=== PATIENT | female | born 1990 | race Caucasian/White ===

== ENCOUNTER 2020-11-07 16:21 | Inpatient (IN) | payer MEDICAID ==
[2020-11-07] MEDS ORDERED: Sodium Chloride 0.9% 1,000 ML IV ONE (17:05)
[2020-11-07] MEDS ORDERED: Dexamethasone 10 MG/ML SDV IVPUSH ONE (17:05)
--- NOTE | 2020-11-07 17:05 | EDM.PDOC ---
<Noble Mayo - Last Filed: 11/07/20 17:29> ED HPI GENERAL MEDICAL PROBLEM - General Chief Complaint: Respiratory Problem Stated Complaint: DIFFICULTY BREATHING Time Seen by Provider: 11/07/20 17:01 Source of Information: Reports: Patient, Family History Limitations: Reports: No Limitations - History of Present Illness INITIAL COMMENTS - FREE TEXT/NARRATIVE: 30-year-old female no past medical history presents for shortness of breath in setting of likely Covid infection. Patient notes that she was exposed to family member with Covid last week. Starting roughly 5 days ago she began to experience cough, shortness of breath, chest tightness, sore throat, fevers. Shortness of breath has worsened prompting her to seek medical attention. 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 ED EXAM, GENERAL - Physical Exam Exam: See Below Exam Limited By: No Limitations General Appearance: Alert, WD/WN, Mild Distress Ears: Hearing Grossly Normal Throat/Mouth: Normal Voice, No Airway Compromise Head: Atraumatic, Normocephalic Neck: Normal Inspection Respiratory/Chest: Lungs Clear, Normal Breath Sounds, No Accessory Muscle Use, Respiratory Distress, Other (shallow respirations) Neurological: Alert Psychiatric: Normal Affect, Normal Mood Skin Exam: Warm, Dry, Intact, Normal Color Course - Re-Assessments/Exams Free Text/Narrative Re-Assessment/Exam: 11/07/20 17:04 With hypoxia in setting of likely Covid infection. Will get labs and imaging. Will give supplemental O2. 11/07/20 17:29 On 10 L oxygen patient's O2 sats only go up to high 80s. Will trial BiPAP. We do not have high flow nasal cannula available at this time. Departure - Departure Disposition: Admitted As Inpatient 66 Clinical Impression: COVID - Discharge Information Sepsis Event Note (ED) - Evaluation Sepsis Screening Result: Possible Sepsis Risk <Akil Fox - Last Filed: 11/08/20 20:17> Course - Vital Signs Last Recorded V/S: Last Vital Signs Temp 96.9 F 11/08/20 18:00 Pulse 83 11/08/20 18:56 Resp 32 H 11/08/20 18:56 BP 96/57 L 11/08/20 18:56 Pulse Ox 96 11/08/20 18:56 - Orders/Labs/Meds Orders: Active Orders 24 hr Category Date Time Status Patient Status [ADT] Routine ADT 11/07/20 23:12 Active Medication Orders Dexamethasone (Dexamethasone 4 Mg Tab) 6 mg PO Q24H [facility] Last Admin: 11/08/20 16:35 Dose: 6 mg Documented by: PRABHAKAR Enoxaparin Sodium (Enoxaparin 40 Mg/0.4 Ml Syringe) 40 mg SUBCUT Q24H [facility] Last Admin: 11/08/20 01:41 Dose: 40 mg Documented by: KATHRYN Remdesivir 100 mg/ Sodium (Chloride) 100 mls @ 100 mls/hr IV Q24H [facility] Stop: 11/11/20 21:59 Pantoprazole Sodium (Pantoprazole 40 Mg Tab.Cr) 40 mg PO BEDTIME [facility] Labs: Laboratory Tests 11/07/20 11/07/20 11/07/20 Range/Units 17:40 18:04 18:04 WBC 7.92 (4.0-11.0) K/uL RBC 4.59 (4.30-5.90) M/uL Hgb 13.2 (12.0-16.0) g/dL Hct 42.3 (36.0-46.0) % MCV 92.2 (80.0-98.0) fL MCH 28.8 (27.0-32.0) pg MCHC 31.2 (31.0-37.0) g/dL RDW Std Deviation 49.8 (28.0-62.0) fl RDW Coeff of Carson 15 (11.0-15.0) % Plt Count 270 (150-400) K/uL MPV 11.20 (7.40-12.00) fL Neut % (Auto) 80.4 H (48.0-80.0) % Lymph % (Auto) 10.1 L (16.0-40.0) % [place] % (Auto) 9.2 (0.0-15.0) % Eos % (Auto) 0.0 (0.0-7.0) % Baso % (Auto) 0.3 (0.0-1.5) % Neut # (Auto) 6.4 H (1.4-5.7) K/uL Lymph # (Auto) 0.8 (0.6-2.4) K/uL [place] # (Auto) 0.7 (0.0-0.8) K/uL Eos # (Auto) 0.0 (0.0-0.7) K/uL Baso # (Auto) 0.0 (0.0-0.1) K/uL Nucleated RBC % 0.0 /100WBC Nucleated RBCs # 0 K/uL ESR (0-19) mm/hr INR 1.16 APTT 26.9 (18.6-31.3) SEC D-Dimer, Quantitative 1.11 H (0.0-0.50) mg/L FEU ABG pH 7.40 (7.35-7.45) ABG pCO2 36 (35-45) mmHG ABG pO2 55 L (80-105) mmHG ABG HCO3 23 (22-26) mEq/L ABG Total CO2 20.3 L (23-27) mmol/L ABG Base Excess -1.7 (-2.0-3.0) Sodium (136-145) mmol/L Potassium (3.5-5.1) mmol/L Chloride (98-107) mmol/L Carbon Dioxide (21.0-32.0) mmol/L BUN (7.0-18.0) mg/dL Creatinine (0.6-1.0) mg/dL Est Cr Clr Drug Dosing Estimated GFR (MDRD) ml/min Glucose (74-106) mg/dL Lactic Acid (0.4-2.0) mmol/L Calcium (8.5-10.1) mg/dL Magnesium (1.8-2.4) mg/dL Total Bilirubin (0.2-1.0) mg/dL Direct Bilirubin (0.0-0.5) mg/dL AST (15-37) IU/L ALT (14-63) IU/L Alkaline Phosphatase (46-116) U/L Troponin I (0.000-0.056) ng/mL C-Reactive Protein (0.00-0.90) mg/dL Total Protein (6.4-8.2) g/dL Albumin (3.4-5.0) g/dL Globulin (2.6-4.0) g/dL Albumin/Globulin Ratio (0.9-1.6) SARS-CoV-2 RNA (ANTONI) (NEGATIVE) 11/07/20 11/07/20 11/07/20 Range/Units 18:04 18:04 18:04 WBC (4.0-11.0) K/uL RBC (4.30-5.90) M/uL Hgb (12.0-16.0) g/dL Hct (36.0-46.0) % MCV (80.0-98.0) fL MCH (27.0-32.0) pg MCHC (31.0-37.0) g/dL RDW Std Deviation (28.0-62.0) fl RDW Coeff of Carson (11.0-15.0) % Plt Count (150-400) K/uL MPV (7.40-12.00) fL Neut % (Auto) (48.0-80.0) % Lymph % (Auto) (16.0-40.0) % [place] % (Auto) (0.0-15.0) % Eos % (Auto) (0.0-7.0) % Baso % (Auto) (0.0-1.5) % Neut # (Auto) (1.4-5.7) K/uL Lymph # (Auto) (0.6-2.4) K/uL [place] # (Auto) (0.0-0.8) K/uL Eos # (Auto) (0.0-0.7) K/uL Baso # (Auto) (0.0-0.1) K/uL Nucleated RBC % /100WBC Nucleated RBCs # K/uL ESR 105 H (0-19) mm/hr INR APTT (18.6-31.3) SEC D-Dimer, Quantitative (0.0-0.50) mg/L FEU ABG pH (7.35-7.45) ABG pCO2 (35-45) mmHG ABG pO2 (80-105) mmHG ABG HCO3 (22-26) mEq/L ABG Total CO2 (23-27) mmol/L ABG Base Excess (-2.0-3.0) Sodium 143 (136-145) mmol/L Potassium 3.5 (3.5-5.1) mmol/L Chloride 104 (98-107) mmol/L Carbon Dioxide 25.2 (21.0-32.0) mmol/L BUN 13 (7.0-18.0) mg/dL Creatinine 0.8 (0.6-1.0) mg/dL Est Cr Clr Drug Dosing TNP Estimated GFR (MDRD) > 60.0 ml/min Glucose 88 (74-106) mg/dL Lactic Acid 1.3 (0.4-2.0) mmol/L Calcium 8.7 (8.5-10.1) mg/dL Magnesium 2.9 H (1.8-2.4) mg/dL Total Bilirubin 0.8 (0.2-1.0) mg/dL Direct Bilirubin (0.0-0.5) mg/dL AST 241 H (15-37) IU/L ALT 197 H (14-63) IU/L Alkaline Phosphatase 104 (46-116) U/L Troponin I < 0.050 (0.000-0.056) ng/mL C-Reactive Protein 16.60 H (0.00-0.90) mg/dL Total Protein 7.2 (6.4-8.2) g/dL Albumin 2.9 L (3.4-5.0) g/dL Globulin 4.3 H (2.6-4.0) g/dL Albumin/Globulin Ratio 0.7 L (0.9-1.6) SARS-CoV-2 RNA (ANTONI) (NEGATIVE) 11/07/20 11/07/20 Range/Units 19:10 21:48 WBC (4.0-11.0) K/uL RBC (4.30-5.90) M/uL Hgb (12.0-16.0) g/dL Hct (36.0-46.0) % MCV (80.0-98.0) fL MCH (27.0-32.0) pg MCHC (31.0-37.0) g/dL RDW Std Deviation (28.0-62.0) fl RDW Coeff of [place] (11.0-15.0) % Plt Count (150-400) K/uL MPV (7.40-12.00) fL Neut % (Auto) (48.0-80.0) % Lymph % (Auto) (16.0-40.0) % [place] % (Auto) (0.0-15.0) % Eos % (Auto) (0.0-7.0) % Baso % (Auto) (0.0-1.5) % Neut # (Auto) (1.4-5.7) K/uL Lymph # (Auto) (0.6-2.4) K/uL [place] # (Auto) (0.0-0.8) K/uL Eos # (Auto) (0.0-0.7) K/uL Baso # (Auto) (0.0-0.1) K/uL Nucleated RBC % /100WBC Nucleated RBCs # K/uL ESR (0-19) mm/hr INR APTT (18.6-31.3) SEC D-Dimer, Quantitative (0.0-0.50) mg/L FEU ABG pH (7.35-7.45) ABG pCO2 (35-45) mmHG ABG pO2 (80-105) mmHG ABG HCO3 (22-26) mEq/L ABG Total CO2 (23-27) mmol/L ABG Base Excess (-2.0-3.0) Sodium 143 (136-145) mmol/L Potassium 4.5 (3.5-5.1) mmol/L Chloride 107 (98-107) mmol/L Carbon Dioxide 27.2 (21.0-32.0) mmol/L BUN 11 (7.0-18.0) mg/dL Creatinine 0.7 (0.6-1.0) mg/dL Est Cr Clr Drug Dosing TNP Estimated GFR (MDRD) > 60.0 ml/min Glucose 90 (74-106) mg/dL Lactic Acid (0.4-2.0) mmol/L Calcium 7.9 L (8.5-10.1) mg/dL Magnesium (1.8-2.4) mg/dL Total Bilirubin 0.7 (0.2-1.0) mg/dL Direct Bilirubin 0.40 (0.0-0.5) mg/dL AST 202 H (15-37) IU/L ALT 166 H (14-63) IU/L Alkaline Phosphatase 94 (46-116) U/L Troponin I (0.000-0.056) ng/mL C-Reactive Protein (0.00-0.90) mg/dL Total Protein 6.6 (6.4-8.2) g/dL Albumin 2.6 L (3.4-5.0) g/dL Globulin 4.0 (2.6-4.0) g/dL Albumin/Globulin Ratio 0.7 L (0.9-1.6) SARS-CoV-2 RNA (ANTONI) POSITIVE H (NEGATIVE) Meds: Medications Generic Name Dose Route Start Last Admin Trade Name Freq PRN Reason Stop Dose Admin Dexamethasone 6 mg 11/08/20 17:00 11/08/20 16:35 Dexamethasone 4 Mg Tab PO 6 mg Q24H ANTOLIN Administration Enoxaparin Sodium 40 mg 11/08/20 01:15 11/08/20 01:41 Enoxaparin 40 Mg/0.4 Ml Syringe SUBCUT 40 mg Q24H ANTOLIN Administration Remdesivir 100 mg/ Sodium 100 mls @ 100 mls/hr 11/08/20 21:00 Chloride IV 11/11/20 21:59 Q24H ANTOLIN Pantoprazole Sodium 40 mg 11/08/20 21:00 Pantoprazole 40 Mg Tab.Cr PO BEDTIME ANTOLIN Discontinued Medications Generic Name Dose Route Start Last Admin Trade Name Freq PRN Reason Stop Dose Admin Acetaminophen 1,000 mg 11/07/20 17:05 11/07/20 19:03 Acetaminophen 500 Mg Tab PO 11/07/20 17:06 Not Given ONETIME ONE Dexamethasone 6 mg 11/07/20 17:05 11/07/20 17:35 Dexamethasone 10 Mg/Ml Sdv IVPUSH 11/07/20 17:06 6 mg ONETIME ONE Administration Haloperidol Lactate 2 mg 11/08/20 01:08 11/08/20 01:17 Haloperidol Lactate 5 Mg/Ml Sdv IM 11/08/20 01:09 2 mg ONETIME ONE Administration Sodium Chloride 1,000 mls @ 250 mls/hr 11/07/20 17:05 11/07/20 17:35 Normal Saline IV 11/07/20 21:04 250 mls/hr .Bolus ONE Administration Remdesivir 200 mg/ Sodium 250 mls @ 250 mls/hr 11/07/20 21:31 11/07/20 22:00 Chloride IV 11/07/20 21:32 250 mls/hr ONETIME ONE Administration Iopamidol 100 ml 11/07/20 19:28 11/07/20 20:34 Iopamidol 755 Mg/Ml 100 Ml Bottle IVPUSH 11/07/20 19:29 100 ml ONETIME ONE Administration Lorazepam 1 mg 11/08/20 00:16 11/08/20 00:33 Lorazepam 2 Mg/Ml Sdv IVPUSH 11/08/20 00:17 1 mg ONETIME ONE Administration Potassium Chloride 40 meq 11/08/20 19:39 Potassium Chloride 20 Meq Tab.Er PO 11/08/20 19:40 ONETIME ONE - Re-Assessments/Exams Free Text/Narrative Re-Assessment/Exam: 11/07/20 23:12 Patient was taken off BiPAP to go to CT scan was satting well on the nonrebreather however had to be placed back on BiPAP. Patient will be admitted to the ICU. Patient started on remdesivir. Departure - Departure Time of Disposition: 23:10 Critical Care Note - Critical Care Note Total Time (mins): 55 Comments: Critical Care Procedure Note Authorized and Performed by: Dr. Fox Total critical care time: Approximately Due to a high probability of clinically significant, life threatening deterioration, the patient required my highest level of preparedness to intervene emergently and I personally spent this critical care time directly and personally managing the patient. This critical care time included obtaining a history; examining the patient; pulse oximetry; ordering and review of studies; arranging urgent treatment with development of a management plan; evaluation of patient's response to treatment; frequent reassessment; and, discussions with other providers. This critical care time was performed to assess and manage the high probability of imminent, life-threatening deterioration that could result in multi-organ failure. It was exclusive of separately billable procedures and treating other patients and teaching time. - My Orders Last 24 Hours: My Active Orders 11/07/20 23:12 Patient Status [ADT] Routine - Assessment/Plan Last 24 Hours: My Active Orders 11/07/20 23:12 Patient Status [ADT] Routine
[2020-11-07] MEDS: Acetaminophen 500 MG Tab PO ONE ×2 (17:36→19:03)
[2020-11-07 18:49] LABS: BLOOD UREA NITROGEN,BUN 13 mg/dL (7.0-18.0); CARBON DIOXIDE,CO2 25.2 mmol/L (21.0-32.0); CHLORIDE,CL 104 mmol/L (98-107); GLUCOSE RANDOM 88 mg/dL (74-106); POTASSIUM,K 3.5 mmol/L (3.5-5.1); SODIUM,NA 143 mmol/L (136-145)
[2020-11-07] MEDS ORDERED: Iopamidol 755 Mg/ML 100 ML Bottle IVPUSH ONE (19:28)
--- NOTE | 2020-11-07 19:44 | CR ---
HISTORY: Hypoxia. Suspected COVID infection. TECHNIQUE: Portable frontal view the chest. COMPARISON: None. FINDINGS: Moderately extensive airspace consolidation in both lungs with interstitial thickening. No pleural effusion or pneumothorax. Cardiomediastinal silhouette is partially obscured but is unremarkable for technique. Silex right curvature of the thoracolumbar spine. IMPRESSION: Bilateral airspace disease likely from pneumonia, edema, or acute lung injury. Dictated by Carlo Mariano MD @ 11/07/2020 7:43:03 PM (Electronically Signed)
--- NOTE | 2020-11-07 21:18 | CT ---
INDICATION: Shortness of breath and hypoxia. Covid positive. Elevated D-dimer. CT CHEST WITH CONTRAST TECHNIQUE: Multidetector CT imaging was performed through the chest following intravenous contrast administration using 100 mL Isovue 370. Coronal and sagittal reconstructions were generated. COMPARISON: None. FINDINGS: Lungs and airways: Extensive areas of consolidation in both lungs involving all pulmonary lobes, generally worse in the left lung than the right. Air bronchograms are present. Central airways are patent. Pleura and pleural spaces: No pleural effusions or pneumothorax. Heart and mediastinum: Upper normal heart size. No significant pericardial effusion. No pathologically enlarged mediastinal lymph nodes. Vascular structures: No filling defects in the pulmonary arterial tree to suggest pulmonary emboli. Normal caliber thoracic aorta. Chest wall and axillae: No mass or axillary lymphadenopathy. Osseous structures: Normal for age. No acute fractures identified. Upper abdomen: Diffuse fatty infiltration of the liver. Cholelithiasis. IMPRESSION: 1. Nonspecific extensive bilateral lung consolidation, generally worse on the left than the right, most likely representing pneumonia. Severe COVID-19 pneumonia is a consideration. 2. No pulmonary emboli identified. 3. Cholelithiasis. 4. Fatty infiltration of the liver. SURY MURILLO MD [employer] Dictated by Chad Murillo MD @ 11/07/2020 9:12:59 PM Please note that all CT scans at this facility use dose modulation, iterative reconstruction, and/or weight-based dosing when appropriate to reduce radiation dose to as low as reasonably achievable. Dictated by: Chad Murillo MD @ 11/07/2020 21:15:56 (Electronically Signed)
[2020-11-07] MEDS ORDERED: REMDESIVIR 200 MG in Sodium Chloride 0.9% 250 ML IV ONE (21:31)
[2020-11-07 22:18] LABS: BLOOD UREA NITROGEN,BUN 11 mg/dL (7.0-18.0); CARBON DIOXIDE,CO2 27.2 mmol/L (21.0-32.0); CHLORIDE,CL 107 mmol/L (98-107); GLUCOSE RANDOM 90 mg/dL (74-106); POTASSIUM,K 4.5 mmol/L (3.5-5.1); SODIUM,NA 143 mmol/L (136-145)
[2020-11-08] MEDS ORDERED: LORazepam 2 MG/ML SDV IVPUSH ONE (00:16)
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
[2020-11-08] MEDS ORDERED: Haloperidol Lactate 5 MG/ML SDV IM ONE (01:08)
[2020-11-08] MEDS: Enoxaparin 40 MG/0.4 ML Syringe SUBCUT SCH (01:41)
[2020-11-08 07:32] LABS: BLOOD UREA NITROGEN,BUN 10 mg/dL (7.0-18.0); CARBON DIOXIDE,CO2 25.7 mmol/L (21.0-32.0); CHLORIDE,CL 108 mmol/L (98-107); GLUCOSE RANDOM 102 mg/dL (74-106); POTASSIUM,K 3.5 mmol/L (3.5-5.1); SODIUM,NA 145 mmol/L (136-145)
--- NOTE | 2020-11-08 07:37 | PN ---
THC Physician - Brief Progress ApprIIDNYNSYN82/08/2021 07:36[facility] Mouna walton, [place] - TRES (LYDIA) - BETI TUCKER, ALDOID+Date of Service 11/08/2020 07:36HPI/Ev ents of Note 30-year-old female admitted with novel coronavirus infection, acute hypoxic respiratory failure requiring noninvasive positive pressure ventilation.Past history of developmental delay.On ca sharron assessment patient awake seems restless on nonrebreather facemask 100%, SPO2 88% lab dataChest x -ray bilateral patchy alveolar (changes more prominent in the right middle and left lower lobe]CT pul monary angiogram did not reveal a pulmonary emboliABG 7.4 0/36/85AST/ALT 241/197 9 CRP 16.6Assessment and plan #1 acute hypoxic respiratory failure-related to viral pneumonitis most likely-initiated on remdesivir and dexamethasone, patient patient cooperated for BiPAP initiation with caregiver at [facility] de will allow for the same, haloperidol as needed for restlessness #2 elevated liver enzymes-?cause-u ltrasound liver if LFT increasingDVT prophylaxis subcutaneous enoxaparinInterventions Major-Respirato ry failure - evaluation and management
--- NOTE | 2020-11-08 13:37 | PCM.PN ---
- General Info Date of Service: 11/08/20 - Review of Systems Systems Review Comment:: nonverbal - Patient Data Vitals - Most Recent: Last Vital Signs Temp 36.6 C 11/08/20 13:00 Pulse 82 11/08/20 13:00 Resp 28 H 11/08/20 13:00 BP 112/86 11/08/20 13:00 Pulse Ox 94 L 11/08/20 07:38 Weight - Most Recent: 73.028 kg I&O - Last 24 Hours: Intake & Output 11/07/20 11/08/20 11/08/20 22:59 06:59 14:59 Intake Total 0 Output Total 0 Balance 0 Lab Results Last 24 Hours: Laboratory Results - last 24 hr 11/07/20 11/07/20 11/07/20 Range/Units 17:40 18:04 18:04 WBC 7.92 (4.0-11.0) K/uL RBC 4.59 (4.30-5.90) M/uL Hgb 13.2 (12.0-16.0) g/dL Hct 42.3 (36.0-46.0) % MCV 92.2 (80.0-98.0) fL MCH 28.8 (27.0-32.0) pg MCHC 31.2 (31.0-37.0) g/dL RDW Std Deviation 49.8 (28.0-62.0) fl RDW Coeff of Carson 15 (11.0-15.0) % Plt Count 270 (150-400) K/uL MPV 11.20 (7.40-12.00) fL Neut % (Auto) 80.4 H (48.0-80.0) % Lymph % (Auto) 10.1 L (16.0-40.0) % [place] % (Auto) 9.2 (0.0-15.0) % Eos % (Auto) 0.0 (0.0-7.0) % Baso % (Auto) 0.3 (0.0-1.5) % Neut # (Auto) 6.4 H (1.4-5.7) K/uL Lymph # (Auto) 0.8 (0.6-2.4) K/uL [place] # (Auto) 0.7 (0.0-0.8) K/uL Eos # (Auto) 0.0 (0.0-0.7) K/uL Baso # (Auto) 0.0 (0.0-0.1) K/uL Add Manual Diff Neutrophils % (Manual) (48.0-80.0) % Band Neutrophils % % Lymphocytes % (Manual) (16.0-40.0) % Monocytes % (Manual) (0.0-15.0) % Eosinophils % (Manual) (0.0-7.0) % Metamyelocytes % % Nucleated RBC % 0.0 /100WBC Absolute Seg Neuts (1.4-5.7) Band Neutrophils # Lymphocytes # (Manual) (0.6-2.4) Monocytes # (Manual) (0.0-0.8) Eosinophils # (Manual) (0.0-0.7) Absolute Metamyelocyte Nucleated RBCs # 0 K/uL ESR (0-19) mm/hr INR 1.16 APTT 26.9 (18.6-31.3) SEC D-Dimer, Quantitative 1.11 H (0.0-0.50) mg/L FEU ABG pH 7.40 (7.35-7.45) ABG pCO2 36 (35-45) mmHG ABG pO2 55 L (80-105) mmHG ABG HCO3 23 (22-26) mEq/L ABG Total CO2 20.3 L (23-27) mmol/L ABG Base Excess -1.7 (-2.0-3.0) Sodium (136-145) mmol/L Potassium (3.5-5.1) mmol/L Chloride (98-107) mmol/L Carbon Dioxide (21.0-32.0) mmol/L BUN (7.0-18.0) mg/dL Creatinine (0.6-1.0) mg/dL Est Cr Clr Drug Dosing Estimated GFR (MDRD) ml/min Glucose (74-106) mg/dL Lactic Acid (0.4-2.0) mmol/L Calcium (8.5-10.1) mg/dL Magnesium (1.8-2.4) mg/dL Total Bilirubin (0.2-1.0) mg/dL Direct Bilirubin (0.0-0.5) mg/dL AST (15-37) IU/L ALT (14-63) IU/L Alkaline Phosphatase (46-116) U/L Troponin I (0.000-0.056) ng/mL C-Reactive Protein (0.00-0.90) mg/dL Total Protein (6.4-8.2) g/dL Albumin (3.4-5.0) g/dL Globulin (2.6-4.0) g/dL Albumin/Globulin Ratio (0.9-1.6) SARS-CoV-2 RNA (ANTONI) (NEGATIVE) 11/07/20 11/07/20 11/07/20 Range/Units 18:04 18:04 18:04 WBC (4.0-11.0) K/uL RBC (4.30-5.90) M/uL Hgb (12.0-16.0) g/dL Hct (36.0-46.0) % MCV (80.0-98.0) fL MCH (27.0-32.0) pg MCHC (31.0-37.0) g/dL RDW Std Deviation (28.0-62.0) fl RDW Coeff of Carson (11.0-15.0) % Plt Count (150-400) K/uL MPV (7.40-12.00) fL Neut % (Auto) (48.0-80.0) % Lymph % (Auto) (16.0-40.0) % [place] % (Auto) (0.0-15.0) % Eos % (Auto) (0.0-7.0) % Baso % (Auto) (0.0-1.5) % Neut # (Auto) (1.4-5.7) K/uL Lymph # (Auto) (0.6-2.4) K/uL [place] # (Auto) (0.0-0.8) K/uL Eos # (Auto) (0.0-0.7) K/uL Baso # (Auto) (0.0-0.1) K/uL Add Manual Diff Neutrophils % (Manual) (48.0-80.0) % Band Neutrophils % % Lymphocytes % (Manual) (16.0-40.0) % Monocytes % (Manual) (0.0-15.0) % Eosinophils % (Manual) (0.0-7.0) % Metamyelocytes % % Nucleated RBC % /100WBC Absolute Seg Neuts (1.4-5.7) Band Neutrophils # Lymphocytes # (Manual) (0.6-2.4) Monocytes # (Manual) (0.0-0.8) Eosinophils # (Manual) (0.0-0.7) Absolute Metamyelocyte Nucleated RBCs # K/uL ESR 105 H (0-19) mm/hr INR APTT (18.6-31.3) SEC D-Dimer, Quantitative (0.0-0.50) mg/L FEU ABG pH (7.35-7.45) ABG pCO2 (35-45) mmHG ABG pO2 (80-105) mmHG ABG HCO3 (22-26) mEq/L ABG Total CO2 (23-27) mmol/L ABG Base Excess (-2.0-3.0) Sodium 143 (136-145) mmol/L Potassium 3.5 (3.5-5.1) mmol/L Chloride 104 (98-107) mmol/L Carbon Dioxide 25.2 (21.0-32.0) mmol/L BUN 13 (7.0-18.0) mg/dL Creatinine 0.8 (0.6-1.0) mg/dL Est Cr Clr Drug Dosing TNP Estimated GFR (MDRD) > 60.0 ml/min Glucose 88 (74-106) mg/dL Lactic Acid 1.3 (0.4-2.0) mmol/L Calcium 8.7 (8.5-10.1) mg/dL Magnesium 2.9 H (1.8-2.4) mg/dL Total Bilirubin 0.8 (0.2-1.0) mg/dL Direct Bilirubin (0.0-0.5) mg/dL AST 241 H (15-37) IU/L ALT 197 H (14-63) IU/L Alkaline Phosphatase 104 (46-116) U/L Troponin I < 0.050 (0.000-0.056) ng/mL C-Reactive Protein 16.60 H (0.00-0.90) mg/dL Total Protein 7.2 (6.4-8.2) g/dL Albumin 2.9 L (3.4-5.0) g/dL Globulin 4.3 H (2.6-4.0) g/dL Albumin/Globulin Ratio 0.7 L (0.9-1.6) SARS-CoV-2 RNA (ANTONI) (NEGATIVE) 11/07/20 11/07/20 11/08/20 Range/Units 19:10 21:48 05:23 WBC 6.53 (4.0-11.0) K/uL RBC 4.25 L (4.30-5.90) M/uL Hgb 12.3 (12.0-16.0) g/dL Hct 39.5 (36.0-46.0) % MCV 92.9 (80.0-98.0) fL MCH 28.9 (27.0-32.0) pg MCHC 31.1 (31.0-37.0) g/dL RDW Std Deviation 50.3 (28.0-62.0) fl RDW Coeff of Carson 15 (11.0-15.0) % Plt Count 298 (150-400) K/uL MPV 12.10 H (7.40-12.00) fL Neut % (Auto) (48.0-80.0) % Lymph % (Auto) (16.0-40.0) % [place] % (Auto) (0.0-15.0) % Eos % (Auto) (0.0-7.0) % Baso % (Auto) (0.0-1.5) % Neut # (Auto) (1.4-5.7) K/uL Lymph # (Auto) (0.6-2.4) K/uL [place] # (Auto) (0.0-0.8) K/uL Eos # (Auto) (0.0-0.7) K/uL Baso # (Auto) (0.0-0.1) K/uL Add Manual Diff YES Neutrophils % (Manual) 76 (48.0-80.0) % Band Neutrophils % 2 % Lymphocytes % (Manual) 16 (16.0-40.0) % Monocytes % (Manual) 4 (0.0-15.0) % Eosinophils % (Manual) 1 (0.0-7.0) % Metamyelocytes % 1 % Nucleated RBC % 0.6 /100WBC Absolute Seg Neuts 5.0 (1.4-5.7) Band Neutrophils # 0.1 Lymphocytes # (Manual) 1.0 (0.6-2.4) Monocytes # (Manual) 0.3 (0.0-0.8) Eosinophils # (Manual) 0.1 (0.0-0.7) Absolute Metamyelocyte 0.1 Nucleated RBCs # 0 K/uL ESR (0-19) mm/hr INR APTT (18.6-31.3) SEC D-Dimer, Quantitative (0.0-0.50) mg/L FEU ABG pH (7.35-7.45) ABG pCO2 (35-45) mmHG ABG pO2 (80-105) mmHG ABG HCO3 (22-26) mEq/L ABG Total CO2 (23-27) mmol/L ABG Base Excess (-2.0-3.0) Sodium 143 (136-145) mmol/L Potassium 4.5 (3.5-5.1) mmol/L Chloride 107 (98-107) mmol/L Carbon Dioxide 27.2 (21.0-32.0) mmol/L BUN 11 (7.0-18.0) mg/dL Creatinine 0.7 (0.6-1.0) mg/dL Est Cr Clr Drug Dosing TNP Estimated GFR (MDRD) > 60.0 ml/min Glucose 90 (74-106) mg/dL Lactic Acid (0.4-2.0) mmol/L Calcium 7.9 L (8.5-10.1) mg/dL Magnesium (1.8-2.4) mg/dL Total Bilirubin 0.7 (0.2-1.0) mg/dL Direct Bilirubin 0.40 (0.0-0.5) mg/dL AST 202 H (15-37) IU/L ALT 166 H (14-63) IU/L Alkaline Phosphatase 94 (46-116) U/L Troponin I (0.000-0.056) ng/mL C-Reactive Protein (0.00-0.90) mg/dL Total Protein 6.6 (6.4-8.2) g/dL Albumin 2.6 L (3.4-5.0) g/dL Globulin 4.0 (2.6-4.0) g/dL Albumin/Globulin Ratio 0.7 L (0.9-1.6) SARS-CoV-2 RNA (ANTONI) POSITIVE H (NEGATIVE) 11/08/20 Range/Units 05:23 WBC (4.0-11.0) K/uL RBC (4.30-5.90) M/uL Hgb (12.0-16.0) g/dL Hct (36.0-46.0) % MCV (80.0-98.0) fL MCH (27.0-32.0) pg MCHC (31.0-37.0) g/dL RDW Std Deviation (28.0-62.0) fl RDW Coeff of [place] (11.0-15.0) % Plt Count (150-400) K/uL MPV (7.40-12.00) fL Neut % (Auto) (48.0-80.0) % Lymph % (Auto) (16.0-40.0) % [place] % (Auto) (0.0-15.0) % Eos % (Auto) (0.0-7.0) % Baso % (Auto) (0.0-1.5) % Neut # (Auto) (1.4-5.7) K/uL Lymph # (Auto) (0.6-2.4) K/uL [place] # (Auto) (0.0-0.8) K/uL Eos # (Auto) (0.0-0.7) K/uL Baso # (Auto) (0.0-0.1) K/uL Add Manual Diff Neutrophils % (Manual) (48.0-80.0) % Band Neutrophils % % Lymphocytes % (Manual) (16.0-40.0) % Monocytes % (Manual) (0.0-15.0) % Eosinophils % (Manual) (0.0-7.0) % Metamyelocytes % % Nucleated RBC % /100WBC Absolute Seg Neuts (1.4-5.7) Band Neutrophils # Lymphocytes # (Manual) (0.6-2.4) Monocytes # (Manual) (0.0-0.8) Eosinophils # (Manual) (0.0-0.7) Absolute Metamyelocyte Nucleated RBCs # K/uL ESR (0-19) mm/hr INR APTT (18.6-31.3) SEC D-Dimer, Quantitative (0.0-0.50) mg/L FEU ABG pH (7.35-7.45) ABG pCO2 (35-45) mmHG ABG pO2 (80-105) mmHG ABG HCO3 (22-26) mEq/L ABG Total CO2 (23-27) mmol/L ABG Base Excess (-2.0-3.0) Sodium 145 (136-145) mmol/L Potassium 3.5 (3.5-5.1) mmol/L Chloride 108 H (98-107) mmol/L Carbon Dioxide 25.7 (21.0-32.0) mmol/L BUN 10 (7.0-18.0) mg/dL Creatinine 0.7 (0.6-1.0) mg/dL Est Cr Clr Drug Dosing 84.41 Estimated GFR (MDRD) > 60.0 ml/min Glucose 102 (74-106) mg/dL Lactic Acid (0.4-2.0) mmol/L Calcium 8.2 L (8.5-10.1) mg/dL Magnesium (1.8-2.4) mg/dL Total Bilirubin 0.6 (0.2-1.0) mg/dL Direct Bilirubin (0.0-0.5) mg/dL AST 152 H (15-37) IU/L ALT 153 H (14-63) IU/L Alkaline Phosphatase 90 (46-116) U/L Troponin I (0.000-0.056) ng/mL C-Reactive Protein (0.00-0.90) mg/dL Total Protein 6.5 (6.4-8.2) g/dL Albumin 2.6 L (3.4-5.0) g/dL Globulin 3.9 (2.6-4.0) g/dL Albumin/Globulin Ratio 0.7 L (0.9-1.6) SARS-CoV-2 RNA (ANTONI) (NEGATIVE) Med Orders - Current: Current Medications Dexamethasone (Dexamethasone 4 Mg Tab) 6 mg PO Q24H [facility] Enoxaparin Sodium (Enoxaparin 40 Mg/0.4 Ml Syringe) 40 mg SUBCUT Q24H [facility] Last Admin: 11/08/20 01:41 Dose: 40 mg Documented by: Remdesivir 100 mg/ Sodium (Chloride) 100 mls @ 100 mls/hr IV Q24H ANTOLIN Stop: 11/11/20 21:59 Discontinued Medications Acetaminophen (Acetaminophen 500 Mg Tab) 1,000 mg PO ONETIME ONE Stop: 11/07/20 17:06 Last Admin: 11/07/20 19:03 Dose: Not Given Documented by: Dexamethasone (Dexamethasone 10 Mg/Ml Sdv) 6 mg IVPUSH ONETIME ONE Stop: 11/07/20 17:06 Last Admin: 11/07/20 17:35 Dose: 6 mg Documented by: Haloperidol Lactate (Haloperidol Lactate 5 Mg/Ml Sdv) 2 mg IM ONETIME ONE Stop: 11/08/20 01:09 Last Admin: 11/08/20 01:17 Dose: 2 mg Documented by: Sodium Chloride (Normal Saline) 1,000 mls @ 250 mls/hr IV .Bolus ONE Stop: 11/07/20 21:04 Last Admin: 11/07/20 17:35 Dose: 250 mls/hr Documented by: Remdesivir 200 mg/ Sodium (Chloride) 250 mls @ 250 mls/hr IV ONETIME ONE Stop: 11/07/20 21:32 Last Admin: 11/07/20 22:00 Dose: 250 mls/hr Documented by: Iopamidol (Iopamidol 755 Mg/Ml 100 Ml Bottle) 100 ml IVPUSH ONETIME ONE Stop: 11/07/20 19:29 Last Admin: 11/07/20 20:34 Dose: 100 ml Documented by: Lorazepam (Lorazepam 2 Mg/Ml Sdv) 1 mg IVPUSH ONETIME ONE Stop: 11/08/20 00:17 Last Admin: 11/08/20 00:33 Dose: 1 mg Documented by: - Exam General: Lethargic Lungs: Normal Respiratory Effort, Rhonchi Cardiovascular: Regular Rate, Regular Rhythm GI/Abdominal Exam: Soft, Non-Tender Extremities: No Pedal Edema Skin: Warm, Dry, Intact - Patient Data Lab Results Last 24 hrs: Laboratory Results - last 24 hr 11/07/20 11/07/20 11/07/20 Range/Units 17:40 18:04 18:04 WBC 7.92 (4.0-11.0) K/uL RBC 4.59 (4.30-5.90) M/uL Hgb 13.2 (12.0-16.0) g/dL Hct 42.3 (36.0-46.0) % MCV 92.2 (80.0-98.0) fL MCH 28.8 (27.0-32.0) pg MCHC 31.2 (31.0-37.0) g/dL RDW Std Deviation 49.8 (28.0-62.0) fl RDW Coeff of [place] 15 (11.0-15.0) % Plt Count 270 (150-400) K/uL MPV 11.20 (7.40-12.00) fL Neut % (Auto) 80.4 H (48.0-80.0) % Lymph % (Auto) 10.1 L (16.0-40.0) % [place] % (Auto) 9.2 (0.0-15.0) % Eos % (Auto) 0.0 (0.0-7.0) % Baso % (Auto) 0.3 (0.0-1.5) % Neut # (Auto) 6.4 H (1.4-5.7) K/uL Lymph # (Auto) 0.8 (0.6-2.4) K/uL [place] # (Auto) 0.7 (0.0-0.8) K/uL Eos # (Auto) 0.0 (0.0-0.7) K/uL Baso # (Auto) 0.0 (0.0-0.1) K/uL Add Manual Diff Neutrophils % (Manual) (48.0-80.0) % Band Neutrophils % % Lymphocytes % (Manual) (16.0-40.0) % Monocytes % (Manual) (0.0-15.0) % Eosinophils % (Manual) (0.0-7.0) % Metamyelocytes % % Nucleated RBC % 0.0 /100WBC Absolute Seg Neuts (1.4-5.7) Band Neutrophils # Lymphocytes # (Manual) (0.6-2.4) Monocytes # (Manual) (0.0-0.8) Eosinophils # (Manual) (0.0-0.7) Absolute Metamyelocyte Nucleated RBCs # 0 K/uL ESR (0-19) mm/hr INR 1.16 APTT 26.9 (18.6-31.3) SEC D-Dimer, Quantitative 1.11 H (0.0-0.50) mg/L FEU ABG pH 7.40 (7.35-7.45) ABG pCO2 36 (35-45) mmHG ABG pO2 55 L (80-105) mmHG ABG HCO3 23 (22-26) mEq/L ABG Total CO2 20.3 L (23-27) mmol/L ABG Base Excess -1.7 (-2.0-3.0) Sodium (136-145) mmol/L Potassium (3.5-5.1) mmol/L Chloride (98-107) mmol/L Carbon Dioxide (21.0-32.0) mmol/L BUN (7.0-18.0) mg/dL Creatinine (0.6-1.0) mg/dL Est Cr Clr Drug Dosing Estimated GFR (MDRD) ml/min Glucose (74-106) mg/dL Lactic Acid (0.4-2.0) mmol/L Calcium (8.5-10.1) mg/dL Magnesium (1.8-2.4) mg/dL Total Bilirubin (0.2-1.0) mg/dL Direct Bilirubin (0.0-0.5) mg/dL AST (15-37) IU/L ALT (14-63) IU/L Alkaline Phosphatase (46-116) U/L Troponin I (0.000-0.056) ng/mL C-Reactive Protein (0.00-0.90) mg/dL Total Protein (6.4-8.2) g/dL Albumin (3.4-5.0) g/dL Globulin (2.6-4.0) g/dL Albumin/Globulin Ratio (0.9-1.6) SARS-CoV-2 RNA (ANTONI) (NEGATIVE) 11/07/20 11/07/20 11/07/20 Range/Units 18:04 18:04 18:04 WBC (4.0-11.0) K/uL RBC (4.30-5.90) M/uL Hgb (12.0-16.0) g/dL Hct (36.0-46.0) % MCV (80.0-98.0) fL MCH (27.0-32.0) pg MCHC (31.0-37.0) g/dL RDW Std Deviation (28.0-62.0) fl RDW Coeff of [place] (11.0-15.0) % Plt Count (150-400) K/uL MPV (7.40-12.00) fL Neut % (Auto) (48.0-80.0) % Lymph % (Auto) (16.0-40.0) % [place] % (Auto) (0.0-15.0) % Eos % (Auto) (0.0-7.0) % Baso % (Auto) (0.0-1.5) % Neut # (Auto) (1.4-5.7) K/uL Lymph # (Auto) (0.6-2.4) K/uL [place] # (Auto) (0.0-0.8) K/uL Eos # (Auto) (0.0-0.7) K/uL Baso # (Auto) (0.0-0.1) K/uL Add Manual Diff Neutrophils % (Manual) (48.0-80.0) % Band Neutrophils % % Lymphocytes % (Manual) (16.0-40.0) % Monocytes % (Manual) (0.0-15.0) % Eosinophils % (Manual) (0.0-7.0) % Metamyelocytes % % Nucleated RBC % /100WBC Absolute Seg Neuts (1.4-5.7) Band Neutrophils # Lymphocytes # (Manual) (0.6-2.4) Monocytes # (Manual) (0.0-0.8) Eosinophils # (Manual) (0.0-0.7) Absolute Metamyelocyte Nucleated RBCs # K/uL ESR 105 H (0-19) mm/hr INR APTT (18.6-31.3) SEC D-Dimer, Quantitative (0.0-0.50) mg/L FEU ABG pH (7.35-7.45) ABG pCO2 (35-45) mmHG ABG pO2 (80-105) mmHG ABG HCO3 (22-26) mEq/L ABG Total CO2 (23-27) mmol/L ABG Base Excess (-2.0-3.0) Sodium 143 (136-145) mmol/L Potassium 3.5 (3.5-5.1) mmol/L Chloride 104 (98-107) mmol/L Carbon Dioxide 25.2 (21.0-32.0) mmol/L BUN 13 (7.0-18.0) mg/dL Creatinine 0.8 (0.6-1.0) mg/dL Est Cr Clr Drug Dosing TNP Estimated GFR (MDRD) > 60.0 ml/min Glucose 88 (74-106) mg/dL Lactic Acid 1.3 (0.4-2.0) mmol/L Calcium 8.7 (8.5-10.1) mg/dL Magnesium 2.9 H (1.8-2.4) mg/dL Total Bilirubin 0.8 (0.2-1.0) mg/dL Direct Bilirubin (0.0-0.5) mg/dL AST 241 H (15-37) IU/L ALT 197 H (14-63) IU/L Alkaline Phosphatase 104 (46-116) U/L Troponin I < 0.050 (0.000-0.056) ng/mL C-Reactive Protein 16.60 H (0.00-0.90) mg/dL Total Protein 7.2 (6.4-8.2) g/dL Albumin 2.9 L (3.4-5.0) g/dL Globulin 4.3 H (2.6-4.0) g/dL Albumin/Globulin Ratio 0.7 L (0.9-1.6) SARS-CoV-2 RNA (ANTONI) (NEGATIVE) 11/07/20 11/07/20 11/08/20 Range/Units 19:10 21:48 05:23 WBC 6.53 (4.0-11.0) K/uL RBC 4.25 L (4.30-5.90) M/uL Hgb 12.3 (12.0-16.0) g/dL Hct 39.5 (36.0-46.0) % MCV 92.9 (80.0-98.0) fL MCH 28.9 (27.0-32.0) pg MCHC 31.1 (31.0-37.0) g/dL RDW Std Deviation 50.3 (28.0-62.0) fl RDW Coeff of [place] 15 (11.0-15.0) % Plt Count 298 (150-400) K/uL MPV 12.10 H (7.40-12.00) fL Neut % (Auto) (48.0-80.0) % Lymph % (Auto) (16.0-40.0) % [place] % (Auto) (0.0-15.0) % Eos % (Auto) (0.0-7.0) % Baso % (Auto) (0.0-1.5) % Neut # (Auto) (1.4-5.7) K/uL Lymph # (Auto) (0.6-2.4) K/uL [place] # (Auto) (0.0-0.8) K/uL Eos # (Auto) (0.0-0.7) K/uL Baso # (Auto) (0.0-0.1) K/uL Add Manual Diff YES Neutrophils % (Manual) 76 (48.0-80.0) % Band Neutrophils % 2 % Lymphocytes % (Manual) 16 (16.0-40.0) % Monocytes % (Manual) 4 (0.0-15.0) % Eosinophils % (Manual) 1 (0.0-7.0) % Metamyelocytes % 1 % Nucleated RBC % 0.6 /100WBC Absolute Seg Neuts 5.0 (1.4-5.7) Band Neutrophils # 0.1 Lymphocytes # (Manual) 1.0 (0.6-2.4) Monocytes # (Manual) 0.3 (0.0-0.8) Eosinophils # (Manual) 0.1 (0.0-0.7) Absolute Metamyelocyte 0.1 Nucleated RBCs # 0 K/uL ESR (0-19) mm/hr INR APTT (18.6-31.3) SEC D-Dimer, Quantitative (0.0-0.50) mg/L FEU ABG pH (7.35-7.45) ABG pCO2 (35-45) mmHG ABG pO2 (80-105) mmHG ABG HCO3 (22-26) mEq/L ABG Total CO2 (23-27) mmol/L ABG Base Excess (-2.0-3.0) Sodium 143 (136-145) mmol/L Potassium 4.5 (3.5-5.1) mmol/L Chloride 107 (98-107) mmol/L Carbon Dioxide 27.2 (21.0-32.0) mmol/L BUN 11 (7.0-18.0) mg/dL Creatinine 0.7 (0.6-1.0) mg/dL Est Cr Clr Drug Dosing TNP Estimated GFR (MDRD) > 60.0 ml/min Glucose 90 (74-106) mg/dL Lactic Acid (0.4-2.0) mmol/L Calcium 7.9 L (8.5-10.1) mg/dL Magnesium (1.8-2.4) mg/dL Total Bilirubin 0.7 (0.2-1.0) mg/dL Direct Bilirubin 0.40 (0.0-0.5) mg/dL AST 202 H (15-37) IU/L ALT 166 H (14-63) IU/L Alkaline Phosphatase 94 (46-116) U/L Troponin I (0.000-0.056) ng/mL C-Reactive Protein (0.00-0.90) mg/dL Total Protein 6.6 (6.4-8.2) g/dL Albumin 2.6 L (3.4-5.0) g/dL Globulin 4.0 (2.6-4.0) g/dL Albumin/Globulin Ratio 0.7 L (0.9-1.6) SARS-CoV-2 RNA (ANTONI) POSITIVE H (NEGATIVE) 11/08/20 Range/Units 05:23 WBC (4.0-11.0) K/uL RBC (4.30-5.90) M/uL Hgb (12.0-16.0) g/dL Hct (36.0-46.0) % MCV (80.0-98.0) fL MCH (27.0-32.0) pg MCHC (31.0-37.0) g/dL RDW Std Deviation (28.0-62.0) fl RDW Coeff of [place] (11.0-15.0) % Plt Count (150-400) K/uL MPV (7.40-12.00) fL Neut % (Auto) (48.0-80.0) % Lymph % (Auto) (16.0-40.0) % [place] % (Auto) (0.0-15.0) % Eos % (Auto) (0.0-7.0) % Baso % (Auto) (0.0-1.5) % Neut # (Auto) (1.4-5.7) K/uL Lymph # (Auto) (0.6-2.4) K/uL [place] # (Auto) (0.0-0.8) K/uL Eos # (Auto) (0.0-0.7) K/uL Baso # (Auto) (0.0-0.1) K/uL Add Manual Diff Neutrophils % (Manual) (48.0-80.0) % Band Neutrophils % % Lymphocytes % (Manual) (16.0-40.0) % Monocytes % (Manual) (0.0-15.0) % Eosinophils % (Manual) (0.0-7.0) % Metamyelocytes % % Nucleated RBC % /100WBC Absolute Seg Neuts (1.4-5.7) Band Neutrophils # Lymphocytes # (Manual) (0.6-2.4) Monocytes # (Manual) (0.0-0.8) Eosinophils # (Manual) (0.0-0.7) Absolute Metamyelocyte Nucleated RBCs # K/uL ESR (0-19) mm/hr INR APTT (18.6-31.3) SEC D-Dimer, Quantitative (0.0-0.50) mg/L FEU ABG pH (7.35-7.45) ABG pCO2 (35-45) mmHG ABG pO2 (80-105) mmHG ABG HCO3 (22-26) mEq/L ABG Total CO2 (23-27) mmol/L ABG Base Excess (-2.0-3.0) Sodium 145 (136-145) mmol/L Potassium 3.5 (3.5-5.1) mmol/L Chloride 108 H (98-107) mmol/L Carbon Dioxide 25.7 (21.0-32.0) mmol/L BUN 10 (7.0-18.0) mg/dL Creatinine 0.7 (0.6-1.0) mg/dL Est Cr Clr Drug Dosing 84.41 Estimated GFR (MDRD) > 60.0 ml/min Glucose 102 (74-106) mg/dL Lactic Acid (0.4-2.0) mmol/L Calcium 8.2 L (8.5-10.1) mg/dL Magnesium (1.8-2.4) mg/dL Total Bilirubin 0.6 (0.2-1.0) mg/dL Direct Bilirubin (0.0-0.5) mg/dL AST 152 H (15-37) IU/L ALT 153 H (14-63) IU/L Alkaline Phosphatase 90 (46-116) U/L Troponin I (0.000-0.056) ng/mL C-Reactive Protein (0.00-0.90) mg/dL Total Protein 6.5 (6.4-8.2) g/dL Albumin 2.6 L (3.4-5.0) g/dL Globulin 3.9 (2.6-4.0) g/dL Albumin/Globulin Ratio 0.7 L (0.9-1.6) SARS-CoV-2 RNA (ANTONI) (NEGATIVE) Result Diagrams: 11/08/20 05:23 11/08/20 05:23 Sepsis Event Note - Evaluation Sepsis Screening Result: Possible Sepsis Risk - Focused Exam Vital Signs: Vital Signs Temp Pulse Resp BP Pulse Ox Pulse Ox 11/08/20 13:00 36.6 C 82 28 H 112/86 11/08/20 12:00 36.6 C 82 28 H 110/66 11/08/20 11:00 36.1 C 78 30 H 111/67 11/08/20 10:00 36.1 C 90 28 H 98/59 L 11/08/20 08:54 36.1 C 88 24 H 108/68 11/08/20 07:38 35.8 C L 94 30 H 121/68 94 L 11/08/20 07:00 32 H 95/55 L 94 L 11/08/20 06:00 32 H 98/59 L 94 L 11/08/20 05:00 31 H 91/54 L 93 L 11/08/20 04:00 32 H 90/52 L 93 L 11/08/20 03:00 36 H 109/71 95 11/08/20 02:00 27 H 111/60 90 L 90 L - Problem List Review Problem List Initiated/Reviewed/Updated: Yes - My Orders Last 24 Hours: My Active Orders 11/08/20 01:00 Vital Signs [RC] Q1HR 11/08/20 01:15 Enoxaparin [Lovenox] 40 mg SUBCUT Q24H 11/08/20 01:17 Oxygen Therapy [RC] PRN Up ad [place] [RC] ASDIRECTED VTE/DVT Education [RC] PER UNIT ROUTINE Resuscitation Status Routine 11/08/20 Breakfast Regular Diet [DIET] 11/08/20 13:45 Baricitinib [Olumiant] 4 mg PO DAILY 11/08/20 17:00 dexAMETHasone 6 mg PO Q24H 11/08/20 21:00 Remdesivir 100 mg Sodium Chloride 0.9% [Normal Saline] 100 ml IV Q24H 11/09/20 05:11 CBC WITH AUTO DIFF [HEME] AM COMPREHENSIVE METABOLIC PN,CMP [CHEM] AM 11/10/20 05:11 CBC WITH AUTO DIFF [HEME] AM COMPREHENSIVE METABOLIC PN,CMP [CHEM] AM 11/11/20 05:11 CBC WITH AUTO DIFF [HEME] AM COMPREHENSIVE METABOLIC PN,CMP [CHEM] AM 11/12/20 05:11 CBC WITH AUTO DIFF [HEME] AM COMPREHENSIVE METABOLIC PN,CMP [CHEM] AM - Plan Plan:: 30 yo female admitted for acute hypoxic respiratory failure due to COVID pneumonia Acute hypoxic respiratory failure: on BIPAP will try to transition to HHFNC when available. COVID: treating with remdesivir, and dexamethasone, will start baricitinib. Patient's mother was explained EUA on drug and its risks. she signed consent for its use. lovenox for DVT prophylaxis Spoke and updated mother regarding patients status
[2020-11-08] MEDS: Dexamethasone 4 MG Tab PO SCH (16:35)
[2020-11-08] MEDS ORDERED: Potassium Chloride 20 MEQ Tab.ER PO ONE (19:39)
--- NOTE | 2020-11-08 19:42 | PN ---
TRISTAN Physician - Brief Progress [id number]/08/2021 14:51[facility] anton Moun[place], [place] - [facility]ES (LYDIA) - BETI TUCKER, HOLLY+Date of Service 11/08/2020 14:51HPI/Ev ents of Note Pt's K is 3.5, will give 40 meq x 1 now and continue to monitor. Replacement was discuss ed with her covering nurse Kym.Interventions Intermediate-Communication with other healthcare provi ders and/or family, Electrolyte abnormality - evaluation and management, Medication change / dose adj ustment
[2020-11-08] MEDS: Pantoprazole 40 MG Tab.CR PO SCH (20:18)
[2020-11-08] MEDS: REMDESIVIR 100 MG in Sodium Chloride 0.9% 100 ML IV SCH (20:19)
[2020-11-09] MEDS: Enoxaparin 40 MG/0.4 ML Syringe SUBCUT SCH (01:07)
[2020-11-09 07:04] LABS: BLOOD UREA NITROGEN,BUN 18 mg/dL (7.0-18.0); CARBON DIOXIDE,CO2 28.1 mmol/L (21.0-32.0); CHLORIDE,CL 113 mmol/L (98-107); GLUCOSE RANDOM 104 mg/dL (74-106); SODIUM,NA 149 mmol/L (136-145)
--- NOTE | 2020-11-09 10:58 | PN ---
TRISTAN Physician - Brief Progress [id number]/09/2021 10:47 Mouna [place], [place] - [facility] ([facility]) - [facility] ICUBETI FRANZ, COVID+Date of Service 11/09/2020 10:47HPI/Ev ents of Note SOAP note30 yo F admitted for COVID19 pneumonia. She is currently on BiPAP with IPAP 14 and EPAP 12 and 80% FiO2. Because of the narrow pressure gradient, her tidal volumes are only mid-200 s. VS: 36.3C, 93% (80% BiPAP), 94/54, 80, 20Gen: Asleep, obese, NADHeart: NSR with normal HR on telem etry monitorLungs: Breathing comfortably on NIPPV with spo2 92% on fio2 80%Neuro: Asleep, NADASSESSME NT:Acute hypoxic respiratory failureMultifocal community acquired pneumonia d/t [id number] ia, hyperchloremiaTransaminase elevationHypotension - acute vs chronic?PLAN:O2 via NIPPV, wean as aide eratedMaintain spo2 >90% and PO2 >60 mmHgDroplet and contact isolation per facility protocolBaricitin ibRemdesivirDexamethasoneRecommend increasing free water consumption as toleratedTransaminases trendi ng down consistentlyMonitor BP closely, keep MAP >65 mmHgInterventions Major-Hypoxemia - evaluation a nd management, Respiratory failure - evaluation and management, Other: COVID19 pneumoniaIntermediate- Hypotension - evaluation and managementElectronically Signed by: Eric Leblanc) on 2020 10:58
--- NOTE | 2020-11-09 13:32 | PCM.PN ---
- General Info Date of Service: 11/09/20 - Review of Systems Systems Review Comment:: appears comfortable, nonverbal, nods head to questions - Patient Data Vitals - Most Recent: Last Vital Signs Temp 36.8 C 11/09/20 13:00 Pulse 92 11/09/20 13:00 Resp 22 H 11/09/20 13:00 BP 96/54 L 11/09/20 13:00 Pulse Ox 94 L 11/09/20 13:00 Weight - Most Recent: 72.665 kg I&O - Last 24 Hours: Intake & Output 11/08/20 11/09/20 11/09/20 22:59 06:59 14:59 Intake Total 25 450 Output Total 600 Balance 25 -150 Lab Results Last 24 Hours: Laboratory Results - last 24 hr 11/09/20 11/09/20 Range/Units 05:39 05:39 WBC 6.91 (4.0-11.0) K/uL RBC 4.37 (4.30-5.90) M/uL Hgb 12.4 (12.0-16.0) g/dL Hct 41.0 (36.0-46.0) % MCV 93.8 (80.0-98.0) fL MCH 28.4 (27.0-32.0) pg MCHC 30.2 L (31.0-37.0) g/dL RDW Std Deviation 50.5 (28.0-62.0) fl RDW Coeff of [place] 15 (11.0-15.0) % Plt Count 395 (150-400) K/uL MPV 11.50 (7.40-12.00) fL Neut % (Auto) 71.4 (48.0-80.0) % Lymph % (Auto) 20.8 (16.0-40.0) % [place] % (Auto) 7.2 (0.0-15.0) % Eos % (Auto) 0.0 (0.0-7.0) % Baso % (Auto) 0.6 (0.0-1.5) % Neut # (Auto) 4.9 (1.4-5.7) K/uL Lymph # (Auto) 1.4 (0.6-2.4) K/uL [place] # (Auto) 0.5 (0.0-0.8) K/uL Eos # (Auto) 0.0 (0.0-0.7) K/uL Baso # (Auto) 0.0 (0.0-0.1) K/uL Nucleated RBC % 0.0 /100WBC Nucleated RBCs # 0 K/uL Sodium 149 H (136-145) mmol/L Potassium 5.0 (3.5-5.1) mmol/L Chloride 113 H (98-107) mmol/L Carbon Dioxide 28.1 (21.0-32.0) mmol/L BUN 18 (7.0-18.0) mg/dL Creatinine 0.7 (0.6-1.0) mg/dL Est Cr Clr Drug Dosing 84.41 mL/min Estimated GFR (MDRD) > 60.0 ml/min Glucose 104 (74-106) mg/dL Calcium 8.3 L (8.5-10.1) mg/dL Total Bilirubin 0.6 (0.2-1.0) mg/dL AST 84 H (15-37) IU/L ALT 129 H (14-63) IU/L Alkaline Phosphatase 89 (46-116) U/L Total Protein 6.2 L (6.4-8.2) g/dL Albumin 2.8 L (3.4-5.0) g/dL Globulin 3.4 (2.6-4.0) g/dL Albumin/Globulin Ratio 0.8 L (0.9-1.6) Med Orders - Current: Current Medications Dexamethasone (Dexamethasone 4 Mg Tab) 6 mg PO Q24H [facility] Last Admin: 11/08/20 16:35 Dose: 6 mg Documented by: Enoxaparin Sodium (Enoxaparin 40 Mg/0.4 Ml Syringe) 40 mg SUBCUT Q24H [facility] Last Admin: 11/09/20 01:07 Dose: 40 mg Documented by: Remdesivir 100 mg/ Sodium (Chloride) 100 mls @ 100 mls/hr IV Q24H [facility] Stop: 11/11/20 21:59 Last Admin: 11/08/20 20:19 Dose: 100 mls/hr Documented by: Pantoprazole Sodium (Pantoprazole 40 Mg Tab.Cr) 40 mg PO BEDTIME [facility] Last Admin: 11/08/20 20:18 Dose: 40 mg Documented by: Discontinued Medications Acetaminophen (Acetaminophen 500 Mg Tab) 1,000 mg PO ONETIME ONE Stop: 11/07/20 17:06 Last Admin: 11/07/20 19:03 Dose: Not Given Documented by: Dexamethasone (Dexamethasone 10 Mg/Ml Sdv) 6 mg IVPUSH ONETIME ONE Stop: 11/07/20 17:06 Last Admin: 11/07/20 17:35 Dose: 6 mg Documented by: Haloperidol Lactate (Haloperidol Lactate 5 Mg/Ml Sdv) 2 mg IM ONETIME ONE Stop: 11/08/20 01:09 Last Admin: 11/08/20 01:17 Dose: 2 mg Documented by: Sodium Chloride (Normal Saline) 1,000 mls @ 250 mls/hr IV .Bolus ONE Stop: 11/07/20 21:04 Last Admin: 11/07/20 17:35 Dose: 250 mls/hr Documented by: Remdesivir 200 mg/ Sodium (Chloride) 250 mls @ 250 mls/hr IV ONETIME ONE Stop: 11/07/20 21:32 Last Admin: 11/07/20 22:00 Dose: 250 mls/hr Documented by: Iopamidol (Iopamidol 755 Mg/Ml 100 Ml Bottle) 100 ml IVPUSH ONETIME ONE Stop: 11/07/20 19:29 Last Admin: 11/07/20 20:34 Dose: 100 ml Documented by: Lorazepam (Lorazepam 2 Mg/Ml Sdv) 1 mg IVPUSH ONETIME ONE Stop: 11/08/20 00:17 Last Admin: 11/08/20 00:33 Dose: 1 mg Documented by: Potassium Chloride (Potassium Chloride 20 Meq Tab.Er) 40 meq PO ONETIME ONE Stop: 11/08/20 19:40 Last Admin: 11/08/20 20:18 Dose: 40 meq Documented by: - Exam General: No Acute Distress Lungs: Normal Respiratory Effort, Rhonchi Cardiovascular: Regular Rate, Regular Rhythm GI/Abdominal Exam: Soft, Non-Tender Extremities: Non-Tender, No Pedal Edema Skin: Warm, Dry, Intact Neurological: No New Focal Deficit - Patient Data Lab Results Last 24 hrs: Laboratory Results - last 24 hr 11/09/20 11/09/20 Range/Units 05:39 05:39 WBC 6.91 (4.0-11.0) K/uL RBC 4.37 (4.30-5.90) M/uL Hgb 12.4 (12.0-16.0) g/dL Hct 41.0 (36.0-46.0) % MCV 93.8 (80.0-98.0) fL MCH 28.4 (27.0-32.0) pg MCHC 30.2 L (31.0-37.0) g/dL RDW Std Deviation 50.5 (28.0-62.0) fl RDW Coeff of [place] 15 (11.0-15.0) % Plt Count 395 (150-400) K/uL MPV 11.50 (7.40-12.00) fL Neut % (Auto) 71.4 (48.0-80.0) % Lymph % (Auto) 20.8 (16.0-40.0) % [place] % (Auto) 7.2 (0.0-15.0) % Eos % (Auto) 0.0 (0.0-7.0) % Baso % (Auto) 0.6 (0.0-1.5) % Neut # (Auto) 4.9 (1.4-5.7) K/uL Lymph # (Auto) 1.4 (0.6-2.4) K/uL [place] # (Auto) 0.5 (0.0-0.8) K/uL Eos # (Auto) 0.0 (0.0-0.7) K/uL Baso # (Auto) 0.0 (0.0-0.1) K/uL Nucleated RBC % 0.0 /100WBC Nucleated RBCs # 0 K/uL Sodium 149 H (136-145) mmol/L Potassium 5.0 (3.5-5.1) mmol/L Chloride 113 H (98-107) mmol/L Carbon Dioxide 28.1 (21.0-32.0) mmol/L BUN 18 (7.0-18.0) mg/dL Creatinine 0.7 (0.6-1.0) mg/dL Est Cr Clr Drug Dosing 84.41 mL/min Estimated GFR (MDRD) > 60.0 ml/min Glucose 104 (74-106) mg/dL Calcium 8.3 L (8.5-10.1) mg/dL Total Bilirubin 0.6 (0.2-1.0) mg/dL AST 84 H (15-37) IU/L ALT 129 H (14-63) IU/L Alkaline Phosphatase 89 (46-116) U/L Total Protein 6.2 L (6.4-8.2) g/dL Albumin 2.8 L (3.4-5.0) g/dL Globulin 3.4 (2.6-4.0) g/dL Albumin/Globulin Ratio 0.8 L (0.9-1.6) Result Diagrams: 11/09/20 05:39 11/09/20 05:39 Sepsis Event Note - Evaluation Sepsis Screening Result: Possible Sepsis Risk - Focused Exam Vital Signs: Vital Signs Temp Pulse Resp BP Pulse Ox Pulse Ox 11/09/20 13:00 36.8 C 92 22 H 96/54 L 94 L 11/09/20 12:00 36.6 C 104 H 26 H 111/62 91 L 11/09/20 11:00 36.4 C 101 H 22 H 109/65 90 L 11/09/20 10:00 36.3 C 80 20 94/54 L 93 L 11/09/20 08:57 36.6 C 78 22 H 92/61 98 11/09/20 07:58 36.2 C 90 24 H 94/48 L 97 11/09/20 07:31 98 11/09/20 07:00 27 H 88/47 L 98 11/09/20 06:00 36.0 C L 27 H 109/46 L 99 11/09/20 05:00 25 H 90/55 L 93 L 11/09/20 04:00 26 H 95/52 L 94 L 11/09/20 03:00 26 H 97/58 L 92 L 11/09/20 02:00 28 H 88/51 L 91 L - Problem List Review Problem List Initiated/Reviewed/Updated: Yes - My Orders Last 24 Hours: My Active Orders 11/08/20 13:45 Baricitinib [Olumiant] 4 mg PO Q24H 11/08/20 17:00 dexAMETHasone 6 mg PO Q24H 11/08/20 21:00 Pantoprazole [ProTONIX] 40 mg PO BEDTIME Remdesivir 100 mg Sodium Chloride 0.9% [Normal Saline] 100 ml IV Q24H 11/10/20 05:11 CBC WITH AUTO DIFF [HEME] AM COMPREHENSIVE METABOLIC PN,CMP [CHEM] AM 11/11/20 05:11 CBC WITH AUTO DIFF [HEME] AM COMPREHENSIVE METABOLIC PN,CMP [CHEM] AM 11/12/20 05:11 CBC WITH AUTO DIFF [HEME] AM COMPREHENSIVE METABOLIC PN,CMP [CHEM] AM - Plan Plan:: 30 yo female admitted for acute hypoxic respiratory failure due to COVID pneumonia Acute hypoxic respiratory failure: using BIPAP 13/02 80% FIo2, was on HHFNC for two hours to eat. COVID: treating with remdesivir, baricitinib, and dexamethason Hypernatremia: encourage free water consumption. lovenox for DVT prophylaxis Spoke and updated mother regarding patients status
[2020-11-09] MEDS: Dexamethasone 4 MG Tab PO SCH (16:03)
[2020-11-09] MEDS: Pantoprazole 40 MG Tab.CR PO SCH (21:18)
[2020-11-09] MEDS: REMDESIVIR 100 MG in Sodium Chloride 0.9% 100 ML IV SCH (21:19)
[2020-11-10] MEDS: Enoxaparin 40 MG/0.4 ML Syringe SUBCUT SCH (01:54)
[2020-11-10 07:10] LABS: BLOOD UREA NITROGEN,BUN 15 mg/dL (7.0-18.0); CARBON DIOXIDE,CO2 29.9 mmol/L (21.0-32.0); CHLORIDE,CL 113 mmol/L (98-107); GLUCOSE RANDOM 111 mg/dL (74-106); SODIUM,NA 148 mmol/L (136-145)
--- NOTE | 2020-11-10 10:11 | PN ---
THC Physician - Brief Progress [id number]/10/2021 10:10[facility] [place] [place] [facility] - [facility] ICUBETI FRANZ, COVID+Date of Service 11/10/2020 10:10HPI/Ev ents of Note eICU Progress [id number] admitted for respiratory failure attributed to COVID. History obta ined from review of EMR.Camera exam: Laying in bed. Vitals monitor reviewed. eICU Recommendations:Con tinue dexamethasone, remdesivir, baricitinibFree water supplementation for hypernatremiaIsolation pre cautions per local policyAwake proning as toleratedSuggest targeting a neutral to negative net fluid balance as tolerated hemodynamicallyeICU will continue to follow and assist as desired.DVT and GI pro phylaxis as appropriate.Thank you for allowing us to participate in the care of this patient.The abov e note transcribed with the assistance of dictation software. Please excuse any errors.Interventions Major-Respiratory failure - evaluation and managementElectronically Signed by: VITALIY JOHNSON) sarah montoya 11/10/2020 10:10
--- NOTE | 2020-11-10 11:48 | PCM.PN ---
- General Info Date of Service: 11/10/20 Admission Dx/Problem (Free Text): Admission Diagnosis/Problem Admission Diagnosis/Problem Hypoxia Subjective Update: Patient seen at bedside, patient's mother at bedside as well resting comfortably, tolerating BiPAP well, reportedly has been having more oral intake since yesterday, patient does have episodes of urinary retention because she does not want to get out of bed to be, patient has been encouraged to urinate on time and not hold back. Per patient's mother she does this habitually at home as well. Functional Status: Reports: Pain Controlled, Tolerating Diet, Urinating - Review of Systems General: Reports: Weakness, Fatigue, Malaise. Denies: Fever Pulmonary: Reports: Shortness of Breath. Denies: Pleuritic Chest Pain Cardiovascular: Denies: Chest Pain, Palpitations, Dyspnea on Exertion Gastrointestinal: Denies: Abdominal Pain, Constipation, Decreased Appetite Genitourinary: Denies: Dysuria, Burning, Urgency, Incontinence, Hematuria Musculoskeletal: Denies: Neck Pain, Back Pain, Leg Pain, Foot Pain Skin: Denies: Cyanosis, Jaundice, Mottled Neurological: Denies: Confusion, Dizziness, Headache - Patient Data Vitals - Most Recent: Last Vital Signs Temp 36.9 C 11/10/20 11:00 Pulse 90 11/10/20 11:00 Resp 22 H 11/10/20 11:00 BP 99/59 L 11/10/20 11:00 Pulse Ox 90 L 11/10/20 11:00 Weight - Most Recent: 72.665 kg I&O - Last 24 Hours: Intake & Output 11/09/20 11/10/20 11/10/20 22:59 06:59 14:59 Intake Total 300 400 Output Total 800 0 Balance -500 400 Lab Results Last 24 Hours: Laboratory Results - last 24 hr 11/09/20 11/10/20 11/10/20 Range/Units 16:30 05:53 05:53 WBC 9.68 (4.0-11.0) K/uL RBC 4.21 L (4.30-5.90) M/uL Hgb 12.1 (12.0-16.0) g/dL Hct 40.1 (36.0-46.0) % MCV 95.2 (80.0-98.0) fL MCH 28.7 (27.0-32.0) pg MCHC 30.2 L (31.0-37.0) g/dL RDW Std Deviation 52.4 (28.0-62.0) fl RDW Coeff of [place] 15 (11.0-15.0) % Plt Count 426 H (150-400) K/uL MPV 11.30 (7.40-12.00) fL Add Manual Diff YES Neutrophils % (Manual) 77 (48.0-80.0) % Band Neutrophils % 2 % Lymphocytes % (Manual) 17 (16.0-40.0) % Monocytes % (Manual) 4 (0.0-15.0) % Nucleated RBC % 0.2 /100WBC Absolute Seg Neuts 7.5 H (1.4-5.7) Band Neutrophils # 0.2 Lymphocytes # (Manual) 1.6 (0.6-2.4) Monocytes # (Manual) 0.4 (0.0-0.8) Nucleated RBCs # 0 K/uL Sodium 148 H (136-145) mmol/L Potassium 4.0 (3.5-5.1) mmol/L Chloride 113 H (98-107) mmol/L Carbon Dioxide 29.9 (21.0-32.0) mmol/L BUN 15 (7.0-18.0) mg/dL Creatinine 0.6 (0.6-1.0) mg/dL Est Cr Clr Drug Dosing 98.48 mL/min Estimated GFR (MDRD) > 60.0 ml/min Glucose 111 H (74-106) mg/dL Calcium 8.5 (8.5-10.1) mg/dL Total Bilirubin 0.6 (0.2-1.0) mg/dL AST 60 H (15-37) IU/L ALT 98 H (14-63) IU/L Alkaline Phosphatase 79 (46-116) U/L Total Protein 6.2 L (6.4-8.2) g/dL Albumin 2.6 L (3.4-5.0) g/dL Globulin 3.6 (2.6-4.0) g/dL Albumin/Globulin Ratio 0.7 L (0.9-1.6) Urine Color DARK YELLOW Urine Appearance CLEAR Urine pH 6.0 (5.0-8.0) Ur Specific [place] 1.025 (1.001-1.035) Urine Protein TRACE H (NEGATIVE) mg/dL Urine Glucose (UA) NEGATIVE (NEGATIVE) mg/dL Urine Ketones TRACE H (NEGATIVE) mg/dL Urine Occult Blood NEGATIVE (NEGATIVE) Urine Nitrite NEGATIVE (NEGATIVE) Urine Bilirubin SMALL H (NEGATIVE) Urine Ictotest NEGATIVE Urine Urobilinogen 2.0 H (<2.0) EU/dL Ur Leukocyte Esterase NEGATIVE (NEGATIVE) Urine RBC NONE SEEN (0-2/HPF) Urine WBC 0-1 (0-5/HPF) Ur Epithelial Cells OCCASIONAL (NONE-FEW) Urine Bacteria 2+ H (NEGATIVE) Urine Mucus LIGHT (NONE-MOD) Med Orders - Current: Current Medications Dexamethasone (Dexamethasone 4 Mg Tab) 6 mg PO Q24H [facility] Last Admin: 11/09/20 16:03 Dose: 6 mg Documented by: Enoxaparin Sodium (Enoxaparin 40 Mg/0.4 Ml Syringe) 40 mg SUBCUT Q24H [facility] Last Admin: 11/10/20 01:54 Dose: 40 mg Documented by: Remdesivir 100 mg/ Sodium (Chloride) 100 mls @ 100 mls/hr IV Q24H [facility] Stop: 11/11/20 21:59 Last Admin: 11/09/20 21:19 Dose: 100 mls/hr Documented by: Pantoprazole Sodium (Pantoprazole 40 Mg Tab.Cr) 40 mg PO BEDTIME [facility] Last Admin: 11/09/20 21:18 Dose: 40 mg Documented by: Discontinued Medications Acetaminophen (Acetaminophen 500 Mg Tab) 1,000 mg PO ONETIME ONE Stop: 11/07/20 17:06 Last Admin: 11/07/20 19:03 Dose: Not Given Documented by: Dexamethasone (Dexamethasone 10 Mg/Ml Sdv) 6 mg IVPUSH ONETIME ONE Stop: 11/07/20 17:06 Last Admin: 11/07/20 17:35 Dose: 6 mg Documented by: Haloperidol Lactate (Haloperidol Lactate 5 Mg/Ml Sdv) 2 mg IM ONETIME ONE Stop: 11/08/20 01:09 Last Admin: 11/08/20 01:17 Dose: 2 mg Documented by: Sodium Chloride (Normal Saline) 1,000 mls @ 250 mls/hr IV .Bolus ONE Stop: 11/07/20 21:04 Last Admin: 11/07/20 17:35 Dose: 250 mls/hr Documented by: Remdesivir 200 mg/ Sodium (Chloride) 250 mls @ 250 mls/hr IV ONETIME ONE Stop: 11/07/20 21:32 Last Admin: 11/07/20 22:00 Dose: 250 mls/hr Documented by: Iopamidol (Iopamidol 755 Mg/Ml 100 Ml Bottle) 100 ml IVPUSH ONETIME ONE Stop: 11/07/20 19:29 Last Admin: 11/07/20 20:34 Dose: 100 ml Documented by: Lorazepam (Lorazepam 2 Mg/Ml Sdv) 1 mg IVPUSH ONETIME ONE Stop: 11/08/20 00:17 Last Admin: 11/08/20 00:33 Dose: 1 mg Documented by: Potassium Chloride (Potassium Chloride 20 Meq Tab.Er) 40 meq PO ONETIME ONE Stop: 11/08/20 19:40 Last Admin: 11/08/20 20:18 Dose: 40 meq Documented by: - Exam Quality Assessment: Supplemental Oxygen General: Alert, Oriented, No Acute Distress Neck: Supple Lungs: Decreased Breath Sounds, Rales Cardiovascular: Regular Rate, Regular Rhythm GI/Abdominal Exam: Normal Bowel Sounds, Soft, Non-Tender - Patient Data Lab Results Last 24 hrs: Laboratory Results - last 24 hr 11/09/20 11/10/20 11/10/20 Range/Units 16:30 05:53 05:53 WBC 9.68 (4.0-11.0) K/uL RBC 4.21 L (4.30-5.90) M/uL Hgb 12.1 (12.0-16.0) g/dL Hct 40.1 (36.0-46.0) % MCV 95.2 (80.0-98.0) fL MCH 28.7 (27.0-32.0) pg MCHC 30.2 L (31.0-37.0) g/dL RDW Std Deviation 52.4 (28.0-62.0) fl RDW Coeff of [place] 15 (11.0-15.0) % Plt Count 426 H (150-400) K/uL MPV 11.30 (7.40-12.00) fL Add Manual Diff YES Neutrophils % (Manual) 77 (48.0-80.0) % Band Neutrophils % 2 % Lymphocytes % (Manual) 17 (16.0-40.0) % Monocytes % (Manual) 4 (0.0-15.0) % Nucleated RBC % 0.2 /100WBC Absolute Seg Neuts 7.5 H (1.4-5.7) Band Neutrophils # 0.2 Lymphocytes # (Manual) 1.6 (0.6-2.4) Monocytes # (Manual) 0.4 (0.0-0.8) Nucleated RBCs # 0 K/uL Sodium 148 H (136-145) mmol/L Potassium 4.0 (3.5-5.1) mmol/L Chloride 113 H (98-107) mmol/L Carbon Dioxide 29.9 (21.0-32.0) mmol/L BUN 15 (7.0-18.0) mg/dL Creatinine 0.6 (0.6-1.0) mg/dL Est Cr Clr Drug Dosing 98.48 mL/min Estimated GFR (MDRD) > 60.0 ml/min Glucose 111 H (74-106) mg/dL Calcium 8.5 (8.5-10.1) mg/dL Total Bilirubin 0.6 (0.2-1.0) mg/dL AST 60 H (15-37) IU/L ALT 98 H (14-63) IU/L Alkaline Phosphatase 79 (46-116) U/L Total Protein 6.2 L (6.4-8.2) g/dL Albumin 2.6 L (3.4-5.0) g/dL Globulin 3.6 (2.6-4.0) g/dL Albumin/Globulin Ratio 0.7 L (0.9-1.6) Urine Color DARK YELLOW Urine Appearance CLEAR Urine pH 6.0 (5.0-8.0) Ur Specific [place] 1.025 (1.001-1.035) Urine Protein TRACE H (NEGATIVE) mg/dL Urine Glucose (UA) NEGATIVE (NEGATIVE) mg/dL Urine Ketones TRACE H (NEGATIVE) mg/dL Urine Occult Blood NEGATIVE (NEGATIVE) Urine Nitrite NEGATIVE (NEGATIVE) Urine Bilirubin SMALL H (NEGATIVE) Urine Ictotest NEGATIVE Urine Urobilinogen 2.0 H (<2.0) EU/dL Ur Leukocyte Esterase NEGATIVE (NEGATIVE) Urine RBC NONE SEEN (0-2/HPF) Urine WBC 0-1 (0-5/HPF) Ur Epithelial Cells OCCASIONAL (NONE-FEW) Urine Bacteria 2+ H (NEGATIVE) Urine Mucus LIGHT (NONE-MOD) Result Diagrams: 11/10/20 05:53 11/10/20 05:53 Sepsis Event Note - Evaluation Sepsis Screening Result: Possible Sepsis Risk - Focused Exam Vital Signs: Vital Signs Temp Pulse Resp BP Pulse Ox Pulse Ox Pulse Ox 11/10/20 11:00 36.9 C 90 22 H 99/59 L 90 L 11/10/20 10:57 86 L 88 L 11/10/20 10:00 36.9 C 89 20 101/61 91 L 11/10/20 09:00 36.8 C 78 18 85/51 L 93 L 11/10/20 07:58 37.0 C 70 16 87/57 L 96 11/10/20 07:00 25 H 93/51 L 94 L 94 L 11/10/20 06:00 22 H 100/61 94 L 11/10/20 05:00 23 H 93/59 L 89 L 11/10/20 04:00 35.9 C L 17 102/65 93 L 11/10/20 03:00 30 H 94/60 95 11/10/20 02:00 26 H 99/61 91 L 11/10/20 01:00 25 H 81/44 L 93 L 11/10/20 00:00 32 H 97/44 L 96 - Problem List & Annotations (1) Acute respiratory failure with hypoxia SNOMED Code(s): 22013389, 427381410 Code(s): J96.01 - ACUTE RESPIRATORY FAILURE WITH HYPOXIA Status: Acute Current Visit: Yes (2) COVID SNOMED Code(s): 562904959 Code(s): U07.1 - COVID-19 Status: Acute Current Visit: Yes (3) Developmental disability Status: Acute Current Visit: Yes - Problem List Review Problem List Initiated/Reviewed/Updated: Yes - Plan Plan:: 30 yo female admitted for acute hypoxic respiratory failure due to COVID pneumonia Acute hypoxic respiratory failure: using BIPAP 14/12 65% FIo2, was on HHFNC intermittently to eat. COVID: treating with remdesivir, baricitinib, and dexamethason Hypernatremia: encourage free water consumption. lovenox for DVT prophylaxis Spoke and updated mother regarding patients status
[2020-11-10] MEDS ORDERED: Albuterol/Ipratropium 4 GM Inhalation Spray INH PRN (12:00)
[2020-11-10] MEDS: Albuterol/Ipratropium 3.0-0.5 MG/3 ML Neb Soln NEB SCH ×3 (13:32→22:08)
[2020-11-10] MEDS: Dexamethasone 4 MG Tab PO SCH (17:28)
[2020-11-10] MEDS: REMDESIVIR 100 MG in Sodium Chloride 0.9% 100 ML IV SCH (20:00)
[2020-11-10] MEDS: Pantoprazole 40 MG Tab.CR PO SCH (20:00)
[2020-11-11] MEDS: Albuterol/Ipratropium 3.0-0.5 MG/3 ML Neb Soln NEB SCH ×6 (01:42→22:20)
[2020-11-11] MEDS: Enoxaparin 40 MG/0.4 ML Syringe SUBCUT SCH (01:43)
[2020-11-11 06:54] LABS: BLOOD UREA NITROGEN,BUN 14 mg/dL (7.0-18.0); CARBON DIOXIDE,CO2 31.2 mmol/L (21.0-32.0); CHLORIDE,CL 112 mmol/L (98-107); GLUCOSE RANDOM 121 mg/dL (74-106); SODIUM,NA 150 mmol/L (136-145)
[2020-11-11] MEDS ORDERED: Dextrose 5% in Water 500 ML IV SCH ×2 (09:00→09:39)
--- NOTE | 2020-11-11 13:34 | PCM.PN ---
- General Info Date of Service: 11/11/20 Admission Dx/Problem (Free Text): Admission Diagnosis/Problem Admission Diagnosis/Problem Hypoxia Subjective Update: Patient seen at bedside, patient's mother at bedside,resting comfortably, tolerating BiPAP well, has been intermittent daily switched to Vapotherm for oral intake, tolerating well Functional Status: Reports: Tolerating Diet, Urinating. Denies: Ambulating - Review of Systems General: Reports: Weakness, Fatigue. Denies: Fever Pulmonary: Reports: Shortness of Breath. Denies: Pleuritic Chest Pain, Cough Cardiovascular: Reports: Dyspnea on Exertion. Denies: Chest Pain, Palpitations Gastrointestinal: Denies: Abdominal Pain, Constipation, Decreased Appetite Genitourinary: Denies: Dysuria, Frequency, Burning Musculoskeletal: Denies: Neck Pain, Shoulder Pain, Arm Pain, Hand Pain - Patient Data Vitals - Most Recent: Last Vital Signs Temp 36.0 C L 11/11/20 08:00 Pulse 73 11/11/20 07:00 Resp 30 H 11/11/20 13:00 BP 113/62 11/11/20 13:00 Pulse Ox 89 L 11/11/20 13:00 Weight - Most Recent: 73.21 kg I&O - Last 24 Hours: Intake & Output 11/10/20 11/11/20 11/11/20 22:59 06:59 14:59 Intake Total 200 420 Output Total 1100 400 Balance -900 20 Lab Results Last 24 Hours: Laboratory Results - last 24 hr 11/11/20 11/11/20 Range/Units 05:10 05:10 WBC 9.37 (4.0-11.0) K/uL RBC 4.15 L (4.30-5.90) M/uL Hgb 11.8 L (12.0-16.0) g/dL Hct 39.6 (36.0-46.0) % MCV 95.4 (80.0-98.0) fL MCH 28.4 (27.0-32.0) pg MCHC 29.8 L (31.0-37.0) g/dL RDW Std Deviation 52.7 (28.0-62.0) fl RDW Coeff of [place] 15 (11.0-15.0) % Plt Count 418 H (150-400) K/uL MPV 11.20 (7.40-12.00) fL Add Manual Diff YES Neutrophils % (Manual) 81 H (48.0-80.0) % Band Neutrophils % 2 % Lymphocytes % (Manual) 10 L (16.0-40.0) % Monocytes % (Manual) 5 (0.0-15.0) % Metamyelocytes % 2 % Nucleated RBC % 0.0 /100WBC Absolute Seg Neuts 7.6 H (1.4-5.7) Band Neutrophils # 0.2 Lymphocytes # (Manual) 0.9 (0.6-2.4) Monocytes # (Manual) 0.5 (0.0-0.8) Absolute Metamyelocyte 0.2 Nucleated RBCs # 0 K/uL Sodium 150 H (136-145) mmol/L Potassium 4.0 (3.5-5.1) mmol/L Chloride 112 H (98-107) mmol/L Carbon Dioxide 31.2 (21.0-32.0) mmol/L BUN 14 (7.0-18.0) mg/dL Creatinine 0.6 (0.6-1.0) mg/dL Est Cr Clr Drug Dosing 98.48 mL/min Estimated GFR (MDRD) > 60.0 ml/min Glucose 121 H (74-106) mg/dL Calcium 8.2 L (8.5-10.1) mg/dL Phosphorus 2.6 (2.6-4.7) mg/dL Magnesium 2.5 H (1.8-2.4) mg/dL Total Bilirubin 0.6 (0.2-1.0) mg/dL AST 41 H (15-37) IU/L ALT 78 H (14-63) IU/L Alkaline Phosphatase 71 (46-116) U/L Total Protein 6.0 L (6.4-8.2) g/dL Albumin 2.5 L (3.4-5.0) g/dL Globulin 3.5 (2.6-4.0) g/dL Albumin/Globulin Ratio 0.7 L (0.9-1.6) Med Orders - Current: Current Medications Albuterol/Ipratropium (Albuterol/Ipratropium 3.0-0.5 Mg/3 Ml Neb Soln) 3 ml NEB Q4HRRT [facility] Last Admin: 11/11/20 09:37 Dose: 3 ml Documented by: Dexamethasone (Dexamethasone 4 Mg Tab) 6 mg PO Q24H [facility] Last Admin: 11/10/20 17:28 Dose: 6 mg Documented by: Enoxaparin Sodium (Enoxaparin 40 Mg/0.4 Ml Syringe) 40 mg SUBCUT Q24H [facility] Last Admin: 11/11/20 01:43 Dose: 40 mg Documented by: Remdesivir 100 mg/ Sodium (Chloride) 100 mls @ 100 mls/hr IV Q24H [facility] Stop: 11/11/20 21:59 Last Admin: 11/10/20 20:00 Dose: 100 mls/hr Documented by: Dextrose/Water (Dextrose 5% In Water) 500 mls @ 250 mls/hr IV ASDIRECTED [facility] Last Admin: 11/11/20 09:43 Dose: 250 mls/hr Documented by: Pantoprazole Sodium (Pantoprazole 40 Mg Tab.Cr) 40 mg PO BEDTIME [facility] Last Admin: 11/10/20 20:00 Dose: 40 mg Documented by: Discontinued Medications Acetaminophen (Acetaminophen 500 Mg Tab) 1,000 mg PO ONETIME ONE Stop: 11/07/20 17:06 Last Admin: 11/07/20 19:03 Dose: Not Given Documented by: Albuterol/Ipratropium (Albuterol/Ipratropium 4 Gm Inhalation [place]) 0 gm INH QID PRN PRN Reason: Shortness of Breath Dexamethasone (Dexamethasone 10 Mg/Ml Sdv) 6 mg IVPUSH ONETIME ONE Stop: 11/07/20 17:06 Last Admin: 11/07/20 17:35 Dose: 6 mg Documented by: Haloperidol Lactate (Haloperidol Lactate 5 Mg/Ml Sdv) 2 mg IM ONETIME ONE Stop: 11/08/20 01:09 Last Admin: 11/08/20 01:17 Dose: 2 mg Documented by: Sodium Chloride (Normal Saline) 1,000 mls @ 250 mls/hr IV .Bolus ONE Stop: 11/07/20 21:04 Last Admin: 11/07/20 17:35 Dose: 250 mls/hr Documented by: Remdesivir 200 mg/ Sodium (Chloride) 250 mls @ 250 mls/hr IV ONETIME ONE Stop: 11/07/20 21:32 Last Admin: 11/07/20 22:00 Dose: 250 mls/hr Documented by: Dextrose/Water (Dextrose 5% In Water) 500 mls @ 250 mls/hr IV ASDIRECTED [facility] Iopamidol (Iopamidol 755 Mg/Ml 100 Ml Bottle) 100 ml IVPUSH ONETIME ONE Stop: 11/07/20 19:29 Last Admin: 11/07/20 20:34 Dose: 100 ml Documented by: Lorazepam (Lorazepam 2 Mg/Ml Sdv) 1 mg IVPUSH ONETIME ONE Stop: 11/08/20 00:17 Last Admin: 11/08/20 00:33 Dose: 1 mg Documented by: Potassium Chloride (Potassium Chloride 20 Meq Tab.Er) 40 meq PO ONETIME ONE Stop: 11/08/20 19:40 Last Admin: 11/08/20 20:18 Dose: 40 meq Documented by: - Exam Quality Assessment: Supplemental Oxygen General: Alert, Oriented, Cooperative Lungs: Normal Respiratory Effort, Decreased Breath Sounds, Rales Cardiovascular: Regular Rate, Regular Rhythm GI/Abdominal Exam: Normal Bowel Sounds, Soft, Non-Tender - Patient Data Lab Results Last 24 hrs: Laboratory Results - last 24 hr 11/11/20 11/11/20 Range/Units 05:10 05:10 WBC 9.37 (4.0-11.0) K/uL RBC 4.15 L (4.30-5.90) M/uL Hgb 11.8 L (12.0-16.0) g/dL Hct 39.6 (36.0-46.0) % MCV 95.4 (80.0-98.0) fL MCH 28.4 (27.0-32.0) pg MCHC 29.8 L (31.0-37.0) g/dL RDW Std Deviation 52.7 (28.0-62.0) fl RDW Coeff of [place] 15 (11.0-15.0) % Plt Count 418 H (150-400) K/uL MPV 11.20 (7.40-12.00) fL Add Manual Diff YES Neutrophils % (Manual) 81 H (48.0-80.0) % Band Neutrophils % 2 % Lymphocytes % (Manual) 10 L (16.0-40.0) % Monocytes % (Manual) 5 (0.0-15.0) % Metamyelocytes % 2 % Nucleated RBC % 0.0 /100WBC Absolute Seg Neuts 7.6 H (1.4-5.7) Band Neutrophils # 0.2 Lymphocytes # (Manual) 0.9 (0.6-2.4) Monocytes # (Manual) 0.5 (0.0-0.8) Absolute Metamyelocyte 0.2 Nucleated RBCs # 0 K/uL Sodium 150 H (136-145) mmol/L Potassium 4.0 (3.5-5.1) mmol/L Chloride 112 H (98-107) mmol/L Carbon Dioxide 31.2 (21.0-32.0) mmol/L BUN 14 (7.0-18.0) mg/dL Creatinine 0.6 (0.6-1.0) mg/dL Est Cr Clr Drug Dosing 98.48 mL/min Estimated GFR (MDRD) > 60.0 ml/min Glucose 121 H (74-106) mg/dL Calcium 8.2 L (8.5-10.1) mg/dL Phosphorus 2.6 (2.6-4.7) mg/dL Magnesium 2.5 H (1.8-2.4) mg/dL Total Bilirubin 0.6 (0.2-1.0) mg/dL AST 41 H (15-37) IU/L ALT 78 H (14-63) IU/L Alkaline Phosphatase 71 (46-116) U/L Total Protein 6.0 L (6.4-8.2) g/dL Albumin 2.5 L (3.4-5.0) g/dL Globulin 3.5 (2.6-4.0) g/dL Albumin/Globulin Ratio 0.7 L (0.9-1.6) Result Diagrams: 11/11/20 05:10 11/11/20 05:10 Sepsis Event Note - Evaluation Sepsis Screening Result: Possible Sepsis Risk - Focused Exam Vital Signs: Vital Signs Temp Pulse Resp BP Pulse Ox Pulse Ox 11/11/20 13:00 30 H 113/62 89 L 11/11/20 12:00 29 H 105/57 L 93 L 11/11/20 11:00 33 H 109/65 90 L 11/11/20 10:00 26 H 99/57 L 91 L 91 L 11/11/20 09:00 25 H 105/59 L 92 L 11/11/20 08:00 36.0 C L 25 H 103/61 94 L 11/11/20 07:00 73 25 H 93/51 L 92 L 11/11/20 06:00 86 29 H 93/41 L 91 L 11/11/20 05:00 36.4 C 61 23 H 90/54 L 92 L 11/11/20 04:00 73 28 H 97/61 93 L 11/11/20 03:00 69 26 H 96/55 L 93 L 11/11/20 02:00 36.4 C 72 31 H 99/50 L 92 L - Problem List & Annotations (1) Acute respiratory failure with hypoxia SNOMED Code(s): 82336355, 344732397 Code(s): J96.01 - ACUTE RESPIRATORY FAILURE WITH HYPOXIA Status: Acute Current Visit: Yes (2) COVID SNOMED Code(s): 164938837 Code(s): U07.1 - COVID-19 Status: Acute Current Visit: Yes (3) Developmental disability Status: Acute Current Visit: Yes (4) Hypernatremia SNOMED Code(s): 176089938 Code(s): E87.0 - HYPEROSMOLALITY AND HYPERNATREMIA Status: Acute Current Visit: Yes - Problem List Review Problem List Initiated/Reviewed/Updated: Yes - My Orders Last 24 Hours: My Active Orders 11/10/20 12:46 RT Aerosol Therapy [RC] ASDIRECTED 11/10/20 14:00 Albuterol/Ipratropium [DuoNeb 3.0-0.5 MG/3 ML] 3 ml NEB Q4HRRT 11/11/20 09:39 Dextrose 5% in Water 500 ml IV ASDIRECTED 11/11/20 14:00 BASIC METABOLIC PANEL,BMP [CHEM] Routine - Plan Plan:: 30 yo female admitted for acute hypoxic respiratory failure due to COVID pneumonia Acute hypoxic respiratory failure: using BIPAP 13/02 65% FIo2, was on HHFNC intermittently to eat. COVID: treating with remdesivir, baricitinib, and dexamethasone Hypernatremia: encourage free water consumption. We will administer D5 water 500 mL and recheck sodium this afternoon, lovenox for DVT prophylaxis Spoke and updated mother regarding patients status
[2020-11-11 15:02] LABS: BLOOD UREA NITROGEN,BUN 11 mg/dL (7.0-18.0); CARBON DIOXIDE,CO2 32.3 mmol/L (21.0-32.0); CHLORIDE,CL 108 mmol/L (98-107); GLUCOSE RANDOM 97 mg/dL (74-106); POTASSIUM,K 3.3 mmol/L (3.5-5.1); SODIUM,NA 147 mmol/L (136-145)
[2020-11-11] MEDS: Dexamethasone 4 MG Tab PO SCH (17:59)
[2020-11-11] MEDS: REMDESIVIR 100 MG in Sodium Chloride 0.9% 100 ML IV SCH (20:09)
[2020-11-11] MEDS: Pantoprazole 40 MG Tab.CR PO SCH (20:24)
[2020-11-12] MEDS: Albuterol/Ipratropium 3.0-0.5 MG/3 ML Neb Soln NEB SCH ×6 (01:08→21:31)
[2020-11-12] MEDS: Enoxaparin 40 MG/0.4 ML Syringe SUBCUT SCH (01:08)
[2020-11-12 06:58] LABS: BLOOD UREA NITROGEN,BUN 10 mg/dL (7.0-18.0); CARBON DIOXIDE,CO2 32.6 mmol/L (21.0-32.0); CHLORIDE,CL 108 mmol/L (98-107); GLUCOSE RANDOM 129 mg/dL (74-106); POTASSIUM,K 4.8 mmol/L (3.5-5.1); SODIUM,NA 147 mmol/L (136-145)
--- NOTE | 2020-11-12 14:11 | PCM.PN ---
- General Info Date of Service: 11/12/20 Admission Dx/Problem (Free Text): Admission Diagnosis/Problem Admission Diagnosis/Problem Hypoxia Subjective Update: Patient seen at bedside, patient's mother at bedside,resting comfortably, tolerating BiPAP well, per mom patient has not been really eating as much but has encouraged her to drink more water, sodium has improved Functional Status: Reports: Urinating. Denies: Tolerating Diet, Ambulating - Review of Systems General: Reports: Weakness, Fatigue, Malaise Pulmonary: Reports: Shortness of Breath, Cough Cardiovascular: Reports: Dyspnea on Exertion. Denies: Chest Pain, Palpitations Gastrointestinal: Denies: Abdominal Pain, Constipation, Decreased Appetite Genitourinary: Denies: Dysuria, Frequency, Burning Musculoskeletal: Denies: Neck Pain, Shoulder Pain, Arm Pain Skin: Denies: Cyanosis, Jaundice, Mottled - Patient Data Vitals - Most Recent: Last Vital Signs Temp 36.1 C 11/12/20 08:00 Pulse 73 11/11/20 07:00 Resp 26 H 11/12/20 10:00 BP 94/62 11/12/20 10:00 Pulse Ox 91 L 11/12/20 10:00 Weight - Most Recent: 73.119 kg I&O - Last 24 Hours: Intake & Output 11/11/20 11/12/20 11/12/20 22:59 06:59 14:59 Intake Total 410 400 Output Total 400 350 Balance 10 50 Lab Results Last 24 Hours: Laboratory Results - last 24 hr 11/11/20 11/12/20 11/12/20 Range/Units 14:23 05:45 05:45 WBC 10.09 (4.0-11.0) K/uL RBC 4.40 (4.30-5.90) M/uL Hgb 12.9 (12.0-16.0) g/dL Hct 41.9 (36.0-46.0) % MCV 95.2 (80.0-98.0) fL MCH 29.3 (27.0-32.0) pg MCHC 30.8 L (31.0-37.0) g/dL RDW Std Deviation 51.5 (28.0-62.0) fl RDW Coeff of [place] 15 (11.0-15.0) % Plt Count 370 (150-400) K/uL MPV 11.60 (7.40-12.00) fL Add Manual Diff YES Neutrophils % (Manual) 87 H (48.0-80.0) % Lymphocytes % (Manual) 10 L (16.0-40.0) % Monocytes % (Manual) 1 (0.0-15.0) % Metamyelocytes % 1 % Myelocytes % 1 % Nucleated RBC % 0.0 /100WBC Absolute Seg Neuts 8.8 H (1.4-5.7) Lymphocytes # (Manual) 1.0 (0.6-2.4) Monocytes # (Manual) 0.1 (0.0-0.8) Absolute Metamyelocyte 0.1 Absolute Myelocytes 0.1 Nucleated RBCs # 0 K/uL Sodium 147 H 147 H (136-145) mmol/L Potassium 3.3 L 4.8 (3.5-5.1) mmol/L Chloride 108 H 108 H (98-107) mmol/L Carbon Dioxide 32.3 H 32.6 H (21.0-32.0) mmol/L BUN 11 10 (7.0-18.0) mg/dL Creatinine 0.7 0.6 (0.6-1.0) mg/dL Est Cr Clr Drug Dosing 84.41 98.48 mL/min Estimated GFR (MDRD) > 60.0 > 60.0 ml/min Glucose 97 129 H (74-106) mg/dL Calcium 8.5 8.2 L (8.5-10.1) mg/dL Phosphorus 3.1 (2.6-4.7) mg/dL Magnesium 2.3 (1.8-2.4) mg/dL Total Bilirubin 0.6 (0.2-1.0) mg/dL AST 39 H (15-37) IU/L ALT 72 H (14-63) IU/L Alkaline Phosphatase 74 (46-116) U/L Total Protein 6.1 L (6.4-8.2) g/dL Albumin 2.8 L (3.4-5.0) g/dL Globulin 3.3 (2.6-4.0) g/dL Albumin/Globulin Ratio 0.9 (0.9-1.6) Med Orders - Current: Current Medications Albuterol/Ipratropium (Albuterol/Ipratropium 3.0-0.5 Mg/3 Ml Neb Soln) 3 ml NEB Q4HRRT [facility] Last Admin: 11/12/20 13:31 Dose: 3 ml Documented by: Dexamethasone (Dexamethasone 4 Mg Tab) 6 mg PO Q24H [facility] Last Admin: 11/11/20 17:59 Dose: 6 mg Documented by: Enoxaparin Sodium (Enoxaparin 40 Mg/0.4 Ml Syringe) 40 mg SUBCUT Q24H [facility] Last Admin: 11/12/20 01:08 Dose: 40 mg Documented by: Dextrose/Water (Dextrose 5% In Water) 500 mls @ 250 mls/hr IV ASDIRECTED [facility] Last Admin: 11/11/20 09:43 Dose: 250 mls/hr Documented by: Pantoprazole Sodium (Pantoprazole 40 Mg Tab.Cr) 40 mg PO BEDTIME [facility] Last Admin: 11/11/20 20:24 Dose: 40 mg Documented by: Discontinued Medications Acetaminophen (Acetaminophen 500 Mg Tab) 1,000 mg PO ONETIME ONE Stop: 11/07/20 17:06 Last Admin: 11/07/20 19:03 Dose: Not Given Documented by: Albuterol/Ipratropium (Albuterol/Ipratropium 4 Gm Inhalation [place]) 0 gm INH QID PRN PRN Reason: Shortness of Breath Dexamethasone (Dexamethasone 10 Mg/Ml Sdv) 6 mg IVPUSH ONETIME ONE Stop: 11/07/20 17:06 Last Admin: 11/07/20 17:35 Dose: 6 mg Documented by: Haloperidol Lactate (Haloperidol Lactate 5 Mg/Ml Sdv) 2 mg IM ONETIME ONE Stop: 11/08/20 01:09 Last Admin: 11/08/20 01:17 Dose: 2 mg Documented by: Sodium Chloride (Normal Saline) 1,000 mls @ 250 mls/hr IV .Bolus ONE Stop: 11/07/20 21:04 Last Admin: 11/07/20 17:35 Dose: 250 mls/hr Documented by: Remdesivir 200 mg/ Sodium (Chloride) 250 mls @ 250 mls/hr IV ONETIME ONE Stop: 11/07/20 21:32 Last Admin: 11/07/20 22:00 Dose: 250 mls/hr Documented by: Remdesivir 100 mg/ Sodium (Chloride) 100 mls @ 100 mls/hr IV Q24H [facility] Stop: 11/11/20 21:59 Last Admin: 11/11/20 20:09 Dose: 100 mls/hr Documented by: Dextrose/Water (Dextrose 5% In Water) 500 mls @ 250 mls/hr IV ASDIRECTED [facility] Iopamidol (Iopamidol 755 Mg/Ml 100 Ml Bottle) 100 ml IVPUSH ONETIME ONE Stop: 11/07/20 19:29 Last Admin: 11/07/20 20:34 Dose: 100 ml Documented by: Lorazepam (Lorazepam 2 Mg/Ml Sdv) 1 mg IVPUSH ONETIME ONE Stop: 11/08/20 00:17 Last Admin: 11/08/20 00:33 Dose: 1 mg Documented by: Potassium Chloride (Potassium Chloride 20 Meq Tab.Er) 40 meq PO ONETIME ONE Stop: 11/08/20 19:40 Last Admin: 11/08/20 20:18 Dose: 40 meq Documented by: - Exam Quality Assessment: Supplemental Oxygen General: Alert, Cooperative, No Acute Distress. No: Oriented Neck: Supple, Trachea Midline Lungs: Decreased Breath Sounds, Rales Cardiovascular: Regular Rate, Regular Rhythm GI/Abdominal Exam: Normal Bowel Sounds, Soft, Non-Tender - Patient Data Lab Results Last 24 hrs: Laboratory Results - last 24 hr 11/11/20 11/12/20 11/12/20 Range/Units 14:23 05:45 05:45 WBC 10.09 (4.0-11.0) K/uL RBC 4.40 (4.30-5.90) M/uL Hgb 12.9 (12.0-16.0) g/dL Hct 41.9 (36.0-46.0) % MCV 95.2 (80.0-98.0) fL MCH 29.3 (27.0-32.0) pg MCHC 30.8 L (31.0-37.0) g/dL RDW Std Deviation 51.5 (28.0-62.0) fl RDW Coeff of [place] 15 (11.0-15.0) % Plt Count 370 (150-400) K/uL MPV 11.60 (7.40-12.00) fL Add Manual Diff YES Neutrophils % (Manual) 87 H (48.0-80.0) % Lymphocytes % (Manual) 10 L (16.0-40.0) % Monocytes % (Manual) 1 (0.0-15.0) % Metamyelocytes % 1 % Myelocytes % 1 % Nucleated RBC % 0.0 /100WBC Absolute Seg Neuts 8.8 H (1.4-5.7) Lymphocytes # (Manual) 1.0 (0.6-2.4) Monocytes # (Manual) 0.1 (0.0-0.8) Absolute Metamyelocyte 0.1 Absolute Myelocytes 0.1 Nucleated RBCs # 0 K/uL Sodium 147 H 147 H (136-145) mmol/L Potassium 3.3 L 4.8 (3.5-5.1) mmol/L Chloride 108 H 108 H (98-107) mmol/L Carbon Dioxide 32.3 H 32.6 H (21.0-32.0) mmol/L BUN 11 10 (7.0-18.0) mg/dL Creatinine 0.7 0.6 (0.6-1.0) mg/dL Est Cr Clr Drug Dosing 84.41 98.48 mL/min Estimated GFR (MDRD) > 60.0 > 60.0 ml/min Glucose 97 129 H (74-106) mg/dL Calcium 8.5 8.2 L (8.5-10.1) mg/dL Phosphorus 3.1 (2.6-4.7) mg/dL Magnesium 2.3 (1.8-2.4) mg/dL Total Bilirubin 0.6 (0.2-1.0) mg/dL AST 39 H (15-37) IU/L ALT 72 H (14-63) IU/L Alkaline Phosphatase 74 (46-116) U/L Total Protein 6.1 L (6.4-8.2) g/dL Albumin 2.8 L (3.4-5.0) g/dL Globulin 3.3 (2.6-4.0) g/dL Albumin/Globulin Ratio 0.9 (0.9-1.6) Result Diagrams: 11/12/20 05:45 11/12/20 05:45 Sepsis Event Note - Evaluation Sepsis Screening Result: Possible Sepsis Risk - Focused Exam Vital Signs: Vital Signs Temp Resp BP Pulse Ox Pulse Ox 11/12/20 10:00 26 H 94/62 91 L 91 L 11/12/20 09:00 26 H 89/54 L 90 L 11/12/20 08:00 36.1 C 34 H 91/64 91 L 11/12/20 07:00 36 H 92/58 L 91 L 11/12/20 06:00 30 H 113/61 90 L 11/12/20 05:00 36.1 C 26 H 96/56 L 92 L 11/12/20 04:00 26 H 93/55 L 92 L 11/12/20 03:00 26 H 92/45 L 92 L - Problem List & Annotations (1) Acute respiratory failure with hypoxia SNOMED Code(s): 56447803, 700250638 Code(s): J96.01 - ACUTE RESPIRATORY FAILURE WITH HYPOXIA Status: Acute Current Visit: Yes (2) COVID SNOMED Code(s): 330577663 Code(s): U07.1 - COVID-19 Status: Acute Current Visit: Yes (3) Developmental disability Status: Acute Current Visit: Yes (4) Hypernatremia SNOMED Code(s): 037314140 Code(s): E87.0 - HYPEROSMOLALITY AND HYPERNATREMIA Status: Acute Current Visit: Yes - Problem List Review Problem List Initiated/Reviewed/Updated: Yes - Plan Plan:: 30 yo female admitted for acute hypoxic respiratory failure due to COVID pneumonia Acute hypoxic respiratory failure: using BIPAP 14/12 50% FIo2, was on HHFNC intermittently to eat. COVID: cont baricitinib, and dexamethasone, finished course of remdesivir Hypernatremia: encourage free water consumption. Sodium is better today lovenox for DVT prophylaxis Encourage oral intake of food but if patient is unable to we will start patient on protein supplements such as Ensure Spoke and updated mother regarding patients status
[2020-11-12] MEDS: Dexamethasone 4 MG Tab PO SCH (17:32)
[2020-11-12] MEDS ORDERED: Hydrocolloid Dressing 4x4 Bandage ONE (19:25)
--- NOTE | 2020-11-12 21:08 | PN ---
TH[facility] Physician - Brief Progress [id number]/12/2021 14:11[facility] Mouna [place], [place] - [place] [facility] - [place] ICUBETI FRANZ, COVID+Date of Service 11/12/2020 14:11HPI/Ev ents of Note eICU Progress NotePt is a 30 yo F originally admitted on 11/07 for COVID pneumonia. She ma s required BIPAP since admission, with successful wean to HF NC today. Na is improved from 150 to 147 with D5W, she will continue to drink water with repeat lytes in the am. She is currently resting com fortably in NAD with stable VS. She does appear to have some skin break down on the nasal bridge with a bandage in place. Case was discussed with her nurse Daja. eICU Recommendations:1) Wean HF NC to m aintain SpO2 of 88-92%2) May need BIPAP for support still at HS3) Encourage po intake as tolerated fo r continued nutritional support4) Complete COVID appropriate therapies5) Monitor Na with increased or al free water intake6) Follow up re: cholelithiasis noted on CT of abdomen as an out pt7) Continue to trend transaminases8) Wound/Skin care to nasal bridgeThank you for allowing us to participate in the care of your patient.Interventions Major-Hypoxemia - evaluation and management, Infection - evaluati on and fetoipgyhdQivsnocsthgj-Hfsr-[id number] therapies (e.g. VTE, beta mrelin, etc.), Communication w ith other healthcare providers and/or family, Electrolyte abnormality - evaluation and managementElec tronically Signed by: VEDA GALEANA) on 11/12/2020 21:08
[2020-11-12] MEDS: Pantoprazole 40 MG Tab.CR PO SCH (21:34)
[2020-11-13] MEDS: Enoxaparin 40 MG/0.4 ML Syringe SUBCUT SCH (00:38)
[2020-11-13] MEDS: Albuterol/Ipratropium 3.0-0.5 MG/3 ML Neb Soln NEB SCH ×6 (01:29→21:15)
[2020-11-13] MEDS: Acetaminophen 325 MG Tab PO PRN ×3 (03:43→16:35)
[2020-11-13 06:58] LABS: BLOOD UREA NITROGEN,BUN 10 mg/dL (7.0-18.0); CARBON DIOXIDE,CO2 30.4 mmol/L (21.0-32.0); CHLORIDE,CL 107 mmol/L (98-107); GLUCOSE RANDOM 149 mg/dL (74-106); POTASSIUM,K 4.1 mmol/L (3.5-5.1); SODIUM,NA 142 mmol/L (136-145)
--- NOTE | 2020-11-13 15:12 | PCM.PN ---
- General Info Date of Service: 11/13/20 Admission Dx/Problem (Free Text): Admission Diagnosis/Problem Admission Diagnosis/Problem Hypoxia Subjective Update: Patient seen at bedside, patient's mother at bedside,resting comfortably, tolerating BiPAP well, reiterated importance of ruling to patient's mom at bedside. Functional Status: Reports: Tolerating Diet, Ambulating - Review of Systems General: Reports: Weakness, Fatigue, Malaise. Denies: Fever Pulmonary: Reports: Shortness of Breath, Cough, Sputum. Denies: Pleuritic Chest Pain Cardiovascular: Reports: Dyspnea on Exertion. Denies: Chest Pain, Palpitations Gastrointestinal: Denies: Abdominal Pain, Constipation, Decreased Appetite Genitourinary: Denies: Dysuria, Frequency, Burning Musculoskeletal: Denies: Neck Pain, Shoulder Pain, Arm Pain Skin: Denies: Cyanosis, Jaundice, Mottled - Patient Data Vitals - Most Recent: Last Vital Signs Temp 36.5 C 11/13/20 13:00 Pulse 73 11/11/20 07:00 Resp 45 H 11/13/20 14:00 BP 111/65 11/13/20 14:00 Pulse Ox 90 L 11/13/20 14:00 Weight - Most Recent: 72.529 kg I&O - Last 24 Hours: Intake & Output 11/13/20 11/13/20 11/13/20 06:59 14:59 22:59 Intake Total 420 Output Total 500 Balance -80 Lab Results Last 24 Hours: Laboratory Results - last 24 hr 11/13/20 11/13/20 Range/Units 06:06 06:06 WBC 10.19 (4.0-11.0) K/uL RBC 4.11 L (4.30-5.90) M/uL Hgb 11.7 L (12.0-16.0) g/dL Hct 38.2 (36.0-46.0) % MCV 92.9 (80.0-98.0) fL MCH 28.5 (27.0-32.0) pg MCHC 30.6 L (31.0-37.0) g/dL RDW Std Deviation 48.4 (28.0-62.0) fl RDW Coeff of [place] 14 (11.0-15.0) % Plt Count 321 (150-400) K/uL MPV 11.10 (7.40-12.00) fL Add Manual Diff YES Neutrophils % (Manual) 85 H (48.0-80.0) % Band Neutrophils % 1 % Lymphocytes % (Manual) 8 L (16.0-40.0) % Monocytes % (Manual) 3 (0.0-15.0) % Metamyelocytes % 3 % Nucleated RBC % 0.0 /100WBC Absolute Seg Neuts 8.7 H (1.4-5.7) Band Neutrophils # 0.1 Lymphocytes # (Manual) 0.8 (0.6-2.4) Monocytes # (Manual) 0.3 (0.0-0.8) Absolute Metamyelocyte 0.3 Nucleated RBCs # 0 K/uL Sodium 142 (136-145) mmol/L Potassium 4.1 (3.5-5.1) mmol/L Chloride 107 (98-107) mmol/L Carbon Dioxide 30.4 (21.0-32.0) mmol/L BUN 10 (7.0-18.0) mg/dL Creatinine 0.6 (0.6-1.0) mg/dL Est Cr Clr Drug Dosing 98.48 mL/min Estimated GFR (MDRD) > 60.0 ml/min Glucose 149 H (74-106) mg/dL Calcium 9.1 (8.5-10.1) mg/dL Phosphorus 2.5 L (2.6-4.7) mg/dL Magnesium 2.1 (1.8-2.4) mg/dL Total Bilirubin 0.7 (0.2-1.0) mg/dL AST 30 (15-37) IU/L ALT 54 (14-63) IU/L Alkaline Phosphatase 62 (46-116) U/L Total Protein 6.0 L (6.4-8.2) g/dL Albumin 2.5 L (3.4-5.0) g/dL Globulin 3.5 (2.6-4.0) g/dL Albumin/Globulin Ratio 0.7 L (0.9-1.6) Med Orders - Current: Current Medications Acetaminophen (Acetaminophen 325 Mg Tab) 650 mg PO Q4H PRN PRN Reason: Pain Last Admin: 11/13/20 10:11 Dose: 650 mg Documented by: Albuterol/Ipratropium (Albuterol/Ipratropium 3.0-0.5 Mg/3 Ml Neb Soln) 3 ml NEB Q4HRRT [facility] Last Admin: 11/13/20 13:38 Dose: 3 ml Documented by: Dexamethasone (Dexamethasone 4 Mg Tab) 6 mg PO Q24H [facility] Last Admin: 11/12/20 17:32 Dose: 6 mg Documented by: Enoxaparin Sodium (Enoxaparin 40 Mg/0.4 Ml Syringe) 40 mg SUBCUT Q24H [facility] Last Admin: 11/13/20 00:38 Dose: 40 mg Documented by: Pantoprazole Sodium (Pantoprazole 40 Mg Tab.Cr) 40 mg PO BEDTIME [facility] Last Admin: 11/12/20 21:34 Dose: 40 mg Documented by: Discontinued Medications Acetaminophen (Acetaminophen 500 Mg Tab) 1,000 mg PO ONETIME ONE Stop: 11/07/20 17:06 Last Admin: 11/07/20 19:03 Dose: Not Given Documented by: Albuterol/Ipratropium (Albuterol/Ipratropium 4 Gm Inhalation [place]) 0 gm INH QID PRN PRN Reason: Shortness of Breath Dexamethasone (Dexamethasone 10 Mg/Ml Sdv) 6 mg IVPUSH ONETIME ONE Stop: 11/07/20 17:06 Last Admin: 11/07/20 17:35 Dose: 6 mg Documented by: Haloperidol Lactate (Haloperidol Lactate 5 Mg/Ml Sdv) 2 mg IM ONETIME ONE Stop: 11/08/20 01:09 Last Admin: 11/08/20 01:17 Dose: 2 mg Documented by: Sodium Chloride (Normal Saline) 1,000 mls @ 250 mls/hr IV .Bolus ONE Stop: 11/07/20 21:04 Last Admin: 11/07/20 17:35 Dose: 250 mls/hr Documented by: Remdesivir 200 mg/ Sodium (Chloride) 250 mls @ 250 mls/hr IV ONETIME ONE Stop: 11/07/20 21:32 Last Admin: 11/07/20 22:00 Dose: 250 mls/hr Documented by: Remdesivir 100 mg/ Sodium (Chloride) 100 mls @ 100 mls/hr IV Q24H [facility] Stop: 11/11/20 21:59 Last Admin: 11/11/20 20:09 Dose: 100 mls/hr Documented by: Dextrose/Water (Dextrose 5% In Water) 500 mls @ 250 mls/hr IV ASDIRECTED ANTOLIN Dextrose/Water (Dextrose 5% In Water) 500 mls @ 250 mls/hr IV ASDIRECTED ANTOLIN Last Admin: 11/11/20 09:43 Dose: 250 mls/hr Documented by: Iopamidol (Iopamidol 755 Mg/Ml 100 Ml Bottle) 100 ml IVPUSH ONETIME ONE Stop: 11/07/20 19:29 Last Admin: 11/07/20 20:34 Dose: 100 ml Documented by: Lorazepam (Lorazepam 2 Mg/Ml Sdv) 1 mg IVPUSH ONETIME ONE Stop: 11/08/20 00:17 Last Admin: 11/08/20 00:33 Dose: 1 mg Documented by: Potassium Chloride (Potassium Chloride 20 Meq Tab.Er) 40 meq PO ONETIME ONE Stop: 11/08/20 19:40 Last Admin: 11/08/20 20:18 Dose: 40 meq Documented by: Wound Care/Dressing Products (Hydrocolloid Dressing 4x4 Bandage) Confirm Administered Dose 1 each .ROUTE .STK-MED ONE Stop: 11/12/20 19:26 Last Admin: 11/12/20 21:31 Dose: 1 each Documented by: - Exam Quality Assessment: Supplemental Oxygen General: Alert, Oriented, Cooperative, No Acute Distress Lungs: Decreased Breath Sounds, Rales Cardiovascular: Regular Rate, Regular Rhythm GI/Abdominal Exam: Normal Bowel Sounds, Soft, Non-Tender - Patient Data Lab Results Last 24 hrs: Laboratory Results - last 24 hr 11/13/20 11/13/20 Range/Units 06:06 06:06 WBC 10.19 (4.0-11.0) K/uL RBC 4.11 L (4.30-5.90) M/uL Hgb 11.7 L (12.0-16.0) g/dL Hct 38.2 (36.0-46.0) % MCV 92.9 (80.0-98.0) fL MCH 28.5 (27.0-32.0) pg MCHC 30.6 L (31.0-37.0) g/dL RDW Std Deviation 48.4 (28.0-62.0) fl RDW Coeff of [place] 14 (11.0-15.0) % Plt Count 321 (150-400) K/uL MPV 11.10 (7.40-12.00) fL Add Manual Diff YES Neutrophils % (Manual) 85 H (48.0-80.0) % Band Neutrophils % 1 % Lymphocytes % (Manual) 8 L (16.0-40.0) % Monocytes % (Manual) 3 (0.0-15.0) % Metamyelocytes % 3 % Nucleated RBC % 0.0 /100WBC Absolute Seg Neuts 8.7 H (1.4-5.7) Band Neutrophils # 0.1 Lymphocytes # (Manual) 0.8 (0.6-2.4) Monocytes # (Manual) 0.3 (0.0-0.8) Absolute Metamyelocyte 0.3 Nucleated RBCs # 0 K/uL Sodium 142 (136-145) mmol/L Potassium 4.1 (3.5-5.1) mmol/L Chloride 107 (98-107) mmol/L Carbon Dioxide 30.4 (21.0-32.0) mmol/L BUN 10 (7.0-18.0) mg/dL Creatinine 0.6 (0.6-1.0) mg/dL Est Cr Clr Drug Dosing 98.48 mL/min Estimated GFR (MDRD) > 60.0 ml/min Glucose 149 H (74-106) mg/dL Calcium 9.1 (8.5-10.1) mg/dL Phosphorus 2.5 L (2.6-4.7) mg/dL Magnesium 2.1 (1.8-2.4) mg/dL Total Bilirubin 0.7 (0.2-1.0) mg/dL AST 30 (15-37) IU/L ALT 54 (14-63) IU/L Alkaline Phosphatase 62 (46-116) U/L Total Protein 6.0 L (6.4-8.2) g/dL Albumin 2.5 L (3.4-5.0) g/dL Globulin 3.5 (2.6-4.0) g/dL Albumin/Globulin Ratio 0.7 L (0.9-1.6) Result Diagrams: 11/13/20 06:06 11/13/20 06:06 Sepsis Event Note - Evaluation Sepsis Screening Result: Possible Sepsis Risk - Focused Exam Vital Signs: Vital Signs Temp Resp BP Pulse Ox 11/13/20 14:00 45 H 111/65 90 L 11/13/20 13:00 36.5 C 27 H 105/68 90 L 11/13/20 12:00 17 92/57 L 90 L 11/13/20 11:00 29 H 100/65 92 L 11/13/20 10:00 30 H 104/62 92 L 11/13/20 09:30 20 95 11/13/20 09:00 30 H 91/52 L 91 L 11/13/20 08:00 36.6 C 24 H 92/46 L 92 L 11/13/20 07:00 22 H 83/45 L 93 L 11/13/20 06:00 24 H 90/55 L 92 L 11/13/20 05:00 23 H 93/55 L 92 L 11/13/20 04:00 36.4 C 17 100/61 95 - Problem List & Annotations (1) Acute respiratory failure with hypoxia SNOMED Code(s): 76604203, 482703704 Code(s): J96.01 - ACUTE RESPIRATORY FAILURE WITH HYPOXIA Status: Acute Current Visit: Yes (2) COVID SNOMED Code(s): 761959442 Code(s): U07.1 - COVID-19 Status: Acute Current Visit: Yes (3) Developmental disability Status: Acute Current Visit: Yes (4) Hypernatremia SNOMED Code(s): 047181755 Code(s): E87.0 - HYPEROSMOLALITY AND HYPERNATREMIA Status: Acute Current Visit: Yes - Problem List Review Problem List Initiated/Reviewed/Updated: Yes - Plan Plan:: 30 yo female admitted for acute hypoxic respiratory failure due to COVID pneumonia Acute hypoxic respiratory failure: using Vapotherm, 50 L 75% FiO2 COVID: cont baricitinib, and dexamethasone, finished course of remdesivir Hypernatremia: encourage free water consumption. Sodium is better lovenox for DVT prophylaxis Encourage oral intake of food but if patient is unable to we will start patient on protein supplements such as Ensure Spoke and updated mother regarding patients status
[2020-11-13] MEDS ORDERED: Phosphorus #1 250 MG Tab PO ONE (15:40)
[2020-11-13] MEDS: Dexamethasone 4 MG Tab PO SCH (16:12)
--- NOTE | 2020-11-13 16:33 | CR ---
INDICATION: Hypoxia. COMPARISON: CT and plain film 07 November 2020. FINDINGS: Some increased hazy airspace opacity at the right base. Persistent moderately dense airspace opacity throughout the left lung with relative sparing at the upper lobe. Rightward scoliosis centered at thoracolumbar junction. Dictated by Lamont Cheng MD @ 11/13/2020 4:32:05 PM (Electronically Signed)
[2020-11-13] MEDS: Pantoprazole 40 MG Tab.CR PO SCH (20:18)
[2020-11-14] MEDS: Albuterol/Ipratropium 3.0-0.5 MG/3 ML Neb Soln NEB SCH ×6 (01:10→21:37)
[2020-11-14] MEDS: Enoxaparin 40 MG/0.4 ML Syringe SUBCUT SCH (01:10)
[2020-11-14] MEDS: Acetaminophen 325 MG Tab PO PRN ×3 (06:33→14:50)
[2020-11-14 07:36] LABS: BLOOD UREA NITROGEN,BUN 9 mg/dL (7.0-18.0); CARBON DIOXIDE,CO2 30.1 mmol/L (21.0-32.0); CHLORIDE,CL 105 mmol/L (98-107); GLUCOSE RANDOM 127 mg/dL (74-106); POTASSIUM,K 4.2 mmol/L (3.5-5.1); SODIUM,NA 141 mmol/L (136-145)
--- NOTE | 2020-11-14 15:22 | PCM.PN ---
- General Info Date of Service: 11/14/20 Admission Dx/Problem (Free Text): Admission Diagnosis/Problem Admission Diagnosis/Problem Hypoxia Subjective Update: Patient seen at bedside, patient's mother at bedside,resting comfortably, tolerating BiPAP well, Functional Status: Reports: Tolerating Diet, Urinating. Denies: Ambulating - Review of Systems General: Reports: Weakness, Fatigue. Denies: Fever Pulmonary: Reports: Shortness of Breath, Cough, Sputum. Denies: Pleuritic Chest Pain Cardiovascular: Denies: Chest Pain, Palpitations Gastrointestinal: Reports: Decreased Appetite. Denies: Abdominal Pain, Constipation, Nausea, Vomiting Genitourinary: Denies: Dysuria, Frequency, Burning Musculoskeletal: Denies: Neck Pain, Shoulder Pain, Arm Pain Skin: Denies: Cyanosis, Jaundice, Mottled - Patient Data Vitals - Most Recent: Last Vital Signs Temp 36.7 C 11/14/20 12:00 Pulse 73 11/11/20 07:00 Resp 24 H 11/14/20 13:00 BP 108/69 11/14/20 13:00 Pulse Ox 93 L 11/14/20 13:00 Weight - Most Recent: 69.763 kg I&O - Last 24 Hours: Intake & Output 11/14/20 11/14/20 11/14/20 06:59 14:59 22:59 Intake Total 240 Output Total 0 Balance 240 Lab Results Last 24 Hours: Laboratory Results - last 24 hr 11/14/20 11/14/20 Range/Units 05:31 05:31 WBC 16.53 H (4.0-11.0) K/uL RBC 4.42 (4.30-5.90) M/uL Hgb 12.7 (12.0-16.0) g/dL Hct 40.6 (36.0-46.0) % MCV 91.9 (80.0-98.0) fL MCH 28.7 (27.0-32.0) pg MCHC 31.3 (31.0-37.0) g/dL RDW Std Deviation 48.1 (28.0-62.0) fl RDW Coeff of [place] 14 (11.0-15.0) % Plt Count 330 (150-400) K/uL MPV 12.30 H (7.40-12.00) fL Add Manual Diff YES Neutrophils % (Manual) 86 H (48.0-80.0) % Band Neutrophils % 7 % Lymphocytes % (Manual) 4 L (16.0-40.0) % Monocytes % (Manual) 3 (0.0-15.0) % Nucleated RBC % 0.0 /100WBC Absolute Seg Neuts 14.2 H (1.4-5.7) Band Neutrophils # 1.2 Lymphocytes # (Manual) 0.7 (0.6-2.4) Monocytes # (Manual) 0.5 (0.0-0.8) Nucleated RBCs # 0 K/uL Sodium 141 (136-145) mmol/L Potassium 4.2 (3.5-5.1) mmol/L Chloride 105 (98-107) mmol/L Carbon Dioxide 30.1 (21.0-32.0) mmol/L BUN 9 (7.0-18.0) mg/dL Creatinine 0.5 L (0.6-1.0) mg/dL Est Cr Clr Drug Dosing 118.17 mL/min Estimated GFR (MDRD) > 60.0 ml/min Glucose 127 H (74-106) mg/dL Calcium 9.3 (8.5-10.1) mg/dL Phosphorus 2.6 (2.6-4.7) mg/dL Magnesium 2.0 (1.8-2.4) mg/dL Total Bilirubin 0.7 (0.2-1.0) mg/dL AST 24 (15-37) IU/L ALT 48 (14-63) IU/L Alkaline Phosphatase 64 (46-116) U/L Total Protein 5.9 L (6.4-8.2) g/dL Albumin 2.8 L (3.4-5.0) g/dL Globulin 3.1 (2.6-4.0) g/dL Albumin/Globulin Ratio 0.9 (0.9-1.6) Med Orders - Current: Current Medications Acetaminophen (Acetaminophen 325 Mg Tab) 650 mg PO Q4H PRN PRN Reason: Pain Last Admin: 11/14/20 14:50 Dose: 650 mg Documented by: Albuterol/Ipratropium (Albuterol/Ipratropium 3.0-0.5 Mg/3 Ml Neb Soln) 3 ml NEB Q4HRRT ANTOLIN Last Admin: 11/14/20 13:53 Dose: 3 ml Documented by: Dexamethasone (Dexamethasone 4 Mg Tab) 6 mg PO Q24H [facility] Last Admin: 11/13/20 16:12 Dose: 6 mg Documented by: Enoxaparin Sodium (Enoxaparin 40 Mg/0.4 Ml Syringe) 40 mg SUBCUT Q24H [facility] Last Admin: 11/14/20 01:10 Dose: 40 mg Documented by: Guaifenesin/Dextromethorphan (Guaifenesin/Dextromethorphan 100-10 Mg/5 Ml Soln 10 Ml Cup) 10 ml PO Q4H PRN PRN Reason: Cough Pantoprazole Sodium (Pantoprazole 40 Mg Tab.Cr) 40 mg PO BEDTIME [facility] Last Admin: 11/13/20 20:18 Dose: 40 mg Documented by: Discontinued Medications Acetaminophen (Acetaminophen 500 Mg Tab) 1,000 mg PO ONETIME ONE Stop: 11/07/20 17:06 Last Admin: 11/07/20 19:03 Dose: Not Given Documented by: Albuterol/Ipratropium (Albuterol/Ipratropium 4 Gm Inhalation [place]) 0 gm INH QID PRN PRN Reason: Shortness of Breath Dexamethasone (Dexamethasone 10 Mg/Ml Sdv) 6 mg IVPUSH ONETIME ONE Stop: 11/07/20 17:06 Last Admin: 11/07/20 17:35 Dose: 6 mg Documented by: Haloperidol Lactate (Haloperidol Lactate 5 Mg/Ml Sdv) 2 mg IM ONETIME ONE Stop: 11/08/20 01:09 Last Admin: 11/08/20 01:17 Dose: 2 mg Documented by: Sodium Chloride (Normal Saline) 1,000 mls @ 250 mls/hr IV .Bolus ONE Stop: 11/07/20 21:04 Last Admin: 11/07/20 17:35 Dose: 250 mls/hr Documented by: Remdesivir 200 mg/ Sodium (Chloride) 250 mls @ 250 mls/hr IV ONETIME ONE Stop: 11/07/20 21:32 Last Admin: 11/07/20 22:00 Dose: 250 mls/hr Documented by: Remdesivir 100 mg/ Sodium (Chloride) 100 mls @ 100 mls/hr IV Q24H ANTOLIN Stop: 11/11/20 21:59 Last Admin: 11/11/20 20:09 Dose: 100 mls/hr Documented by: Dextrose/Water (Dextrose 5% In Water) 500 mls @ 250 mls/hr IV ASDIRECTED ANTOLIN Dextrose/Water (Dextrose 5% In Water) 500 mls @ 250 mls/hr IV ASDIRECTED ANTOLIN Last Admin: 11/11/20 09:43 Dose: 250 mls/hr Documented by: Iopamidol (Iopamidol 755 Mg/Ml 100 Ml Bottle) 100 ml IVPUSH ONETIME ONE Stop: 11/07/20 19:29 Last Admin: 11/07/20 20:34 Dose: 100 ml Documented by: Lorazepam (Lorazepam 2 Mg/Ml Sdv) 1 mg IVPUSH ONETIME ONE Stop: 11/08/20 00:17 Last Admin: 11/08/20 00:33 Dose: 1 mg Documented by: Potassium Chloride (Potassium Chloride 20 Meq Tab.Er) 40 meq PO ONETIME ONE Stop: 11/08/20 19:40 Last Admin: 11/08/20 20:18 Dose: 40 meq Documented by: Sodium Phosphate (Phosphorus #1 250 Mg Tab) 250 mg PO ONETIME ONE Stop: 11/13/20 15:41 Last Admin: 11/13/20 16:12 Dose: 250 mg Documented by: Wound Care/Dressing Products (Hydrocolloid Dressing 4x4 Bandage) Confirm Ad ministered Dose 1 each .ROUTE .STK-MED ONE Stop: 11/12/20 19:26 Last Admin: 11/12/20 21:31 Dose: 1 each Documented by: - Exam Quality Assessment: Supplemental Oxygen General: Alert, Oriented, Cooperative Lungs: Decreased Breath Sounds, Crackles, Rales Cardiovascular: Regular Rate, Regular Rhythm GI/Abdominal Exam: Normal Bowel Sounds, Soft - Patient Data Lab Results Last 24 hrs: Laboratory Results - last 24 hr 11/14/20 11/14/20 Range/Units 05:31 05:31 WBC 16.53 H (4.0-11.0) K/uL RBC 4.42 (4.30-5.90) M/uL Hgb 12.7 (12.0-16.0) g/dL Hct 40.6 (36.0-46.0) % MCV 91.9 (80.0-98.0) fL MCH 28.7 (27.0-32.0) pg MCHC 31.3 (31.0-37.0) g/dL RDW Std Deviation 48.1 (28.0-62.0) fl RDW Coeff of [place] 14 (11.0-15.0) % Plt Count 330 (150-400) K/uL MPV 12.30 H (7.40-12.00) fL Add Manual Diff YES Neutrophils % (Manual) 86 H (48.0-80.0) % Band Neutrophils % 7 % Lymphocytes % (Manual) 4 L (16.0-40.0) % Monocytes % (Manual) 3 (0.0-15.0) % Nucleated RBC % 0.0 /100WBC Absolute Seg Neuts 14.2 H (1.4-5.7) Band Neutrophils # 1.2 Lymphocytes # (Manual) 0.7 (0.6-2.4) Monocytes # (Manual) 0.5 (0.0-0.8) Nucleated RBCs # 0 K/uL Sodium 141 (136-145) mmol/L Potassium 4.2 (3.5-5.1) mmol/L Chloride 105 (98-107) mmol/L Carbon Dioxide 30.1 (21.0-32.0) mmol/L BUN 9 (7.0-18.0) mg/dL Creatinine 0.5 L (0.6-1.0) mg/dL Est Cr Clr Drug Dosing 118.17 mL/min Estimated GFR (MDRD) > 60.0 ml/min Glucose 127 H (74-106) mg/dL Calcium 9.3 (8.5-10.1) mg/dL Phosphorus 2.6 (2.6-4.7) mg/dL Magnesium 2.0 (1.8-2.4) mg/dL Total Bilirubin 0.7 (0.2-1.0) mg/dL AST 24 (15-37) IU/L ALT 48 (14-63) IU/L Alkaline Phosphatase 64 (46-116) U/L Total Protein 5.9 L (6.4-8.2) g/dL Albumin 2.8 L (3.4-5.0) g/dL Globulin 3.1 (2.6-4.0) g/dL Albumin/Globulin Ratio 0.9 (0.9-1.6) Result Diagrams: 11/14/20 05:31 11/14/20 05:31 Sepsis Event Note - Evaluation Sepsis Screening Result: Sepsis Risk - Focused Exam Vital Signs: Vital Signs Temp Resp BP Pulse Ox Pulse Ox 11/14/20 13:00 24 H 108/69 93 L 11/14/20 12:00 36.7 C 27 H 98/60 93 L 11/14/20 11:00 21 H 89/51 L 90 L 11/14/20 10:00 24 H 101/70 88 L 11/14/20 09:00 26 H 104/68 89 L 11/14/20 08:00 36.9 C 23 H 91/59 L 90 L 91 L 11/14/20 07:00 26 H 89/51 L 91 L 11/14/20 06:00 36.6 C 29 H 110/68 90 L 11/14/20 05:00 24 H 98/66 90 L 11/14/20 04:00 24 H 114/63 91 L - Problem List & Annotations (1) Acute respiratory failure with hypoxia SNOMED Code(s): 08044733, 083385190 Code(s): J96.01 - ACUTE RESPIRATORY FAILURE WITH HYPOXIA Status: Acute Current Visit: Yes (2) COVID SNOMED Code(s): 363080873 Code(s): U07.1 - COVID-19 Status: Acute Current Visit: Yes (3) Developmental disability Status: Acute Current Visit: Yes (4) Hypernatremia SNOMED Code(s): 231180793 Code(s): E87.0 - HYPEROSMOLALITY AND HYPERNATREMIA Status: Acute Current Visit: Yes - Problem List Review Problem List Initiated/Reviewed/Updated: Yes - My Orders Last 24 Hours: My Active Orders 11/14/20 05:31 PROCALCITONIN [REF] Routine 11/14/20 11:30 Dextromethorphan/guaiFENesin [Robitussin DM] 10 ml PO Q4H PRN - Plan Plan:: 30 yo female admitted for acute hypoxic respiratory failure due to COVID pneumonia Acute hypoxic respiratory failure: using Vapotherm, 50 L between 72 75% FiO2, intermittent BiPAP COVID: cont baricitinib, and dexamethasone, finished course of remdesivir Hypernatremia: encourage free water consumption. Sodium is better lovenox for DVT prophylaxis Encourage oral intake of food, started patient on protein supplements Spoke and updated mother regarding patients status chest x-ray noted, procalcitonin sent, follow-up results, if comes back high will consider stopping baricitinib and starting IV antibiotics
[2020-11-14] MEDS: Dexamethasone 4 MG Tab PO SCH (17:32)
[2020-11-14] MEDS ORDERED: Morphine 2 MG/ML SYRINGE IVPUSH ONE (18:08)
--- NOTE | 2020-11-14 19:27 | CR ---
HISTORY: Left-sided jaw swelling. Prior right-sided surgery. TECHNIQUE: Three views of the left mandible. COMPARISON: No prior. FINDINGS: No acute fracture. No bony destructive change involving the mandible. There are right sided surgical clips present. Dental fillings. IMPRESSION: 1. No fracture or bony destructive change involving the mandible. 2. On the right, there are surgical clips. Dictated by Alexis Crowell MD @ 11/14/2020 7:26:55 PM (Electronically Signed)
[2020-11-14] MEDS: Pantoprazole 40 MG Tab.CR PO SCH (20:37)
[2020-11-14] MEDS ORDERED: Iopamidol 755 Mg/ML 100 ML Bottle IVPUSH ONE (21:16)
--- NOTE | 2020-11-14 22:06 | CT ---
INDICATION: Left mandibular swelling TECHNIQUE: CT soft tissue of the neck was acquired with 100 cc Isovue 370 intravenous contrast. COMPARISON: None FINDINGS: There is thickening of the left platysma with prominent adjacent fat stranding both deep and superficial. This extends along the angle of the mandible to the level of the left parotid gland. The left parotid gland appears inhomogeneous and mildly expanded. No definite ductal dilatation or parotid duct stone. Status post right parotid resection. Cystic lesion noted within the left cerebrum measuring 9.3 x 5.9 centimeters with some left right midline shift, partial effacement of the left lateral ventricle and mild dilatation of the right lateral ventricle. This process also appears to extend into the ch[place] of [place]. Orbits unremarkable. Subcentimeter left jugular lymph nodes. Submandibular glands unremarkable. Thyroid gland unremarkable. IMPRESSION: 1. Thickening of the left platysma with adjacent fat stranding extending to the level left parotid gland with some expansion and inhomogeneity. Appearance is consistent with left facial cellulitis and sialoadenitis. No definite drainable abscess. 2. Cystic left cerebral lesion suggestive of an arachnoid cyst as described above. Please note that all CT scans at this facility use dose modulation, iterative reconstruction, and/or weight-based dosing when appropriate to reduce radiation dose to as low as reasonably achievable. Dictated by Gasper Muñoz MD @ 11/14/2020 10:04:48 PM (Electronically Signed)
[2020-11-15] MEDS: Albuterol/Ipratropium 3.0-0.5 MG/3 ML Neb Soln NEB SCH ×6 (01:08→21:54)
[2020-11-15] MEDS: Enoxaparin 40 MG/0.4 ML Syringe SUBCUT SCH (01:08)
--- NOTE | 2020-11-15 04:26 | PN ---
THC Physician - Brief Progress [id number]/15/2021 04:22[facility] anton Mouna, MARYA - TRES (LYDIA) - BETI TUCKER COVID+Date of Service 11/15/2020 04:22HPI/Ev ents of Note eICU on-callRequested to review regarding left facial pain/jaw painPatient had swelling of the left side of the face and jaw-CT scan soft tissue neck was performed on 11/14 and showed findin gs consistent with the left facial cellulitis and sialoadenitis. In addition CT redemonstrated previ ously known left-sided cerebral cystic lesion for which she had MRI in 2019 and picture consistent wi th arachnoid cyst.WBC 16.5 from 10Plan:-Blood culture, lactate, CRP, [id number]-Iqhpj-sziflmoa ant ibiotics vancomycin and Zosyn-ENT consultation-Oxycodone and Tylenol as needed for pain control pain controlICU nursing staff updated.Interventions Major-Infection - evaluation and managementElectronica lly Signed by: Dallin Miller) on 11/15/2020 04:25
[2020-11-15] MEDS: oxyCODONE 5 MG Tab PO PRN ×2 (04:32→10:25)
[2020-11-15] MEDS: Piperacillin/Tazobactam 4.5 GM in Sodium Chloride 0.9% 100 ML IV SCH ×4 (04:34→21:53)
[2020-11-15] MEDS ORDERED: Vancomycin 2 GM in Sodium Chloride 0.9% 500 ML IV ONE (04:45)
[2020-11-15] MEDS ORDERED: VANCOmycin 2 GM/400 ML 400 ML IV ONE (05:13)
[2020-11-15 05:44] LABS: BLOOD UREA NITROGEN,BUN 8 mg/dL (7.0-18.0); CARBON DIOXIDE,CO2 28.4 mmol/L (21.0-32.0); CHLORIDE,CL 102 mmol/L (98-107); GLUCOSE RANDOM 125 mg/dL (74-106); SODIUM,NA 141 mmol/L (136-145)
[2020-11-15] MEDS: Acetaminophen 325 MG Tab PO PRN ×2 (10:25→20:14)
[2020-11-15] MEDS: Morphine 2 MG/ML SYRINGE IVPUSH PRN ×2 (11:47→16:50)
--- NOTE | 2020-11-15 14:38 | PCM.PN ---
- General Info Date of Service: 11/15/20 - Review of Systems Systems Review Comment:: has pain in the left jaw - Patient Data Vitals - Most Recent: Last Vital Signs Temp 36.3 C 11/15/20 14:00 Pulse 81 11/15/20 14:00 Resp 24 H 11/15/20 14:00 BP 117/74 11/15/20 14:00 Pulse Ox 92 L 11/15/20 14:00 Weight - Most Recent: 70.307 kg I&O - Last 24 Hours: Intake & Output 11/14/20 11/15/20 11/15/20 22:59 06:59 14:59 Intake Total 350 200 250 Output Total 620 350 650 Balance -270 -150 -400 Lab Results Last 24 Hours: Laboratory Results - last 24 hr 11/14/20 11/15/20 11/15/20 Range/Units 05:31 05:00 05:00 WBC (4.0-11.0) K/uL RBC (4.30-5.90) M/uL Hgb (12.0-16.0) g/dL Hct (36.0-46.0) % MCV (80.0-98.0) fL MCH (27.0-32.0) pg MCHC (31.0-37.0) g/dL RDW Std Deviation (28.0-62.0) fl RDW Coeff of [place] (11.0-15.0) % Plt Count (150-400) K/uL MPV (7.40-12.00) fL Neut % (Auto) (48.0-80.0) % Lymph % (Auto) (16.0-40.0) % [place] % (Auto) (0.0-15.0) % Eos % (Auto) (0.0-7.0) % Baso % (Auto) (0.0-1.5) % Neut # (Auto) (1.4-5.7) K/uL Lymph # (Auto) (0.6-2.4) K/uL [place] # (Auto) (0.0-0.8) K/uL Eos # (Auto) (0.0-0.7) K/uL Baso # (Auto) (0.0-0.1) K/uL Nucleated RBC % /100WBC Nucleated RBCs # K/uL Sodium 141 (136-145) mmol/L Potassium 4.0 (3.5-5.1) mmol/L Chloride 102 (98-107) mmol/L Carbon Dioxide 28.4 (21.0-32.0) mmol/L BUN 8 (7.0-18.0) mg/dL Creatinine 0.6 (0.6-1.0) mg/dL Est Cr Clr Drug Dosing 98.48 mL/min Estimated GFR (MDRD) > 60.0 ml/min Glucose 125 H (74-106) mg/dL Lactic Acid (0.4-2.0) mmol/L Calcium 9.5 (8.5-10.1) mg/dL Phosphorus 2.9 (2.6-4.7) mg/dL Magnesium 1.9 (1.8-2.4) mg/dL Total Bilirubin 0.6 (0.2-1.0) mg/dL AST 19 (15-37) IU/L ALT 24 (14-63) IU/L Alkaline Phosphatase 72 (46-116) U/L C-Reactive Protein 3.10 H (0.00-0.90) mg/dL Total Protein 6.8 (6.4-8.2) g/dL Albumin 2.9 L (3.4-5.0) g/dL Globulin 3.9 (2.6-4.0) g/dL Albumin/Globulin Ratio 0.7 L (0.9-1.6) Procalcitonin 0.06 ng/mL 11/15/20 11/15/20 Range/Units 06:15 06:15 WBC 22.19 H (4.0-11.0) K/uL RBC 4.58 (4.30-5.90) M/uL Hgb 13.2 (12.0-16.0) g/dL Hct 42.0 (36.0-46.0) % MCV 91.7 (80.0-98.0) fL MCH 28.8 (27.0-32.0) pg MCHC 31.4 (31.0-37.0) g/dL RDW Std Deviation 47.2 (28.0-62.0) fl RDW Coeff of [place] 14 (11.0-15.0) % Plt Count 272 (150-400) K/uL MPV 12.60 H (7.40-12.00) fL Neut % (Auto) 92.8 H (48.0-80.0) % Lymph % (Auto) 2.4 L (16.0-40.0) % [place] % (Auto) 4.8 (0.0-15.0) % Eos % (Auto) 0.0 (0.0-7.0) % Baso % (Auto) 0.0 (0.0-1.5) % Neut # (Auto) 20.6 H (1.4-5.7) K/uL Lymph # (Auto) 0.5 L (0.6-2.4) K/uL [place] # (Auto) 1.1 H (0.0-0.8) K/uL Eos # (Auto) 0.0 (0.0-0.7) K/uL Baso # (Auto) 0.0 (0.0-0.1) K/uL Nucleated RBC % 0.0 /100WBC Nucleated RBCs # 0 K/uL Sodium (136-145) mmol/L Potassium (3.5-5.1) mmol/L Chloride (98-107) mmol/L Carbon Dioxide (21.0-32.0) mmol/L BUN (7.0-18.0) mg/dL Creatinine (0.6-1.0) mg/dL Est Cr Clr Drug Dosing mL/min Estimated GFR (MDRD) ml/min Glucose (74-106) mg/dL Lactic Acid 1.2 (0.4-2.0) mmol/L Calcium (8.5-10.1) mg/dL Phosphorus (2.6-4.7) mg/dL Magnesium (1.8-2.4) mg/dL Total Bilirubin (0.2-1.0) mg/dL AST (15-37) IU/L ALT (14-63) IU/L Alkaline Phosphatase (46-116) U/L C-Reactive Protein (0.00-0.90) mg/dL Total Protein (6.4-8.2) g/dL Albumin (3.4-5.0) g/dL Globulin (2.6-4.0) g/dL Albumin/Globulin Ratio (0.9-1.6) Procalcitonin ng/mL Med Orders - Current: Current Medications Acetaminophen (Acetaminophen 325 Mg Tab) 650 mg PO Q4H PRN PRN Reason: Pain Last Admin: 11/15/20 10:25 Dose: 650 mg Documented by: Albuterol/Ipratropium (Albuterol/Ipratropium 3.0-0.5 Mg/3 Ml Neb Soln) 3 ml NEB Q4HRRT [facility] Last Admin: 11/15/20 13:31 Dose: 3 ml Documented by: Dexamethasone (Dexamethasone 4 Mg Tab) 6 mg PO Q24H [facility] Last Admin: 11/14/20 17:32 Dose: 6 mg Documented by: Enoxaparin Sodium (Enoxaparin 40 Mg/0.4 Ml Syringe) 40 mg SUBCUT Q24H [facility] Last Admin: 11/15/20 01:08 Dose: 40 mg Documented by: Guaifenesin/Dextromethorphan (Guaifenesin/Dextromethorphan 100-10 Mg/5 Ml Soln 10 Ml Cup) 10 ml PO Q4H PRN PRN Reason: Cough Piperacillin Sod/Tazobactam (Sod 4.5 gm/ Sodium Chloride) 100 mls @ 100 mls/hr IV Q6H [facility] Last Admin: 11/15/20 09:14 Dose: 100 mls/hr Documented by: Vancomycin HCl 1 gm/ Sodium (Chloride) 250 mls @ 166 mls/hr IV Q8H [facility] Last Admin: 11/15/20 13:35 Dose: 166 mls/hr Documented by: Morphine Sulfate (Morphine 2 Mg/Ml Syringe) 2 mg IVPUSH Q3H PRN PRN Reason: Pain Last Admin: 11/15/20 11:47 Dose: 2 mg Documented by: Oxycodone HCl (Oxycodone 5 Mg Tab) 5 mg PO Q6H PRN PRN Reason: Other Last Admin: 11/15/20 10:25 Dose: 5 mg Documented by: Pantoprazole Sodium (Pantoprazole 40 Mg Tab.Cr) 40 mg PO BEDTIME [facility] Last Admin: 11/14/20 20:37 Dose: 40 mg Documented by: Vancomycin HCl (Pharmacy To Dose - Vancomycin) 1 dose .XX ASDIRECTED [facility] Discontinued Medications Acetaminophen (Acetaminophen 500 Mg Tab) 1,000 mg PO ONETIME ONE Stop: 11/07/20 17:06 Last Admin: 11/07/20 19:03 Dose: Not Given Documented by: Albuterol/Ipratropium (Albuterol/Ipratropium 4 Gm Inhalation [place]) 0 gm INH QID PRN PRN Reason: Shortness of Breath Dexamethasone (Dexamethasone 10 Mg/Ml Sdv) 6 mg IVPUSH ONETIME ONE Stop: 11/07/20 17:06 Last Admin: 11/07/20 17:35 Dose: 6 mg Documented by: Haloperidol Lactate (Haloperidol Lactate 5 Mg/Ml Sdv) 2 mg IM ONETIME ONE Stop: 11/08/20 01:09 Last Admin: 11/08/20 01:17 Dose: 2 mg Documented by: Sodium Chloride (Normal Saline) 1,000 mls @ 250 mls/hr IV .Bolus ONE Stop: 11/07/20 21:04 Last Admin: 11/07/20 17:35 Dose: 250 mls/hr Documented by: Remdesivir 200 mg/ Sodium (Chloride) 250 mls @ 250 mls/hr IV ONETIME ONE Stop: 11/07/20 21:32 Last Admin: 11/07/20 22:00 Dose: 250 mls/hr Documented by: Remdesivir 100 mg/ Sodium (Chloride) 100 mls @ 100 mls/hr IV Q24H [facility] Stop: 11/11/20 21:59 Last Admin: 11/11/20 20:09 Dose: 100 mls/hr Documented by: Dextrose/Water (Dextrose 5% In Water) 500 mls @ 250 mls/hr IV ASDIRECTED [facility] Dextrose/Water (Dextrose 5% In Water) 500 mls @ 250 mls/hr IV ASDIRECTED [facility] Last Admin: 11/11/20 09:43 Dose: 250 mls/hr Documented by: Vancomycin HCl 2 gm/ Sodium (Chloride) 500 mls @ 333.333 mls/hr IV ONETIME ONE Stop: 11/15/20 06:14 Last Admin: 11/15/20 05:53 Dose: Not Given Documented by: Vancomycin HCl (Vancomycin 2 Gm/400 Ml) 400 mls @ 266.667 mls/hr IV ONETIME ONE Stop: 11/15/20 06:14 Last Admin: 11/15/20 06:15 Dose: 266.667 mls/hr Documented by: Iopamidol (Iopamidol 755 Mg/Ml 100 Ml Bottle) 100 ml IVPUSH ONETIME ONE Stop: 11/07/20 19:29 Last Admin: 11/07/20 20:34 Dose: 100 ml Documented by: Iopamidol (Iopamidol 755 Mg/Ml 100 Ml Bottle) 100 ml IVPUSH ONETIME ONE Stop: 11/14/20 21:17 Last Admin: 11/14/20 21:16 Dose: 100 ml Documented by: Lorazepam (Lorazepam 2 Mg/Ml Sdv) 1 mg IVPUSH ONETIME ONE Stop: 11/08/20 00:17 Last Admin: 11/08/20 00:33 Dose: 1 mg Documented by: Morphine Sulfate (Morphine 2 Mg/Ml Syringe) 1 mg IVPUSH ONETIME ONE Stop: 11/14/20 18:09 Last Admin: 11/14/20 18:17 Dose: 1 mg Documented by: Potassium Chloride (Potassium Chloride 20 Meq Tab.Er) 40 meq PO ONETIME ONE Stop: 11/08/20 19:40 Last Admin: 11/08/20 20:18 Dose: 40 meq Documented by: Sodium Phosphate (Phosphorus #1 250 Mg Tab) 250 mg PO ONETIME ONE Stop: 11/13/20 15:41 Last Admin: 11/13/20 16:12 Dose: 250 mg Documented by: Wound Care/Dressing Products (Hydrocolloid Dressing 4x4 Bandage) Confirm Administered Dose 1 each .ROUTE .STK-MED ONE Stop: 11/12/20 19:26 Last Admin: 11/12/20 21:31 Dose: 1 each Documented by: - Exam General: Alert, Oriented HEENT: Other (sweeling and erythema preauricular, no fluctuance) Lungs: Normal Respiratory Effort, Rhonchi Cardiovascular: Regular Rate, Regular Rhythm GI/Abdominal Exam: Soft, Non-Tender Extremities: Non-Tender, No Pedal Edema Skin: Warm, Dry, Intact Neurological: No New Focal Deficit - Patient Data Lab Results Last 24 hrs: Laboratory Results - last 24 hr 11/14/20 11/15/20 11/15/20 Range/Units 05:31 05:00 05:00 WBC (4.0-11.0) K/uL RBC (4.30-5.90) M/uL Hgb (12.0-16.0) g/dL Hct (36.0-46.0) % MCV (80.0-98.0) fL MCH (27.0-32.0) pg MCHC (31.0-37.0) g/dL RDW Std Deviation (28.0-62.0) fl RDW Coeff of [place] (11.0-15.0) % Plt Count (150-400) K/uL MPV (7.40-12.00) fL Neut % (Auto) (48.0-80.0) % Lymph % (Auto) (16.0-40.0) % [place] % (Auto) (0.0-15.0) % Eos % (Auto) (0.0-7.0) % Baso % (Auto) (0.0-1.5) % Neut # (Auto) (1.4-5.7) K/uL Lymph # (Auto) (0.6-2.4) K/uL [place] # (Auto) (0.0-0.8) K/uL Eos # (Auto) (0.0-0.7) K/uL Baso # (Auto) (0.0-0.1) K/uL Nucleated RBC % /100WBC Nucleated RBCs # K/uL Sodium 141 (136-145) mmol/L Potassium 4.0 (3.5-5.1) mmol/L Chloride 102 (98-107) mmol/L Carbon Dioxide 28.4 (21.0-32.0) mmol/L BUN 8 (7.0-18.0) mg/dL Creatinine 0.6 (0.6-1.0) mg/dL Est Cr Clr Drug Dosing 98.48 mL/min Estimated GFR (MDRD) > 60.0 ml/min Glucose 125 H (74-106) mg/dL Lactic Acid (0.4-2.0) mmol/L Calcium 9.5 (8.5-10.1) mg/dL Phosphorus 2.9 (2.6-4.7) mg/dL Magnesium 1.9 (1.8-2.4) mg/dL Total Bilirubin 0.6 (0.2-1.0) mg/dL AST 19 (15-37) IU/L ALT 24 (14-63) IU/L Alkaline Phosphatase 72 (46-116) U/L C-Reactive Protein 3.10 H (0.00-0.90) mg/dL Total Protein 6.8 (6.4-8.2) g/dL Albumin 2.9 L (3.4-5.0) g/dL Globulin 3.9 (2.6-4.0) g/dL Albumin/Globulin Ratio 0.7 L (0.9-1.6) Procalcitonin 0.06 ng/mL 11/15/20 11/15/20 Range/Units 06:15 06:15 WBC 22.19 H (4.0-11.0) K/uL RBC 4.58 (4.30-5.90) M/uL Hgb 13.2 (12.0-16.0) g/dL Hct 42.0 (36.0-46.0) % MCV 91.7 (80.0-98.0) fL MCH 28.8 (27.0-32.0) pg MCHC 31.4 (31.0-37.0) g/dL RDW Std Deviation 47.2 (28.0-62.0) fl RDW Coeff of [place] 14 (11.0-15.0) % Plt Count 272 (150-400) K/uL MPV 12.60 H (7.40-12.00) fL Neut % (Auto) 92.8 H (48.0-80.0) % Lymph % (Auto) 2.4 L (16.0-40.0) % [place] % (Auto) 4.8 (0.0-15.0) % Eos % (Auto) 0.0 (0.0-7.0) % Baso % (Auto) 0.0 (0.0-1.5) % Neut # (Auto) 20.6 H (1.4-5.7) K/uL Lymph # (Auto) 0.5 L (0.6-2.4) K/uL [place] # (Auto) 1.1 H (0.0-0.8) K/uL Eos # (Auto) 0.0 (0.0-0.7) K/uL Baso # (Auto) 0.0 (0.0-0.1) K/uL Nucleated RBC % 0.0 /100WBC Nucleated RBCs # 0 K/uL Sodium (136-145) mmol/L Potassium (3.5-5.1) mmol/L Chloride (98-107) mmol/L Carbon Dioxide (21.0-32.0) mmol/L BUN (7.0-18.0) mg/dL Creatinine (0.6-1.0) mg/dL Est Cr Clr Drug Dosing mL/min Estimated GFR (MDRD) ml/min Glucose (74-106) mg/dL Lactic Acid 1.2 (0.4-2.0) mmol/L Calcium (8.5-10.1) mg/dL Phosphorus (2.6-4.7) mg/dL Magnesium (1.8-2.4) mg/dL Total Bilirubin (0.2-1.0) mg/dL AST (15-37) IU/L ALT (14-63) IU/L Alkaline Phosphatase (46-116) U/L C-Reactive Protein (0.00-0.90) mg/dL Total Protein (6.4-8.2) g/dL Albumin (3.4-5.0) g/dL Globulin (2.6-4.0) g/dL Albumin/Globulin Ratio (0.9-1.6) Procalcitonin ng/mL Result Diagrams: 11/15/20 06:15 11/15/20 05:00 Sepsis Event Note - Evaluation Sepsis Screening Result: Sepsis Risk - Focused Exam Vital Signs: Vital Signs Temp Pulse Resp BP Pulse Ox Pulse Ox 11/15/20 14:00 36.3 C 81 24 H 117/74 92 L 11/15/20 13:00 36.7 C 99 26 H 98/57 L 93 L 11/15/20 12:00 36.1 C 88 22 H 93/63 94 L 11/15/20 11:00 36.3 C 94 24 H 105/70 92 L 90 L 11/15/20 10:00 36.6 C 101 H 31 H 112/73 91 L 11/15/20 09:00 36.4 C 97 29 H 127/27 L 90 L 11/15/20 08:00 36.7 C 88 26 H 97/64 90 L 90 L 11/15/20 07:00 22 H 114/71 90 L 11/15/20 06:00 24 H 119/72 92 L 11/15/20 05:00 36.1 C 31 H 112/76 90 L 09/15/21 04:00 38 H 107/69 92 L 11/15/20 03:00 23 H 106/74 89 L - Problem List Review Problem List Initiated/Reviewed/Updated: Yes - My Orders Last 24 Hours: My Active Orders 11/15/20 11:30 Morphine 2 mg IVPUSH Q3H PRN 11/16/20 05:11 CBC WITH AUTO DIFF [HEME] AM COMPREHENSIVE METABOLIC PN,CMP [CHEM] AM - Plan Plan:: 30 yo female admitted for acute hypoxic respiratory failure due to COVID pneumonia Acute hypoxic respiratory failure: using Vapotherm, 30 L between 50% FiO2, intermittent BiPAP COVID:, dexamethason, finished course of remdesivir, stop baricitinib due to cellulitis Cellulitis/parotiditis: started vancomycin and zosyn, blood cultures pending lovenox for DVT prophylaxis Encourage oral intake of food, started patient on protein supplements Spoke and updated mother regarding patients status
[2020-11-15] MEDS: Dexamethasone 4 MG Tab PO SCH (16:33)
[2020-11-15] MEDS: Pantoprazole 40 MG Tab.CR PO SCH (20:15)
[2020-11-16] MEDS: Enoxaparin 40 MG/0.4 ML Syringe SUBCUT SCH (00:16)
[2020-11-16] MEDS: Albuterol/Ipratropium 3.0-0.5 MG/3 ML Neb Soln NEB SCH ×6 (01:09→21:51)
[2020-11-16] MEDS: oxyCODONE 5 MG Tab PO PRN (03:43)
[2020-11-16] MEDS: guaiFENesin/Dextromethorphan 100-10 MG/5 ML Soln 10 ML Cup PO PRN ×4 (04:50→23:24)
[2020-11-16 06:46] LABS: BLOOD UREA NITROGEN,BUN 8 mg/dL (7.0-18.0); CARBON DIOXIDE,CO2 29.7 mmol/L (21.0-32.0); CHLORIDE,CL 107 mmol/L (98-107); GLUCOSE RANDOM 145 mg/dL (74-106); POTASSIUM,K 3.4 mmol/L (3.5-5.1); SODIUM,NA 144 mmol/L (136-145)
[2020-11-16] MEDS: Piperacillin/Tazobactam 4.5 GM in Sodium Chloride 0.9% 100 ML IV SCH ×3 (10:09→21:50)
--- NOTE | 2020-11-16 10:26 | PCM.PN ---
- General Info Date of Service: 11/16/20 - Review of Systems Systems Review Comment:: feeling better, much more alert this morning, Mother very pleased with progress this morning. - Patient Data Vitals - Most Recent: Last Vital Signs Temp 36.6 C 11/16/20 08:00 Pulse 108 H 11/16/20 07:00 Resp 21 H 11/16/20 08:00 BP 99/58 L 11/16/20 08:00 Pulse Ox 90 L 11/16/20 08:00 Weight - Most Recent: 70.31 kg I&O - Last 24 Hours: Intake & Output 11/15/20 11/16/20 11/16/20 22:59 06:59 14:59 Intake Total 240 Output Total 1000 Balance -760 Lab Results Last 24 Hours: Laboratory Results - last 24 hr 11/15/20 11/16/20 11/16/20 Range/Units 17:45 05:58 05:58 WBC 22.71 H (4.0-11.0) K/uL RBC 4.07 L (4.30-5.90) M/uL Hgb 11.5 L (12.0-16.0) g/dL Hct 37.6 (36.0-46.0) % MCV 92.4 (80.0-98.0) fL MCH 28.3 (27.0-32.0) pg MCHC 30.6 L (31.0-37.0) g/dL RDW Std Deviation 48.8 (28.0-62.0) fl RDW Coeff of [place] 14 (11.0-15.0) % Plt Count 241 (150-400) K/uL MPV 12.60 H (7.40-12.00) fL Neut % (Auto) 94.5 H (48.0-80.0) % Lymph % (Auto) 2.2 L (16.0-40.0) % [place] % (Auto) 3.2 (0.0-15.0) % Eos % (Auto) 0.0 (0.0-7.0) % Baso % (Auto) 0.1 (0.0-1.5) % Neut # (Auto) 21.5 H (1.4-5.7) K/uL Lymph # (Auto) 0.5 L (0.6-2.4) K/uL [place] # (Auto) 0.7 (0.0-0.8) K/uL Eos # (Auto) 0.0 (0.0-0.7) K/uL Baso # (Auto) 0.0 (0.0-0.1) K/uL Nucleated RBC % 0.0 /100WBC Nucleated RBCs # 0 K/uL Sodium 144 (136-145) mmol/L Potassium 3.4 L (3.5-5.1) mmol/L Chloride 107 (98-107) mmol/L Carbon Dioxide 29.7 (21.0-32.0) mmol/L BUN 8 (7.0-18.0) mg/dL Creatinine 0.7 (0.6-1.0) mg/dL Est Cr Clr Drug Dosing 84.41 mL/min Estimated GFR (MDRD) > 60.0 ml/min Glucose 145 H (74-106) mg/dL Lactic Acid 1.2 (0.4-2.0) mmol/L Calcium 8.0 L (8.5-10.1) mg/dL Total Bilirubin 0.7 (0.2-1.0) mg/dL AST 24 (15-37) IU/L ALT 31 (14-63) IU/L Alkaline Phosphatase 70 (46-116) U/L Total Protein 6.1 L (6.4-8.2) g/dL Albumin 2.1 L (3.4-5.0) g/dL Globulin 4.0 (2.6-4.0) g/dL Albumin/Globulin Ratio 0.5 L (0.9-1.6) Will Results Last 24 Hours: Microbiology 11/15/20 05:10 Aerobic Blood Culture - Preliminary Blood - Venous - Lab Draw NO GROWTH AFTER 1 DAY Anaerobic Blood Culture - Preliminary NO GROWTH AFTER 1 DAY 11/15/20 05:00 Aerobic Blood Culture - Preliminary Blood - Venous NO GROWTH AFTER 1 DAY Anaerobic Blood Culture - Preliminary NO GROWTH AFTER 1 DAY Med Orders - Current: Current Medications Acetaminophen (Acetaminophen 325 Mg Tab) 650 mg PO Q4H PRN PRN Reason: Pain Last Admin: 11/15/20 20:14 Dose: 650 mg Documented by: Albuterol/Ipratropium (Albuterol/Ipratropium 3.0-0.5 Mg/3 Ml Neb Soln) 3 ml NEB Q4HRRT [facility] Last Admin: 11/16/20 10:05 Dose: 3 ml Documented by: Dexamethasone (Dexamethasone 4 Mg Tab) 6 mg PO Q24H [facility] Last Admin: 11/15/20 16:33 Dose: 6 mg Documented by: Enoxaparin Sodium (Enoxaparin 40 Mg/0.4 Ml Syringe) 40 mg SUBCUT Q24H [facility] Last Admin: 11/16/20 00:16 Dose: 40 mg Documented by: Guaifenesin/Dextromethorphan (Guaifenesin/Dextromethorphan 100-10 Mg/5 Ml Soln 10 Ml Cup) 10 ml PO Q4H PRN PRN Reason: Cough Last Admin: 11/16/20 04:50 Dose: 10 ml Documented by: Piperacillin Sod/Tazobactam (Sod 4.5 gm/ Sodium Chloride) 100 mls @ 100 mls/hr IV Q6H [facility] Last Admin: 11/16/20 10:09 Dose: 100 mls/hr Documented by: Vancomycin HCl 1 gm/ Sodium (Chloride) 250 mls @ 166 mls/hr IV Q8H [facility] Last Admin: 11/16/20 04:15 Dose: 166 mls/hr Documented by: Morphine Sulfate (Morphine 2 Mg/Ml Syringe) 2 mg IVPUSH Q3H PRN PRN Reason: Pain Last Admin: 11/15/20 16:50 Dose: 2 mg Documented by: Oxycodone HCl (Oxycodone 5 Mg Tab) 5 mg PO Q6H PRN PRN Reason: Other Last Admin: 11/16/20 03:43 Dose: 5 mg Documented by: Pantoprazole Sodium (Pantoprazole 40 Mg Tab.Cr) 40 mg PO BEDTIME [facility] Last Admin: 11/15/20 20:15 Dose: 40 mg Documented by: Vancomycin HCl (Pharmacy To Dose - Vancomycin) 1 dose .XX ASDIRECTED [facility] Discontinued Medications Acetaminophen (Acetaminophen 500 Mg Tab) 1,000 mg PO ONETIME ONE Stop: 11/07/20 17:06 Last Admin: 11/07/20 19:03 Dose: Not Given Documented by: Albuterol/Ipratropium (Albuterol/Ipratropium 4 Gm Inhalation [place]) 0 gm INH QID PRN PRN Reason: Shortness of Breath Dexamethasone (Dexamethasone 10 Mg/Ml Sdv) 6 mg IVPUSH ONETIME ONE Stop: 11/07/20 17:06 Last Admin: 11/07/20 17:35 Dose: 6 mg Documented by: Haloperidol Lactate (Haloperidol Lactate 5 Mg/Ml Sdv) 2 mg IM ONETIME ONE Stop: 11/08/20 01:09 Last Admin: 11/08/20 01:17 Dose: 2 mg Documented by: Sodium Chloride (Normal Saline) 1,000 mls @ 250 mls/hr IV .Bolus ONE Stop: 11/07/20 21:04 Last Admin: 11/07/20 17:35 Dose: 250 mls/hr Documented by: Remdesivir 200 mg/ Sodium (Chloride) 250 mls @ 250 mls/hr IV ONETIME ONE Stop: 11/07/20 21:32 Last Admin: 11/07/20 22:00 Dose: 250 mls/hr Documented by: Remdesivir 100 mg/ Sodium (Chloride) 100 mls @ 100 mls/hr IV Q24H [facility] Stop: 11/11/20 21:59 Last Admin: 11/11/20 20:09 Dose: 100 mls/hr Documented by: Dextrose/Water (Dextrose 5% In Water) 500 mls @ 250 mls/hr IV ASDIRECTED [facility] Dextrose/Water (Dextrose 5% In Water) 500 mls @ 250 mls/hr IV ASDIRECTED [facility] Last Admin: 11/11/20 09:43 Dose: 250 mls/hr Documented by: Vancomycin HCl 2 gm/ Sodium (Chloride) 500 mls @ 333.333 mls/hr IV ONETIME ONE Stop: 11/15/20 06:14 Last Admin: 11/15/20 05:53 Dose: Not Given Documented by: Vancomycin HCl (Vancomycin 2 Gm/400 Ml) 400 mls @ 266.667 mls/hr IV ONETIME ONE Stop: 11/15/20 06:14 Last Admin: 11/15/20 06:15 Dose: 266.667 mls/hr Documented by: Iopamidol (Iopamidol 755 Mg/Ml 100 Ml Bottle) 100 ml IVPUSH ONETIME ONE Stop: 11/07/20 19:29 Last Admin: 11/07/20 20:34 Dose: 100 ml Documented by: Iopamidol (Iopamidol 755 Mg/Ml 100 Ml Bottle) 100 ml IVPUSH ONETIME ONE Stop: 11/14/20 21:17 Last Admin: 11/14/20 21:16 Dose: 100 ml Documented by: Lorazepam (Lorazepam 2 Mg/Ml Sdv) 1 mg IVPUSH ONETIME ONE Stop: 11/08/20 00:17 Last Admin: 11/08/20 00:33 Dose: 1 mg Documented by: Morphine Sulfate (Morphine 2 Mg/Ml Syringe) 1 mg IVPUSH ONETIME ONE Stop: 11/14/20 18:09 Last Admin: 11/14/20 18:17 Dose: 1 mg Documented by: Potassium Chloride (Potassium Chloride 20 Meq Tab.Er) 40 meq PO ONETIME ONE Stop: 11/08/20 19:40 Last Admin: 11/08/20 20:18 Dose: 40 meq Documented by: Sodium Phosphate (Phosphorus #1 250 Mg Tab) 250 mg PO ONETIME ONE Stop: 11/13/20 15:41 Last Admin: 11/13/20 16:12 Dose: 250 mg Documented by: Wound Care/Dressing Products (Hydrocolloid Dressing 4x4 Bandage) Confirm Administered Dose 1 each .ROUTE .STK-MED ONE Stop: 11/12/20 19:26 Last Admin: 11/12/20 21:31 Dose: 1 each Documented by: - Exam General: Alert Lungs: Normal Respiratory Effort, Rhonchi GI/Abdominal Exam: Normal Bowel Sounds, Soft, Non-Tender Extremities: Non-Tender, No Pedal Edema Skin: Warm, Dry, Intact Neurological: No New Focal Deficit - Patient Data Lab Results Last 24 hrs: Laboratory Results - last 24 hr 11/15/20 11/16/20 11/16/20 Range/Units 17:45 05:58 05:58 WBC 22.71 H (4.0-11.0) K/uL RBC 4.07 L (4.30-5.90) M/uL Hgb 11.5 L (12.0-16.0) g/dL Hct 37.6 (36.0-46.0) % MCV 92.4 (80.0-98.0) fL MCH 28.3 (27.0-32.0) pg MCHC 30.6 L (31.0-37.0) g/dL RDW Std Deviation 48.8 (28.0-62.0) fl RDW Coeff of [place] 14 (11.0-15.0) % Plt Count 241 (150-400) K/uL MPV 12.60 H (7.40-12.00) fL Neut % (Auto) 94.5 H (48.0-80.0) % Lymph % (Auto) 2.2 L (16.0-40.0) % Hunt % (Auto) 3.2 (0.0-15.0) % Eos % (Auto) 0.0 (0.0-7.0) % Baso % (Auto) 0.1 (0.0-1.5) % Neut # (Auto) 21.5 H (1.4-5.7) K/uL Lymph # (Auto) 0.5 L (0.6-2.4) K/uL Hunt # (Auto) 0.7 (0.0-0.8) K/uL Eos # (Auto) 0.0 (0.0-0.7) K/uL Baso # (Auto) 0.0 (0.0-0.1) K/uL Nucleated RBC % 0.0 /100WBC Nucleated RBCs # 0 K/uL Sodium 144 (136-145) mmol/L Potassium 3.4 L (3.5-5.1) mmol/L Chloride 107 (98-107) mmol/L Carbon Dioxide 29.7 (21.0-32.0) mmol/L BUN 8 (7.0-18.0) mg/dL Creatinine 0.7 (0.6-1.0) mg/dL Est Cr Clr Drug Dosing 84.41 mL/min Estimated GFR (MDRD) > 60.0 ml/min Glucose 145 H (74-106) mg/dL Lactic Acid 1.2 (0.4-2.0) mmol/L Calcium 8.0 L (8.5-10.1) mg/dL Total Bilirubin 0.7 (0.2-1.0) mg/dL AST 24 (15-37) IU/L ALT 31 (14-63) IU/L Alkaline Phosphatase 70 (46-116) U/L Total Protein 6.1 L (6.4-8.2) g/dL Albumin 2.1 L (3.4-5.0) g/dL Globulin 4.0 (2.6-4.0) g/dL Albumin/Globulin Ratio 0.5 L (0.9-1.6) Result Diagrams: 11/16/20 05:58 11/16/20 05:58 Will Results Last 24 hrs: Microbiology 11/15/20 05:10 Aerobic Blood Culture - Preliminary Blood - Venous - Lab Draw NO GROWTH AFTER 1 DAY Anaerobic Blood Culture - Preliminary NO GROWTH AFTER 1 DAY 11/15/20 05:00 Aerobic Blood Culture - Preliminary Blood - Venous NO GROWTH AFTER 1 DAY Anaerobic Blood Culture - Preliminary NO GROWTH AFTER 1 DAY Sepsis Event Note - Evaluation Sepsis Screening Result: Sepsis Risk - Focused Exam Vital Signs: Vital Signs Temp Pulse Resp BP Pulse Ox 11/16/20 08:00 36.6 C 21 H 99/58 L 90 L 11/16/20 07:00 108 H 27 H 112/59 L 92 L 11/16/20 06:00 108 H 25 H 108/59 L 91 L 11/16/20 05:00 88 17 105/57 L 93 L 11/16/20 04:00 35.7 C L 112 H 25 H 90/50 L 86 L 11/16/20 03:00 105 H 28 H 97/61 92 L 11/16/20 02:00 98 24 H 97/56 L 90 L 11/16/20 01:00 104 H 24 H 89/57 L 89 L 11/16/20 00:00 36.5 C 103 H 16 87/47 L 91 L 11/15/20 23:00 111 H 17 78/47 L 90 L - Problem List Review Problem List Initiated/Reviewed/Updated: Yes - My Orders Last 24 Hours: My Active Orders 11/15/20 11:30 Morphine 2 mg IVPUSH Q3H PRN - Plan Plan:: 30 yo female admitted for acute hypoxic respiratory failure due to COVID pneumonia Acute hypoxic respiratory failure: using Vapotherm, 40 L, 50% FiO2, intermittent BiPAP COVID:, dexamethason, finished course of remdesivir, stop baricitinib due to cellulitis Cellulitis/parotiditis: continue vancomycin and zosyn, blood cultures pending lovenox for DVT prophylaxis Encourage oral intake of food, started patient on protein supplements
[2020-11-16] MEDS: Dexamethasone 4 MG Tab PO SCH (16:26)
[2020-11-16] MEDS: Pantoprazole 40 MG Tab.CR PO SCH (20:06)
[2020-11-17] MEDS: Enoxaparin 40 MG/0.4 ML Syringe SUBCUT SCH (01:49)
[2020-11-17] MEDS: Albuterol/Ipratropium 3.0-0.5 MG/3 ML Neb Soln NEB SCH ×6 (01:49→22:05)
[2020-11-17] MEDS: Piperacillin/Tazobactam 4.5 GM in Sodium Chloride 0.9% 100 ML IV SCH ×4 (03:14→22:06)
[2020-11-17] MEDS: guaiFENesin/Dextromethorphan 100-10 MG/5 ML Soln 10 ML Cup PO PRN ×2 (05:50→16:59)
[2020-11-17 07:10] LABS: BLOOD UREA NITROGEN,BUN 6 mg/dL (7.0-18.0); CARBON DIOXIDE,CO2 30.2 mmol/L (21.0-32.0); CHLORIDE,CL 110 mmol/L (98-107); GLUCOSE RANDOM 128 mg/dL (74-106); POTASSIUM,K 3.4 mmol/L (3.5-5.1); SODIUM,NA 147 mmol/L (136-145)
--- NOTE | 2020-11-17 09:38 | PCM.PN ---
- General Info Date of Service: 11/17/20 - Review of Systems Systems Review Comment:: feeling better, jaw pain improving - Patient Data Vitals - Most Recent: Last Vital Signs Temp 36.2 C 11/17/20 08:00 Pulse 108 H 11/16/20 07:00 Resp 31 H 11/17/20 09:00 BP 103/66 11/17/20 09:00 Pulse Ox 89 L 11/17/20 09:00 Weight - Most Recent: 71.713 kg I&O - Last 24 Hours: Intake & Output 11/16/20 11/17/20 11/17/20 22:59 06:59 14:59 Intake Total 580 1100 100 Output Total 600 800 Balance -20 300 100 Lab Results Last 24 Hours: Laboratory Results - last 24 hr 11/16/20 11/17/20 11/17/20 Range/Units 12:47 06:38 06:38 WBC 20.31 H (4.0-11.0) K/uL RBC 4.02 L (4.30-5.90) M/uL Hgb 11.6 L (12.0-16.0) g/dL Hct 37.5 (36.0-46.0) % MCV 93.3 (80.0-98.0) fL MCH 28.9 (27.0-32.0) pg MCHC 30.9 L (31.0-37.0) g/dL RDW Std Deviation 49.4 (28.0-62.0) fl RDW Coeff of [place] 15 (11.0-15.0) % Plt Count 257 (150-400) K/uL MPV 13.00 H (7.40-12.00) fL Neut % (Auto) 94.3 H (48.0-80.0) % Lymph % (Auto) 2.8 L (16.0-40.0) % [place] % (Auto) 2.8 (0.0-15.0) % Eos % (Auto) 0.0 (0.0-7.0) % Baso % (Auto) 0.1 (0.0-1.5) % Neut # (Auto) 19.2 H (1.4-5.7) K/uL Lymph # (Auto) 0.6 (0.6-2.4) K/uL [place] # (Auto) 0.6 (0.0-0.8) K/uL Eos # (Auto) 0.0 (0.0-0.7) K/uL Baso # (Auto) 0.0 (0.0-0.1) K/uL Nucleated RBC % 0.0 /100WBC Nucleated RBCs # 0 K/uL Sodium 147 H (136-145) mmol/L Potassium 3.4 L (3.5-5.1) mmol/L Chloride 110 H (98-107) mmol/L Carbon Dioxide 30.2 (21.0-32.0) mmol/L BUN 6 L (7.0-18.0) mg/dL Creatinine 0.6 (0.6-1.0) mg/dL Est Cr Clr Drug Dosing 98.48 mL/min Estimated GFR (MDRD) > 60.0 ml/min Glucose 128 H (74-106) mg/dL Calcium 9.2 (8.5-10.1) mg/dL Total Bilirubin 0.6 (0.2-1.0) mg/dL AST 20 (15-37) IU/L ALT 30 (14-63) IU/L Alkaline Phosphatase 73 (46-116) U/L Total Protein 6.3 L (6.4-8.2) g/dL Albumin 2.1 L (3.4-5.0) g/dL Globulin 4.2 H (2.6-4.0) g/dL Albumin/Globulin Ratio 0.5 L (0.9-1.6) Vancomycin Trough 17.4 H (5.0-10.0) ug/mL Will Results Last 24 Hours: Microbiology 11/15/20 05:10 Aerobic Blood Culture - Preliminary Blood - Venous - Lab Draw NO GROWTH AFTER 2 DAYS Anaerobic Blood Culture - Preliminary NO GROWTH AFTER 2 DAYS 11/15/20 05:00 Aerobic Blood Culture - Preliminary Blood - Venous NO GROWTH AFTER 2 DAYS Anaerobic Blood Culture - Preliminary NO GROWTH AFTER 2 DAYS Med Orders - Current: Current Medications Acetaminophen (Acetaminophen 325 Mg Tab) 650 mg PO Q4H PRN PRN Reason: Pain Last Admin: 11/15/20 20:14 Dose: 650 mg Documented by: Albuterol/Ipratropium (Albuterol/Ipratropium 3.0-0.5 Mg/3 Ml Neb Soln) 3 ml NEB Q4HRRT [facility] Last Admin: 11/17/20 09:30 Dose: 3 ml Documented by: Dexamethasone (Dexamethasone 4 Mg Tab) 6 mg PO Q24H [facility] Last Admin: 11/16/20 16:26 Dose: 6 mg Documented by: Enoxaparin Sodium (Enoxaparin 40 Mg/0.4 Ml Syringe) 40 mg SUBCUT Q24H [facility] Last Admin: 11/17/20 01:49 Dose: 40 mg Documented by: Guaifenesin/Dextromethorphan (Guaifenesin/Dextromethorphan 100-10 Mg/5 Ml Soln 10 Ml Cup) 10 ml PO Q4H PRN PRN Reason: Cough Last Admin: 11/17/20 05:50 Dose: 10 ml Documented by: Vancomycin HCl 1 gm/ Sodium (Chloride) 250 mls @ 166 mls/hr IV Q8H [facility] Last Admin: 11/17/20 04:06 Dose: 166 mls/hr Documented by: Piperacillin Sod/Tazobactam (Sod 4.5 gm/ Sodium Chloride) 100 mls @ 100 mls/hr IV Q6H [facility] Last Admin: 11/17/20 09:30 Dose: 100 mls/hr Documented by: Morphine Sulfate (Morphine 2 Mg/Ml Syringe) 2 mg IVPUSH Q3H PRN PRN Reason: Pain Last Admin: 11/15/20 16:50 Dose: 2 mg Documented by: Oxycodone HCl (Oxycodone 5 Mg Tab) 5 mg PO Q6H PRN PRN Reason: Other Last Admin: 11/16/20 03:43 Dose: 5 mg Documented by: Pantoprazole Sodium (Pantoprazole 40 Mg Tab.Cr) 40 mg PO BEDTIME [facility] Last Admin: 11/16/20 20:06 Dose: 40 mg Documented by: Vancomycin HCl (Pharmacy To Dose - Vancomycin) 1 dose .XX ASDIRECTED [facility] Discontinued Medications Acetaminophen (Acetaminophen 500 Mg Tab) 1,000 mg PO ONETIME ONE Stop: 11/07/20 17:06 Last Admin: 11/07/20 19:03 Dose: Not Given Documented by: Albuterol/Ipratropium (Albuterol/Ipratropium 4 Gm Inhalation [place]) 0 gm INH QID PRN PRN Reason: Shortness of Breath Dexamethasone (Dexamethasone 10 Mg/Ml Sdv) 6 mg IVPUSH ONETIME ONE Stop: 11/07/20 17:06 Last Admin: 11/07/20 17:35 Dose: 6 mg Documented by: Haloperidol Lactate (Haloperidol Lactate 5 Mg/Ml Sdv) 2 mg IM ONETIME ONE Stop: 11/08/20 01:09 Last Admin: 11/08/20 01:17 Dose: 2 mg Documented by: Sodium Chloride (Normal Saline) 1,000 mls @ 250 mls/hr IV .Bolus ONE Stop: 11/07/20 21:04 Last Admin: 11/07/20 17:35 Dose: 250 mls/hr Documented by: Remdesivir 200 mg/ Sodium (Chloride) 250 mls @ 250 mls/hr IV ONETIME ONE Stop: 11/07/20 21:32 Last Admin: 11/07/20 22:00 Dose: 250 mls/hr Documented by: Remdesivir 100 mg/ Sodium (Chloride) 100 mls @ 100 mls/hr IV Q24H [facility] Stop: 11/11/20 21:59 Last Admin: 11/11/20 20:09 Dose: 100 mls/hr Documented by: Dextrose/Water (Dextrose 5% In Water) 500 mls @ 250 mls/hr IV ASDIRECTED [facility] Dextrose/Water (Dextrose 5% In Water) 500 mls @ 250 mls/hr IV ASDIRECTED [facility] Last Admin: 11/11/20 09:43 Dose: 250 mls/hr Documented by: Piperacillin Sod/Tazobactam (Sod 4.5 gm/ Sodium Chloride) 100 mls @ 100 mls/hr IV Q6H [facility] Stop: 11/16/20 11:40 Last Admin: 11/16/20 10:09 Dose: 100 mls/hr Documented by: Vancomycin HCl 2 gm/ Sodium (Chloride) 500 mls @ 333.333 mls/hr IV ONETIME ONE Stop: 11/15/20 06:14 Last Admin: 11/15/20 05:53 Dose: Not Given Documented by: Vancomycin HCl (Vancomycin 2 Gm/400 Ml) 400 mls @ 266.667 mls/hr IV ONETIME ONE Stop: 11/15/20 06:14 Last Admin: 11/15/20 06:15 Dose: 266.667 mls/hr Documented by: Iopamidol (Iopamidol 755 Mg/Ml 100 Ml Bottle) 100 ml IVPUSH ONETIME ONE Stop: 11/07/20 19:29 Last Admin: 11/07/20 20:34 Dose: 100 ml Documented by: Iopamidol (Iopamidol 755 Mg/Ml 100 Ml Bottle) 100 ml IVPUSH ONETIME ONE Stop: 11/14/20 21:17 Last Admin: 11/14/20 21:16 Dose: 100 ml Documented by: Lorazepam (Lorazepam 2 Mg/Ml Sdv) 1 mg IVPUSH ONETIME ONE Stop: 11/08/20 00:17 Last Admin: 11/08/20 00:33 Dose: 1 mg Documented by: Morphine Sulfate (Morphine 2 Mg/Ml Syringe) 1 mg IVPUSH ONETIME ONE Stop: 11/14/20 18:09 Last Admin: 11/14/20 18:17 Dose: 1 mg Documented by: Potassium Chloride (Potassium Chloride 20 Meq Tab.Er) 40 meq PO ONETIME ONE Stop: 11/08/20 19:40 Last Admin: 11/08/20 20:18 Dose: 40 meq Documented by: Sodium Phosphate (Phosphorus #1 250 Mg Tab) 250 mg PO ONETIME ONE Stop: 11/13/20 15:41 Last Admin: 11/13/20 16:12 Dose: 250 mg Documented by: Wound Care/Dressing Products (Hydrocolloid Dressing 4x4 Bandage) Confirm Administered Dose 1 each .ROUTE .STK-MED ONE Stop: 11/12/20 19:26 Last Admin: 11/12/20 21:31 Dose: 1 each Documented by: - Exam General: Alert, Oriented HEENT: Other (preauricular edema and erythema improving since yesterday) Lungs: Clear to Auscultation, Normal Respiratory Effort Cardiovascular: Regular Rate, Regular Rhythm GI/Abdominal Exam: Normal Bowel Sounds, Soft, Non-Tender Extremities: Non-Tender, No Pedal Edema - Patient Data Lab Results Last 24 hrs: Laboratory Results - last 24 hr 11/16/20 11/17/20 11/17/20 Range/Units 12:47 06:38 06:38 WBC 20.31 H (4.0-11.0) K/uL RBC 4.02 L (4.30-5.90) M/uL Hgb 11.6 L (12.0-16.0) g/dL Hct 37.5 (36.0-46.0) % MCV 93.3 (80.0-98.0) fL MCH 28.9 (27.0-32.0) pg MCHC 30.9 L (31.0-37.0) g/dL RDW Std Deviation 49.4 (28.0-62.0) fl RDW Coeff of [place] 15 (11.0-15.0) % Plt Count 257 (150-400) K/uL MPV 13.00 H (7.40-12.00) fL Neut % (Auto) 94.3 H (48.0-80.0) % Lymph % (Auto) 2.8 L (16.0-40.0) % [place] % (Auto) 2.8 (0.0-15.0) % Eos % (Auto) 0.0 (0.0-7.0) % Baso % (Auto) 0.1 (0.0-1.5) % Neut # (Auto) 19.2 H (1.4-5.7) K/uL Lymph # (Auto) 0.6 (0.6-2.4) K/uL [place] # (Auto) 0.6 (0.0-0.8) K/uL Eos # (Auto) 0.0 (0.0-0.7) K/uL Baso # (Auto) 0.0 (0.0-0.1) K/uL Nucleated RBC % 0.0 /100WBC Nucleated RBCs # 0 K/uL Sodium 147 H (136-145) mmol/L Potassium 3.4 L (3.5-5.1) mmol/L Chloride 110 H (98-107) mmol/L Carbon Dioxide 30.2 (21.0-32.0) mmol/L BUN 6 L (7.0-18.0) mg/dL Creatinine 0.6 (0.6-1.0) mg/dL Est Cr Clr Drug Dosing 98.48 mL/min Estimated GFR (MDRD) > 60.0 ml/min Glucose 128 H (74-106) mg/dL Calcium 9.2 (8.5-10.1) mg/dL Total Bilirubin 0.6 (0.2-1.0) mg/dL AST 20 (15-37) IU/L ALT 30 (14-63) IU/L Alkaline Phosphatase 73 (46-116) U/L Total Protein 6.3 L (6.4-8.2) g/dL Albumin 2.1 L (3.4-5.0) g/dL Globulin 4.2 H (2.6-4.0) g/dL Albumin/Globulin Ratio 0.5 L (0.9-1.6) Vancomycin Trough 17.4 H (5.0-10.0) ug/mL Result Diagrams: 11/17/20 06:38 11/17/20 06:38 Will Results Last 24 hrs: Microbiology 11/15/20 05:10 Aerobic Blood Culture - Preliminary Blood - Venous - Lab Draw NO GROWTH AFTER 2 DAYS Anaerobic Blood Culture - Preliminary NO GROWTH AFTER 2 DAYS 11/15/20 05:00 Aerobic Blood Culture - Preliminary Blood - Venous NO GROWTH AFTER 2 DAYS Anaerobic Blood Culture - Preliminary NO GROWTH AFTER 2 DAYS Sepsis Event Note - Evaluation Sepsis Screening Result: Sepsis Risk - Focused Exam Vital Signs: Vital Signs Temp Resp BP Pulse Ox 11/17/20 09:00 31 H 103/66 89 L 11/17/20 08:00 36.2 C 24 H 114/81 90 L 11/17/20 07:00 24 H 97/62 91 L 11/17/20 06:00 28 H 105/66 90 L 11/17/20 05:00 26 H 96/59 L 88 L 11/17/20 04:00 19 99/57 L 90 L 11/17/20 03:00 36.1 C 18 100/61 92 L 11/17/20 02:00 25 H 112/61 91 L 11/17/20 01:00 17 113/69 92 L 11/17/20 00:00 36.1 C 18 102/61 89 L 11/16/20 23:00 30 H 100/53 L 90 L 11/16/20 22:00 37 H 105/57 L 89 L - Problem List Review Problem List Initiated/Reviewed/Updated: Yes - Plan Plan:: 30 yo female admitted for acute hypoxic respiratory failure due to COVID pneumonia Acute hypoxic respiratory failure: weaned to simple NC COVID:, dexamethason, finished course of remdesivir, stop baricitinib due to cellulitis Cellulitis/parotiditis: still has leukocytosis but appears to be improving based on exam and patient' symptoms, will continue vancomycin and zosyn, blood cultures pending yolax for DVT prophylaxis Encourage oral intake of food, started patient on protein supplements
[2020-11-17] MEDS: Dexamethasone 4 MG Tab PO SCH (16:59)
[2020-11-17] MEDS: Pantoprazole 40 MG Tab.CR PO SCH (20:24)
[2020-11-18] MEDS: Enoxaparin 40 MG/0.4 ML Syringe SUBCUT SCH (01:23)
[2020-11-18] MEDS: Albuterol/Ipratropium 3.0-0.5 MG/3 ML Neb Soln NEB SCH ×6 (01:23→21:24)
[2020-11-18] MEDS: Piperacillin/Tazobactam 4.5 GM in Sodium Chloride 0.9% 100 ML IV SCH ×4 (03:14→21:24)
[2020-11-18 07:10] LABS: BLOOD UREA NITROGEN,BUN 7 mg/dL (7.0-18.0); CARBON DIOXIDE,CO2 31.4 mmol/L (21.0-32.0); CHLORIDE,CL 114 mmol/L (98-107); GLUCOSE RANDOM 113 mg/dL (74-106); POTASSIUM,K 3.5 mmol/L (3.5-5.1); SODIUM,NA 154 mmol/L (136-145)
[2020-11-18] MEDS: guaiFENesin/Dextromethorphan 100-10 MG/5 ML Soln 10 ML Cup PO PRN ×2 (10:46→17:43)
--- NOTE | 2020-11-18 13:20 | PCM.PN ---
- General Info Date of Service: 11/18/20 - Review of Systems Systems Review Comment:: feeling better, jaw pain improving - Patient Data Vitals - Most Recent: Last Vital Signs Temp 36.2 C 11/18/20 12:00 Pulse 108 H 11/16/20 07:00 Resp 23 H 11/18/20 13:00 BP 99/57 L 11/18/20 13:00 Pulse Ox 88 L 11/18/20 13:00 Weight - Most Recent: 71.75 kg I&O - Last 24 Hours: Intake & Output 11/17/20 11/18/20 11/18/20 22:59 06:59 14:59 Intake Total 730 1020 Output Total 650 1200 Balance 80 -180 Lab Results Last 24 Hours: Laboratory Results - last 24 hr 11/18/20 11/18/20 Range/Units 05:53 05:53 WBC 12.98 H (4.0-11.0) K/uL RBC 4.05 L (4.30-5.90) M/uL Hgb 11.7 L (12.0-16.0) g/dL Hct 38.2 (36.0-46.0) % MCV 94.3 (80.0-98.0) fL MCH 28.9 (27.0-32.0) pg MCHC 30.6 L (31.0-37.0) g/dL RDW Std Deviation 50.8 (28.0-62.0) fl RDW Coeff of [place] 15 (11.0-15.0) % Plt Count 235 (150-400) K/uL MPV 13.20 H (7.40-12.00) fL Neut % (Auto) 88.2 H (48.0-80.0) % Lymph % (Auto) 5.7 L (16.0-40.0) % [place] % (Auto) 6.0 (0.0-15.0) % Eos % (Auto) 0.0 (0.0-7.0) % Baso % (Auto) 0.1 (0.0-1.5) % Neut # (Auto) 11.5 H (1.4-5.7) K/uL Lymph # (Auto) 0.7 (0.6-2.4) K/uL [place] # (Auto) 0.8 (0.0-0.8) K/uL Eos # (Auto) 0.0 (0.0-0.7) K/uL Baso # (Auto) 0.0 (0.0-0.1) K/uL Nucleated RBC % 0.0 /100WBC Nucleated RBCs # 0 K/uL Sodium 154 H (136-145) mmol/L Potassium 3.5 (3.5-5.1) mmol/L Chloride 114 H (98-107) mmol/L Carbon Dioxide 31.4 (21.0-32.0) mmol/L BUN 7 (7.0-18.0) mg/dL Creatinine 0.7 (0.6-1.0) mg/dL Est Cr Clr Drug Dosing 84.41 mL/min Estimated GFR (MDRD) > 60.0 ml/min Glucose 113 H (74-106) mg/dL Calcium 8.9 (8.5-10.1) mg/dL Total Bilirubin 0.5 (0.2-1.0) mg/dL AST 28 (15-37) IU/L ALT 34 (14-63) IU/L Alkaline Phosphatase 69 (46-116) U/L Total Protein 5.5 L (6.4-8.2) g/dL Albumin 2.2 L (3.4-5.0) g/dL Globulin 3.3 (2.6-4.0) g/dL Albumin/Globulin Ratio 0.7 L (0.9-1.6) Will Results Last 24 Hours: Microbiology 11/15/20 05:10 Aerobic Blood Culture - Preliminary Blood - Venous - Lab Draw NO GROWTH AFTER 3 DAYS Anaerobic Blood Culture - Preliminary NO GROWTH AFTER 3 DAYS 11/15/20 05:00 Aerobic Blood Culture - Preliminary Blood - Venous NO GROWTH AFTER 3 DAYS Anaerobic Blood Culture - Preliminary NO GROWTH AFTER 3 DAYS Med Orders - Current: Current Medications Acetaminophen (Acetaminophen 325 Mg Tab) 650 mg PO Q4H PRN PRN Reason: Pain Last Admin: 11/15/20 20:14 Dose: 650 mg Documented by: Albuterol/Ipratropium (Albuterol/Ipratropium 3.0-0.5 Mg/3 Ml Neb Soln) 3 ml NEB Q4HRRT [facility] Last Admin: 11/18/20 13:06 Dose: 3 ml Documented by: Enoxaparin Sodium (Enoxaparin 40 Mg/0.4 Ml Syringe) 40 mg SUBCUT Q24H [facility] Last Admin: 11/18/20 01:23 Dose: 40 mg Documented by: Guaifenesin/Dextromethorphan (Guaifenesin/Dextromethorphan 100-10 Mg/5 Ml Soln 10 Ml Cup) 10 ml PO Q4H PRN PRN Reason: Cough Last Admin: 11/18/20 10:46 Dose: 10 ml Documented by: Vancomycin HCl 1 gm/ Sodium (Chloride) 250 mls @ 166 mls/hr IV Q8H [facility] Last Admin: 11/18/20 04:24 Dose: 166 mls/hr Documented by: Piperacillin Sod/Tazobactam (Sod 4.5 gm/ Sodium Chloride) 100 mls @ 100 mls/hr IV Q6H [facility] Last Admin: 11/18/20 10:22 Dose: 100 mls/hr Documented by: Morphine Sulfate (Morphine 2 Mg/Ml Syringe) 2 mg IVPUSH Q3H PRN PRN Reason: Pain Last Admin: 11/15/20 16:50 Dose: 2 mg Documented by: Oxycodone HCl (Oxycodone 5 Mg Tab) 5 mg PO Q6H PRN PRN Reason: Other Last Admin: 11/16/20 03:43 Dose: 5 mg Documented by: Pantoprazole Sodium (Pantoprazole 40 Mg Tab.Cr) 40 mg PO BEDTIME [facility] Last Admin: 11/17/20 20:24 Dose: 40 mg Documented by: Vancomycin HCl (Pharmacy To Dose - Vancomycin) 1 dose .XX ASDIRECTED [facility] Discontinued Medications Acetaminophen (Acetaminophen 500 Mg Tab) 1,000 mg PO ONETIME ONE Stop: 11/07/20 17:06 Last Admin: 11/07/20 19:03 Dose: Not Given Documented by: Albuterol/Ipratropium (Albuterol/Ipratropium 4 Gm Inhalation [place]) 0 gm INH QID PRN PRN Reason: Shortness of Breath Dexamethasone (Dexamethasone 10 Mg/Ml Sdv) 6 mg IVPUSH ONETIME ONE Stop: 11/07/20 17:06 Last Admin: 11/07/20 17:35 Dose: 6 mg Documented by: Dexamethasone (Dexamethasone 4 Mg Tab) 6 mg PO Q24H [facility] Last Admin: 11/17/20 16:59 Dose: 6 mg Documented by: Haloperidol Lactate (Haloperidol Lactate 5 Mg/Ml Sdv) 2 mg IM ONETIME ONE Stop: 11/08/20 01:09 Last Admin: 11/08/20 01:17 Dose: 2 mg Documented by: Sodium Chloride (Normal Saline) 1,000 mls @ 250 mls/hr IV .Bolus ONE Stop: 11/07/20 21:04 Last Admin: 11/07/20 17:35 Dose: 250 mls/hr Documented by: Remdesivir 200 mg/ Sodium (Chloride) 250 mls @ 250 mls/hr IV ONETIME ONE Stop: 11/07/20 21:32 Last Admin: 11/07/20 22:00 Dose: 250 mls/hr Documented by: Remdesivir 100 mg/ Sodium (Chloride) 100 mls @ 100 mls/hr IV Q24H [facility] Stop: 11/11/20 21:59 Last Admin: 11/11/20 20:09 Dose: 100 mls/hr Documented by: Dextrose/Water (Dextrose 5% In Water) 500 mls @ 250 mls/hr IV ASDIRECTED [facility] Dextrose/Water (Dextrose 5% In Water) 500 mls @ 250 mls/hr IV ASDIRECTED [facility] Last Admin: 11/11/20 09:43 Dose: 250 mls/hr Documented by: Piperacillin Sod/Tazobactam (Sod 4.5 gm/ Sodium Chloride) 100 mls @ 100 mls/hr IV Q6H [facility] Stop: 11/16/20 11:40 Last Admin: 11/16/20 10:09 Dose: 100 mls/hr Documented by: Vancomycin HCl 2 gm/ Sodium (Chloride) 500 mls @ 333.333 mls/hr IV ONETIME ONE Stop: 11/15/20 06:14 Last Admin: 11/15/20 05:53 Dose: Not Given Documented by: Vancomycin HCl (Vancomycin 2 Gm/400 Ml) 400 mls @ 266.667 mls/hr IV ONETIME ONE Stop: 11/15/20 06:14 Last Admin: 11/15/20 06:15 Dose: 266.667 mls/hr Documented by: Iopamidol (Iopamidol 755 Mg/Ml 100 Ml Bottle) 100 ml IVPUSH ONETIME ONE Stop: 11/07/20 19:29 Last Admin: 11/07/20 20:34 Dose: 100 ml Documented by: Iopamidol (Iopamidol 755 Mg/Ml 100 Ml Bottle) 100 ml IVPUSH ONETIME ONE Stop: 11/14/20 21:17 Last Admin: 11/14/20 21:16 Dose: 100 ml Documented by: Lorazepam (Lorazepam 2 Mg/Ml Sdv) 1 mg IVPUSH ONETIME ONE Stop: 11/08/20 00:17 Last Admin: 11/08/20 00:33 Dose: 1 mg Documented by: Morphine Sulfate (Morphine 2 Mg/Ml Syringe) 1 mg IVPUSH ONETIME ONE Stop: 11/14/20 18:09 Last Admin: 11/14/20 18:17 Dose: 1 mg Documented by: Potassium Chloride (Potassium Chloride 20 Meq Tab.Er) 40 meq PO ONETIME ONE Stop: 11/08/20 19:40 Last Admin: 11/08/20 20:18 Dose: 40 meq Documented by: Sodium Phosphate (Phosphorus #1 250 Mg Tab) 250 mg PO ONETIME ONE Stop: 11/13/20 15:41 Last Admin: 11/13/20 16:12 Dose: 250 mg Documented by: Wound Care/Dressing Products (Hydrocolloid Dressing 4x4 Bandage) Confirm Administered Dose 1 each .ROUTE .STK-MED ONE Stop: 11/12/20 19:26 Last Admin: 11/12/20 21:31 Dose: 1 each Documented by: - Exam General: Alert, Cooperative HEENT: Other ([place] preauricular erythema and edema improving) Lungs: Clear to Auscultation, Normal Respiratory Effort Cardiovascular: Regular Rate, Regular Rhythm GI/Abdominal Exam: Soft, Non-Tender, No Distention Extremities: Non-Tender, No Pedal Edema Skin: Warm, Dry, Intact Neurological: No New Focal Deficit - Patient Data Lab Results Last 24 hrs: Laboratory Results - last 24 hr 11/18/20 11/18/20 Range/Units 05:53 05:53 WBC 12.98 H (4.0-11.0) K/uL RBC 4.05 L (4.30-5.90) M/uL Hgb 11.7 L (12.0-16.0) g/dL Hct 38.2 (36.0-46.0) % MCV 94.3 (80.0-98.0) fL MCH 28.9 (27.0-32.0) pg MCHC 30.6 L (31.0-37.0) g/dL RDW Std Deviation 50.8 (28.0-62.0) fl RDW Coeff of [place] 15 (11.0-15.0) % Plt Count 235 (150-400) K/uL MPV 13.20 H (7.40-12.00) fL Neut % (Auto) 88.2 H (48.0-80.0) % Lymph % (Auto) 5.7 L (16.0-40.0) % [place] % (Auto) 6.0 (0.0-15.0) % Eos % (Auto) 0.0 (0.0-7.0) % Baso % (Auto) 0.1 (0.0-1.5) % Neut # (Auto) 11.5 H (1.4-5.7) K/uL Lymph # (Auto) 0.7 (0.6-2.4) K/uL [place] # (Auto) 0.8 (0.0-0.8) K/uL Eos # (Auto) 0.0 (0.0-0.7) K/uL Baso # (Auto) 0.0 (0.0-0.1) K/uL Nucleated RBC % 0.0 /100WBC Nucleated RBCs # 0 K/uL Sodium 154 H (136-145) mmol/L Potassium 3.5 (3.5-5.1) mmol/L Chloride 114 H (98-107) mmol/L Carbon Dioxide 31.4 (21.0-32.0) mmol/L BUN 7 (7.0-18.0) mg/dL Creatinine 0.7 (0.6-1.0) mg/dL Est Cr Clr Drug Dosing 84.41 mL/min Estimated GFR (MDRD) > 60.0 ml/min Glucose 113 H (74-106) mg/dL Calcium 8.9 (8.5-10.1) mg/dL Total Bilirubin 0.5 (0.2-1.0) mg/dL AST 28 (15-37) IU/L ALT 34 (14-63) IU/L Alkaline Phosphatase 69 (46-116) U/L Total Protein 5.5 L (6.4-8.2) g/dL Albumin 2.2 L (3.4-5.0) g/dL Globulin 3.3 (2.6-4.0) g/dL Albumin/Globulin Ratio 0.7 L (0.9-1.6) Result Diagrams: 11/18/20 05:53 11/18/20 05:53 Will Results Last 24 hrs: Microbiology 11/15/20 05:10 Aerobic Blood Culture - Preliminary Blood - Venous - Lab Draw NO GROWTH AFTER 3 DAYS Anaerobic Blood Culture - Preliminary NO GROWTH AFTER 3 DAYS 11/15/20 05:00 Aerobic Blood Culture - Preliminary Blood - Venous NO GROWTH AFTER 3 DAYS Anaerobic Blood Culture - Preliminary NO GROWTH AFTER 3 DAYS Sepsis Event Note - Evaluation Sepsis Screening Result: Sepsis Risk - Focused Exam Vital Signs: Vital Signs Temp Resp BP Pulse Ox Pulse Ox 11/18/20 13:00 23 H 99/57 L 88 L 11/18/20 12:00 36.2 C 28 H 115/77 88 L 11/18/20 11:00 29 H 118/78 90 L 11/18/20 10:00 30 H 102/67 91 L 11/18/20 09:00 25 H 110/76 89 L 11/18/20 08:00 36.3 C 23 H 97/58 L 91 L 11/18/20 07:00 18 104/69 91 L 11/18/20 06:39 92 L 11/18/20 06:00 23 H 107/68 92 L 11/18/20 05:00 25 H 114/61 89 L 11/18/20 04:00 36.6 C 18 111/66 91 L 11/18/20 03:00 20 103/61 92 L 11/18/20 02:00 20 124/72 90 L - Problem List Review Problem List Initiated/Reviewed/Updated: Yes - My Orders Last 24 Hours: My Active Orders 11/18/20 12:55 Transfer Patient (Change bed) [ADT] Routine 11/18/20 18:00 BMP [BASIC METABOLIC PANEL,BMP] [CHEM] Routine 11/19/20 05:11 CBC WITH AUTO DIFF [HEME] AM COMPREHENSIVE METABOLIC PN,CMP [CHEM] AM - Plan Plan:: 30 yo female admitted for acute hypoxic respiratory failure due to COVID pneumonia Acute hypoxic respiratory failure: weaned to simple NC COVID:, has had ten days of dexamethason, finished course of remdesivir, Cellulitis/parotiditis: leukocytosis improving, will continue vancomycin and zosyn, blood cultures pending hyponatremia: encourage free water drinking, will repeat BMP this evening. lovenox for DVT prophylaxis
[2020-11-18 18:54] LABS: BLOOD UREA NITROGEN,BUN 7 mg/dL (7.0-18.0); CARBON DIOXIDE,CO2 35.6 mmol/L (21.0-32.0); CHLORIDE,CL 108 mmol/L (98-107); GLUCOSE RANDOM 90 mg/dL (74-106); SODIUM,NA 151 mmol/L (136-145)
[2020-11-18] MEDS: Pantoprazole 40 MG Tab.CR PO SCH (21:24)
[2020-11-19] MEDS: Enoxaparin 40 MG/0.4 ML Syringe SUBCUT SCH (01:08)
[2020-11-19] MEDS: Albuterol/Ipratropium 3.0-0.5 MG/3 ML Neb Soln NEB SCH ×6 (01:09→21:32)
[2020-11-19] MEDS: Piperacillin/Tazobactam 4.5 GM in Sodium Chloride 0.9% 100 ML IV SCH ×2 (04:58→09:50)
[2020-11-19 08:05] LABS: BLOOD UREA NITROGEN,BUN 5 mg/dL (7.0-18.0); CARBON DIOXIDE,CO2 35.9 mmol/L (21.0-32.0); CHLORIDE,CL 111 mmol/L (98-107); GLUCOSE RANDOM 70 mg/dL (74-106); POTASSIUM,K 2.6 mmol/L (3.5-5.1); SODIUM,NA 153 mmol/L (136-145)
[2020-11-19] MEDS ORDERED: Potassium Chloride 20 MEQ Tab.ER PO ONE ×2 (09:05→18:27)
[2020-11-19] MEDS ORDERED: Potassium Chloride 40 MEQ in Dextrose 5% in Water 1,000 ML IV ONE ×2 (09:15)
[2020-11-19] MEDS ORDERED: Magnesium Sulfate/Water 2 GM/50 ML Premix Bag IV ONE (12:30)
--- NOTE | 2020-11-19 12:33 | PCM.PN ---
- General Info Date of Service: 11/19/20 - Review of Systems Systems Review Comment:: feeling better, jaw pain improving - Patient Data Vitals - Most Recent: Last Vital Signs Temp 36.3 C 11/19/20 11:35 Pulse 96 11/19/20 11:35 Resp 16 11/19/20 11:35 BP 101/58 L 11/19/20 11:35 Pulse Ox 92 L 11/19/20 11:35 Weight - Most Recent: 71.75 kg I&O - Last 24 Hours: Intake & Output 11/18/20 11/19/20 11/19/20 22:59 06:59 14:59 Intake Total 1040 450 Output Total 700 700 Balance 340 -250 Lab Results Last 24 Hours: Laboratory Results - last 24 hr 11/18/20 11/18/20 11/18/20 Range/Units 12:40 18:26 21:22 WBC (4.0-11.0) K/uL RBC (4.30-5.90) M/uL Hgb (12.0-16.0) g/dL Hct (36.0-46.0) % MCV (80.0-98.0) fL MCH (27.0-32.0) pg MCHC (31.0-37.0) g/dL RDW Std Deviation (28.0-62.0) fl RDW Coeff of Carson (11.0-15.0) % Plt Count (150-400) K/uL MPV (7.40-12.00) fL Neut % (Auto) (48.0-80.0) % Lymph % (Auto) (16.0-40.0) % Boundary % (Auto) (0.0-15.0) % Eos % (Auto) (0.0-7.0) % Baso % (Auto) (0.0-1.5) % Neut # (Auto) (1.4-5.7) K/uL Lymph # (Auto) (0.6-2.4) K/uL Bound[place] # (Auto) (0.0-0.8) K/uL Eos # (Auto) (0.0-0.7) K/uL Baso # (Auto) (0.0-0.1) K/uL Nucleated RBC % /100WBC Nucleated RBCs # K/uL Sodium 151 H (136-145) mmol/L Potassium 3.0 L (3.5-5.1) mmol/L Chloride 108 H (98-107) mmol/L Carbon Dioxide 35.6 H (21.0-32.0) mmol/L BUN 7 (7.0-18.0) mg/dL Creatinine 0.8 (0.6-1.0) mg/dL Est Cr Clr Drug Dosing 73.86 mL/min Estimated GFR (MDRD) > 60.0 ml/min Glucose 90 (74-106) mg/dL Calcium 9.5 (8.5-10.1) mg/dL Magnesium (1.8-2.4) mg/dL Total Bilirubin (0.2-1.0) mg/dL AST (15-37) IU/L ALT (14-63) IU/L Alkaline Phosphatase (46-116) U/L Total Protein (6.4-8.2) g/dL Albumin (3.4-5.0) g/dL Globulin (2.6-4.0) g/dL Albumin/Globulin Ratio (0.9-1.6) Vancomycin Trough 28.7 H 13.3 H (5.0-10.0) ug/mL 11/19/20 11/19/20 11/19/20 Range/Units 06:52 06:52 06:52 WBC 8.50 (4.0-11.0) K/uL RBC 4.07 L (4.30-5.90) M/uL Hgb 11.5 L (12.0-16.0) g/dL Hct 38.6 (36.0-46.0) % MCV 94.8 (80.0-98.0) fL MCH 28.3 (27.0-32.0) pg MCHC 29.8 L (31.0-37.0) g/dL RDW Std Deviation 51.3 (28.0-62.0) fl RDW Coeff of [place] 15 (11.0-15.0) % Plt Count 247 (150-400) K/uL MPV 12.70 H (7.40-12.00) fL Neut % (Auto) 64.3 (48.0-80.0) % Lymph % (Auto) 27.6 (16.0-40.0) % Boundary % (Auto) 8.0 (0.0-15.0) % Eos % (Auto) 0.0 (0.0-7.0) % Baso % (Auto) 0.1 (0.0-1.5) % Neut # (Auto) 5.5 (1.4-5.7) K/uL Lymph # (Auto) 2.4 (0.6-2.4) K/uL [place] # (Auto) 0.7 (0.0-0.8) K/uL Eos # (Auto) 0.0 (0.0-0.7) K/uL Baso # (Auto) 0.0 (0.0-0.1) K/uL Nucleated RBC % 0.0 /100WBC Nucleated RBCs # 0 K/uL Sodium 153 H (136-145) mmol/L Potassium 2.6 L (3.5-5.1) mmol/L Chloride 111 H (98-107) mmol/L Carbon Dioxide 35.9 H (21.0-32.0) mmol/L BUN 5 L (7.0-18.0) mg/dL Creatinine 0.6 (0.6-1.0) mg/dL Est Cr Clr Drug Dosing 98.48 mL/min Estimated GFR (MDRD) > 60.0 ml/min Glucose 70 L (74-106) mg/dL Calcium 8.9 (8.5-10.1) mg/dL Magnesium 1.7 L (1.8-2.4) mg/dL Total Bilirubin 0.5 (0.2-1.0) mg/dL AST 42 H (15-37) IU/L ALT 41 (14-63) IU/L Alkaline Phosphatase 72 (46-116) U/L Total Protein 5.5 L (6.4-8.2) g/dL Albumin 2.2 L (3.4-5.0) g/dL Globulin 3.3 (2.6-4.0) g/dL Albumin/Globulin Ratio 0.7 L (0.9-1.6) Vancomycin Trough (5.0-10.0) ug/mL Will Results Last 24 Hours: Microbiology 11/15/20 05:10 Aerobic Blood Culture - Preliminary Blood - Venous - Lab Draw NO GROWTH AFTER 4 DAYS Anaerobic Blood Culture - Preliminary NO GROWTH AFTER 4 DAYS 11/15/20 05:00 Aerobic Blood Culture - Preliminary Blood - Venous NO GROWTH AFTER 4 DAYS Anaerobic Blood Culture - Preliminary NO GROWTH AFTER 4 DAYS Med Orders - Current: Current Medications Acetaminophen (Acetaminophen 325 Mg Tab) 650 mg PO Q4H PRN PRN Reason: Pain Last Admin: 11/15/20 20:14 Dose: 650 mg Documented by: Albuterol/Ipratropium (Albuterol/Ipratropium 3.0-0.5 Mg/3 Ml Neb Soln) 3 ml NEB Q4HRRT [facility] Last Admin: 11/19/20 10:53 Dose: 3 ml Documented by: Ciprofloxacin (Ciprofloxacin 500 Mg Tab) 500 mg PO Q12H ANTOLIN Clindamycin HCl (Clindamycin Hcl 150 Mg Cap) 450 mg PO Q8H ANTOLIN Enoxaparin Sodium (Enoxaparin 40 Mg/0.4 Ml Syringe) 40 mg SUBCUT Q24H [facility] Last Admin: 11/19/20 01:08 Dose: 40 mg Documented by: Guaifenesin/Dextromethorphan (Guaifenesin/Dextromethorphan 100-10 Mg/5 Ml Soln 10 Ml Cup) 10 ml PO Q4H PRN PRN Reason: Cough Last Admin: 11/18/20 17:43 Dose: 10 ml Documented by: Potassium Chloride 40 meq/ (Dextrose/Water) 1,020 mls @ 50 mls/hr IV ONETIME ONE Stop: 11/20/20 05:38 Last Admin: 11/19/20 11:22 Dose: 50 mls/hr Documented by: Magnesium Sulfate (Magnesium Sulfate/Water 2 Gm/50 Ml Premix Bag) 2 gm IV ONETIME ONE Stop: 11/19/20 12:31 Morphine Sulfate (Morphine 2 Mg/Ml Syringe) 2 mg IVPUSH Q3H PRN PRN Reason: Pain Last Admin: 11/15/20 16:50 Dose: 2 mg Documented by: Oxycodone HCl (Oxycodone 5 Mg Tab) 5 mg PO Q6H PRN PRN Reason: Other Last Admin: 11/16/20 03:43 Dose: 5 mg Documented by: Pantoprazole Sodium (Pantoprazole 40 Mg Tab.Cr) 40 mg PO BEDTIME ANTOLIN Last Admin: 11/18/20 21:24 Dose: 40 mg Documented by: Vancomycin HCl (Pharmacy To Dose - Vancomycin) 1 dose .XX ASDIRECTED [facility] Discontinued Medications Acetaminophen (Acetaminophen 500 Mg Tab) 1,000 mg PO ONETIME ONE Stop: 11/07/20 17:06 Last Admin: 11/07/20 19:03 Dose: Not Given Documented by: Albuterol/Ipratropium (Albuterol/Ipratropium 4 Gm Inhalation [place]) 0 gm INH QID PRN PRN Reason: Shortness of Breath Dexamethasone (Dexamethasone 10 Mg/Ml Sdv) 6 mg IVPUSH ONETIME ONE Stop: 11/07/20 17:06 Last Admin: 11/07/20 17:35 Dose: 6 mg Documented by: Dexamethasone (Dexamethasone 4 Mg Tab) 6 mg PO Q24H ANTOLIN Last Admin: 11/17/20 16:59 Dose: 6 mg Documented by: Haloperidol Lactate (Haloperidol Lactate 5 Mg/Ml Sdv) 2 mg IM ONETIME ONE Stop: 11/08/20 01:09 Last Admin: 11/08/20 01:17 Dose: 2 mg Documented by: Sodium Chloride (Normal Saline) 1,000 mls @ 250 mls/hr IV .Bolus ONE Stop: 11/07/20 21:04 Last Admin: 11/07/20 17:35 Dose: 250 mls/hr Documented by: Remdesivir 200 mg/ Sodium (Chloride) 250 mls @ 250 mls/hr IV ONETIME ONE Stop: 11/07/20 21:32 Last Admin: 11/07/20 22:00 Dose: 250 mls/hr Documented by: Remdesivir 100 mg/ Sodium (Chloride) 100 mls @ 100 mls/hr IV Q24H ANTOLIN Stop: 11/11/20 21:59 Last Admin: 11/11/20 20:09 Dose: 100 mls/hr Documented by: Dextrose/Water (Dextrose 5% In Water) 500 mls @ 250 mls/hr IV ASDIRECTED [facility] Dextrose/Water (Dextrose 5% In Water) 500 mls @ 250 mls/hr IV ASDIRECTED [facility] Last Admin: 11/11/20 09:43 Dose: 250 mls/hr Documented by: Piperacillin Sod/Tazobactam (Sod 4.5 gm/ Sodium Chloride) 100 mls @ 100 mls/hr IV Q6H [facility] Stop: 11/16/20 11:40 Last Admin: 11/16/20 10:09 Dose: 100 mls/hr Documented by: Vancomycin HCl 1 gm/ Sodium (Chloride) 250 mls @ 166 mls/hr IV Q8H [facility] Last Admin: 11/18/20 16:33 Dose: Not Given Documented by: Vancomycin HCl 2 gm/ Sodium (Chloride) 500 mls @ 333.333 mls/hr IV ONETIME ONE Stop: 11/15/20 06:14 Last Admin: 11/15/20 05:53 Dose: Not Given Documented by: Vancomycin HCl (Vancomycin 2 Gm/400 Ml) 400 mls @ 266.667 mls/hr IV ONETIME ONE Stop: 11/15/20 06:14 Last Admin: 11/15/20 06:15 Dose: 266.667 mls/hr Documented by: Piperacillin Sod/Tazobactam (Sod 4.5 gm/ Sodium Chloride) 100 mls @ 100 mls/hr IV Q6H [facility] Last Admin: 11/19/20 09:50 Dose: 100 mls/hr Documented by: Vancomycin HCl 1 gm/ Sodium (Chloride) 250 mls @ 166 mls/hr IV Q12H [facility] Last Admin: 11/19/20 01:03 Dose: 166 mls/hr Documented by: Vancomycin HCl 1 gm/ Sodium (Chloride) 250 mls @ 166 mls/hr IV Q12H [facility] Iopamidol (Iopamidol 755 Mg/Ml 100 Ml Bottle) 100 ml IVPUSH ONETIME ONE Stop: 11/07/20 19:29 Last Admin: 11/07/20 20:34 Dose: 100 ml Documented by: Iopamidol (Iopamidol 755 Mg/Ml 100 Ml Bottle) 100 ml IVPUSH ONETIME ONE Stop: 11/14/20 21:17 Last Admin: 11/14/20 21:16 Dose: 100 ml Documented by: Lorazepam (Lorazepam 2 Mg/Ml Sdv) 1 mg IVPUSH ONETIME ONE Stop: 11/08/20 00:17 Last Admin: 11/08/20 00:33 Dose: 1 mg Documented by: Morphine Sulfate (Morphine 2 Mg/Ml Syringe) 1 mg IVPUSH ONETIME ONE Stop: 11/14/20 18:09 Last Admin: 11/14/20 18:17 Dose: 1 mg Documented by: Potassium Chloride (Potassium Chloride 20 Meq Tab.Er) 40 meq PO ONETIME ONE Stop: 11/08/20 19:40 Last Admin: 11/08/20 20:18 Dose: 40 meq Documented by: Potassium Chloride (Potassium Chloride 20 Meq Tab.Er) 40 meq PO ONETIME ONE Stop: 11/19/20 09:06 Last Admin: 11/19/20 09:50 Dose: 40 meq Documented by: Sodium Phosphate (Phosphorus #1 250 Mg Tab) 250 mg PO ONETIME ONE Stop: 11/13/20 15:41 Last Admin: 11/13/20 16:12 Dose: 250 mg Documented by: Wound Care/Dressing Products (Hydrocolloid Dressing 4x4 Bandage) Confirm Administered Dose 1 each .ROUTE .STK-MED ONE Stop: 11/12/20 19:26 Last Admin: 11/12/20 21:31 Dose: 1 each Documented by: - Exam General: Alert, Oriented Neck: Supple, Other (mild periauricular induration) Lungs: Clear to Auscultation, Normal Respiratory Effort GI/Abdominal Exam: Soft, Non-Tender, No Distention Extremities: Non-Tender, No Pedal Edema Skin: Warm, Dry, Intact Neurological: No New Focal Deficit - Patient Data Lab Results Last 24 hrs: Laboratory Results - last 24 hr 11/18/20 11/18/20 11/18/20 Range/Units 12:40 18:26 21:22 WBC (4.0-11.0) K/uL RBC (4.30-5.90) M/uL Hgb (12.0-16.0) g/dL Hct (36.0-46.0) % MCV (80.0-98.0) fL MCH (27.0-32.0) pg MCHC (31.0-37.0) g/dL RDW Std Deviation (28.0-62.0) fl RDW Coeff of Carson (11.0-15.0) % Plt Count (150-400) K/uL MPV (7.40-12.00) fL Neut % (Auto) (48.0-80.0) % Lymph % (Auto) (16.0-40.0) % Bound[place] % (Auto) (0.0-15.0) % Eos % (Auto) (0.0-7.0) % Baso % (Auto) (0.0-1.5) % Neut # (Auto) (1.4-5.7) K/uL Lymph # (Auto) (0.6-2.4) K/uL [place] # (Auto) (0.0-0.8) K/uL Eos # (Auto) (0.0-0.7) K/uL Baso # (Auto) (0.0-0.1) K/uL Nucleated RBC % /100WBC Nucleated RBCs # K/uL Sodium 151 H (136-145) mmol/L Potassium 3.0 L (3.5-5.1) mmol/L Chloride 108 H (98-107) mmol/L Carbon Dioxide 35.6 H (21.0-32.0) mmol/L BUN 7 (7.0-18.0) mg/dL Creatinine 0.8 (0.6-1.0) mg/dL Est Cr Clr Drug Dosing 73.86 mL/min Estimated GFR (MDRD) > 60.0 ml/min Glucose 90 (74-106) mg/dL Calcium 9.5 (8.5-10.1) mg/dL Magnesium (1.8-2.4) mg/dL Total Bilirubin (0.2-1.0) mg/dL AST (15-37) IU/L ALT (14-63) IU/L Alkaline Phosphatase (46-116) U/L Total Protein (6.4-8.2) g/dL Albumin (3.4-5.0) g/dL Globulin (2.6-4.0) g/dL Albumin/Globulin Ratio (0.9-1.6) Vancomycin Trough 28.7 H 13.3 H (5.0-10.0) ug/mL 11/19/20 11/19/20 11/19/20 Range/Units 06:52 06:52 06:52 WBC 8.50 (4.0-11.0) K/uL RBC 4.07 L (4.30-5.90) M/uL Hgb 11.5 L (12.0-16.0) g/dL Hct 38.6 (36.0-46.0) % MCV 94.8 (80.0-98.0) fL MCH 28.3 (27.0-32.0) pg MCHC 29.8 L (31.0-37.0) g/dL RDW Std Deviation 51.3 (28.0-62.0) fl RDW Coeff of [place] 15 (11.0-15.0) % Plt Count 247 (150-400) K/uL MPV 12.70 H (7.40-12.00) fL Neut % (Auto) 64.3 (48.0-80.0) % Lymph % (Auto) 27.6 (16.0-40.0) % Boundary % (Auto) 8.0 (0.0-15.0) % Eos % (Auto) 0.0 (0.0-7.0) % Baso % (Auto) 0.1 (0.0-1.5) % Neut # (Auto) 5.5 (1.4-5.7) K/uL Lymph # (Auto) 2.4 (0.6-2.4) K/uL [place] # (Auto) 0.7 (0.0-0.8) K/uL Eos # (Auto) 0.0 (0.0-0.7) K/uL Baso # (Auto) 0.0 (0.0-0.1) K/uL Nucleated RBC % 0.0 /100WBC Nucleated RBCs # 0 K/uL Sodium 153 H (136-145) mmol/L Potassium 2.6 L (3.5-5.1) mmol/L Chloride 111 H (98-107) mmol/L Carbon Dioxide 35.9 H (21.0-32.0) mmol/L BUN 5 L (7.0-18.0) mg/dL Creatinine 0.6 (0.6-1.0) mg/dL Est Cr Clr Drug Dosing 98.48 mL/min Estimated GFR (MDRD) > 60.0 ml/min Glucose 70 L (74-106) mg/dL Calcium 8.9 (8.5-10.1) mg/dL Magnesium 1.7 L (1.8-2.4) mg/dL Total Bilirubin 0.5 (0.2-1.0) mg/dL AST 42 H (15-37) IU/L ALT 41 (14-63) IU/L Alkaline Phosphatase 72 (46-116) U/L Total Protein 5.5 L (6.4-8.2) g/dL Albumin 2.2 L (3.4-5.0) g/dL Globulin 3.3 (2.6-4.0) g/dL Albumin/Globulin Ratio 0.7 L (0.9-1.6) Vancomycin Trough (5.0-10.0) ug/mL Result Diagrams: 11/19/20 06:52 11/19/20 06:52 Will Results Last 24 hrs: Microbiology 11/15/20 05:10 Aerobic Blood Culture - Preliminary Blood - Venous - Lab Draw NO GROWTH AFTER 4 DAYS Anaerobic Blood Culture - Preliminary NO GROWTH AFTER 4 DAYS 11/15/20 05:00 Aerobic Blood Culture - Preliminary Blood - Venous NO GROWTH AFTER 4 DAYS Anaerobic Blood Culture - Preliminary NO GROWTH AFTER 4 DAYS Sepsis Event Note - Evaluation Sepsis Screening Result: No Definite Risk - Focused Exam Vital Signs: Vital Signs Temp Pulse Resp BP Pulse Ox Pulse Ox 11/19/20 11:35 36.3 C 96 16 101/58 L 92 L 11/19/20 09:58 36.3 C 74 16 96/59 L 90 L 11/19/20 07:00 91 L 11/19/20 04:00 36.8 C 70 20 87/55 L 91 L - Problem List Review Problem List Initiated/Reviewed/Updated: Yes - My Orders Last 24 Hours: My Active Orders 11/18/20 12:55 Transfer Patient (Change bed) [ADT] Routine 11/19/20 09:15 Potassium Chloride 40 meq Dextrose 5% in Water 1,000 ml IV ONETIME 11/19/20 12:30 Ciprofloxacin [Ciprofloxacin HCl] 500 mg PO Q12H Magnesium Sulfate/Water [Magnesium Sulfate in Water 2 GM/50 ML] 2 gm IV ONETIME ONE clindamycin HCL [Cleocin] 450 mg PO Q8H 11/19/20 17:00 BMP [BASIC METABOLIC PANEL,BMP] [CHEM] Routine 11/20/20 05:11 CBC WITH AUTO DIFF [HEME] AM COMPREHENSIVE METABOLIC PN,CMP [CHEM] AM MAGNESIUM [CHEM] AM PHOSPHORUS [CHEM] AM - Plan Plan:: 30 yo female admitted for acute hypoxic respiratory failure due to COVID pneumonia Acute hypoxic respiratory failure: weaned to simple NC COVID:, has had ten days of dexamethason, finished course of remdesivir, Cellulitis/parotiditis: will switch oral ciprofloxacin and clindamycin. hyponatremia: giving free water drinking, will repeat BMP this evening. hypokalemia: replacing lovenox for DVT prophylaxis
[2020-11-19] MEDS ORDERED: Magnesium Sulfate/Water 2 GM in Premix Bag 1 BAG IV ONE (12:45)
[2020-11-19] MEDS: Clindamycin HCl 150 MG Cap PO SCH ×2 (13:04→19:42)
[2020-11-19] MEDS: Ciprofloxacin 500 MG Tab PO SCH (13:05)
[2020-11-19 17:37] LABS: BLOOD UREA NITROGEN,BUN 5 mg/dL (7.0-18.0); CARBON DIOXIDE,CO2 36.1 mmol/L (21.0-32.0); CHLORIDE,CL 108 mmol/L (98-107); GLUCOSE RANDOM 136 mg/dL (74-106); POTASSIUM,K 2.5 mmol/L (3.5-5.1); SODIUM,NA 148 mmol/L (136-145)
[2020-11-19] MEDS: Pantoprazole 40 MG Tab.CR PO SCH (21:32)
[2020-11-20] MEDS: Ciprofloxacin 500 MG Tab PO SCH ×2 (01:29→12:03)
[2020-11-20] MEDS: Albuterol/Ipratropium 3.0-0.5 MG/3 ML Neb Soln NEB SCH ×6 (01:30→21:43)
[2020-11-20] MEDS: Enoxaparin 40 MG/0.4 ML Syringe SUBCUT SCH (01:30)
[2020-11-20] MEDS: Clindamycin HCl 150 MG Cap PO SCH ×3 (05:05→21:42)
[2020-11-20 07:27] LABS: BLOOD UREA NITROGEN,BUN 5 mg/dL (7.0-18.0); CARBON DIOXIDE,CO2 31.7 mmol/L (21.0-32.0); CHLORIDE,CL 111 mmol/L (98-107); GLUCOSE RANDOM 90 mg/dL (74-106); POTASSIUM,K 3.6 mmol/L (3.5-5.1); SODIUM,NA 149 mmol/L (136-145)
[2020-11-20] MEDS ORDERED: Potassium Chloride 20 MEQ Tab.ER PO SCH (09:00)
[2020-11-20] MEDS: Potassium Chloride 20 MEQ Tab.ER PO SCH (09:43)
[2020-11-20] MEDS ORDERED: Dextrose 5% in Water 500 ML IV ONE (11:31)
--- NOTE | 2020-11-20 14:09 | PCM.PN ---
<Angelica Domínguez - Last Filed: 11/20/20 14:03> - General Info Date of Service: 11/20/20 Subjective Update: The patient is a 30-year-old female with a significant past medical history of obesity with a BMI of over 30, who was admitted for acute hypoxic respiratory failure secondary to Covid pneumonia, and is also suffering from left-sided parotiditis. Upon interview today the patient admits that she is breathing much better than yesterday but continues to feel tired and fatigued. She denies shortness of breath, cough, chest pain, palpitations, and any issues with taste or smell. She still continues to have pain in her left parotid gland which is 6 out of 10 in intensity, dull, and nonradiating. - Review of Systems General: Reports: Fatigue. Denies: Fever, Chills HEENT: Denies: Headaches, Sore Throat Pulmonary: Denies: Shortness of Breath, Pleuritic Chest Pain, Cough Cardiovascular: Denies: Chest Pain, Palpitations Gastrointestinal: Denies: Abdominal Pain, Nausea, Vomiting Genitourinary: Denies: Dysuria - Patient Data Vitals - Most Recent: Last Vital Signs Temp 97.2 F 11/20/20 12:00 Pulse 107 H 11/20/20 12:00 Resp 20 11/20/20 12:00 BP 100/62 11/20/20 12:00 Pulse Ox 95 11/20/20 12:00 Weight - Most Recent: 71.75 kg I&O - Last 24 Hours: Intake & Output 11/19/20 11/20/20 11/20/20 22:59 06:59 14:59 Intake Total 5 1207 Output Total 0 Balance 5 1207 Lab Results Last 24 Hours: Laboratory Results - last 24 hr 11/19/20 11/20/20 11/20/20 Range/Units 17:11 06:55 06:55 WBC 6.92 (4.0-11.0) K/uL RBC 3.72 L (4.30-5.90) M/uL Hgb 10.8 L (12.0-16.0) g/dL Hct 35.2 L (36.0-46.0) % MCV 94.6 (80.0-98.0) fL MCH 29.0 (27.0-32.0) pg MCHC 30.7 L (31.0-37.0) g/dL RDW Std Deviation 52.2 (28.0-62.0) fl RDW Coeff of [place] 15 (11.0-15.0) % Plt Count 197 (150-400) K/uL MPV 12.30 H (7.40-12.00) fL Neut % (Auto) 63.5 (48.0-80.0) % Lymph % (Auto) 26.0 (16.0-40.0) % [place] % (Auto) 10.4 (0.0-15.0) % Eos % (Auto) 0.0 (0.0-7.0) % Baso % (Auto) 0.1 (0.0-1.5) % Neut # (Auto) 4.4 (1.4-5.7) K/uL Lymph # (Auto) 1.8 (0.6-2.4) K/uL [place] # (Auto) 0.7 (0.0-0.8) K/uL Eos # (Auto) 0.0 (0.0-0.7) K/uL Baso # (Auto) 0.0 (0.0-0.1) K/uL Nucleated RBC % 0.0 /100WBC Nucleated RBCs # 0 K/uL Sodium 148 H 149 H (136-145) mmol/L Potassium 2.5 L 3.6 (3.5-5.1) mmol/L Chloride 108 H 111 H (98-107) mmol/L Carbon Dioxide 36.1 H 31.7 (21.0-32.0) mmol/L BUN 5 L 5 L (7.0-18.0) mg/dL Creatinine 0.7 0.6 (0.6-1.0) mg/dL Est Cr Clr Drug Dosing 84.41 98.48 mL/min Estimated GFR (MDRD) > 60.0 > 60.0 ml/min Glucose 136 H 90 (74-106) mg/dL Calcium 8.4 L 8.7 (8.5-10.1) mg/dL Phosphorus 2.3 L (2.6-4.7) mg/dL Magnesium 2.1 (1.8-2.4) mg/dL Total Bilirubin 0.4 (0.2-1.0) mg/dL AST 54 H (15-37) IU/L ALT 56 (14-63) IU/L Alkaline Phosphatase 72 (46-116) U/L Total Protein 5.2 L (6.4-8.2) g/dL Albumin 2.1 L (3.4-5.0) g/dL Globulin 3.1 (2.6-4.0) g/dL Albumin/Globulin Ratio 0.7 L (0.9-1.6) Will Results Last 24 Hours: Microbiology 11/15/20 05:10 Aerobic Blood Culture - Final Blood - Venous - Lab Draw NO GROWTH AFTER 5 DAYS Anaerobic Blood Culture - Final NO GROWTH AFTER 5 DAYS 11/15/20 05:00 Aerobic Blood Culture - Final Blood - Venous NO GROWTH AFTER 5 DAYS Anaerobic Blood Culture - Final NO GROWTH AFTER 5 DAYS Med Orders - Current: Current Medications Acetaminophen (Acetaminophen 325 Mg Tab) 650 mg PO Q4H PRN PRN Reason: Pain Last Admin: 11/15/20 20:14 Dose: 650 mg Documented by: Albuterol/Ipratropium (Albuterol/Ipratropium 3.0-0.5 Mg/3 Ml Neb Soln) 3 ml NEB Q4HRRT [facility] Last Admin: 11/20/20 13:09 Dose: 3 ml Documented by: Ciprofloxacin (Ciprofloxacin 500 Mg Tab) 500 mg PO Q12H [facility] Last Admin: 11/20/20 12:03 Dose: 500 mg Documented by: Clindamycin HCl (Clindamycin Hcl 150 Mg Cap) 450 mg PO Q8H [facility] Last Admin: 11/20/20 12:02 Dose: 450 mg Documented by: Enoxaparin Sodium (Enoxaparin 40 Mg/0.4 Ml Syringe) 40 mg SUBCUT Q24H [facility] Last Admin: 11/20/20 01:30 Dose: 40 mg Documented by: Guaifenesin/Dextromethorphan (Guaifenesin/Dextromethorphan 100-10 Mg/5 Ml Soln 10 Ml Cup) 10 ml PO Q4H PRN PRN Reason: Cough Last Admin: 11/18/20 17:43 Dose: 10 ml Documented by: Morphine Sulfate (Morphine 2 Mg/Ml Syringe) 2 mg IVPUSH Q3H PRN PRN Reason: Pain Last Admin: 11/15/20 16:50 Dose: 2 mg Documented by: Oxycodone HCl (Oxycodone 5 Mg Tab) 5 mg PO Q6H PRN PRN Reason: Other Last Admin: 11/16/20 03:43 Dose: 5 mg Documented by: Pantoprazole Sodium (Pantoprazole 40 Mg Tab.Cr) 40 mg PO BEDTIME [facility] Last Admin: 11/19/20 21:32 Dose: 40 mg Documented by: Potassium Chloride (Potassium Chloride 20 Meq Tab.Er) 60 meq PO DAILY [facility] Last Admin: 11/20/20 09:43 Dose: 60 meq Documented by: Discontinued Medications Acetaminophen (Acetaminophen 500 Mg Tab) 1,000 mg PO ONETIME ONE Stop: 11/07/20 17:06 Last Admin: 11/07/20 19:03 Dose: Not Given Documented by: Albuterol/Ipratropium (Albuterol/Ipratropium 4 Gm Inhalation [place]) 0 gm INH QID PRN PRN Reason: Shortness of Breath Dexamethasone (Dexamethasone 10 Mg/Ml Sdv) 6 mg IVPUSH ONETIME ONE Stop: 11/07/20 17:06 Last Admin: 11/07/20 17:35 Dose: 6 mg Documented by: Dexamethasone (Dexamethasone 4 Mg Tab) 6 mg PO Q24H [facility] Last Admin: 11/17/20 16:59 Dose: 6 mg Documented by: Haloperidol Lactate (Haloperidol Lactate 5 Mg/Ml Sdv) 2 mg IM ONETIME ONE Stop: 11/08/20 01:09 Last Admin: 11/08/20 01:17 Dose: 2 mg Documented by: Sodium Chloride (Normal Saline) 1,000 mls @ 250 mls/hr IV .Bolus ONE Stop: 11/07/20 21:04 Last Admin: 11/07/20 17:35 Dose: 250 mls/hr Documented by: Remdesivir 200 mg/ Sodium (Chloride) 250 mls @ 250 mls/hr IV ONETIME ONE Stop: 11/07/20 21:32 Last Admin: 11/07/20 22:00 Dose: 250 mls/hr Documented by: Remdesivir 100 mg/ Sodium (Chloride) 100 mls @ 100 mls/hr IV Q24H ANTOLIN Stop: 11/11/20 21:59 Last Admin: 11/11/20 20:09 Dose: 100 mls/hr Documented by: Dextrose/Water (Dextrose 5% In Water) 500 mls @ 250 mls/hr IV ASDIRECTED [facility] Dextrose/Water (Dextrose 5% In Water) 500 mls @ 250 mls/hr IV ASDIRECTED [facility] Last Admin: 11/11/20 09:43 Dose: 250 mls/hr Documented by: Piperacillin Sod/Tazobactam (Sod 4.5 gm/ Sodium Chloride) 100 mls @ 100 mls/hr IV Q6H [facility] Stop: 11/16/20 11:40 Last Admin: 11/16/20 10:09 Dose: 100 mls/hr Documented by: Vancomycin HCl 1 gm/ Sodium (Chloride) 250 mls @ 166 mls/hr IV Q8H [facility] Last Admin: 11/18/20 16:33 Dose: Not Given Documented by: Vancomycin HCl 2 gm/ Sodium (Chloride) 500 mls @ 333.333 mls/hr IV ONETIME ONE Stop: 11/15/20 06:14 Last Admin: 11/15/20 05:53 Dose: Not Given Documented by: Vancomycin HCl (Vancomycin 2 Gm/400 Ml) 400 mls @ 266.667 mls/hr IV ONETIME ONE Stop: 11/15/20 06:14 Last Admin: 11/15/20 06:15 Dose: 266.667 mls/hr Documented by: Piperacillin Sod/Tazobactam (Sod 4.5 gm/ Sodium Chloride) 100 mls @ 100 mls/hr IV Q6H [facility] Last Admin: 11/19/20 09:50 Dose: 100 mls/hr Documented by: Vancomycin HCl 1 gm/ Sodium (Chloride) 250 mls @ 166 mls/hr IV Q12H [facility] Last Admin: 11/19/20 01:03 Dose: 166 mls/hr Documented by: Vancomycin HCl 1 gm/ Sodium (Chloride) 250 mls @ 166 mls/hr IV Q12H [facility] Potassium Chloride 40 meq/ (Dextrose/Water) 1,020 mls @ 50 mls/hr IV ONETIME ONE Stop: 11/20/20 05:38 Last Admin: 11/19/20 11:22 Dose: 50 mls/hr Documented by: Magnesium Sulfate 2 gm/ Premix 50 mls @ 50 mls/hr IV ONETIME ONE Stop: 11/19/20 13:44 Last Admin: 11/19/20 13:02 Dose: 50 mls/hr Documented by: Dextrose/Water (Dextrose 5% In Water) 500 mls @ 250 mls/hr IV ONETIME ONE Stop: 11/20/20 13:30 Last Admin: 11/20/20 12:05 Dose: 250 mls/hr Documented by: Iopamidol (Iopamidol 755 Mg/Ml 100 Ml Bottle) 100 ml IVPUSH ONETIME ONE Stop: 11/07/20 19:29 Last Admin: 11/07/20 20:34 Dose: 100 ml Documented by: Iopamidol (Iopamidol 755 Mg/Ml 100 Ml Bottle) 100 ml IVPUSH ONETIME ONE Stop: 11/14/20 21:17 Last Admin: 11/14/20 21:16 Dose: 100 ml Documented by: Lorazepam (Lorazepam 2 Mg/Ml Sdv) 1 mg IVPUSH ONETIME ONE Stop: 11/08/20 00:17 Last Admin: 11/08/20 00:33 Dose: 1 mg Documented by: Morphine Sulfate (Morphine 2 Mg/Ml Syringe) 1 mg IVPUSH ONETIME ONE Stop: 11/14/20 18:09 Last Admin: 11/14/20 18:17 Dose: 1 mg Documented by: Potassium Chloride (Potassium Chloride 20 Meq Tab.Er) 40 meq PO ONETIME ONE Stop: 11/08/20 19:40 Last Admin: 11/08/20 20:18 Dose: 40 meq Documented by: Potassium Chloride (Potassium Chloride 20 Meq Tab.Er) 40 meq PO ONETIME ONE Stop: 11/19/20 09:06 Last Admin: 11/19/20 09:50 Dose: 40 meq Documented by: Potassium Chloride (Potassium Chloride 20 Meq Tab.Er) 60 meq PO ONETIME ONE Stop: 11/19/20 18:28 Last Admin: 11/19/20 19:42 Dose: 60 meq Documented by: Potassium Chloride (Potassium Chloride 20 Meq Tab.Er) 40 meq PO DAILY [facility] Sodium Phosphate (Phosphorus #1 250 Mg Tab) 250 mg PO ONETIME ONE Stop: 11/13/20 15:41 Last Admin: 11/13/20 16:12 Dose: 250 mg Documented by: Vancomycin HCl (Pharmacy To Dose - Vancomycin) 1 dose .XX ASDIRECTED [facility] Wound Care/Dressing Products (Hydrocolloid Dressing 4x4 Bandage) Confirm Administered Dose 1 each .ROUTE .STK-MED ONE Stop: 11/12/20 19:26 Last Admin: 11/12/20 21:31 Dose: 1 each Documented by: - Exam General: Alert, Oriented, Mild Distress HEENT: Other (Pain on palpation of the left parotid gland, abrasion seen over bridge of nose due to prior BiPAP placement) Lungs: Clear to Auscultation, Decreased Breath Sounds Cardiovascular: Regular Rate, Regular Rhythm, No Murmurs GI/Abdominal Exam: Normal Bowel Sounds, Soft, Non-Tender, No Organomegaly Extremities: Other (IV placed in right leg) - Patient Data Lab Results Last 24 hrs: Laboratory Results - last 24 hr 11/19/20 11/20/20 11/20/20 Range/Units 17:11 06:55 06:55 WBC 6.92 (4.0-11.0) K/uL RBC 3.72 L (4.30-5.90) M/uL Hgb 10.8 L (12.0-16.0) g/dL Hct 35.2 L (36.0-46.0) % MCV 94.6 (80.0-98.0) fL MCH 29.0 (27.0-32.0) pg MCHC 30.7 L (31.0-37.0) g/dL RDW Std Deviation 52.2 (28.0-62.0) fl RDW Coeff of [place] 15 (11.0-15.0) % Plt Count 197 (150-400) K/uL MPV 12.30 H (7.40-12.00) fL Neut % (Auto) 63.5 (48.0-80.0) % Lymph % (Auto) 26.0 (16.0-40.0) % [place] % (Auto) 10.4 (0.0-15.0) % Eos % (Auto) 0.0 (0.0-7.0) % Baso % (Auto) 0.1 (0.0-1.5) % Neut # (Auto) 4.4 (1.4-5.7) K/uL Lymph # (Auto) 1.8 (0.6-2.4) K/uL [place] # (Auto) 0.7 (0.0-0.8) K/uL Eos # (Auto) 0.0 (0.0-0.7) K/uL Baso # (Auto) 0.0 (0.0-0.1) K/uL Nucleated RBC % 0.0 /100WBC Nucleated RBCs # 0 K/uL Sodium 148 H 149 H (136-145) mmol/L Potassium 2.5 L 3.6 (3.5-5.1) mmol/L Chloride 108 H 111 H (98-107) mmol/L Carbon Dioxide 36.1 H 31.7 (21.0-32.0) mmol/L BUN 5 L 5 L (7.0-18.0) mg/dL Creatinine 0.7 0.6 (0.6-1.0) mg/dL Est Cr Clr Drug Dosing 84.41 98.48 mL/min Estimated GFR (MDRD) > 60.0 > 60.0 ml/min Glucose 136 H 90 (74-106) mg/dL Calcium 8.4 L 8.7 (8.5-10.1) mg/dL Phosphorus 2.3 L (2.6-4.7) mg/dL Magnesium 2.1 (1.8-2.4) mg/dL Total Bilirubin 0.4 (0.2-1.0) mg/dL AST 54 H (15-37) IU/L ALT 56 (14-63) IU/L Alkaline Phosphatase 72 (46-116) U/L Total Protein 5.2 L (6.4-8.2) g/dL Albumin 2.1 L (3.4-5.0) g/dL Globulin 3.1 (2.6-4.0) g/dL Albumin/Globulin Ratio 0.7 L (0.9-1.6) Result Diagrams: 11/20/20 06:55 11/20/20 06:55 Will Results Last 24 hrs: Microbiology 11/15/20 05:10 Aerobic Blood Culture - Final Blood - Venous - Lab Draw NO GROWTH AFTER 5 DAYS Anaerobic Blood Culture - Final NO GROWTH AFTER 5 DAYS 11/15/20 05:00 Aerobic Blood Culture - Final Blood - Venous NO GROWTH AFTER 5 DAYS Anaerobic Blood Culture - Final NO GROWTH AFTER 5 DAYS Sepsis Event Note - Evaluation Sepsis Screening Result: No Definite Risk - Focused Exam Vital Signs: Vital Signs Temp Pulse Pulse Resp BP Pulse Ox Pulse Ox 11/20/20 12:00 97.2 F 107 H 20 100/62 95 11/20/20 08:28 98.1 F 99 20 90/52 L 90 L 11/20/20 07:00 88 L 11/20/20 05:00 97.3 F 95 20 88/50 L 88 L - Problem List & Annotations (1) Acute respiratory failure with hypoxia SNOMED Code(s): 90306586, 516713181 Code(s): J96.01 - ACUTE RESPIRATORY FAILURE WITH HYPOXIA Status: Acute Current Visit: Yes (2) COVID SNOMED Code(s): 821750791 Code(s): U07.1 - COVID-19 Status: Acute Current Visit: Yes (5) Hypokalemia SNOMED Code(s): 23323064 Code(s): E87.6 - HYPOKALEMIA Status: Acute Current Visit: Yes (6) Hypernatremia SNOMED Code(s): 386025886 Code(s): E87.0 - HYPEROSMOLALITY AND HYPERNATREMIA Status: Acute Current Visit: Yes - Problem List Review Problem List Initiated/Reviewed/Updated: Yes - My Orders Last 24 Hours: My Active Orders 11/20/20 09:00 Potassium Chloride [Klor-Con M20] 60 meq PO DAILY 11/21/20 05:11 CBC WITH AUTO DIFF [HEME] AM CMP [COMPREHENSIVE METABOLIC PN,CMP] [CHEM] AM 11/22/20 05:11 CBC WITH AUTO DIFF [HEME] AM CMP [COMPREHENSIVE METABOLIC PN,CMP] [CHEM] AM - Plan Plan:: 1. Acute hypoxic respiratory failure secondary to Covid pneumonia -Continue duo nebulizer treatment and monitor oxygen status, patient is currently saturating at 90% while on 3-1/2 L nasal cannula, treat accordingly -The patient completed a course of remdesivir, and is on dexamethasone per oral for 10-day course 2. Left-sided parotiditis -Continue ciprofloxacin 500 mg per oral every 12 hours and clindamycin 450 mg per oral every 8 hours -An ENT referral has been discussed with the patient and will be done close to/after discharge 3. Hypernatremia -The patient has been given D5W bolus, 500 mL over 2 hours, 250 cc/h -We will continue to monitor the patient's sodium levels via CMP in the a.m. 4. Hypokalemia -The patient's potassium level is now at the lower level of normal, a value of 3.6, the patient has been given 60 mEq of potassium chloride per oral and in attempts to further normalize his potassium levels. 5. Anemia -Continue to monitor patient's RBC, hemoglobin, hematocrit levels via a.m. CBC 6. DVT prophylaxis with Lovenox <IshmaelTedmorenita - Last Filed: 11/21/20 15:20> - Patient Data Vitals - Most Recent: Last Vital Signs Temp 36.1 C 11/21/20 12:47 Pulse 112 H 11/21/20 12:47 Resp 18 11/21/20 12:47 BP 92/54 L 11/21/20 12:47 Pulse Ox 93 L 11/21/20 12:47 I&O - Last 24 Hours: Intake & Output 11/21/20 11/21/20 11/21/20 06:59 14:59 22:59 Intake Total 425 Balance 425 Lab Results Last 24 Hours: Laboratory Results - last 24 hr 11/21/20 11/21/20 Range/Units 05:55 05:55 WBC 9.02 (4.0-11.0) K/uL RBC 3.78 L (4.30-5.90) M/uL Hgb 10.9 L (12.0-16.0) g/dL Hct 35.9 L (36.0-46.0) % MCV 95.0 (80.0-98.0) fL MCH 28.8 (27.0-32.0) pg MCHC 30.4 L (31.0-37.0) g/dL RDW Std Deviation 52.9 (28.0-62.0) fl RDW Coeff of [place] 15 (11.0-15.0) % Plt Count 195 (150-400) K/uL MPV 13.20 H (7.40-12.00) fL Neut % (Auto) 62.8 (48.0-80.0) % Lymph % (Auto) 25.5 (16.0-40.0) % [place] % (Auto) 11.4 (0.0-15.0) % Eos % (Auto) 0.0 (0.0-7.0) % Baso % (Auto) 0.3 (0.0-1.5) % Neut # (Auto) 5.7 (1.4-5.7) K/uL Lymph # (Auto) 2.3 (0.6-2.4) K/uL [place] # (Auto) 1.0 H (0.0-0.8) K/uL Eos # (Auto) 0.0 (0.0-0.7) K/uL Baso # (Auto) 0.0 (0.0-0.1) K/uL Nucleated RBC % 0.0 /100WBC Nucleated RBCs # 0 K/uL Sodium 145 (136-145) mmol/L Potassium 4.5 (3.5-5.1) mmol/L Chloride 108 H (98-107) mmol/L Carbon Dioxide 29.6 (21.0-32.0) mmol/L BUN 7 (7.0-18.0) mg/dL Creatinine 0.6 (0.6-1.0) mg/dL Est Cr Clr Drug Dosing 98.48 mL/min Estimated GFR (MDRD) > 60.0 ml/min Glucose 80 (74-106) mg/dL Calcium 9.0 (8.5-10.1) mg/dL Total Bilirubin 0.5 (0.2-1.0) mg/dL AST 79 H (15-37) IU/L ALT 87 H (14-63) IU/L Alkaline Phosphatase 117 H (46-116) U/L Total Protein 6.5 (6.4-8.2) g/dL Albumin 2.4 L (3.4-5.0) g/dL Globulin 4.1 H (2.6-4.0) g/dL Albumin/Globulin Ratio 0.6 L (0.9-1.6) Med Orders - Current: Current Medications Acetaminophen (Acetaminophen 325 Mg Tab) 650 mg PO Q4H PRN PRN Reason: Pain Last Admin: 11/15/20 20:14 Dose: 650 mg Documented by: Albuterol/Ipratropium (Albuterol/Ipratropium 3.0-0.5 Mg/3 Ml Neb Soln) 3 ml NEB Q4HRRT ANTOLIN Last Admin: 11/21/20 13:28 Dose: 3 ml Documented by: Benzonatate (Benzonatate 100 Mg Cap) 200 mg PO Q8H PRN PRN Reason: Cough Last Admin: 11/21/20 11:11 Dose: 200 mg Documented by: Ciprofloxacin (Ciprofloxacin 500 Mg Tab) 500 mg PO Q12H [facility] Last Admin: 11/21/20 12:50 Dose: 500 mg Documented by: Clindamycin HCl (Clindamycin Hcl 150 Mg Cap) 450 mg PO Q8H [facility] Last Admin: 11/21/20 12:49 Dose: 450 mg Documented by: Enoxaparin Sodium (Enoxaparin 40 Mg/0.4 Ml Syringe) 40 mg SUBCUT Q24H [facility] Last Admin: 11/21/20 01:28 Dose: 40 mg Documented by: Guaifenesin/Dextromethorphan (Guaifenesin/Dextromethorphan 100-10 Mg/5 Ml Soln 10 Ml Cup) 10 ml PO Q4H PRN PRN Reason: Cough Last Admin: 11/21/20 12:50 Dose: 10 ml Documented by: Morphine Sulfate (Morphine 2 Mg/Ml Syringe) 2 mg IVPUSH Q3H PRN PRN Reason: Pain Last Admin: 11/15/20 16:50 Dose: 2 mg Documented by: Oxycodone HCl (Oxycodone 5 Mg Tab) 5 mg PO Q6H PRN PRN Reason: Other Last Admin: 11/16/20 03:43 Dose: 5 mg Documented by: Pantoprazole Sodium (Pantoprazole 40 Mg Tab.Cr) 40 mg PO BEDTIME [facility] Last Admin: 11/20/20 21:42 Dose: 40 mg Documented by: Potassium Chloride (Potassium Chloride 20 Meq Tab.Er) 60 meq PO DAILY [facility] Last Admin: 11/21/20 12:50 Dose: 60 meq Documented by: Discontinued Medications Acetaminophen (Acetaminophen 500 Mg Tab) 1,000 mg PO ONETIME ONE Stop: 11/07/20 17:06 Last Admin: 11/07/20 19:03 Dose: Not Given Documented by: Albuterol/Ipratropium (Albuterol/Ipratropium 4 Gm Inhalation [place]) 0 gm INH QID PRN PRN Reason: Shortness of Breath Dexamethasone (Dexamethasone 10 Mg/Ml Sdv) 6 mg IVPUSH ONETIME ONE Stop: 11/07/20 17:06 Last Admin: 11/07/20 17:35 Dose: 6 mg Documented by: Dexamethasone (Dexamethasone 4 Mg Tab) 6 mg PO Q24H [facility] Last Admin: 11/17/20 16:59 Dose: 6 mg Documented by: Haloperidol Lactate (Haloperidol Lactate 5 Mg/Ml Sdv) 2 mg IM ONETIME ONE Stop: 11/08/20 01:09 Last Admin: 11/08/20 01:17 Dose: 2 mg Documented by: Sodium Chloride (Normal Saline) 1,000 mls @ 250 mls/hr IV .Bolus ONE Stop: 11/07/20 21:04 Last Admin: 11/07/20 17:35 Dose: 250 mls/hr Documented by: Remdesivir 200 mg/ Sodium (Chloride) 250 mls @ 250 mls/hr IV ONETIME ONE Stop: 11/07/20 21:32 Last Admin: 11/07/20 22:00 Dose: 250 mls/hr Documented by: Remdesivir 100 mg/ Sodium (Chloride) 100 mls @ 100 mls/hr IV Q24H [facility] Stop: 11/11/20 21:59 Last Admin: 11/11/20 20:09 Dose: 100 mls/hr Documented by: Dextrose/Water (Dextrose 5% In Water) 500 mls @ 250 mls/hr IV ASDIRECTED [facility] Dextrose/Water (Dextrose 5% In Water) 500 mls @ 250 mls/hr IV ASDIRECTED [facility] Last Admin: 11/11/20 09:43 Dose: 250 mls/hr Documented by: Piperacillin Sod/Tazobactam (Sod 4.5 gm/ Sodium Chloride) 100 mls @ 100 mls/hr IV Q6H [facility] Stop: 11/16/20 11:40 Last Admin: 11/16/20 10:09 Dose: 100 mls/hr Documented by: Vancomycin HCl 1 gm/ Sodium (Chloride) 250 mls @ 166 mls/hr IV Q8H [facility] Last Admin: 11/18/20 16:33 Dose: Not Given Documented by: Vancomycin HCl 2 gm/ Sodium (Chloride) 500 mls @ 333.333 mls/hr IV ONETIME ONE Stop: 11/15/20 06:14 Last Admin: 11/15/20 05:53 Dose: Not Given Documented by: Vancomycin HCl (Vancomycin 2 Gm/400 Ml) 400 mls @ 266.667 mls/hr IV ONETIME ONE Stop: 11/15/20 06:14 Last Admin: 11/15/20 06:15 Dose: 266.667 mls/hr Documented by: Piperacillin Sod/Tazobactam (Sod 4.5 gm/ Sodium Chloride) 100 mls @ 100 mls/hr IV Q6H [facility] Last Admin: 11/19/20 09:50 Dose: 100 mls/hr Documented by: Vancomycin HCl 1 gm/ Sodium (Chloride) 250 mls @ 166 mls/hr IV Q12H [facility] Last Admin: 11/19/20 01:03 Dose: 166 mls/hr Documented by: Vancomycin HCl 1 gm/ Sodium (Chloride) 250 mls @ 166 mls/hr IV Q12H [facility] Potassium Chloride 40 meq/ (Dextrose/Water) 1,020 mls @ 50 mls/hr IV ONETIME ONE Stop: 11/20/20 05:38 Last Admin: 11/19/20 11:22 Dose: 50 mls/hr Documented by: Magnesium Sulfate 2 gm/ Premix 50 mls @ 50 mls/hr IV ONETIME ONE Stop: 11/19/20 13:44 Last Admin: 11/19/20 13:02 Dose: 50 mls/hr Documented by: Dextrose/Water (Dextrose 5% In Water) 500 mls @ 250 mls/hr IV ONETIME ONE Stop: 11/20/20 13:30 Last Admin: 11/20/20 12:05 Dose: 250 mls/hr Documented by: Iopamidol (Iopamidol 755 Mg/Ml 100 Ml Bottle) 100 ml IVPUSH ONETIME ONE Stop: 11/07/20 19:29 Last Admin: 11/07/20 20:34 Dose: 100 ml Documented by: Iopamidol (Iopamidol 755 Mg/Ml 100 Ml Bottle) 100 ml IVPUSH ONETIME ONE Stop: 11/14/20 21:17 Last Admin: 11/14/20 21:16 Dose: 100 ml Documented by: Lorazepam (Lorazepam 2 Mg/Ml Sdv) 1 mg IVPUSH ONETIME ONE Stop: 11/08/20 00:17 Last Admin: 11/08/20 00:33 Dose: 1 mg Documented by: Morphine Sulfate (Morphine 2 Mg/Ml Syringe) 1 mg IVPUSH ONETIME ONE Stop: 11/14/20 18:09 Last Admin: 11/14/20 18:17 Dose: 1 mg Documented by: Potassium Chloride (Potassium Chloride 20 Meq Tab.Er) 40 meq PO ONETIME ONE Stop: 11/08/20 19:40 Last Admin: 11/08/20 20:18 Dose: 40 meq Documented by: Potassium Chloride (Potassium Chloride 20 Meq Tab.Er) 40 meq PO ONETIME ONE Stop: 11/19/20 09:06 Last Admin: 11/19/20 09:50 Dose: 40 meq Documented by: Potassium Chloride (Potassium Chloride 20 Meq Tab.Er) 60 meq PO ONETIME ONE Stop: 11/19/20 18:28 Last Admin: 11/19/20 19:42 Dose: 60 meq Documented by: Potassium Chloride (Potassium Chloride 20 Meq Tab.Er) 40 meq PO DAILY [facility] Sodium Phosphate (Phosphorus #1 250 Mg Tab) 250 mg PO ONETIME ONE Stop: 11/13/20 15:41 Last Admin: 11/13/20 16:12 Dose: 250 mg Documented by: Vancomycin HCl (Pharmacy To Dose - Vancomycin) 1 dose .XX ASDIRECTED [facility] Wound Care/Dressing Products (Hydrocolloid Dressing 4x4 Bandage) Confirm Administered Dose 1 each .ROUTE .STK-MED ONE Stop: 11/12/20 19:26 Last Admin: 11/12/20 21:31 Dose: 1 each Documented by: - Patient Data Lab Results Last 24 hrs: Laboratory Results - last 24 hr 11/21/20 11/21/20 Range/Units 05:55 05:55 WBC 9.02 (4.0-11.0) K/uL RBC 3.78 L (4.30-5.90) M/uL Hgb 10.9 L (12.0-16.0) g/dL Hct 35.9 L (36.0-46.0) % MCV 95.0 (80.0-98.0) fL MCH 28.8 (27.0-32.0) pg MCHC 30.4 L (31.0-37.0) g/dL RDW Std Deviation 52.9 (28.0-62.0) fl RDW Coeff of [place] 15 (11.0-15.0) % Plt Count 195 (150-400) K/uL MPV 13.20 H (7.40-12.00) fL Neut % (Auto) 62.8 (48.0-80.0) % Lymph % (Auto) 25.5 (16.0-40.0) % [place] % (Auto) 11.4 (0.0-15.0) % Eos % (Auto) 0.0 (0.0-7.0) % Baso % (Auto) 0.3 (0.0-1.5) % Neut # (Auto) 5.7 (1.4-5.7) K/uL Lymph # (Auto) 2.3 (0.6-2.4) K/uL [place] # (Auto) 1.0 H (0.0-0.8) K/uL Eos # (Auto) 0.0 (0.0-0.7) K/uL Baso # (Auto) 0.0 (0.0-0.1) K/uL Nucleated RBC % 0.0 /100WBC Nucleated RBCs # 0 K/uL Sodium 145 (136-145) mmol/L Potassium 4.5 (3.5-5.1) mmol/L Chloride 108 H (98-107) mmol/L Carbon Dioxide 29.6 (21.0-32.0) mmol/L BUN 7 (7.0-18.0) mg/dL Creatinine 0.6 (0.6-1.0) mg/dL Est Cr Clr Drug Dosing 98.48 mL/min Estimated GFR (MDRD) > 60.0 ml/min Glucose 80 (74-106) mg/dL Calcium 9.0 (8.5-10.1) mg/dL Total Bilirubin 0.5 (0.2-1.0) mg/dL AST 79 H (15-37) IU/L ALT 87 H (14-63) IU/L Alkaline Phosphatase 117 H (46-116) U/L Total Protein 6.5 (6.4-8.2) g/dL Albumin 2.4 L (3.4-5.0) g/dL Globulin 4.1 H (2.6-4.0) g/dL Albumin/Globulin Ratio 0.6 L (0.9-1.6) Result Diagrams: 11/21/20 05:55 11/21/20 05:55 Sepsis Event Note - Focused Exam Vital Signs: Vital Signs Temp Pulse Pulse Resp BP BP Pulse Ox 11/21/20 12:47 36.1 C 112 H 18 92/54 L 93 L 11/21/20 08:00 36.2 C 95 18 100/63 100/63 92 L 11/21/20 06:56 11/21/20 04:00 2.6 C L 96 16 96/59 L 91 L Pulse Ox 11/21/20 12:47 11/21/20 08:00 11/21/20 06:56 92 L 11/21/20 04:00 - Problem List & Annotations (1) Acute respiratory failure with hypoxia SNOMED Code(s): 51710394, 237364190 Code(s): J96.01 - ACUTE RESPIRATORY FAILURE WITH HYPOXIA Status: Acute Current Visit: Yes (2) COVID SNOMED Code(s): 990058665 Code(s): U07.1 - COVID-19 Status: Acute Current Visit: Yes (3) Developmental disability Status: Acute Current Visit: Yes (4) Hypernatremia SNOMED Code(s): 633903654 Code(s): E87.0 - HYPEROSMOLALITY AND HYPERNATREMIA Status: Deleted Current Visit: Yes - Plan Plan:: I have seen and evaluated the patient and agree with the residents note unless specified in my note
[2020-11-20] MEDS: guaiFENesin/Dextromethorphan 100-10 MG/5 ML Soln 10 ML Cup PO PRN (18:37)
[2020-11-20] MEDS: Benzonatate 100 MG Cap PO PRN (21:42)
[2020-11-20] MEDS: Pantoprazole 40 MG Tab.CR PO SCH (21:42)
[2020-11-21] MEDS: Enoxaparin 40 MG/0.4 ML Syringe SUBCUT SCH (01:28)
[2020-11-21] MEDS: Ciprofloxacin 500 MG Tab PO SCH ×2 (01:28→12:50)
[2020-11-21] MEDS: Albuterol/Ipratropium 3.0-0.5 MG/3 ML Neb Soln NEB SCH ×6 (01:31→21:07)
[2020-11-21] MEDS: Clindamycin HCl 150 MG Cap PO SCH ×3 (04:33→21:05)
[2020-11-21 06:41] LABS: BLOOD UREA NITROGEN,BUN 7 mg/dL (7.0-18.0); CARBON DIOXIDE,CO2 29.6 mmol/L (21.0-32.0); CHLORIDE,CL 108 mmol/L (98-107); GLUCOSE RANDOM 80 mg/dL (74-106); POTASSIUM,K 4.5 mmol/L (3.5-5.1); SODIUM,NA 145 mmol/L (136-145)
[2020-11-21] MEDS: Benzonatate 100 MG Cap PO PRN ×2 (11:11→21:16)
[2020-11-21] MEDS: Potassium Chloride 20 MEQ Tab.ER PO SCH (12:50)
[2020-11-21] MEDS: guaiFENesin/Dextromethorphan 100-10 MG/5 ML Soln 10 ML Cup PO PRN (12:50)
--- NOTE | 2020-11-21 13:52 | PCM.PN ---
<Angelica Domínguez - Last Filed: 11/21/20 13:46> - General Info Date of Service: 11/21/20 Subjective Update: The patient is a 30-year-old female on day 14 of admission with a significant past medical history of obesity with a BMI of over 30, who was admitted for acute respiratory failure secondary to Covid pneumonia. Upon interview today the patient complains of overnight cough which subsided this morning with benzonatate treatment. The patient continues to admit that she feels tired but has no other complaints at this time. - Review of Systems General: Reports: Fatigue. Denies: Fever, Weakness, Chills HEENT: Denies: Headaches, Sore Throat Pulmonary: Reports: Cough Cardiovascular: Denies: Chest Pain, Palpitations Gastrointestinal: Denies: Abdominal Pain Neurological: Denies: Headache - Patient Data Vitals - Most Recent: Last Vital Signs Temp 97.0 F 11/21/20 12:47 Pulse 112 H 11/21/20 12:47 Resp 18 11/21/20 12:47 BP 92/54 L 11/21/20 12:47 Pulse Ox 93 L 11/21/20 12:47 Weight - Most Recent: 71.75 kg I&O - Last 24 Hours: Intake & Output 11/20/20 11/21/20 11/21/20 22:59 06:59 14:59 Intake Total 1500 425 Balance 1500 425 Lab Results Last 24 Hours: Laboratory Results - last 24 hr 11/21/20 11/21/20 Range/Units 05:55 05:55 WBC 9.02 (4.0-11.0) K/uL RBC 3.78 L (4.30-5.90) M/uL Hgb 10.9 L (12.0-16.0) g/dL Hct 35.9 L (36.0-46.0) % MCV 95.0 (80.0-98.0) fL MCH 28.8 (27.0-32.0) pg MCHC 30.4 L (31.0-37.0) g/dL RDW Std Deviation 52.9 (28.0-62.0) fl RDW Coeff of [place] 15 (11.0-15.0) % Plt Count 195 (150-400) K/uL MPV 13.20 H (7.40-12.00) fL Neut % (Auto) 62.8 (48.0-80.0) % Lymph % (Auto) 25.5 (16.0-40.0) % [place] % (Auto) 11.4 (0.0-15.0) % Eos % (Auto) 0.0 (0.0-7.0) % Baso % (Auto) 0.3 (0.0-1.5) % Neut # (Auto) 5.7 (1.4-5.7) K/uL Lymph # (Auto) 2.3 (0.6-2.4) K/uL [place] # (Auto) 1.0 H (0.0-0.8) K/uL Eos # (Auto) 0.0 (0.0-0.7) K/uL Baso # (Auto) 0.0 (0.0-0.1) K/uL Nucleated RBC % 0.0 /100WBC Nucleated RBCs # 0 K/uL Sodium 145 (136-145) mmol/L Potassium 4.5 (3.5-5.1) mmol/L Chloride 108 H (98-107) mmol/L Carbon Dioxide 29.6 (21.0-32.0) mmol/L BUN 7 (7.0-18.0) mg/dL Creatinine 0.6 (0.6-1.0) mg/dL Est Cr Clr Drug Dosing 98.48 mL/min Estimated GFR (MDRD) > 60.0 ml/min Glucose 80 (74-106) mg/dL Calcium 9.0 (8.5-10.1) mg/dL Total Bilirubin 0.5 (0.2-1.0) mg/dL AST 79 H (15-37) IU/L ALT 87 H (14-63) IU/L Alkaline Phosphatase 117 H (46-116) U/L Total Protein 6.5 (6.4-8.2) g/dL Albumin 2.4 L (3.4-5.0) g/dL Globulin 4.1 H (2.6-4.0) g/dL Albumin/Globulin Ratio 0.6 L (0.9-1.6) Med Orders - Current: Current Medications Acetaminophen (Acetaminophen 325 Mg Tab) 650 mg PO Q4H PRN PRN Reason: Pain Last Admin: 11/15/20 20:14 Dose: 650 mg Documented by: Albuterol/Ipratropium (Albuterol/Ipratropium 3.0-0.5 Mg/3 Ml Neb Soln) 3 ml NEB Q4HRRT [facility] Last Admin: 11/21/20 13:28 Dose: 3 ml Documented by: Benzonatate (Benzonatate 100 Mg Cap) 200 mg PO Q8H PRN PRN Reason: Cough Last Admin: 11/21/20 11:11 Dose: 200 mg Documented by: Ciprofloxacin (Ciprofloxacin 500 Mg Tab) 500 mg PO Q12H [facility] Last Admin: 11/21/20 12:50 Dose: 500 mg Documented by: Clindamycin HCl (Clindamycin Hcl 150 Mg Cap) 450 mg PO Q8H [facility] Last Admin: 11/21/20 12:49 Dose: 450 mg Documented by: Enoxaparin Sodium (Enoxaparin 40 Mg/0.4 Ml Syringe) 40 mg SUBCUT Q24H [facility] Last Admin: 11/21/20 01:28 Dose: 40 mg Documented by: Guaifenesin/Dextromethorphan (Guaifenesin/Dextromethorphan 100-10 Mg/5 Ml Soln 10 Ml Cup) 10 ml PO Q4H PRN PRN Reason: Cough Last Admin: 11/21/20 12:50 Dose: 10 ml Documented by: Morphine Sulfate (Morphine 2 Mg/Ml Syringe) 2 mg IVPUSH Q3H PRN PRN Reason: Pain Last Admin: 11/15/20 16:50 Dose: 2 mg Documented by: Oxycodone HCl (Oxycodone 5 Mg Tab) 5 mg PO Q6H PRN PRN Reason: Other Last Admin: 11/16/20 03:43 Dose: 5 mg Documented by: Pantoprazole Sodium (Pantoprazole 40 Mg Tab.Cr) 40 mg PO BEDTIME [facility] Last Admin: 11/20/20 21:42 Dose: 40 mg Documented by: Potassium Chloride (Potassium Chloride 20 Meq Tab.Er) 60 meq PO DAILY [facility] Last Admin: 11/21/20 12:50 Dose: 60 meq Documented by: Discontinued Medications Acetaminophen (Acetaminophen 500 Mg Tab) 1,000 mg PO ONETIME ONE Stop: 11/07/20 17:06 Last Admin: 11/07/20 19:03 Dose: Not Given Documented by: Albuterol/Ipratropium (Albuterol/Ipratropium 4 Gm Inhalation [place]) 0 gm INH QID PRN PRN Reason: Shortness of Breath Dexamethasone (Dexamethasone 10 Mg/Ml Sdv) 6 mg IVPUSH ONETIME ONE Stop: 11/07/20 17:06 Last Admin: 11/07/20 17:35 Dose: 6 mg Documented by: Dexamethasone (Dexamethasone 4 Mg Tab) 6 mg PO Q24H [facility] Last Admin: 11/17/20 16:59 Dose: 6 mg Documented by: Haloperidol Lactate (Haloperidol Lactate 5 Mg/Ml Sdv) 2 mg IM ONETIME ONE Stop: 11/08/20 01:09 Last Admin: 11/08/20 01:17 Dose: 2 mg Documented by: Sodium Chloride (Normal Saline) 1,000 mls @ 250 mls/hr IV .Bolus ONE Stop: 11/07/20 21:04 Last Admin: 11/07/20 17:35 Dose: 250 mls/hr Documented by: Remdesivir 200 mg/ Sodium (Chloride) 250 mls @ 250 mls/hr IV ONETIME ONE Stop: 11/07/20 21:32 Last Admin: 11/07/20 22:00 Dose: 250 mls/hr Documented by: Remdesivir 100 mg/ Sodium (Chloride) 100 mls @ 100 mls/hr IV Q24H [facility] Stop: 11/11/20 21:59 Last Admin: 11/11/20 20:09 Dose: 100 mls/hr Documented by: Dextrose/Water (Dextrose 5% In Water) 500 mls @ 250 mls/hr IV ASDIRECTED [facility] Dextrose/Water (Dextrose 5% In Water) 500 mls @ 250 mls/hr IV ASDIRECTED [facility] Last Admin: 11/11/20 09:43 Dose: 250 mls/hr Documented by: Piperacillin Sod/Tazobactam (Sod 4.5 gm/ Sodium Chloride) 100 mls @ 100 mls/hr IV Q6H [facility] Stop: 11/16/20 11:40 Last Admin: 11/16/20 10:09 Dose: 100 mls/hr Documented by: Vancomycin HCl 1 gm/ Sodium (Chloride) 250 mls @ 166 mls/hr IV Q8H [facility] Last Admin: 11/18/20 16:33 Dose: Not Given Documented by: Vancomycin HCl 2 gm/ Sodium (Chloride) 500 mls @ 333.333 mls/hr IV ONETIME ONE Stop: 11/15/20 06:14 Last Admin: 11/15/20 05:53 Dose: Not Given Documented by: Vancomycin HCl (Vancomycin 2 Gm/400 Ml) 400 mls @ 266.667 mls/hr IV ONETIME ONE Stop: 11/15/20 06:14 Last Admin: 11/15/20 06:15 Dose: 266.667 mls/hr Documented by: Piperacillin Sod/Tazobactam (Sod 4.5 gm/ Sodium Chloride) 100 mls @ 100 mls/hr IV Q6H [facility] Last Admin: 11/19/20 09:50 Dose: 100 mls/hr Documented by: Vancomycin HCl 1 gm/ Sodium (Chloride) 250 mls @ 166 mls/hr IV Q12H [facility] Last Admin: 11/19/20 01:03 Dose: 166 mls/hr Documented by: Vancomycin HCl 1 gm/ Sodium (Chloride) 250 mls @ 166 mls/hr IV Q12H [facility] Potassium Chloride 40 meq/ (Dextrose/Water) 1,020 mls @ 50 mls/hr IV ONETIME ONE Stop: 11/20/20 05:38 Last Admin: 11/19/20 11:22 Dose: 50 mls/hr Documented by: Magnesium Sulfate 2 gm/ Premix 50 mls @ 50 mls/hr IV ONETIME ONE Stop: 11/19/20 13:44 Last Admin: 11/19/20 13:02 Dose: 50 mls/hr Documented by: Dextrose/Water (Dextrose 5% In Water) 500 mls @ 250 mls/hr IV ONETIME ONE Stop: 11/20/20 13:30 Last Admin: 11/20/20 12:05 Dose: 250 mls/hr Documented by: Iopamidol (Iopamidol 755 Mg/Ml 100 Ml Bottle) 100 ml IVPUSH ONETIME ONE Stop: 11/07/20 19:29 Last Admin: 11/07/20 20:34 Dose: 100 ml Documented by: Iopamidol (Iopamidol 755 Mg/Ml 100 Ml Bottle) 100 ml IVPUSH ONETIME ONE Stop: 11/14/20 21:17 Last Admin: 11/14/20 21:16 Dose: 100 ml Documented by: Lorazepam (Lorazepam 2 Mg/Ml Sdv) 1 mg IVPUSH ONETIME ONE Stop: 11/08/20 00:17 Last Admin: 11/08/20 00:33 Dose: 1 mg Documented by: Morphine Sulfate (Morphine 2 Mg/Ml Syringe) 1 mg IVPUSH ONETIME ONE Stop: 11/14/20 18:09 Last Admin: 11/14/20 18:17 Dose: 1 mg Documented by: Potassium Chloride (Potassium Chloride 20 Meq Tab.Er) 40 meq PO ONETIME ONE Stop: 11/08/20 19:40 Last Admin: 11/08/20 20:18 Dose: 40 meq Documented by: Potassium Chloride (Potassium Chloride 20 Meq Tab.Er) 40 meq PO ONETIME ONE Stop: 11/19/20 09:06 Last Admin: 11/19/20 09:50 Dose: 40 meq Documented by: Potassium Chloride (Potassium Chloride 20 Meq Tab.Er) 60 meq PO ONETIME ONE Stop: 11/19/20 18:28 Last Admin: 11/19/20 19:42 Dose: 60 meq Documented by: Potassium Chloride (Potassium Chloride 20 Meq Tab.Er) 40 meq PO DAILY [facility] Sodium Phosphate (Phosphorus #1 250 Mg Tab) 250 mg PO ONETIME ONE Stop: 11/13/20 15:41 Last Admin: 11/13/20 16:12 Dose: 250 mg Documented by: Vancomycin HCl (Pharmacy To Dose - Vancomycin) 1 dose .XX ASDIRECTED [facility] Wound Care/Dressing Products (Hydrocolloid Dressing 4x4 Bandage) Confirm Administered Dose 1 each .ROUTE .STK-MED ONE Stop: 11/12/20 19:26 Last Admin: 11/12/20 21:31 Dose: 1 each Documented by: - Exam General: Alert, Oriented, Cooperative HEENT: Pupils Equal, Other (Pain on palpation over left parotid gland) Lungs: Other (Wheezing on the left side) Cardiovascular: Regular Rate, Regular Rhythm, No Murmurs GI/Abdominal Exam: Normal Bowel Sounds, Soft, Non-Tender - Patient Data Lab Results Last 24 hrs: Laboratory Results - last 24 hr 11/21/20 11/21/20 Range/Units 05:55 05:55 WBC 9.02 (4.0-11.0) K/uL RBC 3.78 L (4.30-5.90) M/uL Hgb 10.9 L (12.0-16.0) g/dL Hct 35.9 L (36.0-46.0) % MCV 95.0 (80.0-98.0) fL MCH 28.8 (27.0-32.0) pg MCHC 30.4 L (31.0-37.0) g/dL RDW Std Deviation 52.9 (28.0-62.0) fl RDW Coeff of [place] 15 (11.0-15.0) % Plt Count 195 (150-400) K/uL MPV 13.20 H (7.40-12.00) fL Neut % (Auto) 62.8 (48.0-80.0) % Lymph % (Auto) 25.5 (16.0-40.0) % [place] % (Auto) 11.4 (0.0-15.0) % Eos % (Auto) 0.0 (0.0-7.0) % Baso % (Auto) 0.3 (0.0-1.5) % Neut # (Auto) 5.7 (1.4-5.7) K/uL Lymph # (Auto) 2.3 (0.6-2.4) K/uL [place] # (Auto) 1.0 H (0.0-0.8) K/uL Eos # (Auto) 0.0 (0.0-0.7) K/uL Baso # (Auto) 0.0 (0.0-0.1) K/uL Nucleated RBC % 0.0 /100WBC Nucleated RBCs # 0 K/uL Sodium 145 (136-145) mmol/L Potassium 4.5 (3.5-5.1) mmol/L Chloride 108 H (98-107) mmol/L Carbon Dioxide 29.6 (21.0-32.0) mmol/L BUN 7 (7.0-18.0) mg/dL Creatinine 0.6 (0.6-1.0) mg/dL Est Cr Clr Drug Dosing 98.48 mL/min Estimated GFR (MDRD) > 60.0 ml/min Glucose 80 (74-106) mg/dL Calcium 9.0 (8.5-10.1) mg/dL Total Bilirubin 0.5 (0.2-1.0) mg/dL AST 79 H (15-37) IU/L ALT 87 H (14-63) IU/L Alkaline Phosphatase 117 H (46-116) U/L Total Protein 6.5 (6.4-8.2) g/dL Albumin 2.4 L (3.4-5.0) g/dL Globulin 4.1 H (2.6-4.0) g/dL Albumin/Globulin Ratio 0.6 L (0.9-1.6) Result Diagrams: 11/21/20 05:55 11/21/20 05:55 Sepsis Event Note - Evaluation Sepsis Screening Result: No Definite Risk - Focused Exam Vital Signs: Vital Signs Temp Pulse Pulse Resp BP BP Pulse Ox 11/21/20 12:47 97.0 F 112 H 18 92/54 L 93 L 11/21/20 08:00 97.2 F 95 18 100/63 100/63 92 L 11/21/20 06:56 11/21/20 04:00 36.6 F L 96 16 96/59 L 91 L Pulse Ox 11/21/20 12:47 11/21/20 08:00 11/21/20 06:56 92 L 11/21/20 04:00 - Problem List & Annotations (1) Acute respiratory failure with hypoxia SNOMED Code(s): 40747915, 264844398 Code(s): J96.01 - ACUTE RESPIRATORY FAILURE WITH HYPOXIA Status: Acute Current Visit: Yes (2) COVID SNOMED Code(s): 146337435 Code(s): U07.1 - COVID-19 Status: Acute Current Visit: Yes (3) Parotiditis SNOMED Code(s): 68460778 Code(s): K11.20 - SIALOADENITIS, UNSPECIFIED Status: Acute Current Visit: Yes (4) Anemia SNOMED Code(s): 842302125 Code(s): D64.9 - ANEMIA, UNSPECIFIED Status: Acute Current Visit: Yes - Problem List Review Problem List Initiated/Reviewed/Updated: Yes - My Orders Last 24 Hours: My Active Orders 11/22/20 05:11 CBC WITH AUTO DIFF [HEME] AM CMP [COMPREHENSIVE METABOLIC PN,CMP] [CHEM] AM - Plan Plan:: 1. Acute hypoxic respiratory failure secondary to Covid pneumonia -Continue duo nebulizer treatment and monitor oxygen status, patient is currently saturating at 92% while on 3.5 L nasal cannula, treat accordingly -For the patient's cough she is receiving benzonatate treatment 2. Left-sided parotiditis -Continue ciprofloxacin 500 mg per oral every 12 hours and clindamycin 450 mg per oral every 8 hours -An ENT referral has been discussed with the patient and will be done after discharge 3. Anemia -Continue to monitor patient's RBC, hemoglobin, hematocrit levels via a.m. CBC <Warner Quiñones - Last Filed: 11/21/20 15:15> - Patient Data Vitals - Most Recent: Last Vital Signs Temp 36.1 C 11/21/20 12:47 Pulse 112 H 11/21/20 12:47 Resp 18 11/21/20 12:47 BP 92/54 L 11/21/20 12:47 Pulse Ox 93 L 11/21/20 12:47 I&O - Last 24 Hours: Intake & Output 11/21/20 11/21/20 11/21/20 06:59 14:59 22:59 Intake Total 425 Balance 425 Lab Results Last 24 Hours: Laboratory Results - last 24 hr 11/21/20 11/21/20 Range/Units 05:55 05:55 WBC 9.02 (4.0-11.0) K/uL RBC 3.78 L (4.30-5.90) M/uL Hgb 10.9 L (12.0-16.0) g/dL Hct 35.9 L (36.0-46.0) % MCV 95.0 (80.0-98.0) fL MCH 28.8 (27.0-32.0) pg MCHC 30.4 L (31.0-37.0) g/dL RDW Std Deviation 52.9 (28.0-62.0) fl RDW Coeff of [place] 15 (11.0-15.0) % Plt Count 195 (150-400) K/uL MPV 13.20 H (7.40-12.00) fL Neut % (Auto) 62.8 (48.0-80.0) % Lymph % (Auto) 25.5 (16.0-40.0) % [place] % (Auto) 11.4 (0.0-15.0) % Eos % (Auto) 0.0 (0.0-7.0) % Baso % (Auto) 0.3 (0.0-1.5) % Neut # (Auto) 5.7 (1.4-5.7) K/uL Lymph # (Auto) 2.3 (0.6-2.4) K/uL [place] # (Auto) 1.0 H (0.0-0.8) K/uL Eos # (Auto) 0.0 (0.0-0.7) K/uL Baso # (Auto) 0.0 (0.0-0.1) K/uL Nucleated RBC % 0.0 /100WBC Nucleated RBCs # 0 K/uL Sodium 145 (136-145) mmol/L Potassium 4.5 (3.5-5.1) mmol/L Chloride 108 H (98-107) mmol/L Carbon Dioxide 29.6 (21.0-32.0) mmol/L BUN 7 (7.0-18.0) mg/dL Creatinine 0.6 (0.6-1.0) mg/dL Est Cr Clr Drug Dosing 98.48 mL/min Estimated GFR (MDRD) > 60.0 ml/min Glucose 80 (74-106) mg/dL Calcium 9.0 (8.5-10.1) mg/dL Total Bilirubin 0.5 (0.2-1.0) mg/dL AST 79 H (15-37) IU/L ALT 87 H (14-63) IU/L Alkaline Phosphatase 117 H (46-116) U/L Total Protein 6.5 (6.4-8.2) g/dL Albumin 2.4 L (3.4-5.0) g/dL Globulin 4.1 H (2.6-4.0) g/dL Albumin/Globulin Ratio 0.6 L (0.9-1.6) Med Orders - Current: Current Medications Acetaminophen (Acetaminophen 325 Mg Tab) 650 mg PO Q4H PRN PRN Reason: Pain Last Admin: 11/15/20 20:14 Dose: 650 mg Documented by: Albuterol/Ipratropium (Albuterol/Ipratropium 3.0-0.5 Mg/3 Ml Neb Soln) 3 ml NEB Q4HRRT [facility] Last Admin: 11/21/20 13:28 Dose: 3 ml Documented by: Benzonatate (Benzonatate 100 Mg Cap) 200 mg PO Q8H PRN PRN Reason: Cough Last Admin: 11/21/20 11:11 Dose: 200 mg Documented by: Ciprofloxacin (Ciprofloxacin 500 Mg Tab) 500 mg PO Q12H [facility] Last Admin: 11/21/20 12:50 Dose: 500 mg Documented by: Clindamycin HCl (Clindamycin Hcl 150 Mg Cap) 450 mg PO Q8H [facility] Last Admin: 11/21/20 12:49 Dose: 450 mg Documented by: Enoxaparin Sodium (Enoxaparin 40 Mg/0.4 Ml Syringe) 40 mg SUBCUT Q24H [facility] Last Admin: 11/21/20 01:28 Dose: 40 mg Documented by: Guaifenesin/Dextromethorphan (Guaifenesin/Dextromethorphan 100-10 Mg/5 Ml Soln 10 Ml Cup) 10 ml PO Q4H PRN PRN Reason: Cough Last Admin: 11/21/20 12:50 Dose: 10 ml Documented by: Morphine Sulfate (Morphine 2 Mg/Ml Syringe) 2 mg IVPUSH Q3H PRN PRN Reason: Pain Last Admin: 11/15/20 16:50 Dose: 2 mg Documented by: Oxycodone HCl (Oxycodone 5 Mg Tab) 5 mg PO Q6H PRN PRN Reason: Other Last Admin: 11/16/20 03:43 Dose: 5 mg Documented by: Pantoprazole Sodium (Pantoprazole 40 Mg Tab.Cr) 40 mg PO BEDTIME [facility] Last Admin: 11/20/20 21:42 Dose: 40 mg Documented by: Potassium Chloride (Potassium Chloride 20 Meq Tab.Er) 60 meq PO DAILY [facility] Last Admin: 11/21/20 12:50 Dose: 60 meq Documented by: Discontinued Medications Acetaminophen (Acetaminophen 500 Mg Tab) 1,000 mg PO ONETIME ONE Stop: 11/07/20 17:06 Last Admin: 11/07/20 19:03 Dose: Not Given Documented by: Albuterol/Ipratropium (Albuterol/Ipratropium 4 Gm Inhalation [place]) 0 gm INH QID PRN PRN Reason: Shortness of Breath Dexamethasone (Dexamethasone 10 Mg/Ml Sdv) 6 mg IVPUSH ONETIME ONE Stop: 11/07/20 17:06 Last Admin: 11/07/20 17:35 Dose: 6 mg Documented by: Dexamethasone (Dexamethasone 4 Mg Tab) 6 mg PO Q24H [facility] Last Admin: 11/17/20 16:59 Dose: 6 mg Documented by: Haloperidol Lactate (Haloperidol Lactate 5 Mg/Ml Sdv) 2 mg IM ONETIME ONE Stop: 11/08/20 01:09 Last Admin: 11/08/20 01:17 Dose: 2 mg Documented by: Sodium Chloride (Normal Saline) 1,000 mls @ 250 mls/hr IV .Bolus ONE Stop: 11/07/20 21:04 Last Admin: 11/07/20 17:35 Dose: 250 mls/hr Documented by: Remdesivir 200 mg/ Sodium (Chloride) 250 mls @ 250 mls/hr IV ONETIME ONE Stop: 11/07/20 21:32 Last Admin: 11/07/20 22:00 Dose: 250 mls/hr Documented by: Remdesivir 100 mg/ Sodium (Chloride) 100 mls @ 100 mls/hr IV Q24H [facility] Stop: 11/11/20 21:59 Last Admin: 11/11/20 20:09 Dose: 100 mls/hr Documented by: Dextrose/Water (Dextrose 5% In Water) 500 mls @ 250 mls/hr IV ASDIRECTED [facility] Dextrose/Water (Dextrose 5% In Water) 500 mls @ 250 mls/hr IV ASDIRECTED [facility] Last Admin: 11/11/20 09:43 Dose: 250 mls/hr Documented by: Piperacillin Sod/Tazobactam (Sod 4.5 gm/ Sodium Chloride) 100 mls @ 100 mls/hr IV Q6H [facility] Stop: 11/16/20 11:40 Last Admin: 11/16/20 10:09 Dose: 100 mls/hr Documented by: Vancomycin HCl 1 gm/ Sodium (Chloride) 250 mls @ 166 mls/hr IV Q8H [facility] Last Admin: 11/18/20 16:33 Dose: Not Given Documented by: Vancomycin HCl 2 gm/ Sodium (Chloride) 500 mls @ 333.333 mls/hr IV ONETIME ONE Stop: 11/15/20 06:14 Last Admin: 11/15/20 05:53 Dose: Not Given Documented by: Vancomycin HCl (Vancomycin 2 Gm/400 Ml) 400 mls @ 266.667 mls/hr IV ONETIME ONE Stop: 11/15/20 06:14 Last Admin: 11/15/20 06:15 Dose: 266.667 mls/hr Documented by: Piperacillin Sod/Tazobactam (Sod 4.5 gm/ Sodium Chloride) 100 mls @ 100 mls/hr IV Q6H [facility] Last Admin: 11/19/20 09:50 Dose: 100 mls/hr Documented by: Vancomycin HCl 1 gm/ Sodium (Chloride) 250 mls @ 166 mls/hr IV Q12H [facility] Last Admin: 11/19/20 01:03 Dose: 166 mls/hr Documented by: Vancomycin HCl 1 gm/ Sodium (Chloride) 250 mls @ 166 mls/hr IV Q12H [facility] Potassium Chloride 40 meq/ (Dextrose/Water) 1,020 mls @ 50 mls/hr IV ONETIME ONE Stop: 11/20/20 05:38 Last Admin: 11/19/20 11:22 Dose: 50 mls/hr Documented by: Magnesium Sulfate 2 gm/ Premix 50 mls @ 50 mls/hr IV ONETIME ONE Stop: 11/19/20 13:44 Last Admin: 11/19/20 13:02 Dose: 50 mls/hr Documented by: Dextrose/Water (Dextrose 5% In Water) 500 mls @ 250 mls/hr IV ONETIME ONE Stop: 11/20/20 13:30 Last Admin: 11/20/20 12:05 Dose: 250 mls/hr Documented by: Iopamidol (Iopamidol 755 Mg/Ml 100 Ml Bottle) 100 ml IVPUSH ONETIME ONE Stop: 11/07/20 19:29 Last Admin: 11/07/20 20:34 Dose: 100 ml Documented by: Iopamidol (Iopamidol 755 Mg/Ml 100 Ml Bottle) 100 ml IVPUSH ONETIME ONE Stop: 11/14/20 21:17 Last Admin: 11/14/20 21:16 Dose: 100 ml Documented by: Lorazepam (Lorazepam 2 Mg/Ml Sdv) 1 mg IVPUSH ONETIME ONE Stop: 11/08/20 00:17 Last Admin: 11/08/20 00:33 Dose: 1 mg Documented by: Morphine Sulfate (Morphine 2 Mg/Ml Syringe) 1 mg IVPUSH ONETIME ONE Stop: 11/14/20 18:09 Last Admin: 11/14/20 18:17 Dose: 1 mg Documented by: Potassium Chloride (Potassium Chloride 20 Meq Tab.Er) 40 meq PO ONETIME ONE Stop: 11/08/20 19:40 Last Admin: 11/08/20 20:18 Dose: 40 meq Documented by: Potassium Chloride (Potassium Chloride 20 Meq Tab.Er) 40 meq PO ONETIME ONE Stop: 11/19/20 09:06 Last Admin: 11/19/20 09:50 Dose: 40 meq Documented by: Potassium Chloride (Potassium Chloride 20 Meq Tab.Er) 60 meq PO ONETIME ONE Stop: 11/19/20 18:28 Last Admin: 11/19/20 19:42 Dose: 60 meq Documented by: Potassium Chloride (Potassium Chloride 20 Meq Tab.Er) 40 meq PO DAILY [facility] Sodium Phosphate (Phosphorus #1 250 Mg Tab) 250 mg PO ONETIME ONE Stop: 11/13/20 15:41 Last Admin: 11/13/20 16:12 Dose: 250 mg Documented by: Vancomycin HCl (Pharmacy To Dose - Vancomycin) 1 dose .XX ASDIRECTED [facility] Wound Care/Dressing Products (Hydrocolloid Dressing 4x4 Bandage) Confirm Administered Dose 1 each .ROUTE .STK-MED ONE Stop: 11/12/20 19:26 Last Admin: 11/12/20 21:31 Dose: 1 each Documented by: - Patient Data Lab Results Last 24 hrs: Laboratory Results - last 24 hr 11/21/20 11/21/20 Range/Units 05:55 05:55 WBC 9.02 (4.0-11.0) K/uL RBC 3.78 L (4.30-5.90) M/uL Hgb 10.9 L (12.0-16.0) g/dL Hct 35.9 L (36.0-46.0) % MCV 95.0 (80.0-98.0) fL MCH 28.8 (27.0-32.0) pg MCHC 30.4 L (31.0-37.0) g/dL RDW Std Deviation 52.9 (28.0-62.0) fl RDW Coeff of [place] 15 (11.0-15.0) % Plt Count 195 (150-400) K/uL MPV 13.20 H (7.40-12.00) fL Neut % (Auto) 62.8 (48.0-80.0) % Lymph % (Auto) 25.5 (16.0-40.0) % [place] % (Auto) 11.4 (0.0-15.0) % Eos % (Auto) 0.0 (0.0-7.0) % Baso % (Auto) 0.3 (0.0-1.5) % Neut # (Auto) 5.7 (1.4-5.7) K/uL Lymph # (Auto) 2.3 (0.6-2.4) K/uL [place] # (Auto) 1.0 H (0.0-0.8) K/uL Eos # (Auto) 0.0 (0.0-0.7) K/uL Baso # (Auto) 0.0 (0.0-0.1) K/uL Nucleated RBC % 0.0 /100WBC Nucleated RBCs # 0 K/uL Sodium 145 (136-145) mmol/L Potassium 4.5 (3.5-5.1) mmol/L Chloride 108 H (98-107) mmol/L Carbon Dioxide 29.6 (21.0-32.0) mmol/L BUN 7 (7.0-18.0) mg/dL Creatinine 0.6 (0.6-1.0) mg/dL Est Cr Clr Drug Dosing 98.48 mL/min Estimated GFR (MDRD) > 60.0 ml/min Glucose 80 (74-106) mg/dL Calcium 9.0 (8.5-10.1) mg/dL Total Bilirubin 0.5 (0.2-1.0) mg/dL AST 79 H (15-37) IU/L ALT 87 H (14-63) IU/L Alkaline Phosphatase 117 H (46-116) U/L Total Protein 6.5 (6.4-8.2) g/dL Albumin 2.4 L (3.4-5.0) g/dL Globulin 4.1 H (2.6-4.0) g/dL Albumin/Globulin Ratio 0.6 L (0.9-1.6) Result Diagrams: 11/21/20 05:55 11/21/20 05:55 Sepsis Event Note - Focused Exam Vital Signs: Vital Signs Temp Pulse Pulse Resp BP BP Pulse Ox 11/21/20 12:47 36.1 C 112 H 18 92/54 L 93 L 11/21/20 08:00 36.2 C 95 18 100/63 100/63 92 L 11/21/20 06:56 11/21/20 04:00 2.6 C L 96 16 96/59 L 91 L Pulse Ox 11/21/20 12:47 11/21/20 08:00 11/21/20 06:56 92 L 11/21/20 04:00 - Problem List & Annotations (1) Acute respiratory failure with hypoxia SNOMED Code(s): 99510319, 626807489 Code(s): J96.01 - ACUTE RESPIRATORY FAILURE WITH HYPOXIA Status: Acute Current Visit: Yes (2) COVID SNOMED Code(s): 438694827 Code(s): U07.1 - COVID-19 Status: Acute Current Visit: Yes (3) Developmental disability Status: Acute Current Visit: Yes (4) Hypernatremia SNOMED Code(s): 774129631 Code(s): E87.0 - HYPEROSMOLALITY AND HYPERNATREMIA Status: Deleted Current Visit: Yes - Plan Plan:: I have seen and evaluated the patient and agree with the residents note unless specified in my note
[2020-11-21] MEDS: Pantoprazole 40 MG Tab.CR PO SCH (21:05)
[2020-11-22] MEDS: Ciprofloxacin 500 MG Tab PO SCH ×2 (01:15→11:56)
[2020-11-22] MEDS: Albuterol/Ipratropium 3.0-0.5 MG/3 ML Neb Soln NEB SCH ×6 (01:16→22:09)
[2020-11-22] MEDS: Enoxaparin 40 MG/0.4 ML Syringe SUBCUT SCH (01:16)
[2020-11-22] MEDS: Clindamycin HCl 150 MG Cap PO SCH ×2 (03:53→11:53)
[2020-11-22 06:48] LABS: BLOOD UREA NITROGEN,BUN 8 mg/dL (7.0-18.0); CARBON DIOXIDE,CO2 27.7 mmol/L (21.0-32.0); CHLORIDE,CL 110 mmol/L (98-107); GLUCOSE RANDOM 86 mg/dL (74-106); POTASSIUM,K 4.3 mmol/L (3.5-5.1); SODIUM,NA 145 mmol/L (136-145)
[2020-11-22] MEDS: Potassium Chloride 20 MEQ Tab.ER PO SCH (09:54)
[2020-11-22] MEDS: Acidophilus with Citrus Pectin Tab PO SCH (11:53)
--- NOTE | 2020-11-22 13:54 | PCM.PN ---
<Angelica Domínguez - Last Filed: 11/22/20 14:01> - General Info Date of Service: 11/22/20 Subjective Update: The patient is a 30-year-old female 20/15 with a BMI over 30, who admitted due to acute respiratory failure secondary to Covid pneumonia is also suffering left-sided parotiditis. With respect to her oxygen requirement has been fluctuating between 2.5 to 3.5 L for the past 8 hours. In regards to her parotiditis, the pain has significantly decreased and is only there upon palpation. Patient is also complaining of 3 episodes of watery diarrhea which is nonbloody. The patient is currently on two different antibiotics including clindamycin and ciprofloxacin which may be contributing to her diarrhea. The patient is also complaining of dry cough and fatigue. She has no other co mplaints at this time. - Review of Systems General: Reports: Fatigue (Cecilia GERD). Denies: Fever, Chills Pulmonary: Reports: Cough. Denies: Shortness of Breath Cardiovascular: Denies: Chest Pain, Palpitations, Lightheadedness Gastrointestinal: Reports: Diarrhea. Denies: Abdominal Pain, Constipation Genitourinary: Denies: Dysuria - Patient Data Vitals - Most Recent: Last Vital Signs Temp 97.5 F 11/22/20 09:57 Pulse 112 H 11/22/20 09:57 Resp 28 H 11/22/20 09:57 BP 107/66 11/22/20 09:57 Pulse Ox 90 L 11/22/20 09:57 Weight - Most Recent: 71.75 kg I&O - Last 24 Hours: Intake & Output 11/21/20 11/22/20 11/22/20 22:59 06:59 14:59 Intake Total 1000 300 Balance 1000 300 Lab Results Last 24 Hours: Laboratory Results - last 24 hr 11/22/20 11/22/20 Range/Units 06:00 06:00 WBC 6.89 (4.0-11.0) K/uL RBC 3.76 L (4.30-5.90) M/uL Hgb 10.8 L (12.0-16.0) g/dL Hct 35.9 L (36.0-46.0) % MCV 95.5 (80.0-98.0) fL MCH 28.7 (27.0-32.0) pg MCHC 30.1 L (31.0-37.0) g/dL RDW Std Deviation 53.9 (28.0-62.0) fl RDW Coeff of [place] 16 H (11.0-15.0) % Plt Count 182 (150-400) K/uL MPV 12.30 H (7.40-12.00) fL Neut % (Auto) 61.8 (48.0-80.0) % Lymph % (Auto) 28.4 (16.0-40.0) % Cook % (Auto) 9.3 (0.0-15.0) % Eos % (Auto) 0.4 (0.0-7.0) % Baso % (Auto) 0.1 (0.0-1.5) % Neut # (Auto) 4.3 (1.4-5.7) K/uL Lymph # (Auto) 2.0 (0.6-2.4) K/uL Cook # (Auto) 0.6 (0.0-0.8) K/uL Eos # (Auto) 0.0 (0.0-0.7) K/uL Baso # (Auto) 0.0 (0.0-0.1) K/uL Nucleated RBC % 0.0 /100WBC Nucleated RBCs # 0 K/uL Sodium 145 (136-145) mmol/L Potassium 4.3 (3.5-5.1) mmol/L Chloride 110 H (98-107) mmol/L Carbon Dioxide 27.7 (21.0-32.0) mmol/L BUN 8 (7.0-18.0) mg/dL Creatinine 0.5 L (0.6-1.0) mg/dL Est Cr Clr Drug Dosing 118.17 mL/min Estimated GFR (MDRD) > 60.0 ml/min Glucose 86 (74-106) mg/dL Calcium 9.2 (8.5-10.1) mg/dL Total Bilirubin 0.4 (0.2-1.0) mg/dL AST 101 H (15-37) IU/L ALT 121 H (14-63) IU/L Alkaline Phosphatase 120 H (46-116) U/L Total Protein 6.4 (6.4-8.2) g/dL Albumin 2.3 L (3.4-5.0) g/dL Globulin 4.1 H (2.6-4.0) g/dL Albumin/Globulin Ratio 0.6 L (0.9-1.6) Med Orders - Current: Current Medications Acetaminophen (Acetaminophen 325 Mg Tab) 650 mg PO Q4H PRN PRN Reason: Pain Last Admin: 11/15/20 20:14 Dose: 650 mg Documented by: Acidophilus/Pectin (Acidophilus With Person Pectin Tab) 1 tab PO DAILY [facility] Last Admin: 11/22/20 11:53 Dose: 1 tab Documented by: Albuterol/Ipratropium (Albuterol/Ipratropium 3.0-0.5 Mg/3 Ml Neb Soln) 3 ml NEB Q4HRRT [facility] Last Admin: 11/22/20 13:37 Dose: 3 ml Documented by: Amoxicillin/Clavulanate Potassium (Amoxicillin/Clavulanate K 875-125 Mg Tab) 1 tab PO Q12HR [facility] Benzonatate (Benzonatate 100 Mg Cap) 200 mg PO Q8H PRN PRN Reason: Cough Last Admin: 11/21/20 21:16 Dose: 200 mg Documented by: Enoxaparin Sodium (Enoxaparin 40 Mg/0.4 Ml Syringe) 40 mg SUBCUT Q24H [facility] Last Admin: 11/22/20 01:16 Dose: 40 mg Documented by: Guaifenesin/Dextromethorphan (Guaifenesin/Dextromethorphan 100-10 Mg/5 Ml Soln 10 Ml Cup) 10 ml PO Q4H PRN PRN Reason: Cough Last Admin: 11/21/20 12:50 Dose: 10 ml Documented by: Morphine Sulfate (Morphine 2 Mg/Ml Syringe) 2 mg IVPUSH Q3H PRN PRN Reason: Pain Last Admin: 11/15/20 16:50 Dose: 2 mg Documented by: Oxycodone HCl (Oxycodone 5 Mg Tab) 5 mg PO Q6H PRN PRN Reason: Other Last Admin: 11/16/20 03:43 Dose: 5 mg Documented by: Pantoprazole Sodium (Pantoprazole 40 Mg Tab.Cr) 40 mg PO BEDTIME [facility] Last Admin: 11/21/20 21:05 Dose: 40 mg Documented by: Potassium Chloride (Potassium Chloride 20 Meq Tab.Er) 60 meq PO DAILY [facility] Last Admin: 11/22/20 09:54 Dose: 60 meq Documented by: Discontinued Medications Acetaminophen (Acetaminophen 500 Mg Tab) 1,000 mg PO ONETIME ONE Stop: 11/07/20 17:06 Last Admin: 11/07/20 19:03 Dose: Not Given Documented by: Albuterol/Ipratropium (Albuterol/Ipratropium 4 Gm Inhalation [place]) 0 gm INH QID PRN PRN Reason: Shortness of Breath Ciprofloxacin (Ciprofloxacin 500 Mg Tab) 500 mg PO Q12H [facility] Last Admin: 11/22/20 11:56 Dose: 500 mg Documented by: Clindamycin HCl (Clindamycin Hcl 150 Mg Cap) 450 mg PO Q8H [facility] Last Admin: 11/22/20 11:53 Dose: 450 mg Documented by: Dexamethasone (Dexamethasone 10 Mg/Ml Sdv) 6 mg IVPUSH ONETIME ONE Stop: 11/07/20 17:06 Last Admin: 11/07/20 17:35 Dose: 6 mg Documented by: Dexamethasone (Dexamethasone 4 Mg Tab) 6 mg PO Q24H [facility] Last Admin: 11/17/20 16:59 Dose: 6 mg Documented by: Haloperidol Lactate (Haloperidol Lactate 5 Mg/Ml Sdv) 2 mg IM ONETIME ONE Stop: 11/08/20 01:09 Last Admin: 11/08/20 01:17 Dose: 2 mg Documented by: Sodium Chloride (Normal Saline) 1,000 mls @ 250 mls/hr IV .Bolus ONE Stop: 11/07/20 21:04 Last Admin: 11/07/20 17:35 Dose: 250 mls/hr Documented by: Remdesivir 200 mg/ Sodium (Chloride) 250 mls @ 250 mls/hr IV ONETIME ONE Stop: 11/07/20 21:32 Last Admin: 11/07/20 22:00 Dose: 250 mls/hr Documented by: Remdesivir 100 mg/ Sodium (Chloride) 100 mls @ 100 mls/hr IV Q24H [facility] Stop: 11/11/20 21:59 Last Admin: 11/11/20 20:09 Dose: 100 mls/hr Documented by: Dextrose/Water (Dextrose 5% In Water) 500 mls @ 250 mls/hr IV ASDIRECTED [facility] Dextrose/Water (Dextrose 5% In Water) 500 mls @ 250 mls/hr IV ASDIRECTED [facility] Last Admin: 11/11/20 09:43 Dose: 250 mls/hr Documented by: Piperacillin Sod/Tazobactam (Sod 4.5 gm/ Sodium Chloride) 100 mls @ 100 mls/hr IV Q6H [facility] Stop: 11/16/20 11:40 Last Admin: 11/16/20 10:09 Dose: 100 mls/hr Documented by: Vancomycin HCl 1 gm/ Sodium (Chloride) 250 mls @ 166 mls/hr IV Q8H [facility] Last Admin: 11/18/20 16:33 Dose: Not Given Documented by: Vancomycin HCl 2 gm/ Sodium (Chloride) 500 mls @ 333.333 mls/hr IV ONETIME ONE Stop: 11/15/20 06:14 Last Admin: 11/15/20 05:53 Dose: Not Given Documented by: Vancomycin HCl (Vancomycin 2 Gm/400 Ml) 400 mls @ 266.667 mls/hr IV ONETIME ONE Stop: 11/15/20 06:14 Last Admin: 11/15/20 06:15 Dose: 266.667 mls/hr Documented by: Piperacillin Sod/Tazobactam (Sod 4.5 gm/ Sodium Chloride) 100 mls @ 100 mls/hr IV Q6H [facility] Last Admin: 11/19/20 09:50 Dose: 100 mls/hr Documented by: Vancomycin HCl 1 gm/ Sodium (Chloride) 250 mls @ 166 mls/hr IV Q12H [facility] Last Admin: 11/19/20 01:03 Dose: 166 mls/hr Documented by: Vancomycin HCl 1 gm/ Sodium (Chloride) 250 mls @ 166 mls/hr IV Q12H [facility] Potassium Chloride 40 meq/ (Dextrose/Water) 1,020 mls @ 50 mls/hr IV ONETIME ONE Stop: 11/20/20 05:38 Last Admin: 11/19/20 11:22 Dose: 50 mls/hr Documented by: Magnesium Sulfate 2 gm/ Premix 50 mls @ 50 mls/hr IV ONETIME ONE Stop: 11/19/20 13:44 Last Admin: 11/19/20 13:02 Dose: 50 mls/hr Documented by: Dextrose/Water (Dextrose 5% In Water) 500 mls @ 250 mls/hr IV ONETIME ONE Stop: 11/20/20 13:30 Last Admin: 11/20/20 12:05 Dose: 250 mls/hr Documented by: Iopamidol (Iopamidol 755 Mg/Ml 100 Ml Bottle) 100 ml IVPUSH ONETIME ONE Stop: 11/07/20 19:29 Last Admin: 11/07/20 20:34 Dose: 100 ml Documented by: Iopamidol (Iopamidol 755 Mg/Ml 100 Ml Bottle) 100 ml IVPUSH ONETIME ONE Stop: 11/14/20 21:17 Last Admin: 11/14/20 21:16 Dose: 100 ml Documented by: Lorazepam (Lorazepam 2 Mg/Ml Sdv) 1 mg IVPUSH ONETIME ONE Stop: 11/08/20 00:17 Last Admin: 11/08/20 00:33 Dose: 1 mg Documented by: Morphine Sulfate (Morphine 2 Mg/Ml Syringe) 1 mg IVPUSH ONETIME ONE Stop: 11/14/20 18:09 Last Admin: 11/14/20 18:17 Dose: 1 mg Documented by: Potassium Chloride (Potassium Chloride 20 Meq Tab.Er) 40 meq PO ONETIME ONE Stop: 11/08/20 19:40 Last Admin: 11/08/20 20:18 Dose: 40 meq Documented by: Potassium Chloride (Potassium Chloride 20 Meq Tab.Er) 40 meq PO ONETIME ONE Stop: 11/19/20 09:06 Last Admin: 11/19/20 09:50 Dose: 40 meq Documented by: Potassium Chloride (Potassium Chloride 20 Meq Tab.Er) 60 meq PO ONETIME ONE Stop: 11/19/20 18:28 Last Admin: 11/19/20 19:42 Dose: 60 meq Documented by: Potassium Chloride (Potassium Chloride 20 Meq Tab.Er) 40 meq PO DAILY [facility] Sodium Phosphate (Phosphorus #1 250 Mg Tab) 250 mg PO ONETIME ONE Stop: 11/13/20 15:41 Last Admin: 11/13/20 16:12 Dose: 250 mg Documented by: Vancomycin HCl (Pharmacy To Dose - Vancomycin) 1 dose .XX ASDIRECTED [facility] Wound Care/Dressing Products (Hydrocolloid Dressing 4x4 Bandage) Confirm Administered Dose 1 each .ROUTE .STK-MED ONE Stop: 11/12/20 19:26 Last Admin: 11/12/20 21:31 Dose: 1 each Documented by: - Exam General: Alert, Oriented, Cooperative Lungs: Wheezing Cardiovascular: Regular Rate, Regular Rhythm GI/Abdominal Exam: Normal Bowel Sounds, Soft, Non-Tender - Patient Data Lab Results Last 24 hrs: Laboratory Results - last 24 hr 11/22/20 11/22/20 Range/Units 06:00 06:00 WBC 6.89 (4.0-11.0) K/uL RBC 3.76 L (4.30-5.90) M/uL Hgb 10.8 L (12.0-16.0) g/dL Hct 35.9 L (36.0-46.0) % MCV 95.5 (80.0-98.0) fL MCH 28.7 (27.0-32.0) pg MCHC 30.1 L (31.0-37.0) g/dL RDW Std Deviation 53.9 (28.0-62.0) fl RDW Coeff of [place] 16 H (11.0-15.0) % Plt Count 182 (150-400) K/uL MPV 12.30 H (7.40-12.00) fL Neut % (Auto) 61.8 (48.0-80.0) % Lymph % (Auto) 28.4 (16.0-40.0) % Cook % (Auto) 9.3 (0.0-15.0) % Eos % (Auto) 0.4 (0.0-7.0) % Baso % (Auto) 0.1 (0.0-1.5) % Neut # (Auto) 4.3 (1.4-5.7) K/uL Lymph # (Auto) 2.0 (0.6-2.4) K/uL Cook # (Auto) 0.6 (0.0-0.8) K/uL Eos # (Auto) 0.0 (0.0-0.7) K/uL Baso # (Auto) 0.0 (0.0-0.1) K/uL Nucleated RBC % 0.0 /100WBC Nucleated RBCs # 0 K/uL Sodium 145 (136-145) mmol/L Potassium 4.3 (3.5-5.1) mmol/L Chloride 110 H (98-107) mmol/L Carbon Dioxide 27.7 (21.0-32.0) mmol/L BUN 8 (7.0-18.0) mg/dL Creatinine 0.5 L (0.6-1.0) mg/dL Est Cr Clr Drug Dosing 118.17 mL/min Estimated GFR (MDRD) > 60.0 ml/min Glucose 86 (74-106) mg/dL Calcium 9.2 (8.5-10.1) mg/dL Total Bilirubin 0.4 (0.2-1.0) mg/dL AST 101 H (15-37) IU/L ALT 121 H (14-63) IU/L Alkaline Phosphatase 120 H (46-116) U/L Total Protein 6.4 (6.4-8.2) g/dL Albumin 2.3 L (3.4-5.0) g/dL Globulin 4.1 H (2.6-4.0) g/dL Albumin/Globulin Ratio 0.6 L (0.9-1.6) Result Diagrams: 11/22/20 06:00 11/22/20 06:00 Sepsis Event Note - Evaluation Sepsis Screening Result: No Definite Risk - Focused Exam Vital Signs: Vital Signs Temp Pulse Resp BP Pulse Ox 11/22/20 09:57 97.5 F 112 H 28 H 107/66 90 L 11/22/20 03:50 97.6 F 94 19 101/67 94 L - Problem List & Annotations (1) Acute respiratory failure with hypoxia SNOMED Code(s): 30863379, 432331126 Code(s): J96.01 - ACUTE RESPIRATORY FAILURE WITH HYPOXIA Status: Acute Current Visit: Yes (2) COVID SNOMED Code(s): 689101949 Code(s): U07.1 - COVID-19 Status: Acute Current Visit: Yes (3) Parotiditis SNOMED Code(s): 79788295 Code(s): K11.20 - SIALOADENITIS, UNSPECIFIED Status: Acute Current Visit: Yes (4) Anemia SNOMED Code(s): 257176419 Code(s): D64.9 - ANEMIA, UNSPECIFIED Status: Acute Current Visit: Yes (5) Diarrhea SNOMED Code(s): 81691656 Code(s): R19.7 - DIARRHEA, UNSPECIFIED Status: Acute Current Visit: Yes - Problem List Review Problem List Initiated/Reviewed/Updated: Yes - My Orders Last 24 Hours: My Active Orders 11/22/20 21:00 Amoxicillin/Clavulanate K [Augmentin 875 MG/125 MG] 1 tab PO Q12HR - Plan Plan:: 1. Acute respiratory failure secondary to Covid pneumonia -Continue duo nebulizer treatments 3 mL every 4 hours scheduled -Continue Tessalon Perles 200 mg per oral every 8 hours -Continue Robitussin 10 mL per oral every 4 hours as needed 2. Left-sided parotiditis -We have discontinued both ciprofloxacin and clindamycin due to the potential of cause diarrhea in this patient, and started Augmentin 875 mg twice daily per oral route with the first dose to start tonight at 9 PM. The patient's left- sided parotiditis is much improved with antibiotics. Upon discharge the patient will need a ENT referral as this has occurred before on the opposite side of the jaw, and a causal factor should be determined. 3. Diarrhea -We are suspecting that the patient's loose stools are secondary to antibiotic use with ciprofloxacin and clindamycin. As a result we have discontinued these medications and started Augmentin 875 mg twice a day per oral route. We have put an order in for C. difficile check if the patient has another loose stool. The patient's thus far has had 3 loose stools, and collection will happen if a fourth occurs. 4. Anemia -The patient's decreased hemoglobin and hematocrit are not concerning at this point but are still going to be monitored through a daily CBC. <Warner Quiñones - Last Filed: 11/24/20 12:15> - Patient Data Vitals - Most Recent: Last Vital Signs Temp 36.3 C 11/24/20 10:48 Pulse 76 11/24/20 10:48 Resp 18 11/24/20 10:48 BP 101/61 11/24/20 10:48 Pulse Ox 91 L 11/24/20 10:48 I&O - Last 24 Hours: Intake & Output 11/23/20 11/24/20 11/24/20 22:59 06:59 14:59 Intake Total 880 650 Output Total 650 500 Balance 230 150 Lab Results Last 24 Hours: Laboratory Results - last 24 hr 11/24/20 11/24/20 Range/Units 05:35 05:35 WBC 5.73 (4.0-11.0) K/uL RBC 3.58 L (4.30-5.90) M/uL Hgb 10.4 L (12.0-16.0) g/dL Hct 35.4 L (36.0-46.0) % MCV 98.9 H (80.0-98.0) fL MCH 29.1 (27.0-32.0) pg MCHC 29.4 L (31.0-37.0) g/dL RDW Std Deviation 51.0 (28.0-62.0) fl RDW Coeff of [place] 15 (11.0-15.0) % Plt Count 137 L (150-400) K/uL MPV 12.00 (7.40-12.00) fL Add Manual Diff YES Neutrophils % (Manual) 55 (48.0-80.0) % Lymphocytes % (Manual) 38 (16.0-40.0) % Monocytes % (Manual) 6 (0.0-15.0) % Eosinophils % (Manual) 1 (0.0-7.0) % Absolute Seg Neuts 3.2 (1.4-5.7) Lymphocytes # (Manual) 2.2 (0.6-2.4) Monocytes # (Manual) 0.3 (0.0-0.8) Eosinophils # (Manual) 0.1 (0.0-0.7) Sodium 146 H (136-145) mmol/L Potassium 4.1 (3.5-5.1) mmol/L Chloride 110 H (98-107) mmol/L Carbon Dioxide 28.7 (21.0-32.0) mmol/L BUN 7 (7.0-18.0) mg/dL Creatinine 0.5 L (0.6-1.0) mg/dL Est Cr Clr Drug Dosing 118.17 mL/min Estimated GFR (MDRD) > 60.0 ml/min Glucose 97 (74-106) mg/dL Calcium 9.0 (8.5-10.1) mg/dL Total Bilirubin 0.3 (0.2-1.0) mg/dL AST 86 H (15-37) IU/L ALT 139 H (14-63) IU/L Alkaline Phosphatase 148 H (46-116) U/L Total Protein 6.4 (6.4-8.2) g/dL Albumin 2.5 L (3.4-5.0) g/dL Globulin 3.9 (2.6-4.0) g/dL Albumin/Globulin Ratio 0.6 L (0.9-1.6) Med Orders - Current: Current Medications Acetaminophen (Acetaminophen 325 Mg Tab) 650 mg PO Q4H PRN PRN Reason: Pain Last Admin: 11/15/20 20:14 Dose: 650 mg Documented by: Acidophilus/Pectin (Acidophilus With Person Pectin Tab) 1 tab PO DAILY [facility] Last Admin: 11/24/20 10:29 Dose: 1 tab Documented by: Albuterol/Ipratropium (Albuterol/Ipratropium 3.0-0.5 Mg/3 Ml Neb Soln) 3 ml NEB Q6HRRT [facility] Last Admin: 11/24/20 05:52 Dose: 3 ml Documented by: Amoxicillin/Clavulanate Potassium (Amoxicillin/Clavulanate K 875-125 Mg Tab) 1 tab PO Q12HR [facility] Last Admin: 11/24/20 10:29 Dose: 1 tab Documented by: Benzonatate (Benzonatate 100 Mg Cap) 200 mg PO Q8H PRN PRN Reason: Cough Last Admin: 11/23/20 20:07 Dose: 200 mg Documented by: Enoxaparin Sodium (Enoxaparin 40 Mg/0.4 Ml Syringe) 40 mg SUBCUT Q24H [facility] Last Admin: 11/23/20 20:07 Dose: 40 mg Documented by: Guaifenesin/Dextromethorphan (Guaifenesin/Dextromethorphan 100-10 Mg/5 Ml Soln 10 Ml Cup) 10 ml PO Q4H PRN PRN Reason: Cough Last Admin: 11/22/20 20:20 Dose: 10 ml Documented by: Morphine Sulfate (Morphine 2 Mg/Ml Syringe) 2 mg IVPUSH Q3H PRN PRN Reason: Pain Last Admin: 11/15/20 16:50 Dose: 2 mg Documented by: Oxycodone HCl (Oxycodone 5 Mg Tab) 5 mg PO Q6H PRN PRN Reason: Other Last Admin: 11/16/20 03:43 Dose: 5 mg Documented by: Pantoprazole Sodium (Pantoprazole 40 Mg Tab.Cr) 40 mg PO BEDTIME [facility] Last Admin: 11/23/20 20:06 Dose: 40 mg Documented by: Discontinued Medications Acetaminophen (Acetaminophen 500 Mg Tab) 1,000 mg PO ONETIME ONE Stop: 11/07/20 17:06 Last Admin: 11/07/20 19:03 Dose: Not Given Documented by: Albuterol/Ipratropium (Albuterol/Ipratropium 4 Gm Inhalation [place]) 0 gm INH QID PRN PRN Reason: Shortness of Breath Albuterol/Ipratropium (Albuterol/Ipratropium 3.0-0.5 Mg/3 Ml Neb Soln) 3 ml NEB Q4HRRT [facility] Last Admin: 11/23/20 09:36 Dose: 3 ml Documented by: Ciprofloxacin (Ciprofloxacin 500 Mg Tab) 500 mg PO Q12H [facility] Last Admin: 11/22/20 11:56 Dose: 500 mg Documented by: Clindamycin HCl (Clindamycin Hcl 150 Mg Cap) 450 mg PO Q8H [facility] Last Admin: 11/22/20 11:53 Dose: 450 mg Documented by: Dexamethasone (Dexamethasone 10 Mg/Ml Sdv) 6 mg IVPUSH ONETIME ONE Stop: 11/07/20 17:06 Last Admin: 11/07/20 17:35 Dose: 6 mg Documented by: Dexamethasone (Dexamethasone 4 Mg Tab) 6 mg PO Q24H [facility] Last Admin: 11/17/20 16:59 Dose: 6 mg Documented by: Enoxaparin Sodium (Enoxaparin 40 Mg/0.4 Ml Syringe) 40 mg SUBCUT Q24H [facility] Last Admin: 11/23/20 01:04 Dose: 40 mg Documented by: Haloperidol Lactate (Haloperidol Lactate 5 Mg/Ml Sdv) 2 mg IM ONETIME ONE Stop: 11/08/20 01:09 Last Admin: 11/08/20 01:17 Dose: 2 mg Documented by: Sodium Chloride (Normal Saline) 1,000 mls @ 250 mls/hr IV .Bolus ONE Stop: 11/07/20 21:04 Last Admin: 11/07/20 17:35 Dose: 250 mls/hr Documented by: Remdesivir 200 mg/ Sodium (Chloride) 250 mls @ 250 mls/hr IV ONETIME ONE Stop: 11/07/20 21:32 Last Admin: 11/07/20 22:00 Dose: 250 mls/hr Documented by: Remdesivir 100 mg/ Sodium (Chloride) 100 mls @ 100 mls/hr IV Q24H [facility] Stop: 11/11/20 21:59 Last Admin: 11/11/20 20:09 Dose: 100 mls/hr Documented by: Dextrose/Water (Dextrose 5% In Water) 500 mls @ 250 mls/hr IV ASDIRECTED [facility] Dextrose/Water (Dextrose 5% In Water) 500 mls @ 250 mls/hr IV ASDIRECTED [facility] Last Admin: 11/11/20 09:43 Dose: 250 mls/hr Documented by: Piperacillin Sod/Tazobactam (Sod 4.5 gm/ Sodium Chloride) 100 mls @ 100 mls/hr IV Q6H [facility] Stop: 11/16/20 11:40 Last Admin: 11/16/20 10:09 Dose: 100 mls/hr Documented by: Vancomycin HCl 1 gm/ Sodium (Chloride) 250 mls @ 166 mls/hr IV Q8H [facility] Last Admin: 11/18/20 16:33 Dose: Not Given Documented by: Vancomycin HCl 2 gm/ Sodium (Chloride) 500 mls @ 333.333 mls/hr IV ONETIME ONE Stop: 11/15/20 06:14 Last Admin: 11/15/20 05:53 Dose: Not Given Documented by: Vancomycin HCl (Vancomycin 2 Gm/400 Ml) 400 mls @ 266.667 mls/hr IV ONETIME ONE Stop: 11/15/20 06:14 Last Admin: 11/15/20 06:15 Dose: 266.667 mls/hr Documented by: Piperacillin Sod/Tazobactam (Sod 4.5 gm/ Sodium Chloride) 100 mls @ 100 mls/hr IV Q6H [facility] Last Admin: 11/19/20 09:50 Dose: 100 mls/hr Documented by: Vancomycin HCl 1 gm/ Sodium (Chloride) 250 mls @ 166 mls/hr IV Q12H [facility] Last Admin: 11/19/20 01:03 Dose: 166 mls/hr Documented by: Vancomycin HCl 1 gm/ Sodium (Chloride) 250 mls @ 166 mls/hr IV Q12H [facility] Potassium Chloride 40 meq/ (Dextrose/Water) 1,020 mls @ 50 mls/hr IV ONETIME ONE Stop: 11/20/20 05:38 Last Admin: 11/19/20 11:22 Dose: 50 mls/hr Documented by: Magnesium Sulfate 2 gm/ Premix 50 mls @ 50 mls/hr IV ONETIME ONE Stop: 11/19/20 13:44 Last Admin: 11/19/20 13:02 Dose: 50 mls/hr Documented by: Dextrose/Water (Dextrose 5% In Water) 500 mls @ 250 mls/hr IV ONETIME ONE Stop: 11/20/20 13:30 Last Admin: 11/20/20 12:05 Dose: 250 mls/hr Documented by: Iopamidol (Iopamidol 755 Mg/Ml 100 Ml Bottle) 100 ml IVPUSH ONETIME ONE Stop: 11/07/20 19:29 Last Admin: 11/07/20 20:34 Dose: 100 ml Documented by: Iopamidol (Iopamidol 755 Mg/Ml 100 Ml Bottle) 100 ml IVPUSH ONETIME ONE Stop: 11/14/20 21:17 Last Admin: 11/14/20 21:16 Dose: 100 ml Documented by: Lorazepam (Lorazepam 2 Mg/Ml Sdv) 1 mg IVPUSH ONETIME ONE Stop: 11/08/20 00:17 Last Admin: 11/08/20 00:33 Dose: 1 mg Documented by: Morphine Sulfate (Morphine 2 Mg/Ml Syringe) 1 mg IVPUSH ONETIME ONE Stop: 11/14/20 18:09 Last Admin: 11/14/20 18:17 Dose: 1 mg Documented by: Potassium Chloride (Potassium Chloride 20 Meq Tab.Er) 40 meq PO ONETIME ONE Stop: 11/08/20 19:40 Last Admin: 11/08/20 20:18 Dose: 40 meq Documented by: Potassium Chloride (Potassium Chloride 20 Meq Tab.Er) 40 meq PO ONETIME ONE Stop: 11/19/20 09:06 Last Admin: 11/19/20 09:50 Dose: 40 meq Documented by: Potassium Chloride (Potassium Chloride 20 Meq Tab.Er) 60 meq PO ONETIME ONE Stop: 11/19/20 18:28 Last Admin: 11/19/20 19:42 Dose: 60 meq Documented by: Potassium Chloride (Potassium Chloride 20 Meq Tab.Er) 40 meq PO DAILY ANTOLIN Potassium Chloride (Potassium Chloride 20 Meq Tab.Er) 60 meq PO DAILY ANTOLIN Last Admin: 11/23/20 10:37 Dose: 60 meq Documented by: Sodium Phosphate (Phosphorus #1 250 Mg Tab) 250 mg PO ONETIME ONE Stop: 11/13/20 15:41 Last Admin: 11/13/20 16:12 Dose: 250 mg Documented by: Vancomycin HCl (Pharmacy To Dose - Vancomycin) 1 dose .XX ASDIRECTED [facility] Wound Care/Dressing Products (Hydrocolloid Dressing 4x4 Bandage) Confirm Administered Dose 1 each .ROUTE .STK-MED ONE Stop: 11/12/20 19:26 Last Admin: 11/12/20 21:31 Dose: 1 each Documented by: - Patient Data Lab Results Last 24 hrs: Laboratory Results - last 24 hr 11/24/20 11/24/20 Range/Units 05:35 05:35 WBC 5.73 (4.0-11.0) K/uL RBC 3.58 L (4.30-5.90) M/uL Hgb 10.4 L (12.0-16.0) g/dL Hct 35.4 L (36.0-46.0) % MCV 98.9 H (80.0-98.0) fL MCH 29.1 (27.0-32.0) pg MCHC 29.4 L (31.0-37.0) g/dL RDW Std Deviation 51.0 (28.0-62.0) fl RDW Coeff of [place] 15 (11.0-15.0) % Plt Count 137 L (150-400) K/uL MPV 12.00 (7.40-12.00) fL Add Manual Diff YES Neutrophils % (Manual) 55 (48.0-80.0) % Lymphocytes % (Manual) 38 (16.0-40.0) % Monocytes % (Manual) 6 (0.0-15.0) % Eosinophils % (Manual) 1 (0.0-7.0) % Absolute Seg Neuts 3.2 (1.4-5.7) Lymphocytes # (Manual) 2.2 (0.6-2.4) Monocytes # (Manual) 0.3 (0.0-0.8) Eosinophils # (Manual) 0.1 (0.0-0.7) Sodium 146 H (136-145) mmol/L Potassium 4.1 (3.5-5.1) mmol/L Chloride 110 H (98-107) mmol/L Carbon Dioxide 28.7 (21.0-32.0) mmol/L BUN 7 (7.0-18.0) mg/dL Creatinine 0.5 L (0.6-1.0) mg/dL Est Cr Clr Drug Dosing 118.17 mL/min Estimated GFR (MDRD) > 60.0 ml/min Glucose 97 (74-106) mg/dL Calcium 9.0 (8.5-10.1) mg/dL Total Bilirubin 0.3 (0.2-1.0) mg/dL AST 86 H (15-37) IU/L ALT 139 H (14-63) IU/L Alkaline Phosphatase 148 H (46-116) U/L Total Protein 6.4 (6.4-8.2) g/dL Albumin 2.5 L (3.4-5.0) g/dL Globulin 3.9 (2.6-4.0) g/dL Albumin/Globulin Ratio 0.6 L (0.9-1.6) Result Diagrams: 11/24/20 05:35 11/24/20 05:35 Sepsis Event Note - Focused Exam Vital Signs: Vital Signs Temp Pulse Pulse Resp BP Pulse Ox Pulse Ox 11/24/20 10:48 36.3 C 76 18 101/61 91 L 11/24/20 06:22 93 L 11/24/20 05:51 36.1 C 87 17 98/56 L 93 L - Problem List & Annotations (1) Acute respiratory failure with hypoxia SNOMED Code(s): 51073149, 191273835 Code(s): J96.01 - ACUTE RESPIRATORY FAILURE WITH HYPOXIA Status: Acute Current Visit: Yes (2) COVID SNOMED Code(s): 782611843 Code(s): U07.1 - COVID-19 Status: Acute Current Visit: Yes (3) Developmental disability Status: Acute Current Visit: Yes (4) Hypernatremia SNOMED Code(s): 758717170 Code(s): E87.0 - HYPEROSMOLALITY AND HYPERNATREMIA Status: Deleted Current Visit: Yes - Plan Plan:: I have seen and evaluated the patient and agree with the residents note unless specified in my note
[2020-11-22] MEDS: Benzonatate 100 MG Cap PO PRN (14:58)
[2020-11-22] MEDS: Pantoprazole 40 MG Tab.CR PO SCH (20:18)
[2020-11-22] MEDS: Amoxicillin/Clavulanate K 875-125 MG Tab PO SCH (20:18)
[2020-11-22] MEDS: guaiFENesin/Dextromethorphan 100-10 MG/5 ML Soln 10 ML Cup PO PRN (20:20)
[2020-11-23] MEDS: Enoxaparin 40 MG/0.4 ML Syringe SUBCUT SCH (01:04)
[2020-11-23] MEDS: Albuterol/Ipratropium 3.0-0.5 MG/3 ML Neb Soln NEB SCH ×5 (01:05→17:25)
[2020-11-23 06:24] LABS: BLOOD UREA NITROGEN,BUN 9 mg/dL (7.0-18.0); CHLORIDE,CL 109 mmol/L (98-107); GLUCOSE RANDOM 91 mg/dL (74-106); POTASSIUM,K 4.5 mmol/L (3.5-5.1); SODIUM,NA 146 mmol/L (136-145)
[2020-11-23] MEDS: Acidophilus with Citrus Pectin Tab PO SCH (10:37)
[2020-11-23] MEDS: Potassium Chloride 20 MEQ Tab.ER PO SCH (10:37)
[2020-11-23] MEDS: Amoxicillin/Clavulanate K 875-125 MG Tab PO SCH ×2 (10:38→20:06)
--- NOTE | 2020-11-23 11:49 | PCM.PN ---
<Angelica Domínguez - Last Filed: 11/23/20 11:44> - General Info Date of Service: 11/23/20 Subjective Update: The patient is a 30-year-old female with a significant past medical history of obesity with a BMI over 30 who is on day 15 of service, she was admitted for acute respiratory failure secondary to Covid pneumonia. She is also suffering from left-sided parotiditis. The patient continues to have coughing fits and is taking Robitussin and Tessalon Perles. The patient's previous diarrhea has subsided and she is C. difficile negative. She has a good appetite and is eating all her meals to completion. She is receiving physical therapy to improve with ambulation and for breathing exercises. She is currently saturating 93% on 3 L with a goal of decreasing oxygen demand until she can be discharged. - Review of Systems General: Reports: Fatigue. Denies: Fever Pulmonary: Reports: Cough. Denies: Shortness of Breath Cardiovascular: Denies: Chest Pain, Palpitations - Patient Data Vitals - Most Recent: Last Vital Signs Temp 96.6 F L 11/23/20 10:36 Pulse 95 11/23/20 10:36 Resp 17 11/23/20 10:36 BP 96/51 L 11/23/20 10:36 Pulse Ox 92 L 11/23/20 10:36 Weight - Most Recent: 71.75 kg I&O - Last 24 Hours: Intake & Output 11/22/20 11/23/20 11/23/20 22:59 06:59 14:59 Intake Total 1000 625 Output Total 300 Balance 1000 325 Lab Results Last 24 Hours: Laboratory Results - last 24 hr 11/23/20 11/23/20 Range/Units 05:40 05:40 WBC 6.17 (4.0-11.0) K/uL RBC 3.79 L (4.30-5.90) M/uL Hgb 10.9 L (12.0-16.0) g/dL Hct 36.7 (36.0-46.0) % MCV 96.8 (80.0-98.0) fL MCH 28.8 (27.0-32.0) pg MCHC 29.7 L (31.0-37.0) g/dL RDW Std Deviation 54.5 (28.0-62.0) fl RDW Coeff of [place] 16 H (11.0-15.0) % Plt Count 175 (150-400) K/uL MPV 12.60 H (7.40-12.00) fL Neut % (Auto) 51.9 (48.0-80.0) % Lymph % (Auto) 37.1 (16.0-40.0) % [place] % (Auto) 10.2 (0.0-15.0) % Eos % (Auto) 0.6 (0.0-7.0) % Baso % (Auto) 0.2 (0.0-1.5) % Neut # (Auto) 3.2 (1.4-5.7) K/uL Lymph # (Auto) 2.3 (0.6-2.4) K/uL [place] # (Auto) 0.6 (0.0-0.8) K/uL Eos # (Auto) 0.0 (0.0-0.7) K/uL Baso # (Auto) 0.0 (0.0-0.1) K/uL Nucleated RBC % 0.0 /100WBC Nucleated RBCs # 0 K/uL Sodium 146 H (136-145) mmol/L Potassium 4.5 (3.5-5.1) mmol/L Chloride 109 H (98-107) mmol/L Carbon Dioxide 31.0 (21.0-32.0) mmol/L BUN 9 (7.0-18.0) mg/dL Creatinine 0.6 (0.6-1.0) mg/dL Est Cr Clr Drug Dosing 98.48 mL/min Estimated GFR (MDRD) > 60.0 ml/min Glucose 91 (74-106) mg/dL Calcium 9.3 (8.5-10.1) mg/dL Total Bilirubin 0.4 (0.2-1.0) mg/dL AST 85 H (15-37) IU/L ALT 132 H (14-63) IU/L Alkaline Phosphatase 136 H (46-116) U/L Total Protein 6.5 (6.4-8.2) g/dL Albumin 2.5 L (3.4-5.0) g/dL Globulin 4.0 (2.6-4.0) g/dL Albumin/Globulin Ratio 0.6 L (0.9-1.6) Will Results Last 24 Hours: Microbiology 11/22/20 18:40 C. difficile Antigen & Toxins A,B - Final Stool / Feces Med Orders - Current: Current Medications Acetaminophen (Acetaminophen 325 Mg Tab) 650 mg PO Q4H PRN PRN Reason: Pain Last Admin: 11/15/20 20:14 Dose: 650 mg Documented by: Acidophilus/Pectin (Acidophilus With [place] Pectin Tab) 1 tab PO DAILY [facility] Last Admin: 11/23/20 10:37 Dose: 1 tab Documented by: Albuterol/Ipratropium (Albuterol/Ipratropium 3.0-0.5 Mg/3 Ml Neb Soln) 3 ml NEB Q6HRRT [facility] Last Admin: 11/23/20 11:21 Dose: Not Given Documented by: Amoxicillin/Clavulanate Potassium (Amoxicillin/Clavulanate K 875-125 Mg Tab) 1 tab PO Q12HR [facility] Last Admin: 11/23/20 10:38 Dose: 1 tab Documented by: Benzonatate (Benzonatate 100 Mg Cap) 200 mg PO Q8H PRN PRN Reason: Cough Last Admin: 11/22/20 14:58 Dose: 200 mg Documented by: Enoxaparin Sodium (Enoxaparin 40 Mg/0.4 Ml Syringe) 40 mg SUBCUT Q24H [facility] Guaifenesin/Dextromethorphan (Guaifenesin/Dextromethorphan 100-10 Mg/5 Ml Soln 10 Ml Cup) 10 ml PO Q4H PRN PRN Reason: Cough Last Admin: 11/22/20 20:20 Dose: 10 ml Documented by: Morphine Sulfate (Morphine 2 Mg/Ml Syringe) 2 mg IVPUSH Q3H PRN PRN Reason: Pain Last Admin: 11/15/20 16:50 Dose: 2 mg Documented by: Oxycodone HCl (Oxycodone 5 Mg Tab) 5 mg PO Q6H PRN PRN Reason: Other Last Admin: 11/16/20 03:43 Dose: 5 mg Documented by: Pantoprazole Sodium (Pantoprazole 40 Mg Tab.Cr) 40 mg PO BEDTIME [facility] Last Admin: 11/22/20 20:18 Dose: 40 mg Documented by: Potassium Chloride (Potassium Chloride 20 Meq Tab.Er) 60 meq PO DAILY [facility] Last Admin: 11/23/20 10:37 Dose: 60 meq Documented by: Discontinued Medications Acetaminophen (Acetaminophen 500 Mg Tab) 1,000 mg PO ONETIME ONE Stop: 11/07/20 17:06 Last Admin: 11/07/20 19:03 Dose: Not Given Documented by: Albuterol/Ipratropium (Albuterol/Ipratropium 4 Gm Inhalation [place]) 0 gm INH QID PRN PRN Reason: Shortness of Breath Albuterol/Ipratropium (Albuterol/Ipratropium 3.0-0.5 Mg/3 Ml Neb Soln) 3 ml NEB Q4HRRT [facility] Last Admin: 11/23/20 09:36 Dose: 3 ml Documented by: Ciprofloxacin (Ciprofloxacin 500 Mg Tab) 500 mg PO Q12H [facility] Last Admin: 11/22/20 11:56 Dose: 500 mg Documented by: Clindamycin HCl (Clindamycin Hcl 150 Mg Cap) 450 mg PO Q8H [facility] Last Admin: 11/22/20 11:53 Dose: 450 mg Documented by: Dexamethasone (Dexamethasone 10 Mg/Ml Sdv) 6 mg IVPUSH ONETIME ONE Stop: 11/07/20 17:06 Last Admin: 11/07/20 17:35 Dose: 6 mg Documented by: Dexamethasone (Dexamethasone 4 Mg Tab) 6 mg PO Q24H [facility] Last Admin: 11/17/20 16:59 Dose: 6 mg Documented by: Enoxaparin Sodium (Enoxaparin 40 Mg/0.4 Ml Syringe) 40 mg SUBCUT Q24H [facility] Last Admin: 11/23/20 01:04 Dose: 40 mg Documented by: Haloperidol Lactate (Haloperidol Lactate 5 Mg/Ml Sdv) 2 mg IM ONETIME ONE Stop: 11/08/20 01:09 Last Admin: 11/08/20 01:17 Dose: 2 mg Documented by: Sodium Chloride (Normal Saline) 1,000 mls @ 250 mls/hr IV .Bolus ONE Stop: 11/07/20 21:04 Last Admin: 11/07/20 17:35 Dose: 250 mls/hr Documented by: Remdesivir 200 mg/ Sodium (Chloride) 250 mls @ 250 mls/hr IV ONETIME ONE Stop: 11/07/20 21:32 Last Admin: 11/07/20 22:00 Dose: 250 mls/hr Documented by: Remdesivir 100 mg/ Sodium (Chloride) 100 mls @ 100 mls/hr IV Q24H [facility] Stop: 11/11/20 21:59 Last Admin: 11/11/20 20:09 Dose: 100 mls/hr Documented by: Dextrose/Water (Dextrose 5% In Water) 500 mls @ 250 mls/hr IV ASDIRECTED [facility] Dextrose/Water (Dextrose 5% In Water) 500 mls @ 250 mls/hr IV ASDIRECTED [facility] Last Admin: 11/11/20 09:43 Dose: 250 mls/hr Documented by: Piperacillin Sod/Tazobactam (Sod 4.5 gm/ Sodium Chloride) 100 mls @ 100 mls/hr IV Q6H [facility] Stop: 11/16/20 11:40 Last Admin: 11/16/20 10:09 Dose: 100 mls/hr Documented by: Vancomycin HCl 1 gm/ Sodium (Chloride) 250 mls @ 166 mls/hr IV Q8H [facility] Last Admin: 11/18/20 16:33 Dose: Not Given Documented by: Vancomycin HCl 2 gm/ Sodium (Chloride) 500 mls @ 333.333 mls/hr IV ONETIME ONE Stop: 11/15/20 06:14 Last Admin: 11/15/20 05:53 Dose: Not Given Documented by: Vancomycin HCl (Vancomycin 2 Gm/400 Ml) 400 mls @ 266.667 mls/hr IV ONETIME ONE Stop: 11/15/20 06:14 Last Admin: 11/15/20 06:15 Dose: 266.667 mls/hr Documented by: Piperacillin Sod/Tazobactam (Sod 4.5 gm/ Sodium Chloride) 100 mls @ 100 mls/hr IV Q6H [facility] Last Admin: 11/19/20 09:50 Dose: 100 mls/hr Documented by: Vancomycin HCl 1 gm/ Sodium (Chloride) 250 mls @ 166 mls/hr IV Q12H [facility] Last Admin: 11/19/20 01:03 Dose: 166 mls/hr Documented by: Vancomycin HCl 1 gm/ Sodium (Chloride) 250 mls @ 166 mls/hr IV Q12H [facility] Potassium Chloride 40 meq/ (Dextrose/Water) 1,020 mls @ 50 mls/hr IV ONETIME ONE Stop: 11/20/20 05:38 Last Admin: 11/19/20 11:22 Dose: 50 mls/hr Documented by: Magnesium Sulfate 2 gm/ Premix 50 mls @ 50 mls/hr IV ONETIME ONE Stop: 11/19/20 13:44 Last Admin: 11/19/20 13:02 Dose: 50 mls/hr Documented by: Dextrose/Water (Dextrose 5% In Water) 500 mls @ 250 mls/hr IV ONETIME ONE Stop: 11/20/20 13:30 Last Admin: 11/20/20 12:05 Dose: 250 mls/hr Documented by: Iopamidol (Iopamidol 755 Mg/Ml 100 Ml Bottle) 100 ml IVPUSH ONETIME ONE Stop: 11/07/20 19:29 Last Admin: 11/07/20 20:34 Dose: 100 ml Documented by: Iopamidol (Iopamidol 755 Mg/Ml 100 Ml Bottle) 100 ml IVPUSH ONETIME ONE Stop: 11/14/20 21:17 Last Admin: 11/14/20 21:16 Dose: 100 ml Documented by: Lorazepam (Lorazepam 2 Mg/Ml Sdv) 1 mg IVPUSH ONETIME ONE Stop: 11/08/20 00:17 Last Admin: 11/08/20 00:33 Dose: 1 mg Documented by: Morphine Sulfate (Morphine 2 Mg/Ml Syringe) 1 mg IVPUSH ONETIME ONE Stop: 11/14/20 18:09 Last Admin: 11/14/20 18:17 Dose: 1 mg Documented by: Potassium Chloride (Potassium Chloride 20 Meq Tab.Er) 40 meq PO ONETIME ONE Stop: 11/08/20 19:40 Last Admin: 11/08/20 20:18 Dose: 40 meq Documented by: Potassium Chloride (Potassium Chloride 20 Meq Tab.Er) 40 meq PO ONETIME ONE Stop: 11/19/20 09:06 Last Admin: 11/19/20 09:50 Dose: 40 meq Documented by: Potassium Chloride (Potassium Chloride 20 Meq Tab.Er) 60 meq PO ONETIME ONE Stop: 11/19/20 18:28 Last Admin: 11/19/20 19:42 Dose: 60 meq Documented by: Potassium Chloride (Potassium Chloride 20 Meq Tab.Er) 40 meq PO DAILY [facility] Sodium Phosphate (Phosphorus #1 250 Mg Tab) 250 mg PO ONETIME ONE Stop: 11/13/20 15:41 Last Admin: 11/13/20 16:12 Dose: 250 mg Documented by: Vancomycin HCl (Pharmacy To Dose - Vancomycin) 1 dose .XX ASDIRECTED [facility] Wound Care/Dressing Products (Hydrocolloid Dressing 4x4 Bandage) Confirm Administered Dose 1 each .ROUTE .STK-MED ONE Stop: 11/12/20 19:26 Last Admin: 11/12/20 21:31 Dose: 1 each Documented by: - Exam General: Alert, Oriented, Cooperative HEENT: Mucous Membr. Moist/Maxeys Lungs: Clear to Auscultation, Normal Respiratory Effort Cardiovascular: Regular Rate, Regular Rhythm, No Murmurs GI/Abdominal Exam: Normal Bowel Sounds, Soft, Non-Tender - Patient Data Lab Results Last 24 hrs: Laboratory Results - last 24 hr 11/23/20 11/23/20 Range/Units 05:40 05:40 WBC 6.17 (4.0-11.0) K/uL RBC 3.79 L (4.30-5.90) M/uL Hgb 10.9 L (12.0-16.0) g/dL Hct 36.7 (36.0-46.0) % MCV 96.8 (80.0-98.0) fL MCH 28.8 (27.0-32.0) pg MCHC 29.7 L (31.0-37.0) g/dL RDW Std Deviation 54.5 (28.0-62.0) fl RDW Coeff of [place] 16 H (11.0-15.0) % Plt Count 175 (150-400) K/uL MPV 12.60 H (7.40-12.00) fL Neut % (Auto) 51.9 (48.0-80.0) % Lymph % (Auto) 37.1 (16.0-40.0) % [place] % (Auto) 10.2 (0.0-15.0) % Eos % (Auto) 0.6 (0.0-7.0) % Baso % (Auto) 0.2 (0.0-1.5) % Neut # (Auto) 3.2 (1.4-5.7) K/uL Lymph # (Auto) 2.3 (0.6-2.4) K/uL [place] # (Auto) 0.6 (0.0-0.8) K/uL Eos # (Auto) 0.0 (0.0-0.7) K/uL Baso # (Auto) 0.0 (0.0-0.1) K/uL Nucleated RBC % 0.0 /100WBC Nucleated RBCs # 0 K/uL Sodium 146 H (136-145) mmol/L Potassium 4.5 (3.5-5.1) mmol/L Chloride 109 H (98-107) mmol/L Carbon Dioxide 31.0 (21.0-32.0) mmol/L BUN 9 (7.0-18.0) mg/dL Creatinine 0.6 (0.6-1.0) mg/dL Est Cr Clr Drug Dosing 98.48 mL/min Estimated GFR (MDRD) > 60.0 ml/min Glucose 91 (74-106) mg/dL Calcium 9.3 (8.5-10.1) mg/dL Total Bilirubin 0.4 (0.2-1.0) mg/dL AST 85 H (15-37) IU/L ALT 132 H (14-63) IU/L Alkaline Phosphatase 136 H (46-116) U/L Total Protein 6.5 (6.4-8.2) g/dL Albumin 2.5 L (3.4-5.0) g/dL Globulin 4.0 (2.6-4.0) g/dL Albumin/Globulin Ratio 0.6 L (0.9-1.6) Result Diagrams: 11/23/20 05:40 11/23/20 05:40 Will Results Last 24 hrs: Microbiology 11/22/20 18:40 C. difficile Antigen & Toxins A,B - Final Stool / Feces Sepsis Event Note - Evaluation Sepsis Screening Result: No Definite Risk - Focused Exam Vital Signs: Vital Signs Temp Pulse Pulse Resp BP BP Pulse Ox 11/23/20 10:36 96.6 F L 95 17 96/51 L 92 L 11/23/20 05:17 96.8 F L 88 17 89/57 L 93 L 11/23/20 01:03 16 94 L 11/23/20 01:02 96.6 F L 81 16 98/56 L 95 - Problem List & Annotations (1) Acute respiratory failure with hypoxia SNOMED Code(s): 98901035, 166753852 Code(s): J96.01 - ACUTE RESPIRATORY FAILURE WITH HYPOXIA Status: Acute Current Visit: Yes (2) COVID SNOMED Code(s): 212288194 Code(s): U07.1 - COVID-19 Status: Acute Current Visit: Yes (3) Parotiditis SNOMED Code(s): 33110767 Code(s): K11.20 - SIALOADENITIS, UNSPECIFIED Status: Acute Current Visit: Yes (4) Anemia SNOMED Code(s): 979011321 Code(s): D64.9 - ANEMIA, UNSPECIFIED Status: Acute Current Visit: Yes (5) Diarrhea SNOMED Code(s): 53122712 Code(s): R19.7 - DIARRHEA, UNSPECIFIED Status: Acute Current Visit: Yes - Problem List Review Problem List Initiated/Reviewed/Updated: Yes - My Orders Last 24 Hours: My Active Orders 11/22/20 14:00 Communication Order [RC] PER UNIT ROUTINE 11/22/20 21:00 Amoxicillin/Clavulanate K [Augmentin 875 MG/125 MG] 1 tab PO Q12HR 11/23/20 12:00 Albuterol/Ipratropium [DuoNeb 3.0-0.5 MG/3 ML] 3 ml NEB Q6HRRT 11/24/20 05:11 CBC WITH AUTO DIFF [HEME] AM CMP [COMPREHENSIVE METABOLIC PN,CMP] [CHEM] AM - Plan Plan:: 1. Acute respiratory failure secondary to Covid pneumonia -Continue duo nebulizer treatments 3 mL every 4 hours scheduled -Continue Tessalon Perles 200 mg per oral every 8 hours -Continue Robitussin 10 mL per oral every 4 hours as needed 2. Left-sided parotiditis -We have discontinued both ciprofloxacin and clindamycin due to the potential of cause diarrhea in this patient, and started Augmentin 875 mg twice daily per oral route; The patient's left-sided parotiditis is much improved with antibiotics. Upon discharge the patient will need a ENT referral as this has occurred before on the opposite side of the jaw, and a causal factor should be determined. 3. Diarrhea -The patient's diarrhea is resolving. She is currently on Augmentin 875 mg twice a day per oral route. C. difficile check was done which was negative. She was also given probiotics more specifically acidophilus/pectin 1 tablet once a day. With respect to her input and output, she had input today 1625 mL and an output of 300 mL. We will continue to monitor her stool for improvements. 4. Anemia -The patient's decreased hemoglobin and hematocrit are not concerning at this point but are still going to be monitored through a daily CBC. <Warner Quiñones - Last Filed: 11/24/20 12:12> - Patient Data Vitals - Most Recent: Last Vital Signs Temp 36.3 C 11/24/20 10:48 Pulse 76 11/24/20 10:48 Resp 18 11/24/20 10:48 BP 101/61 11/24/20 10:48 Pulse Ox 91 L 11/24/20 10:48 I&O - Last 24 Hours: Intake & Output 11/23/20 11/24/20 11/24/20 22:59 06:59 14:59 Intake Total 880 650 Output Total 650 500 Balance 230 150 Lab Results Last 24 Hours: Laboratory Results - last 24 hr 11/24/20 11/24/20 Range/Units 05:35 05:35 WBC 5.73 (4.0-11.0) K/uL RBC 3.58 L (4.30-5.90) M/uL Hgb 10.4 L (12.0-16.0) g/dL Hct 35.4 L (36.0-46.0) % MCV 98.9 H (80.0-98.0) fL MCH 29.1 (27.0-32.0) pg MCHC 29.4 L (31.0-37.0) g/dL RDW Std Deviation 51.0 (28.0-62.0) fl RDW Coeff of [place] 15 (11.0-15.0) % Plt Count 137 L (150-400) K/uL MPV 12.00 (7.40-12.00) fL Add Manual Diff YES Neutrophils % (Manual) 55 (48.0-80.0) % Lymphocytes % (Manual) 38 (16.0-40.0) % Monocytes % (Manual) 6 (0.0-15.0) % Eosinophils % (Manual) 1 (0.0-7.0) % Absolute Seg Neuts 3.2 (1.4-5.7) Lymphocytes # (Manual) 2.2 (0.6-2.4) Monocytes # (Manual) 0.3 (0.0-0.8) Eosinophils # (Manual) 0.1 (0.0-0.7) Sodium 146 H (136-145) mmol/L Potassium 4.1 (3.5-5.1) mmol/L Chloride 110 H (98-107) mmol/L Carbon Dioxide 28.7 (21.0-32.0) mmol/L BUN 7 (7.0-18.0) mg/dL Creatinine 0.5 L (0.6-1.0) mg/dL Est Cr Clr Drug Dosing 118.17 mL/min Estimated GFR (MDRD) > 60.0 ml/min Glucose 97 (74-106) mg/dL Calcium 9.0 (8.5-10.1) mg/dL Total Bilirubin 0.3 (0.2-1.0) mg/dL AST 86 H (15-37) IU/L ALT 139 H (14-63) IU/L Alkaline Phosphatase 148 H (46-116) U/L Total Protein 6.4 (6.4-8.2) g/dL Albumin 2.5 L (3.4-5.0) g/dL Globulin 3.9 (2.6-4.0) g/dL Albumin/Globulin Ratio 0.6 L (0.9-1.6) Med Orders - Current: Current Medications Acetaminophen (Acetaminophen 325 Mg Tab) 650 mg PO Q4H PRN PRN Reason: Pain Last Admin: 11/15/20 20:14 Dose: 650 mg Documented by: Acidophilus/Pectin (Acidophilus With [place] Pectin Tab) 1 tab PO DAILY [facility] Last Admin: 11/24/20 10:29 Dose: 1 tab Documented by: Albuterol/Ipratropium (Albuterol/Ipratropium 3.0-0.5 Mg/3 Ml Neb Soln) 3 ml NEB Q6HRRT [facility] Last Admin: 11/24/20 05:52 Dose: 3 ml Documented by: Amoxicillin/Clavulanate Potassium (Amoxicillin/Clavulanate K 875-125 Mg Tab) 1 tab PO Q12HR [facility] Last Admin: 11/24/20 10:29 Dose: 1 tab Documented by: Benzonatate (Benzonatate 100 Mg Cap) 200 mg PO Q8H PRN PRN Reason: Cough Last Admin: 11/23/20 20:07 Dose: 200 mg Documented by: Enoxaparin Sodium (Enoxaparin 40 Mg/0.4 Ml Syringe) 40 mg SUBCUT Q24H [facility] Last Admin: 11/23/20 20:07 Dose: 40 mg Documented by: Guaifenesin/Dextromethorphan (Guaifenesin/Dextromethorphan 100-10 Mg/5 Ml Soln 10 Ml Cup) 10 ml PO Q4H PRN PRN Reason: Cough Last Admin: 11/22/20 20:20 Dose: 10 ml Documented by: Morphine Sulfate (Morphine 2 Mg/Ml Syringe) 2 mg IVPUSH Q3H PRN PRN Reason: Pain Last Admin: 11/15/20 16:50 Dose: 2 mg Documented by: Oxycodone HCl (Oxycodone 5 Mg Tab) 5 mg PO Q6H PRN PRN Reason: Other Last Admin: 11/16/20 03:43 Dose: 5 mg Documented by: Pantoprazole Sodium (Pantoprazole 40 Mg Tab.Cr) 40 mg PO BEDTIME [facility] Last Admin: 11/23/20 20:06 Dose: 40 mg Documented by: Discontinued Medications Acetaminophen (Acetaminophen 500 Mg Tab) 1,000 mg PO ONETIME ONE Stop: 11/07/20 17:06 Last Admin: 11/07/20 19:03 Dose: Not Given Documented by: Albuterol/Ipratropium (Albuterol/Ipratropium 4 Gm Inhalation [place]) 0 gm INH QID PRN PRN Reason: Shortness of Breath Albuterol/Ipratropium (Albuterol/Ipratropium 3.0-0.5 Mg/3 Ml Neb Soln) 3 ml NEB Q4HRRT [facility] Last Admin: 11/23/20 09:36 Dose: 3 ml Documented by: Ciprofloxacin (Ciprofloxacin 500 Mg Tab) 500 mg PO Q12H [facility] Last Admin: 11/22/20 11:56 Dose: 500 mg Documented by: Clindamycin HCl (Clindamycin Hcl 150 Mg Cap) 450 mg PO Q8H [facility] Last Admin: 11/22/20 11:53 Dose: 450 mg Documented by: Dexamethasone (Dexamethasone 10 Mg/Ml Sdv) 6 mg IVPUSH ONETIME ONE Stop: 11/07/20 17:06 Last Admin: 11/07/20 17:35 Dose: 6 mg Documented by: Dexamethasone (Dexamethasone 4 Mg Tab) 6 mg PO Q24H [facility] Last Admin: 11/17/20 16:59 Dose: 6 mg Documented by: Enoxaparin Sodium (Enoxaparin 40 Mg/0.4 Ml Syringe) 40 mg SUBCUT Q24H [facility] Last Admin: 11/23/20 01:04 Dose: 40 mg Documented by: Haloperidol Lactate (Haloperidol Lactate 5 Mg/Ml Sdv) 2 mg IM ONETIME ONE Stop: 11/08/20 01:09 Last Admin: 11/08/20 01:17 Dose: 2 mg Documented by: Sodium Chloride (Normal Saline) 1,000 mls @ 250 mls/hr IV .Bolus ONE Stop: 11/07/20 21:04 Last Admin: 11/07/20 17:35 Dose: 250 mls/hr Documented by: Remdesivir 200 mg/ Sodium (Chloride) 250 mls @ 250 mls/hr IV ONETIME ONE Stop: 11/07/20 21:32 Last Admin: 11/07/20 22:00 Dose: 250 mls/hr Documented by: Remdesivir 100 mg/ Sodium (Chloride) 100 mls @ 100 mls/hr IV Q24H [facility] Stop: 11/11/20 21:59 Last Admin: 11/11/20 20:09 Dose: 100 mls/hr Documented by: Dextrose/Water (Dextrose 5% In Water) 500 mls @ 250 mls/hr IV ASDIRECTED [facility] Dextrose/Water (Dextrose 5% In Water) 500 mls @ 250 mls/hr IV ASDIRECTED [facility] Last Admin: 11/11/20 09:43 Dose: 250 mls/hr Documented by: Piperacillin Sod/Tazobactam (Sod 4.5 gm/ Sodium Chloride) 100 mls @ 100 mls/hr IV Q6H [facility] Stop: 11/16/20 11:40 Last Admin: 11/16/20 10:09 Dose: 100 mls/hr Documented by: Vancomycin HCl 1 gm/ Sodium (Chloride) 250 mls @ 166 mls/hr IV Q8H [facility] Last Admin: 11/18/20 16:33 Dose: Not Given Documented by: Vancomycin HCl 2 gm/ Sodium (Chloride) 500 mls @ 333.333 mls/hr IV ONETIME ONE Stop: 11/15/20 06:14 Last Admin: 11/15/20 05:53 Dose: Not Given Documented by: Vancomycin HCl (Vancomycin 2 Gm/400 Ml) 400 mls @ 266.667 mls/hr IV ONETIME ONE Stop: 11/15/20 06:14 Last Admin: 11/15/20 06:15 Dose: 266.667 mls/hr Documented by: Piperacillin Sod/Tazobactam (Sod 4.5 gm/ Sodium Chloride) 100 mls @ 100 mls/hr IV Q6H [facility] Last Admin: 11/19/20 09:50 Dose: 100 mls/hr Documented by: Vancomycin HCl 1 gm/ Sodium (Chloride) 250 mls @ 166 mls/hr IV Q12H [facility] Last Admin: 11/19/20 01:03 Dose: 166 mls/hr Documented by: Vancomycin HCl 1 gm/ Sodium (Chloride) 250 mls @ 166 mls/hr IV Q12H [facility] Potassium Chloride 40 meq/ (Dextrose/Water) 1,020 mls @ 50 mls/hr IV ONETIME ONE Stop: 11/20/20 05:38 Last Admin: 11/19/20 11:22 Dose: 50 mls/hr Documented by: Magnesium Sulfate 2 gm/ Premix 50 mls @ 50 mls/hr IV ONETIME ONE Stop: 11/19/20 13:44 Last Admin: 11/19/20 13:02 Dose: 50 mls/hr Documented by: Dextrose/Water (Dextrose 5% In Water) 500 mls @ 250 mls/hr IV ONETIME ONE Stop: 11/20/20 13:30 Last Admin: 11/20/20 12:05 Dose: 250 mls/hr Documented by: Iopamidol (Iopamidol 755 Mg/Ml 100 Ml Bottle) 100 ml IVPUSH ONETIME ONE Stop: 11/07/20 19:29 Last Admin: 11/07/20 20:34 Dose: 100 ml Documented by: Iopamidol (Iopamidol 755 Mg/Ml 100 Ml Bottle) 100 ml IVPUSH ONETIME ONE Stop: 11/14/20 21:17 Last Admin: 11/14/20 21:16 Dose: 100 ml Documented by: Lorazepam (Lorazepam 2 Mg/Ml Sdv) 1 mg IVPUSH ONETIME ONE Stop: 11/08/20 00:17 Last Admin: 11/08/20 00:33 Dose: 1 mg Documented by: Morphine Sulfate (Morphine 2 Mg/Ml Syringe) 1 mg IVPUSH ONETIME ONE Stop: 11/14/20 18:09 Last Admin: 11/14/20 18:17 Dose: 1 mg Documented by: Potassium Chloride (Potassium Chloride 20 Meq Tab.Er) 40 meq PO ONETIME ONE Stop: 11/08/20 19:40 Last Admin: 11/08/20 20:18 Dose: 40 meq Documented by: Potassium Chloride (Potassium Chloride 20 Meq Tab.Er) 40 meq PO ONETIME ONE Stop: 11/19/20 09:06 Last Admin: 11/19/20 09:50 Dose: 40 meq Documented by: Potassium Chloride (Potassium Chloride 20 Meq Tab.Er) 60 meq PO ONETIME ONE Stop: 11/19/20 18:28 Last Admin: 11/19/20 19:42 Dose: 60 meq Documented by: Potassium Chloride (Potassium Chloride 20 Meq Tab.Er) 40 meq PO DAILY [facility] Potassium Chloride (Potassium Chloride 20 Meq Tab.Er) 60 meq PO DAILY [facility] Last Admin: 11/23/20 10:37 Dose: 60 meq Documented by: Sodium Phosphate (Phosphorus #1 250 Mg Tab) 250 mg PO ONETIME ONE Stop: 11/13/20 15:41 Last Admin: 11/13/20 16:12 Dose: 250 mg Documented by: Vancomycin HCl (Pharmacy To Dose - Vancomycin) 1 dose .XX ASDIRECTED [facility] Wound Care/Dressing Products (Hydrocolloid Dressing 4x4 Bandage) Confirm Administered Dose 1 each .ROUTE .STK-MED ONE Stop: 11/12/20 19:26 Last Admin: 11/12/20 21:31 Dose: 1 each Documented by: - Patient Data Lab Results Last 24 hrs: Laboratory Results - last 24 hr 11/24/20 11/24/20 Range/Units 05:35 05:35 WBC 5.73 (4.0-11.0) K/uL RBC 3.58 L (4.30-5.90) M/uL Hgb 10.4 L (12.0-16.0) g/dL Hct 35.4 L (36.0-46.0) % MCV 98.9 H (80.0-98.0) fL MCH 29.1 (27.0-32.0) pg MCHC 29.4 L (31.0-37.0) g/dL RDW Std Deviation 51.0 (28.0-62.0) fl RDW Coeff of [place] 15 (11.0-15.0) % Plt Count 137 L (150-400) K/uL MPV 12.00 (7.40-12.00) fL Add Manual Diff YES Neutrophils % (Manual) 55 (48.0-80.0) % Lymphocytes % (Manual) 38 (16.0-40.0) % Monocytes % (Manual) 6 (0.0-15.0) % Eosinophils % (Manual) 1 (0.0-7.0) % Absolute Seg Neuts 3.2 (1.4-5.7) Lymphocytes # (Manual) 2.2 (0.6-2.4) Monocytes # (Manual) 0.3 (0.0-0.8) Eosinophils # (Manual) 0.1 (0.0-0.7) Sodium 146 H (136-145) mmol/L Potassium 4.1 (3.5-5.1) mmol/L Chloride 110 H (98-107) mmol/L Carbon Dioxide 28.7 (21.0-32.0) mmol/L BUN 7 (7.0-18.0) mg/dL Creatinine 0.5 L (0.6-1.0) mg/dL Est Cr Clr Drug Dosing 118.17 mL/min Estimated GFR (MDRD) > 60.0 ml/min Glucose 97 (74-106) mg/dL Calcium 9.0 (8.5-10.1) mg/dL Total Bilirubin 0.3 (0.2-1.0) mg/dL AST 86 H (15-37) IU/L ALT 139 H (14-63) IU/L Alkaline Phosphatase 148 H (46-116) U/L Total Protein 6.4 (6.4-8.2) g/dL Albumin 2.5 L (3.4-5.0) g/dL Globulin 3.9 (2.6-4.0) g/dL Albumin/Globulin Ratio 0.6 L (0.9-1.6) Result Diagrams: 11/24/20 05:35 11/24/20 05:35 Sepsis Event Note - Focused Exam Vital Signs: Vital Signs Temp Pulse Pulse Resp BP Pulse Ox Pulse Ox 11/24/20 10:48 36.3 C 76 18 101/61 91 L 11/24/20 06:22 93 L 11/24/20 05:51 36.1 C 87 17 98/56 L 93 L - Problem List & Annotations (1) Acute respiratory failure with hypoxia SNOMED Code(s): 78756381, 250390699 Code(s): J96.01 - ACUTE RESPIRATORY FAILURE WITH HYPOXIA Status: Acute Current Visit: Yes (2) COVID SNOMED Code(s): 206398229 Code(s): U07.1 - COVID-19 Status: Acute Current Visit: Yes (3) Developmental disability Status: Acute Current Visit: Yes (4) Hypernatremia SNOMED Code(s): 415504244 Code(s): E87.0 - HYPEROSMOLALITY AND HYPERNATREMIA Status: Deleted Current Visit: Yes - Plan Plan:: I have seen and evaluated the patient and agree with the residents note unless specified in my note
[2020-11-23] MEDS: Pantoprazole 40 MG Tab.CR PO SCH (20:06)
[2020-11-23] MEDS: Benzonatate 100 MG Cap PO PRN (20:07)
[2020-11-23] MEDS ORDERED: Enoxaparin 40 MG/0.4 ML Syringe SUBCUT SCH (21:00)
[2020-11-24] MEDS: Albuterol/Ipratropium 3.0-0.5 MG/3 ML Neb Soln NEB SCH ×2 (00:24→05:52)
[2020-11-24 06:43] LABS: BLOOD UREA NITROGEN,BUN 7 mg/dL (7.0-18.0); CARBON DIOXIDE,CO2 28.7 mmol/L (21.0-32.0); CHLORIDE,CL 110 mmol/L (98-107); GLUCOSE RANDOM 97 mg/dL (74-106); POTASSIUM,K 4.1 mmol/L (3.5-5.1); SODIUM,NA 146 mmol/L (136-145)
[2020-11-24] MEDS: Acidophilus with Citrus Pectin Tab PO SCH (10:29)
[2020-11-24] MEDS: Amoxicillin/Clavulanate K 875-125 MG Tab PO SCH (10:29)
[2020-11-24 10:48] VITALS: BP 101/61; PULSE 76
--- NOTE | 2020-11-24 16:03 | PCM.DCSUM1 ---
Discharge Summary - Hospital Course Free Text/Narrative:: The patient is a 30-year-old female on day 16 of service, with a significant past medical history of obesity with a BMI over 30, who was admitted for acute respiratory failure secondary to COVID-19 pneumonia. While in hospital she was also treated for left-sided parotiditis and diarrhea. While in hospital the patient completed her 5 doses of remdesivir via IV route, and also completed her dexamethasone treatment via oral route. She was also subsequently given duo nebulizer treatment in order to aid with her breathing, and given Tessalon perles and Robitussin for her cough and congestion. Over the course of her hospital stay her O2 saturation had fluctuations while on different liters of oxygen. When I initially saw this patient she was on 3.5 to 4 L of oxygen and today she has progressed down to just under 2 L. A walking trial was done today in order to assess if she will need home oxygen and it was found that she was saturating 91% on room air while resting and 89% while walking on room air. As a result, the patient does not qualify for home oxygen and is ready to be discharged. She will be given rescue inhalers as well as Robitussin cough syrup if any shortness of breath or cough to occur. She is also advised to return to the ER if she had difficulty breathing. Patient was also extremely weak while in hospital and required daily physical therapy treatment. Upon discharge she will be given a physical therapy referral in order to help with the deconditioning and weakness she exhibited while inpatient. The patient also suffered from left-sided parotiditis while in hospital and was given different antibiotics including Zosyn, ciprofloxacin, clindamycin, and Augmentin. To complete her 14-day course of antibiotic treatment, an additional 4 days of Augmentin per oral route medication will be provided for her upon discharge. With respect to the diarrhea that she was suffering from while in hospital, she will be discharged with probiotic therapy to be taken at home. - Discharge Data Discharge Date: 11/24/20 Discharge Disposition: Home, W Home Health Agency 06 Condition: Stable - Referral to Home Health Date of Face to Face Encounter: 11/24/20 Reason for Homebound Status: WEAKNESS AND DECONDITIONING DUE TO HOSPITALIZATION Primary Care Physician: Sosa Carvalho, DO Skilled Need: PHYSICAL THERAPY FOR STRENGTHENING AND WEAKNESS - Discharge Diagnosis/Problem(s) (1) Acute respiratory failure with hypoxia SNOMED Code(s): 80720245, 781489011 ICD Code: J96.01 - ACUTE RESPIRATORY FAILURE WITH HYPOXIA Status: Acute (2) COVID SNOMED Code(s): 671511701 ICD Code: U07.1 - COVID-19 Status: Acute (3) Parotiditis SNOMED Code(s): 68328611 ICD Code: K11.20 - SIALOADENITIS, UNSPECIFIED Status: Acute (4) Anemia SNOMED Code(s): 153468875 ICD Code: D64.9 - ANEMIA, UNSPECIFIED Status: Acute (5) Diarrhea SNOMED Code(s): 09264254 ICD Code: R19.7 - DIARRHEA, UNSPECIFIED Status: Acute - Patient Summary/Data Consults: Consultations 11/19/20 12:31 PT Evaluation and Treatment [CONS] Routine 11/24/20 11:21 Consult to Home Health [CONS] Routine - Patient Instructions Diet: Regular Diet as Tolerated Activity: As Tolerated Showering/Bathing: May Shower Notify Provider of: Fever, Increased Pain Other/Special Instructions: PHYSICAL THERAPY FOR STRENGTH AND REHAB, HOME HEALTH FOR DECONDITIONING. IF SHORT OF BREATH OR DIFFICULTY BREATHING, RETURN TO THE ER - Discharge Plan Prescriptions/Med Rec: Lactobacillus Acidophilus [Acidophilus Lactobacilli] 1 each PO DAILY #21 capsule Albuterol Sulfate [Albuterol Sulfate HFA] 1 puff INH Q4H PRN #1 ea PRN Reason: Shortness Of Breath Amoxicillin/Clavulanate K [Augmentin 875-125 MG] 1 tab PO Q12HR #8 tablet Dextromethorphan/guaiFENesin [Robitussin DM] 10 ml PO Q4H PRN #120 ml PRN Reason: Cough Home Medications: Home Meds Acetaminophen with Codeine [Acetaminophen-Cod #3] 1 tab PO TID PRN 11/09/20 [History] Butalbital/Aspirin/Caffeine [Tjxwiq-Rxzunhy-Tmjxi 50-325-40] 1 tab PO Q4HR PRN 11/09/20 [History] Topiramate [Trokendi Xr] 1 tab PO DAILY 11/09/20 [History] Albuterol Sulfate [Albuterol Sulfate HFA] 1 puff INH Q4H PRN #1 ea 11/24/20 [Rx] Amoxicillin/Clavulanate K [Augmentin 875-125 MG] 1 tab PO Q12HR #8 tablet 11/24/20 [Rx] Dextromethorphan/guaiFENesin [Robitussin DM] 10 ml PO Q4H PRN #120 ml 11/24/20 [Rx] Lactobacillus Acidophilus [Acidophilus Lactobacilli] 1 each PO DAILY #21 capsule 11/24/20 [Rx] Oxygen Therapy Mode: Nasal Cannula Oxygen Flow Rate (L/min): 0 Maintain SpO2% greater than: 92 Patient Handouts: Amoxicillin; Clavulanic Acid Tablets, COVID-19, Lactobacillus Oral formulations, Dextromethorphan; Guaifenesin oral solution, Albuterol inhalation aerosol, COVID-19: Quarantine vs. Isolation - [facility] (02/17/2020) Forms: ED Department Discharge Referrals: Sosa Carvalho DO [Primary Care Provider] - 12/04/20 10:00 am - Discharge Summary/Plan Comment DC Time >30 min.: Yes Total # of Minutes for Discharge Time: 35 minutes - Review of Systems General: Reports: Weakness, Fatigue. Denies: Fever, Chills, Night Sweats, Appetite Pulmonary: Denies: Shortness of Breath, Pleuritic Chest Pain, Cough, Sputum Cardiovascular: Denies: Chest Pain, Palpitations, Dyspnea on Exertion, Orthopnea Gastrointestinal: Denies: Abdominal Pain Genitourinary: Denies: Dysuria Neurological: Denies: Headache - Patient Data Vitals - Most Recent: Last Vital Signs Temp 97.3 F 11/24/20 10:48 Pulse 76 11/24/20 10:48 Resp 18 11/24/20 10:48 BP 101/61 11/24/20 10:48 Pulse Ox 91 L 11/24/20 10:48 Weight - Most Recent: 158 lb 2.907 oz I&O - Last 24 hours: Intake & Output 11/24/20 11/24/20 11/24/20 06:59 14:59 22:59 Intake Total 650 480 Output Total 500 400 Balance 150 80 Lab Results - Last 24 hrs: Laboratory Results - last 24 hr 11/24/20 11/24/20 Range/Units 05:35 05:35 WBC 5.73 (4.0-11.0) K/uL RBC 3.58 L (4.30-5.90) M/uL Hgb 10.4 L (12.0-16.0) g/dL Hct 35.4 L (36.0-46.0) % MCV 98.9 H (80.0-98.0) fL MCH 29.1 (27.0-32.0) pg MCHC 29.4 L (31.0-37.0) g/dL RDW Std Deviation 51.0 (28.0-62.0) fl RDW Coeff of [place] 15 (11.0-15.0) % Plt Count 137 L (150-400) K/uL MPV 12.00 (7.40-12.00) fL Add Manual Diff YES Neutrophils % (Manual) 55 (48.0-80.0) % Lymphocytes % (Manual) 38 (16.0-40.0) % Monocytes % (Manual) 6 (0.0-15.0) % Eosinophils % (Manual) 1 (0.0-7.0) % Absolute Seg Neuts 3.2 (1.4-5.7) Lymphocytes # (Manual) 2.2 (0.6-2.4) Monocytes # (Manual) 0.3 (0.0-0.8) Eosinophils # (Manual) 0.1 (0.0-0.7) Sodium 146 H (136-145) mmol/L Potassium 4.1 (3.5-5.1) mmol/L Chloride 110 H (98-107) mmol/L Carbon Dioxide 28.7 (21.0-32.0) mmol/L BUN 7 (7.0-18.0) mg/dL Creatinine 0.5 L (0.6-1.0) mg/dL Est Cr Clr Drug Dosing 118.17 mL/min Estimated GFR (MDRD) > 60.0 ml/min Glucose 97 (74-106) mg/dL Calcium 9.0 (8.5-10.1) mg/dL Total Bilirubin 0.3 (0.2-1.0) mg/dL AST 86 H (15-37) IU/L ALT 139 H (14-63) IU/L Alkaline Phosphatase 148 H (46-116) U/L Total Protein 6.4 (6.4-8.2) g/dL Albumin 2.5 L (3.4-5.0) g/dL Globulin 3.9 (2.6-4.0) g/dL Albumin/Globulin Ratio 0.6 L (0.9-1.6) Med Orders - Current: Current Medications Discontinued Medications Acetaminophen (Acetaminophen 500 Mg Tab) 1,000 mg PO ONETIME ONE Stop: 11/07/20 17:06 Last Admin: 11/07/20 19:03 Dose: Not Given Documented by: Acetaminophen (Acetaminophen 325 Mg Tab) 650 mg PO Q4H PRN PRN Reason: Pain Last Admin: 11/15/20 20:14 Dose: 650 mg Documented by: Acidophilus/Pectin (Acidophilus With [place] Pectin Tab) 1 tab PO DAILY [facility] Last Admin: 11/24/20 10:29 Dose: 1 tab Documented by: Albuterol/Ipratropium (Albuterol/Ipratropium 4 Gm Inhalation [place]) 0 gm INH QID PRN PRN Reason: Shortness of Breath Albuterol/Ipratropium (Albuterol/Ipratropium 3.0-0.5 Mg/3 Ml Neb Soln) 3 ml NEB Q4HRRT [facility] Last Admin: 11/23/20 09:36 Dose: 3 ml Documented by: Albuterol/Ipratropium (Albuterol/Ipratropium 3.0-0.5 Mg/3 Ml Neb Soln) 3 ml NEB Q6HRRT [facility] Last Admin: 11/24/20 05:52 Dose: 3 ml Documented by: Amoxicillin/Clavulanate Potassium (Amoxicillin/Clavulanate K 875-125 Mg Tab) 1 tab PO Q12HR [facility] Last Admin: 11/24/20 10:29 Dose: 1 tab Documented by: Benzonatate (Benzonatate 100 Mg Cap) 200 mg PO Q8H PRN PRN Reason: Cough Last Admin: 11/23/20 20:07 Dose: 200 mg Documented by: Ciprofloxacin (Ciprofloxacin 500 Mg Tab) 500 mg PO Q12H [facility] Last Admin: 11/22/20 11:56 Dose: 500 mg Documented by: Clindamycin HCl (Clindamycin Hcl 150 Mg Cap) 450 mg PO Q8H [facility] Last Admin: 11/22/20 11:53 Dose: 450 mg Documented by: Dexamethasone (Dexamethasone 10 Mg/Ml Sdv) 6 mg IVPUSH ONETIME ONE Stop: 11/07/20 17:06 Last Admin: 11/07/20 17:35 Dose: 6 mg Documented by: Dexamethasone (Dexamethasone 4 Mg Tab) 6 mg PO Q24H [facility] Last Admin: 11/17/20 16:59 Dose: 6 mg Documented by: Enoxaparin Sodium (Enoxaparin 40 Mg/0.4 Ml Syringe) 40 mg SUBCUT Q24H [facility] Last Admin: 11/23/20 01:04 Dose: 40 mg Documented by: Enoxaparin Sodium (Enoxaparin 40 Mg/0.4 Ml Syringe) 40 mg SUBCUT Q24H [facility] Last Admin: 11/23/20 20:07 Dose: 40 mg Documented by: Guaifenesin/Dextromethorphan (Guaifenesin/Dextromethorphan 100-10 Mg/5 Ml Soln 10 Ml Cup) 10 ml PO Q4H PRN PRN Reason: Cough Last Admin: 11/22/20 20:20 Dose: 10 ml Documented by: Haloperidol Lactate (Haloperidol Lactate 5 Mg/Ml Sdv) 2 mg IM ONETIME ONE Stop: 11/08/20 01:09 Last Admin: 11/08/20 01:17 Dose: 2 mg Documented by: Sodium Chloride (Normal Saline) 1,000 mls @ 250 mls/hr IV .Bolus ONE Stop: 11/07/20 21:04 Last Admin: 11/07/20 17:35 Dose: 250 mls/hr Documented by: Remdesivir 200 mg/ Sodium (Chloride) 250 mls @ 250 mls/hr IV ONETIME ONE Stop: 11/07/20 21:32 Last Admin: 11/07/20 22:00 Dose: 250 mls/hr Documented by: Remdesivir 100 mg/ Sodium (Chloride) 100 mls @ 100 mls/hr IV Q24H ANTOLIN Stop: 11/11/20 21:59 Last Admin: 11/11/20 20:09 Dose: 100 mls/hr Documented by: Dextrose/Water (Dextrose 5% In Water) 500 mls @ 250 mls/hr IV ASDIRECTED ANTOLIN Dextrose/Water (Dextrose 5% In Water) 500 mls @ 250 mls/hr IV ASDIRECTED [facility] Last Admin: 11/11/20 09:43 Dose: 250 mls/hr Documented by: Piperacillin Sod/Tazobactam (Sod 4.5 gm/ Sodium Chloride) 100 mls @ 100 mls/hr IV Q6H [facility] Stop: 11/16/20 11:40 Last Admin: 11/16/20 10:09 Dose: 100 mls/hr Documented by: Vancomycin HCl 1 gm/ Sodium (Chloride) 250 mls @ 166 mls/hr IV Q8H [facility] Last Admin: 11/18/20 16:33 Dose: Not Given Documented by: Vancomycin HCl 2 gm/ Sodium (Chloride) 500 mls @ 333.333 mls/hr IV ONETIME ONE Stop: 11/15/20 06:14 Last Admin: 11/15/20 05:53 Dose: Not Given Documented by: Vancomycin HCl (Vancomycin 2 Gm/400 Ml) 400 mls @ 266.667 mls/hr IV ONETIME ONE Stop: 11/15/20 06:14 Last Admin: 11/15/20 06:15 Dose: 266.667 mls/hr Documented by: Piperacillin Sod/Tazobactam (Sod 4.5 gm/ Sodium Chloride) 100 mls @ 100 mls/hr IV Q6H [facility] Last Admin: 11/19/20 09:50 Dose: 100 mls/hr Documented by: Vancomycin HCl 1 gm/ Sodium (Chloride) 250 mls @ 166 mls/hr IV Q12H [facility] Last Admin: 11/19/20 01:03 Dose: 166 mls/hr Documented by: Vancomycin HCl 1 gm/ Sodium (Chloride) 250 mls @ 166 mls/hr IV Q12H [facility] Potassium Chloride 40 meq/ (Dextrose/Water) 1,020 mls @ 50 mls/hr IV ONETIME ONE Stop: 11/20/20 05:38 Last Admin: 11/19/20 11:22 Dose: 50 mls/hr Documented by: Magnesium Sulfate 2 gm/ Premix 50 mls @ 50 mls/hr IV ONETIME ONE Stop: 11/19/20 13:44 Last Admin: 11/19/20 13:02 Dose: 50 mls/hr Documented by: Dextrose/Water (Dextrose 5% In Water) 500 mls @ 250 mls/hr IV ONETIME ONE Stop: 11/20/20 13:30 Last Admin: 11/20/20 12:05 Dose: 250 mls/hr Documented by: Iopamidol (Iopamidol 755 Mg/Ml 100 Ml Bottle) 100 ml IVPUSH ONETIME ONE Stop: 11/07/20 19:29 Last Admin: 11/07/20 20:34 Dose: 100 ml Documented by: Iopamidol (Iopamidol 755 Mg/Ml 100 Ml Bottle) 100 ml IVPUSH ONETIME ONE Stop: 11/14/20 21:17 Last Admin: 11/14/20 21:16 Dose: 100 ml Documented by: Lorazepam (Lorazepam 2 Mg/Ml Sdv) 1 mg IVPUSH ONETIME ONE Stop: 11/08/20 00:17 Last Admin: 11/08/20 00:33 Dose: 1 mg Documented by: Morphine Sulfate (Morphine 2 Mg/Ml Syringe) 1 mg IVPUSH ONETIME ONE Stop: 11/14/20 18:09 Last Admin: 11/14/20 18:17 Dose: 1 mg Documented by: Morphine Sulfate (Morphine 2 Mg/Ml Syringe) 2 mg IVPUSH Q3H PRN PRN Reason: Pain Last Admin: 11/15/20 16:50 Dose: 2 mg Documented by: Oxycodone HCl (Oxycodone 5 Mg Tab) 5 mg PO Q6H PRN PRN Reason: Other Last Admin: 11/16/20 03:43 Dose: 5 mg Documented by: Pantoprazole Sodium (Pantoprazole 40 Mg Tab.Cr) 40 mg PO BEDTIME ANTOLIN Last Admin: 11/23/20 20:06 Dose: 40 mg Documented by: Potassium Chloride (Potassium Chloride 20 Meq Tab.Er) 40 meq PO ONETIME ONE Stop: 11/08/20 19:40 Last Admin: 11/08/20 20:18 Dose: 40 meq Documented by: Potassium Chloride (Potassium Chloride 20 Meq Tab.Er) 40 meq PO ONETIME ONE Stop: 11/19/20 09:06 Last Admin: 11/19/20 09:50 Dose: 40 meq Documented by: Potassium Chloride (Potassium Chloride 20 Meq Tab.Er) 60 meq PO ONETIME ONE Stop: 11/19/20 18:28 Last Admin: 11/19/20 19:42 Dose: 60 meq Documented by: Potassium Chloride (Potassium Chloride 20 Meq Tab.Er) 40 meq PO DAILY [facility] Potassium Chloride (Potassium Chloride 20 Meq Tab.Er) 60 meq PO DAILY [facility] Last Admin: 11/23/20 10:37 Dose: 60 meq Documented by: Sodium Phosphate (Phosphorus #1 250 Mg Tab) 250 mg PO ONETIME ONE Stop: 11/13/20 15:41 Last Admin: 11/13/20 16:12 Dose: 250 mg Documented by: Vancomycin HCl (Pharmacy To Dose - Vancomycin) 1 dose .XX ASDIRECTED [facility] Wound Care/Dressing Products (Hydrocolloid Dressing 4x4 Bandage) Confirm Administered Dose 1 each .ROUTE .STK-MED ONE Stop: 11/12/20 19:26 Last Admin: 11/12/20 21:31 Dose: 1 each Documented by: - Exam General: Reports: Alert, Oriented, Cooperative Lungs: Reports: Clear to Auscultation, Normal Respiratory Effort Cardiovascular: Reports: Regular Rate, Regular Rhythm, No Murmurs GI/Abdominal Exam: Normal Bowel Sounds, Soft, Non-Tender
== END 2020-11-24 13:35 | disposition home health service (06) | DRG 177 ==
LOC: MW.ED 16:21 → MW.ICU 23:12 → MW.MS 11-18 18:54
PROVIDERS: ADMIT Internal Medicine; ATTEND Internal Medicine
PROC: XW033E5 Introduction of Remdesivir Anti-infective into Peripheral Vein, Percutaneous Approach, New Technology Group 5 (ICD-10-PCS; principal; 2020-11-07)
PROC: 3E0333Z Introduction of Anti-inflammatory into Peripheral Vein, Percutaneous Approach (ICD-10-PCS; 2020-11-07)
PROC: 5A09557 Assistance with Respiratory Ventilation, Greater than 96 Consecutive Hours, Continuous Positive Airway Pressure (ICD-10-PCS; 2020-11-07)
PROC: 3E0DX3Z Introduction of Anti-inflammatory into Mouth and Pharynx, External Approach (ICD-10-PCS; 2020-11-08)
PROC: XW0DXM6 Introduction of Baricitinib into Mouth and Pharynx, External Approach, New Technology Group 6 (ICD-10-PCS; 2020-11-08)
PROC: 5A0935A Assistance with Respiratory Ventilation, Less than 24 Consecutive Hours, High Flow/Velocity Cannula (ICD-10-PCS; 2020-11-10)
DX: U07.1 COVID-19 (principal); J96.01 Acute respiratory failure with hypoxia; J12.82 Pneumonia due to coronavirus disease 2019; A08.39 Other viral enteritis; E87.0 Hyperosmolality and hypernatremia; K11.20 Sialoadenitis, unspecified; D64.9 Anemia, unspecified; H54.7 Unspecified visual loss; G89.29 Other chronic pain; M54.9 Dorsalgia, unspecified; E66.9 Obesity, unspecified; Z68.33 Body mass index [BMI] 33.0-33.9, adult
CPT/HCPCS: 36415; 36600; 70100; 70100-26; 70487; 70487-26; 71045; 71045-26; 71275; 71275-26; 80048; 80053; 80202; 81001; 82248; 82803; 83605; 83735; 84100; 84145; 84484; 85025; 85379; 85610; 85652; 85730; 86140; 87040; 87324; 93005; 94640; 94660; 96372; 96374; 96375; 97110-GP; 97161-GP; 97530-GP; 99291; A9270-GY; J1100; J1630; J1650; J2060; J2270; J2543; J3370; J3475; J3480; J7030; J7050; J7060; J7620-GY; J8540; Q9967; U0002

== ENCOUNTER 2020-11-29 16:34 | Observation (INO) | payer MEDICAID ==
[2020-11-29] MEDS ORDERED: Sodium Chloride 0.9% 2.5 ML Syringe FLUSH PRN (20:03)
[2020-11-29] MEDS ORDERED: Sodium Chloride 0.9% 10 ML Syringe FLUSH PRN (20:03)
[2020-11-29] MEDS ORDERED: Sodium Chloride 0.9% 1,000 ML IV ONE (20:03)
[2020-11-29 21:21] LABS: BLOOD UREA NITROGEN,BUN 5 mg/dL (7.0-18.0); CARBON DIOXIDE,CO2 26.3 mmol/L (21.0-32.0); GLUCOSE RANDOM 95 mg/dL (74-106)
[2020-11-29 21:25] LABS: POTASSIUM,K 3.2 mmol/L (3.5-5.1)
[2020-11-29 21:26] LABS: CHLORIDE,CL 108 mmol/L (98-107); SODIUM,NA 146 mmol/L (136-145)
--- NOTE | 2020-11-29 22:45 | EDM.PDOC ---
<Samuel Barnes - Last Filed: 11/30/20 01:09> ED HPI GENERAL MEDICAL PROBLEM - General Chief Complaint: Respiratory Problem Stated Complaint: Short of breath Time Seen by Provider: 11/29/20 22:38 - History of Present Illness INITIAL COMMENTS - FREE TEXT/NARRATIVE: 1:08 AM: Signout received at 11 PM. Patient CTA reveals no evidence of PE but does show changes consistent with Covid pneumonia. Patient is still O2 dependent requiring 3 L of nasal cannula O2 here in the ED. I have discussed the case with Dr. Rivas who agrees with plan to admit for observation so that we can set her up for home oxygen. - Related Data Allergies Allergy/AdvReac Type Severity Reaction Status Date / Time No Known Allergies Allergy Verified 11/30/20 03:41 Home Meds: Home Meds Butalbital/Aspirin/Caffeine [Eqkrul-Dtrabdq-Yfbgb 50-325-40] 1 tab PO Q4HR PRN 11/09/20 [History] Topiramate [Trokendi Xr] 100 mg PO DAILY 11/09/20 [History] Albuterol Sulfate [Albuterol Sulfate HFA] 1 puff INH Q4H PRN #1 ea 11/24/20 [Rx] Amoxicillin/Clavulanate K [Augmentin 875-125 MG] 1 tab PO Q12HR #8 tablet 11/24/20 [Rx] Dextromethorphan/guaiFENesin [Robitussin DM] 10 ml PO Q4H PRN #120 ml 11/24/20 [Rx] Lactobacillus Acidophilus [Acidophilus Lactobacilli] 1 each PO DAILY #21 capsule 11/24/20 [Rx] ED ROS GENERAL - Review of Systems Review Of Systems: See Below #1 Interpretation EKG Interpretation Comments: November 29, 2020 9:03 PM EKG: As interpreted by ER physician: Cameron: Nonspecific ST-T wave abnormalities Normal axis No evidence of ST elevation [place] Normal sinus rhythm heart rate of 96 Departure - Departure Time of Disposition: 01:09 Disposition: Refer to Observation Condition: Fair Clinical Impression: Pneumonia due to COVID-19 virus, Respiratory failure with hypoxia - Discharge Information <Paty Nobles - Last Filed: 11/30/20 11:54> ED HPI GENERAL MEDICAL PROBLEM - General Source of Information: Reports: Patient, Family History Limitations: Reports: No Limitations - History of Present Illness INITIAL COMMENTS - FREE TEXT/NARRATIVE: HISTORY AND PHYSICAL: History of present illness: Patient is a 30-year-old female, who was recently discharged from our hospital services for significant COVID-19 infection, who presents emergency room today with her mother for concern of worsening hypoxia and shortness of breath. Mother states that patient was recently discharged from the hospital after a prolonged 16-day hospital stay requiring at one point BiPAP for oxygenation with concern that patient may have to be intubated. Mother states that she was discharged home after a trial for oxygen that she did not meet requirements for home oxygen. Mother states that she does not have a home oxygen meter but states that she has been ordered but has not yet arrived. Patient started complaining of worsening shortness of breath today and had a physical therapy evaluation and told that her oxygen was too low and she needed to come to the emergency room for oxygen. Patient states that she has been short of breath since discharge from the hospital but has worsened over the past 1 day. Patient states her shortness of breath is worse with activity. Patient states that she still has a cough since her COVID-19 diagnosis. Patient denies fever, chills, chest pain. Denies headache, neck stiff ness, change in vision, syncope, or near syncope. Denies nausea, vomiting, abdominal pain, diarrhea, constipation, or dysuria. Has not noted any blood in urine or stool. Patient has been eating and drinking appropriately. Review of systems: As per history of present illness and below otherwise all systems reviewed and negative. Past medical history: As per history of present illness and as reviewed below otherwise noncontributory. Surgical history: As per history of present illness and as reviewed below otherwise noncontributory. Social history: See social history for further information Family history: As per history of present illness and as reviewed below otherwise noncontributory. Physical exam: General: Patient is alert, oriented, and in no acute distress. Patient sitting comfortably on exam table. Patient is hypoxic 84% on room air, patient placed on 2 L nasal cannula and satting 95% patient is also tachycardic 110s on exam. Otherwise, vitals stable and reviewed by me. HEENT: Atraumatic, normocephalic, pupils equal and reactive bilaterally, negative for conjunctival pallor or scleral icterus, mucous membranes moist, throat clear, neck supple, nontender, trachea midline. No drooling or trismus noted. No meningeal signs. No hot potato voice noted. Lungs: Clear to auscultation, breath sounds equal bilaterally, chest nontender. Patient speaking clearly without breathlessness but does have periodic coughing when talking, no wheezing or stridor, no accessory muscle use or respiratory distress. Heart: S1S2, regular rate and rhythm without overt murmur Abdomen: Soft, nondistended, nontender. Negative for masses or hepatosplenomegaly. Negative for costovertebral tenderness. Pelvis: Stable nontender. Genitourinary: Deferred. Rectal: Deferred. Skin: Intact, warm, dry. No lesions or rashes noted. Extremities: Atraumatic, negative for cords or calf pain. Neurovascular unremarkable. Neuro: Awake, alert, oriented. Cranial nerves II through XII unremarkable. Cerebellum unremarkable. Motor and sensory unremarkable throughout. Exam nonfocal. Notes: Patient is a 30-year-old male, with a recent history of significant COVID-19 infection requiring a 16-day hospital stay including BiPAP for acute respiratory failure secondary to COVID-19 pneumonia. Patient was recently discharged after she was no longer requiring oxygen at home. Patient returns to the ED today with worsening hypoxia and shortness of breath x1 day. Upon arrival to the ED, patient is hypoxic 84% on room air and mildly tachycardic 110s on exam. Patient does drop down to the 70s with movement or repositioning. Patient was placed immediately on 2 L nasal cannula and satting 95% and otherwise breathing comfortably. Given that patient is high risk for pulmonary embolism, will obtain angiography chest to rule out PE and obtain cardiac evaluation. See Dr Barnes dictation for specific EKG interpretation CBC shows decrease in white blood cell count 3.26 with thrombocytopenia 123, otherwise CBC unremarkable. CMP shows a printer natremia of 146, potassium mildly decreased at 3.2, and chloride elevation of 108. Patient also has transaminitis with AST 84, ALT 134, alk phos 154. Troponin negative. hCG negative. Nursing staff is having difficulties obtaining IV access. I did also assess for access with bedside US without ability to obtain access. [facility] called into ED to come obtain access. Dr. Barnes has assumed care of patient and will follow remaining diagnostics and disposition. Diagnostics: CBC, CMP, troponin, EKG, hCG serum, angiography chest Therapeutics: Prescription: Impression: Hypoxia COVID-19 viral infection Plan: Definitive disposition and diagnosis as appropriate pending reevaluation and review of above. 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 (See Below) Musculoskeletal History: Reports: Back Pain, Chronic Other Musculoskeletal History: scoliosis Neurological History: Reports: Migraines Psychiatric History: Reports: None Endocrine/Metabolic History: Reports: Obesity/BMI 30+ Hematologic History: Reports: None Immunologic History: Reports: None Oncologic (Cancer) History: Reports: None Dermatologic History: Reports: None - Infectious Disease History Infectious Disease History: Reports: Chicken Pox, Novel Coronavirus, Shingles - Past Surgical History Head Surgeries/Procedures: Reports: None HEENT Surgical History: Reports: Eye Surgery Other HEENT Surgeries/Procedures: mass removed from lower mandibular Cardiovascular Surgical History: Reports: None Respiratory Surgical History: Reports: None GI Surgical History: Reports: None Female Surgical History: Reports: None Endocrine Surgical History: Reports: None Neurological Surgical History: Reports: None Musculoskeletal Surgical History: Reports: None Dermatological Surgical History: Reports: None Social & Family History - Family History Family Medical History: No Pertinent Family History - Tobacco Use Tobacco Use Status *Q: Light Tobacco User Years of Tobacco use: 0 Packs/Tins Daily: 0 - Caffeine Use Caffeine Use: Reports: Coffee, Soda - Recreational Drug Use Recreational Drug Use: No ED ROS GENERAL - Review of Systems Review Of Systems: Comprehensive ROS is negative, except as noted in HPI. ED EXAM, GENERAL - Physical Exam Exam: See Below (see dictation) <Angelica Domínguez - Last Filed: 11/30/20 12:12> Course - Vital Signs Last Recorded V/S: Last Vital Signs Temp 97.8 F 11/30/20 09:00 Pulse 66 11/30/20 09:00 Resp 22 H 11/30/20 09:00 BP 105/66 11/30/20 09:00 Pulse Ox 90 L 11/30/20 09:00 - Orders/Labs/Meds Orders: Active Orders 24 hr Category Date Time Status Sodium Chloride 0.9% [Saline Flush] Med 11/29/20 20:03 Active 10 ml FLUSH ASDIRECTED PRN Sodium Chloride 0.9% [Saline Flush] Med 11/29/20 20:03 Active 2.5 ml FLUSH ASDIRECTED PRN Saline Lock Insert [OM.PC] Stat Oth 11/29/20 20:03 Ordered Medication Orders Acetaminophen (Acetaminophen 325 Mg Tab) 650 mg PO Q4H PRN PRN Reason: Pain/Fever Albuterol/Ipratropium (Albuterol/Ipratropium 3.0-0.5 Mg/3 Ml Neb Soln) 3 ml NEB Q4HRRT PRN PRN Reason: Shortness of Breath Enoxaparin Sodium (Enoxaparin 40 Mg/0.4 Ml Syringe) 40 mg SUBCUT Q24H ANTOLIN Last Admin: 11/30/20 04:24 Dose: 40 mg Documented by: BRANNON Pantoprazole Sodium (Pantoprazole 40 Mg Tab.Cr) 40 mg PO DAILY ANTOLIN Sodium Chloride (Sodium Chloride 0.9% 10 Ml Syringe) 10 ml FLUSH ASDIRECTED PRN PRN Reason: Keep Vein Open Sodium Chloride (Sodium Chloride 0.9% 2.5 Ml Syringe) 2.5 ml FLUSH ASDIRECTED PRN PRN Reason: Keep Vein Open Labs: Laboratory Tests 11/29/20 11/29/20 11/29/20 Range/Units 20:40 20:40 20:40 WBC 3.26 L (4.0-11.0) K/uL RBC 4.38 (4.30-5.90) M/uL Hgb 12.9 (12.0-16.0) g/dL Hct 41.9 (36.0-46.0) % MCV 95.7 (80.0-98.0) fL MCH 29.5 (27.0-32.0) pg MCHC 30.8 L (31.0-37.0) g/dL RDW Std Deviation 56.8 (28.0-62.0) fl RDW Coeff of [place] 17 H (11.0-15.0) % Plt Count 123 L (150-400) K/uL MPV 11.90 (7.40-12.00) fL Neut % (Auto) 48.5 (48.0-80.0) % Lymph % (Auto) 37.1 (16.0-40.0) % [place] % (Auto) 12.6 (0.0-15.0) % Eos % (Auto) 1.5 (0.0-7.0) % Baso % (Auto) 0.3 (0.0-1.5) % Neut # (Auto) 1.6 (1.4-5.7) K/uL Lymph # (Auto) 1.2 (0.6-2.4) K/uL [place] # (Auto) 0.4 (0.0-0.8) K/uL Eos # (Auto) 0.1 (0.0-0.7) K/uL Baso # (Auto) 0.0 (0.0-0.1) K/uL Nucleated RBC % 0.0 /100WBC Nucleated RBCs # 0 K/uL Sodium 146 H (136-145) mmol/L Potassium 3.2 L (3.5-5.1) mmol/L Chloride 108 H (98-107) mmol/L Carbon Dioxide 26.3 (21.0-32.0) mmol/L BUN 5 L (7.0-18.0) mg/dL Creatinine 0.7 (0.6-1.0) mg/dL Est Cr Clr Drug Dosing 84.41 mL/min Estimated GFR (MDRD) > 60.0 ml/min Glucose 95 (74-106) mg/dL Calcium 9.9 (8.5-10.1) mg/dL Total Bilirubin 0.4 (0.2-1.0) mg/dL AST 84 H (15-37) IU/L ALT 134 H (14-63) IU/L Alkaline Phosphatase 154 H (46-116) U/L Troponin I < 0.050 (0.000-0.056) ng/mL Total Protein 7.7 (6.4-8.2) g/dL Albumin 3.4 (3.4-5.0) g/dL Globulin 4.3 H (2.6-4.0) g/dL Albumin/Globulin Ratio 0.8 L (0.9-1.6) HCG, Qual NEGATIVE (NEG) Meds: Medications Generic Name Dose Route Start Last Admin Trade Name Freq PRN Reason Stop Dose Admin Acetaminophen 650 mg 11/30/20 01:56 Acetaminophen 325 Mg Tab PO Q4H PRN Pain/Fever Albuterol/Ipratropium 3 ml 11/30/20 01:56 Albuterol/Ipratropium 3.0-0.5 Mg/3 Ml Neb Soln NEB Q4HRRT PRN Shortness of Breath Enoxaparin Sodium 40 mg 11/30/20 03:00 11/30/20 04:24 Enoxaparin 40 Mg/0.4 Ml Syringe SUBCUT 40 mg Q24H ANTOLIN Administration Pantoprazole Sodium 40 mg 11/30/20 09:30 Pantoprazole 40 Mg Tab.Cr PO DAILY ANTOLIN Sodium Chloride 10 ml 11/29/20 20:03 Sodium Chloride 0.9% 10 Ml Syringe FLUSH ASDIRECTED PRN Keep Vein Open Sodium Chloride 2.5 ml 11/29/20 20:03 Sodium Chloride 0.9% 2.5 Ml Syringe FLUSH ASDIRECTED PRN Keep Vein Open Discontinued Medications Generic Name Dose Route Start Last Admin Trade Name Freq PRN Reason Stop Dose Admin Sodium Chloride 1,000 mls @ 999 mls/hr 11/29/20 20:03 11/29/20 20:18 Normal Saline IV 11/29/20 21:03 999 mls/hr BOLUS ONE Administration Iopamidol 50 ml 11/29/20 23:23 11/29/20 23:24 Iopamidol 755 Mg/Ml 500 Ml Multipack Bottle IVPUSH 11/29/20 23:24 50 ml ONETIME STA Administration Potassium Chloride 40 meq 11/30/20 09:10 Potassium Chloride 20 Meq Tab.Er PO 11/30/20 09:11 ONETIME ONE
[2020-11-29] MEDS ORDERED: Iopamidol 755 MG/ML 500 ML Multipack Bottle IVPUSH STA (23:23)
--- NOTE | 2020-11-30 00:49 | CT ---
INDICATION: Hypoxia and tachycardia. Recent COVID infection. TECHNIQUE: CT chest PE was acquired with 50 cc Isovue 370 intravenous contrast. COMPARISON: Chest CT 11/07/2020 FINDINGS: Heart and vasculature: Contrast opacification of the pulmonary arterial tree is adequate. No sign of pulmonary embolism. Heart size is normal. Thoracic aorta and pulmonary artery are normal in caliber. Lungs and pleural: No pleural effusion or pneumothorax. Extensive bilateral ground-glass opacities throughout both lungs. Lymph nodes/mediastinum: Right hilar lymph nodes measure 9 millimeters and subcarinal lymph nodes measure 8 millimeters in short axis. Chest wall: No masses. Upper abdomen: Cholelithiasis. Mildly decreased density of the liver diffusely. Bones: Unremarkable for age. IMPRESSION: 1. No evidence of pulmonary embolus 2. Extensive bilateral ground-glass opacities throughout both lungs. Appearance is consistent with the given history of COVID-19 infection although degree of consolidation is mildly improved compared to the study of 22 days prior. 3. Cholelithiasis. Please note that all CT scans at this facility use dose modulation, iterative reconstruction, and/or weight-based dosing when appropriate to reduce radiation dose to as low as reasonably achievable. Dictated by Gasper Muñoz MD @ 11/30/2020 12:48:12 AM (Electronically Signed)
[2020-11-30] MEDS ORDERED: Acetaminophen 325 MG Tab PO PRN (01:56)
[2020-11-30] MEDS: Enoxaparin 40 MG/0.4 ML Syringe SUBCUT SCH (04:24)
[2020-11-30] MEDS ORDERED: Potassium Chloride 20 MEQ Tab.ER PO ONE ×2 (09:10→13:30)
--- NOTE | 2020-11-30 12:35 | PCM.HP.2 ---
<Angelica Domínguez - Last Filed: 11/30/20 12:52> H&P History of Present Illness - General Date of Service: 11/30/20 Admit Problem/Dx: Admission Diagnosis/Problem Admission Diagnosis/Problem Respiratory failure with hypoxia - History of Present Illness Initial Comments - Free Text/Narative: The patient is a 30-year-old female, admitted to the medical floor for observation, who has a significant past medical history of obesity with a BMI of over 30. She was admitted to the service today due to hypoxia during ambulation. The patient recently was discharged from the hospital for acute respiratory failure secondary to COVID-19 pneumonia, where she completed courses of remdesivir and dexamethasone. She was discharged with home health care and yesterday when physical therapy showed up at her residence, the patient became dyspneic and was saturating between 70 and 80 when completing her exercises. As a result physical therapy recommended that the patient come back to the hospital to be worked up. When the patient was discharged during previous hospitalization, she went home with no oxygen. When speaking to the patient's mother, Jamila, she disclosed a more detailed history of what had happened during the past couple of days. The patient on previous hospitalization was suffering from left sided parotiditis; she had a ENT appointment this past Friday where she was cleared and told she was free of infection. Throughout the week, the mother of the patient explained that the patient continued to show signs of shortness of breath upon exertion and has had a slight cough which has been dry. Upon further interview, the patient denies fever, chills, headache, chest pain, palpitations, abdominal pain, nausea, vomiting, diarrhea, constipation, and any issues with urination. In the emergency room the patient was placed on 3 L of oxygen in order to keep her O2 saturation above 90%. CT angiogram of the chest showed no pulmonary embolism but did display lung findings consistent with COVID-19 pneumonia. Gallstones were also seen. An EKG showed sinus rhythm. On labs the patient's CBC, showed white blood cells of 3.26, hemoglobin of 12.9, hematocrit of 41.9, and platelets of 123. On CMP the patient's sodium was 146, potassium was 3.2, chloride was 108, carbon dioxide was 26.3, BUN was 5, creatinine was 0.7, AST was 84, and ALT was 134. - Related Data Allergies/Adverse Reactions: Allergies Allergy/AdvReac Type Severity Reaction Status Date / Time No Known Allergies Allergy Verified 11/30/20 03:41 Home Medications: Home Meds Butalbital/Aspirin/Caffeine [Ldkxat-Mjiocvn-Wvwix 50-325-40] 1 tab PO Q4HR PRN 11/09/20 [History] Topiramate [Trokendi Xr] 100 mg PO DAILY 11/09/20 [History] Albuterol Sulfate [Albuterol Sulfate HFA] 1 puff INH Q4H PRN #1 ea 11/24/20 [Rx] Amoxicillin/Clavulanate K [Augmentin 875-125 MG] 1 tab PO Q12HR #8 tablet 11/24/20 [Rx] Dextromethorphan/guaiFENesin [Robitussin DM] 10 ml PO Q4H PRN #120 ml 11/24/20 [Rx] Lactobacillus Acidophilus [Acidophilus Lactobacilli] 1 each PO DAILY #21 capsule 11/24/20 [Rx] predniSONE [Prednisone] 40 mg PO DAILY #10 tablet 12/01/20 [Rx] Past Medical History HEENT History: Reports: Impaired Vision Other HEENT History: wears glasses Cardiovascular History: Reports: None Respiratory History: Reports: None Gastrointestinal History: Reports: None Genitourinary History: Reports: None 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 (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) Musculoskeletal History: Reports: Back Pain, Chronic Other Musculoskeletal History: scoliosis Neurological History: Reports: Migraines Psychiatric History: Reports: None Endocrine/Metabolic History: Reports: Obesity/BMI 30+ Hematologic History: Reports: None Immunologic History: Reports: None Oncologic (Cancer) History: Reports: None Dermatologic History: Reports: None - Infectious Disease History Infectious Disease History: Reports: Chicken Pox, Novel Coronavirus, Shingles - Past Surgical History Head Surgeries/Procedures: Reports: None HEENT Surgical History: Reports: Eye Surgery, Other (See Below) Other HEENT Surgeries/Procedures: mass removed from lower mandibular Cardiovascular Surgical History: Reports: None Respiratory Surgical History: Reports: None GI Surgical History: Reports: None Female Surgical History: Reports: None Endocrine Surgical History: Reports: None Neurological Surgical History: Reports: None Musculoskeletal Surgical History: Reports: None Dermatological Surgical History: Reports: None Social & Family History - Family History Family Medical History: No Pertinent Family History - Tobacco Use Tobacco Use Status *Q: Never Tobacco User Years of Tobacco use: 0 Packs/Tins Daily: 0 Second Hand Smoke Exposure: No - Caffeine Use Caffeine Use: Reports: Coffee, Soda, Tea - Recreational Drug Use Recreational Drug Use: No H&P Review of Systems - Review of Systems: Review Of Systems: See Below General: Reports: Fatigue. Denies: Fever, Chills HEENT: Denies: Headaches, Sore Throat Pulmonary: Reports: Shortness of Breath, Cough. Denies: Wheezing Cardiovascular: Reports: Dyspnea on Exertion. Denies: Chest Pain, Palpitations Gastrointestinal: Denies: Abdominal Pain, Constipation, Diarrhea Genitourinary: Denies: Dysuria, Frequency Exam - Exam Exam: See Below - Vital Signs Vital Signs: Last Vital Signs Temp 97.8 F 11/30/20 09:00 Pulse 66 11/30/20 09:00 Resp 22 H 11/30/20 09:00 BP 105/66 11/30/20 09:00 Pulse Ox 90 L 11/30/20 09:00 Weight: 74.5 kg - Exam General: Alert, Oriented, Cooperative HEENT: Mucosa Moist & [place] Neck: Trachea Midline Lungs: Clear to Auscultation, Normal Respiratory Effort Cardiovascular: Regular Rate, Regular Rhythm GI/Abdominal Exam: Normal Bowel Sounds, Soft, Non-Tender, No Organomegaly - Patient Data Lab Results Last 24 hrs: Laboratory Results - last 24 hr 11/29/20 11/29/20 11/29/20 Range/Units 20:40 20:40 20:40 WBC 3.26 L (4.0-11.0) K/uL RBC 4.38 (4.30-5.90) M/uL Hgb 12.9 (12.0-16.0) g/dL Hct 41.9 (36.0-46.0) % MCV 95.7 (80.0-98.0) fL MCH 29.5 (27.0-32.0) pg MCHC 30.8 L (31.0-37.0) g/dL RDW Std Deviation 56.8 (28.0-62.0) fl RDW Coeff of [place] 17 H (11.0-15.0) % Plt Count 123 L (150-400) K/uL MPV 11.90 (7.40-12.00) fL Neut % (Auto) 48.5 (48.0-80.0) % Lymph % (Auto) 37.1 (16.0-40.0) % [place] % (Auto) 12.6 (0.0-15.0) % Eos % (Auto) 1.5 (0.0-7.0) % Baso % (Auto) 0.3 (0.0-1.5) % Neut # (Auto) 1.6 (1.4-5.7) K/uL Lymph # (Auto) 1.2 (0.6-2.4) K/uL [place] # (Auto) 0.4 (0.0-0.8) K/uL Eos # (Auto) 0.1 (0.0-0.7) K/uL Baso # (Auto) 0.0 (0.0-0.1) K/uL Nucleated RBC % 0.0 /100WBC Nucleated RBCs # 0 K/uL Sodium 146 H (136-145) mmol/L Potassium 3.2 L (3.5-5.1) mmol/L Chloride 108 H (98-107) mmol/L Carbon Dioxide 26.3 (21.0-32.0) mmol/L BUN 5 L (7.0-18.0) mg/dL Creatinine 0.7 (0.6-1.0) mg/dL Est Cr Clr Drug Dosing 84.41 mL/min Estimated GFR (MDRD) > 60.0 ml/min Glucose 95 (74-106) mg/dL Calcium 9.9 (8.5-10.1) mg/dL Total Bilirubin 0.4 (0.2-1.0) mg/dL AST 84 H (15-37) IU/L ALT 134 H (14-63) IU/L Alkaline Phosphatase 154 H (46-116) U/L Troponin I < 0.050 (0.000-0.056) ng/mL Total Protein 7.7 (6.4-8.2) g/dL Albumin 3.4 (3.4-5.0) g/dL Globulin 4.3 H (2.6-4.0) g/dL Albumin/Globulin Ratio 0.8 L (0.9-1.6) HCG, Qual NEGATIVE (NEG) Result Diagrams: 11/29/20 20:40 11/29/20 20:40 Sepsis Event Note - Evaluation Sepsis Screening Result: No Definite Risk - Focused Exam Vital Signs: Vital Signs Temp Pulse Resp BP Pulse Ox Pulse Ox 11/30/20 09:00 97.8 F 66 22 H 105/66 90 L 11/30/20 05:54 97.8 F 91 15 113/69 94 L 11/30/20 02:00 94 L - Problem List (1) Hypokalemia SNOMED Code(s): 43067938 ICD Code: E87.6 - HYPOKALEMIA Status: Acute (2) Pneumonia due to COVID-19 virus SNOMED Code(s): 297656219775765359 ICD Code: U07.1 - COVID-19; J12.82 - PNEUMONIA DUE TO CORONAVIRUS DISEASE 2019 Status: Acute (3) Respiratory failure with hypoxia SNOMED Code(s): 15834656417327020 ICD Code: J96.91 - RESPIRATORY FAILURE, UNSPECIFIED WITH HYPOXIA Status: Acute Problem List Initiated/Reviewed/Updated: Yes Orders Last 24hrs: Active Orders 24 hr Category Date Time Status Patient Status [ADT] Routine ADT 11/30/20 01:07 Active Antiembolic Devices [RC] PER UNIT ROUTINE Care 11/30/20 01:55 Active Oxygen Therapy [RC] ASDIRECTED Care 11/30/20 01:55 Active RT Aerosol Therapy [RC] ASDIRECTED Care 11/30/20 01:57 Active Vital Signs [RC] Q4H Care 11/30/20 01:54 Active Regular Diet [DIET] Diet 11/30/20 Breakfast Active Acetaminophen [TylenoL] Med 11/30/20 01:56 Active 650 mg PO Q4H PRN Albuterol/Ipratropium [DuoNeb 3.0-0.5 MG/3 ML] Med 11/30/20 01:56 Active 3 ml NEB Q4HRRT PRN Enoxaparin [Lovenox] Med 11/30/20 03:00 Active 40 mg SUBCUT Q24H Pantoprazole [ProTONIX] Med 11/30/20 09:30 Active 40 mg PO DAILY Sodium Chloride 0.9% [Saline Flush] Med 11/29/20 20:03 Active 10 ml FLUSH ASDIRECTED PRN Sodium Chloride 0.9% [Saline Flush] Med 11/29/20 20:03 Active 2.5 ml FLUSH ASDIRECTED PRN SCD [Sequential Compression Device] [OM.PC] Routine Oth 11/30/20 01:55 Ordered Saline Lock Insert [OM.PC] Stat Oth 11/29/20 20:03 Ordered Medication Orders Acetaminophen (Acetaminophen 325 Mg Tab) 650 mg PO Q4H PRN PRN Reason: Pain/Fever Albuterol/Ipratropium (Albuterol/Ipratropium 3.0-0.5 Mg/3 Ml Neb Soln) 3 ml NEB Q4HRRT PRN PRN Reason: Shortness of Breath Enoxaparin Sodium (Enoxaparin 40 Mg/0.4 Ml Syringe) 40 mg SUBCUT Q24H ANTOLIN Last Admin: 11/30/20 04:24 Dose: 40 mg Documented by: BRANNON Pantoprazole Sodium (Pantoprazole 40 Mg Tab.Cr) 40 mg PO DAILY ANTOLIN Sodium Chloride (Sodium Chloride 0.9% 10 Ml Syringe) 10 ml FLUSH ASDIRECTED PRN PRN Reason: Keep Vein Open Sodium Chloride (Sodium Chloride 0.9% 2.5 Ml Syringe) 2.5 ml FLUSH ASDIRECTED PRN PRN Reason: Keep Vein Open Assessment/Plan Comment:: Admit the patient to the medical floor for observation, vitals per unit routine, activities up ad pablo., regular diet, DVT prophylaxis with Lovenox, GI prophylaxis with Protonix 1. Hypoxia during ambulation -The patient has been supplied with oxygen and is currently saturating 94% on 2 L -Duo nebulizer treatments 3 mL every 4 hours as needed is on board -We will reassess the patient for the need of home oxygen during both rest and on exertion 2. Recent history of acute respiratory failure secondary to COVID-19 pneumonia -The patient finished her courses of remdesivir and dexamethasone during previous hospitalization -We will continue to monitor for any lingering effects of COVID-19 infection -We will check morning CBC for any signs of infection 3. Hypokalemia -40 mEq of potassium chloride per oral route has been supplied for the patient -We will check morning CMP for improvements and replenish as necessary <Warner Quiñones - Last Filed: 12/02/20 15:30> H&P History of Present Illness - General Admit Problem/Dx: Admission Diagnosis/Problem Admission Diagnosis/Problem Respiratory failure with hypoxia Exam - Vital Signs Vital Signs: Last Vital Signs Temp 36.6 C 12/01/20 12:31 Pulse 86 12/01/20 08:00 Resp 24 H 12/01/20 12:31 BP 90/54 L 12/01/20 12:31 Pulse Ox 90 L 12/01/20 12:31 - Patient Data Result Diagrams: 12/01/20 05:30 12/01/20 05:30 Assessment/Plan Comment:: I performed a history and physical exam of the patient and discussed management with resident. I have reviewed the residents note and agree with documented findings and plan unless otherwise specified in my note.
[2020-11-30] MEDS: Albuterol/Ipratropium 3.0-0.5 MG/3 ML Neb Soln NEB PRN ×2 (12:44→18:50)
[2020-11-30] MEDS: Pantoprazole 40 MG Tab.CR PO SCH (13:24)
[2020-11-30] MEDS: methylPREDNISolone Sodium Succinate 40 MG/1 ML SDV IVPUSH SCH ×2 (15:48→22:49)
[2020-12-01] MEDS: Enoxaparin 40 MG/0.4 ML Syringe SUBCUT SCH (03:33)
[2020-12-01] MEDS: Albuterol/Ipratropium 3.0-0.5 MG/3 ML Neb Soln NEB PRN (04:21)
[2020-12-01 07:44] LABS: BLOOD UREA NITROGEN,BUN 5 mg/dL (7.0-18.0); CARBON DIOXIDE,CO2 24.2 mmol/L (21.0-32.0); CHLORIDE,CL 114 mmol/L (98-107); GLUCOSE RANDOM 150 mg/dL (74-106); POTASSIUM,K 3.7 mmol/L (3.5-5.1); SODIUM,NA 151 mmol/L (136-145)
[2020-12-01 08:11] VITALS: PULSE 86
[2020-12-01] MEDS: methylPREDNISolone Sodium Succinate 40 MG/1 ML SDV IVPUSH SCH (08:39)
[2020-12-01] MEDS: Pantoprazole 40 MG Tab.CR PO SCH (08:39)
[2020-12-01] MEDS ORDERED: Dextrose 10% in Water 500 ML IV SCH (10:15)
--- NOTE | 2020-12-01 10:38 | PCM.DCSUM1 ---
<Angelica Domínguez - Last Filed: 12/01/20 10:39> Discharge Summary - Hospital Course Free Text/Narrative:: The patient is a 30-year-old female, admitted to the service, now on day 2, with a significant past medical history of obesity with a BMI over 30, and recent COVID-19 pneumonia infection requiring hospitalization, who was admitted due to hypoxia during ambulation while at home. While in hospital she was saturating at 89% while being on 2.5 L of oxygen. She was also receiving duo nebulizer treatment every 4 hours as needed as well as Solu-Medrol via IV route every 8 hours. Upon discharge the patient will be sent home with oxygen 2 L as needed on exertion and prednisone 40 mg per oral route daily with a supply of 10 tablets. The patient also has albuterol inhalers at home that she can use when short of breath. The patient also had hypernatremia on her labs today and will be given dextrose 10% in water 500 mL before going home. The patient has been encouraged to increase her free water intake while at home to keep her sodium levels in the appropriate range. The patient has also been advised to follow-up with her primary care physician in 1 to 2 weeks to assess her overall health. Upon interview today the patient feels much better with respect to her breathing and has no issues with cough, and is eating and drinking. The patient is now ready to be discharged. - Discharge Data Discharge Date: 12/01/20 Discharge Disposition: Home, Self-Care 01 Condition: Stable - Referral to Home Health Primary Care Physician: Sosa Carvalho, - Discharge Diagnosis/Problem(s) (1) Hypokalemia SNOMED Code(s): 96288404 ICD Code: E87.6 - HYPOKALEMIA Status: Acute (2) Pneumonia due to COVID-19 virus SNOMED Code(s): 408392700649676668 ICD Code: U07.1 - COVID-19; J12.82 - PNEUMONIA DUE TO CORONAVIRUS DISEASE 2019 Status: Acute (3) Respiratory failure with hypoxia SNOMED Code(s): 55712763453525596 ICD Code: J96.91 - RESPIRATORY FAILURE, UNSPECIFIED WITH HYPOXIA Status: Acute - Patient Instructions Diet: Regular Diet as Tolerated Activity: As Tolerated Showering/Bathing: May Shower Other/Special Instructions: -If short of breath and/or respiratory difficulty persists despite oxygen therapy at home, return to the hospital. -Be compliant with medications - Discharge Plan *PRESCRIPTION DRUG MONITORING PROGRAM REVIEWED*: No *COPY OF PRESCRIPTION DRUG MONITORING REPORT IN PATIENT DILIP: No Prescriptions/Med Rec: predniSONE [Prednisone] 40 mg PO DAILY #10 tablet Home Medications: Home Meds Butalbital/Aspirin/Caffeine [Msyxpz-Rnwjqlr-Utqnc 50-325-40] 1 tab PO Q4HR PRN 11/09/20 [History] Topiramate [Trokendi Xr] 100 mg PO DAILY 11/09/20 [History] Albuterol Sulfate [Albuterol Sulfate HFA] 1 puff INH Q4H PRN #1 ea 11/24/20 [Rx] Amoxicillin/Clavulanate K [Augmentin 875-125 MG] 1 tab PO Q12HR #8 tablet 11/24/20 [Rx] Dextromethorphan/guaiFENesin [Robitussin DM] 10 ml PO Q4H PRN #120 ml 11/24/20 [Rx] Lactobacillus Acidophilus [Acidophilus Lactobacilli] 1 each PO DAILY #21 capsule 11/24/20 [Rx] predniSONE [Prednisone] 40 mg PO DAILY #10 tablet 12/01/20 [Rx] Oxygen Therapy Mode: Nasal Cannula Oxygen Flow Rate (L/min): 2 (Use with exertion and as needed) Patient Handouts: COVID-19, COVID-19 Vaccine Information, Home Oxygen Use, Adult, Prednisone tablets Forms: ED Department Discharge Referrals: Sosa Carvalho DO [Primary Care Provider] - - Discharge Summary/Plan Comment DC Time >30 min.: Yes Total # of Minutes for Discharge Time: 35 minutes - Review of Systems General: Denies: Fever, Weakness, Fatigue HEENT: Denies: Headaches, Sore Throat Pulmonary: Denies: Shortness of Breath, Cough Cardiovascular: Denies: Chest Pain, Palpitations, Dyspnea on Exertion Gastrointestinal: Denies: Abdominal Pain Genitourinary: Denies: Dysuria - Patient Data Vitals - Most Recent: Last Vital Signs Temp 98.7 F 12/01/20 04:00 Pulse 86 12/01/20 08:00 Resp 14 12/01/20 08:00 BP 97/55 L 12/01/20 08:00 Pulse Ox 94 L 12/01/20 08:00 Weight - Most Recent: 74.5 kg I&O - Last 24 hours: Intake & Output 11/30/20 12/01/20 12/01/20 22:59 06:59 14:59 Intake Total 500 Balance 500 Lab Results - Last 24 hrs: Laboratory Results - last 24 hr 12/01/20 12/01/20 Range/Units 05:30 05:30 WBC 2.31 L (4.0-11.0) K/uL RBC 3.58 L (4.30-5.90) M/uL Hgb 10.5 L (12.0-16.0) g/dL Hct 34.3 L (36.0-46.0) % MCV 95.8 (80.0-98.0) fL MCH 29.3 (27.0-32.0) pg MCHC 30.6 L (31.0-37.0) g/dL RDW Std Deviation 57.2 (28.0-62.0) fl RDW Coeff of [place] 17 H (11.0-15.0) % Plt Count 150 (150-400) K/uL MPV 12.30 H (7.40-12.00) fL Neut % (Auto) 81.8 H (48.0-80.0) % Lymph % (Auto) 15.6 L (16.0-40.0) % [place] % (Auto) 2.6 (0.0-15.0) % Eos % (Auto) 0.0 (0.0-7.0) % Baso % (Auto) 0.0 (0.0-1.5) % Neut # (Auto) 1.9 (1.4-5.7) K/uL Lymph # (Auto) 0.4 L (0.6-2.4) K/uL [place] # (Auto) 0.1 (0.0-0.8) K/uL Eos # (Auto) 0.0 (0.0-0.7) K/uL Baso # (Auto) 0.0 (0.0-0.1) K/uL Nucleated RBC % 0.0 /100WBC Nucleated RBCs # 0 K/uL Sodium 151 H (136-145) mmol/L Potassium 3.7 (3.5-5.1) mmol/L Chloride 114 H (98-107) mmol/L Carbon Dioxide 24.2 (21.0-32.0) mmol/L BUN 5 L (7.0-18.0) mg/dL Creatinine 0.5 L (0.6-1.0) mg/dL Est Cr Clr Drug Dosing 118.17 mL/min Estimated GFR (MDRD) > 60.0 ml/min Glucose 150 H (74-106) mg/dL Calcium 8.6 (8.5-10.1) mg/dL Total Bilirubin 0.4 (0.2-1.0) mg/dL AST 78 H (15-37) IU/L ALT 132 H (14-63) IU/L Alkaline Phosphatase 143 H (46-116) U/L Total Protein 6.3 L (6.4-8.2) g/dL Albumin 2.9 L (3.4-5.0) g/dL Globulin 3.4 (2.6-4.0) g/dL Albumin/Globulin Ratio 0.9 (0.9-1.6) Med Orders - Current: Current Medications Acetaminophen (Acetaminophen 325 Mg Tab) 650 mg PO Q4H PRN PRN Reason: Pain/Fever Albuterol/Ipratropium (Albuterol/Ipratropium 3.0-0.5 Mg/3 Ml Neb Soln) 3 ml NEB Q4HRRT PRN PRN Reason: Shortness of Breath Last Admin: 12/01/20 04:21 Dose: 3 ml Documented by: Enoxaparin Sodium (Enoxaparin 40 Mg/0.4 Ml Syringe) 40 mg SUBCUT Q24H [facility] Last Admin: 12/01/20 03:33 Dose: 40 mg Documented by: Dextrose/Water (Dextrose 10% In Water) 500 mls @ 999 mls/hr IV ASDIRECTED ANTOLIN Methylprednisolone Sodium Succinate (Methylprednisolone Sodium Succinate 40 Mg/1 Ml Sdv) 40 mg IVPUSH Q8H [facility] Last Admin: 12/01/20 08:39 Dose: 40 mg Documented by: Pantoprazole Sodium (Pantoprazole 40 Mg Tab.Cr) 40 mg PO DAILY [facility] Last Admin: 12/01/20 08:39 Dose: 40 mg Documented by: Sodium Chloride (Sodium Chloride 0.9% 10 Ml Syringe) 10 ml FLUSH ASDIRECTED PRN PRN Reason: Keep Vein Open Sodium Chloride (Sodium Chloride 0.9% 2.5 Ml Syringe) 2.5 ml FLUSH ASDIRECTED PRN PRN Reason: Keep Vein Open Discontinued Medications Sodium Chloride (Normal Saline) 1,000 mls @ 999 mls/hr IV BOLUS ONE Stop: 11/29/20 21:03 Last Admin: 11/29/20 20:18 Dose: 999 mls/hr Documented by: Iopamidol (Iopamidol 755 Mg/Ml 500 Ml Multipack Bottle) 50 ml IVPUSH ONETIME STA Stop: 11/29/20 23:24 Last Admin: 11/29/20 23:24 Dose: 50 ml Documented by: Potassium Chloride (Potassium Chloride 20 Meq Tab.Er) 40 meq PO ONETIME ONE Stop: 11/30/20 13:31 Last Admin: 11/30/20 18:30 Dose: Not Given Documented by: - Exam General: Reports: Alert, Oriented, Cooperative HEENT: Reports: Mucous Membr. Moist/[place] Lungs: Reports: Clear to Auscultation, Normal Respiratory Effort Cardiovascular: Reports: Regular Rate, Regular Rhythm, No Murmurs GI/Abdominal Exam: Normal Bowel Sounds, Soft, Non-Tender <Ishmael,Hooria - Last Filed: 12/02/20 15:43> Discharge Summary - Hospital Course Free Text/Narrative:: I have seen and evaluated the patient and agree with the residents note unless specified in my note - Referral to Home Health Primary Care Physician: Sosa Carvalho, DO - Patient Data Vitals - Most Recent: Last Vital Signs Temp 36.6 C 12/01/20 12:31 Pulse 86 12/01/20 08:00 Resp 24 H 12/01/20 12:31 BP 90/54 L 12/01/20 12:31 Pulse Ox 90 L 12/01/20 12:31 Med Orders - Current: Current Medications Discontinued Medications Acetaminophen (Acetaminophen 325 Mg Tab) 650 mg PO Q4H PRN PRN Reason: Pain/Fever Albuterol/Ipratropium (Albuterol/Ipratropium 3.0-0.5 Mg/3 Ml Neb Soln) 3 ml NEB Q4HRRT PRN PRN Reason: Shortness of Breath Last Admin: 12/01/20 04:21 Dose: 3 ml Documented by: Enoxaparin Sodium (Enoxaparin 40 Mg/0.4 Ml Syringe) 40 mg SUBCUT Q24H [facility] Last Admin: 12/01/20 03:33 Dose: 40 mg Documented by: Sodium Chloride (Normal Saline) 1,000 mls @ 999 mls/hr IV BOLUS ONE Stop: 11/29/20 21:03 Last Admin: 11/29/20 20:18 Dose: 999 mls/hr Documented by: Dextrose/Water (Dextrose 5% In Water) 500 mls @ 999 mls/hr IV ASDIRECTED ANTOLIN Last Admin: 12/01/20 11:24 Dose: 999 mls/hr Documented by: Iopamidol (Iopamidol 755 Mg/Ml 500 Ml Multipack Bottle) 50 ml IVPUSH ONETIME STA Stop: 11/29/20 23:24 Last Admin: 11/29/20 23:24 Dose: 50 ml Documented by: Methylprednisolone Sodium Succinate (Methylprednisolone Sodium Succinate 40 Mg/1 Ml Sdv) 40 mg IVPUSH Q8H [facility] Last Admin: 12/01/20 08:39 Dose: 40 mg Documented by: Pantoprazole Sodium (Pantoprazole 40 Mg Tab.Cr) 40 mg PO DAILY [facility] Last Admin: 12/01/20 08:39 Dose: 40 mg Documented by: Potassium Chloride (Potassium Chloride 20 Meq Tab.Er) 40 meq PO ONETIME ONE Stop: 11/30/20 13:31 Last Admin: 11/30/20 18:30 Dose: Not Given Documented by: Sodium Chloride (Sodium Chloride 0.9% 10 Ml Syringe) 10 ml FLUSH ASDIRECTED PRN PRN Reason: Keep Vein Open Sodium Chloride (Sodium Chloride 0.9% 2.5 Ml Syringe) 2.5 ml FLUSH ASDIRECTED PRN PRN Reason: Keep Vein Open
[2020-12-01] MEDS ORDERED: Dextrose 5% in Water 500 ML IV SCH (11:15)
[2020-12-01 12:33] VITALS: BP 90/54
== END 2020-12-01 12:21 | disposition home or self-care (01) ==
LOC: MW.ED 16:34 → MW.MS 11-30 01:07
PROVIDERS: ADMIT Student in an Organized Health Care Education/Training Program; ATTEND Student in an Organized Health Care Education/Training Program
DX: U07.1 COVID-19 (principal); J96.01 Acute respiratory failure with hypoxia; J12.82 Pneumonia due to coronavirus disease 2019; E87.6 Hypokalemia; E66.9 Obesity, unspecified; Z79.899 Other long term (current) drug therapy
CPT/HCPCS: 36415; 71275; 80053; 84484; 84703; 85025; 93005; 94664; 99285; A9270; J1650; J2920; J7030; J7060; Q9967; 96372; 96374; 96376; G0378; J7620-GY

== ENCOUNTER 2024-11-15 13:15 | Emergency (ER) | payer MEDICARE, MEDICAID ==
[2024-11-15 14:59] VITALS: BP 109/73; PULSE 66
== END 2024-11-15 14:59 | disposition home or self-care (01) ==
LOC: MW.ED 13:15
DX: J18.9 Pneumonia, unspecified organism (principal); I10 Essential (primary) hypertension; Z79.899 Other long term (current) drug therapy
CPT/HCPCS: 71046; 71046-26; 99283; 99284